=== PATIENT | female | born 1965 | race Caucasian/White ===

== ENCOUNTER 2019-05-05 13:32 | Emergency (ER) | payer OTHER ==
--- NOTE | 2019-05-05 14:42 | RAD REPORT ---
EXAM DESCRIPTION: RAD - Knee Left 3 View - 05/05/2019 2:36 pm CLINICAL HISTORY: injury;Pain COMPARISON: No comparisons FINDINGS: Mild arthritic changes are present in the medial joint compartment. Trace suprapatellar denise int fluid. No aggressive marrow pattern. IMPRESSION: Mild osteoarthritis.
--- NOTE | 2019-05-05 14:44 | RAD REPORT ---
EXAM DESCRIPTION: RAD - Hand Right 3 View - 05/05/2019 2:36 pm CLINICAL HISTORY: PAIN COMPARISON: Knee Left 3 View dated 05/05/2019 FINDINGS: No fracture or dislocation seen.
--- NOTE | 2019-05-05 14:50 | ER ---
Nurse's Notes [facility] Name: Alondra Lora Age: 54 yrs Sex: Female : 1965 Arrival Date: 05/05/2019 Time: 13:33 Bed 25 Private MD: Emre Manzanares V Diagnosis: Contusion of left knee;Contusion of right hand Presentation: 05/05 14:02 Presenting complaint: Patient states: L knee pain after tripping and falling in the parking lot today. pain is 1/10. Transition of care: patient was not received from another setting of care. Onset of symptoms was May 05, 2019. Risk Assessment: Do you want to hurt yourself or someone else? Patient reports no desire to harm self or others. Initial Sepsis Screen: Does the patient have a suspected source of infection? No. Patient's initial sepsis screen is negative. Initial Sepsis Screen: Does the patient meet any 2 criteria? No. Patient's initial sepsis screen is negative. Care prior to arrival: None. 14:02 Method Of Arrival: Ambulatory ss 14:02 Acuity: ALAINA 4 ss 14:09 Mechanism of Injury: Fall from standing position. Trauma event details: Injury occurred mg2 in the [facility], Injury occurred: parking lot. 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 - Social history:: Smoking status: Patient/guardian denies using tobacco. - Immunization history: Last tetanus immunization: unknown. - Ebola Screening: : Patient denies exposure to infectious person Patient denies travel to an Ebola-affected area in the 21 days before illness onset. - Family history:: not pertinent. - Hospitalizations: : No recent hospitalization is reported. Screenin:09 Abuse screen: Denies threats or abuse. Denies injuries from another. Nutritional mg2 screening: No deficits noted. Tuberculosis screening: No symptoms or risk factors identified. Fall risk At risk due to prior history of falls. 15:21 Fall Risk Fall in past 12 months (25 points). mg2 Primary Survey: 14:06 NO uncontrolled hemorrhage observed. A: The patient is alert. Airway: patent. mg2 Breathing/Chest: Respiratory pattern: regular, Respiratory effort: spontaneous, unlabored, Breath sounds: clear, bilaterally. in mediastinum, right upper lobe, left upper lobe, right middle lobe, left lower lobe and right lower lobe Chest inspection: symmetrical rise and fall of the chest. Circulation: Skin color: pink. Disability Alert. Exposure/Environment: All clothing and personal items were removed. Forensic evidence collection is not deemed to be indicated at this time. Items placed in patient belonging bag. There is no evidence of uncontrolled external bleeding. Obvious injury(ies) are noted at this time: abrasion on the left knee. 15:21 Reassessment Airway Airway Patent Breathing/Chest Respiratory pattern Regular mg2 Respiratory effort Spontaneous Unlabored Circulation Color [place] Disability Alert. Secondary Survey: 14:09 HEENT: No deficits noted. Gastrointestinal: No deficits noted. : No deficits noted. mg2 Assessment: 14:07 General: Appears in no apparent distress. comfortable, Behavior is calm, cooperative. mg2 Pain: Complains of pain in left knee and right thumb. Neuro: Level of Consciousness is awake, alert, obeys commands, Oriented to person, place, time, situation. EENT: No signs and/or symptoms were reported regarding the EENT system. Cardiovascular: Capillary refill < 3 seconds Patient's skin is warm and dry. Respiratory: Airway is patent Respiratory effort is even, unlabored, Respiratory pattern is regular, symmetrical. GI: No signs and/or symptoms were reported involving the gastrointestinal system. : No signs and/or symptoms were reported regarding the genitourinary system. Derm: Skin abrasion to the left knee. Musculoskeletal: Circulation, motion, and sensation intact. Capillary refill < 3 seconds, Reports pain in right thumb and left knee. Injury Description: Abrasion. Vital Signs: 14:04 BP 119 / 64; Pulse 90; Resp 18; Temp 98; Pulse Ox 100% on R/A; Pain 1/10; mg2 15:20 BP 120 / 78; Pulse 89; Resp 18; Temp 98; Pulse Ox 100% on R/A; mg2 Bismark Coma Score: 14:04 Eye Response: spontaneous(4). Verbal Response: oriented(5). Motor Response: obeys mg2 commands(6). Total: 15. Trauma Score (Adult): 14:04 Eye Response: spontaneous(1); Verbal Response: oriented(1); Motor Response: obeys mg2 commands(2); Systolic BP: > 89 mm Hg(4); Respiratory Rate: 10 to 29 per min(4); Bismark Score: 15; Trauma Score: 12 ED Course: 13:33 Patient arrived in ED. as 13:34 Emre Manzanares MD is Private Physician. as 14:01 Rene Ly MD is Attending Physician. rn 14:04 Boni Sanchez RN is Primary Nurse. mg2 14:04 Triage completed. ss 14:05 Arm band placed on right wrist. ss 14:09 Patient did not have IV access during this emergency room visit. Patient maintains SpO2 mg2 saturation greater than 95% on room air. 14:11 Patient has correct armband on for positive identification. mg2 14:37 XRAY Knee LEFT 3 view In Process Unspecified. EDMS 14:37 XRAY Hand RIGHT 3 View: right thumb injury In Process Unspecified. EDMS 15:00 Thermoregulation: warm blanket given to patient. mg2 15:18 Ice pack to injury. mg2 15:21 No provider procedures requiring assistance completed. mg2 15:22 Patient did not have IV access during this emergency room visit. mg2 Administered Medications: No medications were administered Intake: 14:04 PO: 0ml; Total: 0ml. mg2 Outcome: 14:49 Discharge ordered by . rn 15:21 Discharged to home ambulatory. mg2 15:21 Condition: stable 15:21 Discharge instructions given to patient, Instructed on discharge instructions, follow up and referral plans. Demonstrated understanding of instructions, follow-up care. 15:22 Patient's length of stay was not longer than 2 hours. mg2 15:22 Patient left the ED. mg2 Signatures: Dispatcher [employer] Vi Bridges Roman, MD MD rn Smirch, Shelby, RN RN ss Boni Sanchez RN RN mg2
--- NOTE | 2019-05-05 14:50 | EDPHYS ---
Physician Documentation [facility] Name: Alondra Lora Age: 54 yrs Sex: Female : 1965 Arrival Date: 05/05/2019 Time: 13:33 Bed 25 Private MD: Emre Manzanares V ED Physician Rene Ly HPI: 05/05 14:14 This 54 yrs old Female presents to ER via Ambulatory with complaints of Fall rn Injury. 14:14 Details of fall: The patient fell from an upright position, while walking. Onset: The rn symptoms/episode began/occurred just prior to arrival. Associated injuries: The patient sustained left knee, right thumb. Severity of symptoms: At their worst the symptoms were mild, in the emergency department the symptoms are unchanged. The patient has not experienced similar symptoms in the past. Tripped in parking lot, fell forward, reports hurt left knee and right thumb. No head injury. Denies other injuries. . Is ambulatory, and right thumb does not feel broken.. 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 - Social history:: Smoking status: Patient/guardian denies using tobacco. - Immunization history: Last tetanus immunization: unknown. - Ebola Screening: : Patient denies exposure to infectious person Patient denies travel to an Ebola-affected area in the 21 days before illness onset. - Family history:: not pertinent. - Hospitalizations: : No recent hospitalization is reported. ROS: 14:14 Constitutional: Negative for fever, chills, and weight loss, Neck: Negative for injury, rn pain, and swelling, Cardiovascular: Negative for chest pain, palpitations, and edema, Respiratory: Negative for shortness of breath, cough, wheezing, and pleuritic chest pain, Abdomen/GI: Negative for abdominal pain, nausea, vomiting, diarrhea, and constipation, Back: Negative for injury and pain, MS/Extremity: + left knee and right thumb pain and injury Neuro: Negative for headache, weakness, numbness, tingling, and seizure. Exam: 14:14 Constitutional: This is a well developed, well nourished patient who is awake, alert, rn and in no acute distress. Head/Face: Normocephalic, atraumatic. Eyes: Pupils equal round and reactive to light, extra-ocular motions intact. No periorbital swelling or trauma MS/ Extremity: Pulses equal, no cyanosis. Neurovascular intact. Full, normal range of motion. Equal circumference. + mild tenderness inferior margin left patella with extensor function intact, no patellar proper tendernes Neuro: Awake and alert, GCS 15, oriented to person, place, time, and situation. Vital Signs: 14:04 BP 119 / 64; Pulse 90; Resp 18; Temp 98; Pulse Ox 100% on R/A; Pain 1/10; mg2 15:20 BP 120 / 78; Pulse 89; Resp 18; Temp 98; Pulse Ox 100% on R/A; mg2 Bismark Coma Score: 14:04 Eye Response: spontaneous(4). Verbal Response: oriented(5). Motor Response: obeys mg2 commands(6). Total: 15. Trauma Score (Adult): 14:04 Eye Response: spontaneous(1); Verbal Response: oriented(1); Motor Response: obeys mg2 commands(2); Systolic BP: > 89 mm Hg(4); Respiratory Rate: 10 to 29 per min(4); Bismark Score: 15; Trauma Score: 12 MDM: 14:01 Patient medically screened. rn 14:48 Differential diagnosis: abrasion, contusion, fracture. Data reviewed: vital signs, rn nurses notes, radiologic studies, plain films, and as a result, I will discharge patient. Counseling: I had a detailed discussion with the patient and/or guardian regarding: the historical points, exam findings, and any diagnostic results supporting the discharge/admit diagnosis, radiology results, the need for outpatient follow up, to return to the emergency department if symptoms worsen or persist or if there are any questions or concerns that arise at home. Special discussion: I discussed with the patient/guardian in detail that at this point there is no indication for admission to the hospital. It is understood, however, that if the symptoms persist or worsen the patient needs to return immediately for re-evaluation. ED course: Xrays neg for fracture/dislocation.. 05/05 14:05 Order name: XRAY Knee LEFT 3 view; Complete Time: 14:47 rn 05/05 14:05 Order name: XRAY Hand RIGHT 3 View: right thumb injury; Complete Time: 14:47 rn Administered Medications: No medications were administered Disposition: 05/05/19 14:49 Discharged to Home. Impression: Contusion of left knee, Contusion of right hand. - Condition is Stable. - Discharge Instructions: Contusion, Hand Contusion, Knee Pain. - Medication Reconciliation Form, Thank You Letter, Antibiotic Education, Prescription Opioid Use form. - Follow up: Private Physician; When: As needed; Reason: Recheck today's complaints, Re-evaluation by your physician. - Problem is new. - Symptoms have improved. Signatures: Dispatcher [employer] EDMS Rene Ly MD MD rn Smirch, Shelby, RN RN ss Boni Sanchez RN RN mg2 Corrections: (The following items were deleted from the chart) 15:22 14:49 05/05/2019 14:49 Discharged to Home. Impression: Contusion of left knee; mg2 Contusion of right hand. Condition is Stable. Forms are Medication Reconciliation Form, Thank You Letter, Antibiotic Education, Prescription Opioid Use. Follow up: Private Physician; When: As needed; Reason: Recheck today's complaints, Re-evaluation by your physician. Problem is new. Symptoms have improved. rn 15:22 15:22 05/05/2019 14:49 Discharged to Home. Impression: Contusion of left knee; mg2 Contusion of right hand. Condition is Stable. Discharge Instructions: Contusion, Hand Contusion, Knee Pain. Forms are Medication Reconciliation Form, Thank You Letter, Antibiotic Education, Prescription Opioid Use. Follow up: Private Physician; When: As needed; Reason: Recheck today's complaints, Re-evaluation by your physician. Problem is new. Symptoms have improved. mg2
[2019-05-05 15:38] VITALS: TEMP 98; O2SAT 100
[2019-05-05 15:40] VITALS: BP 120/78
== END 2019-05-05 15:22 | disposition home or self-care (01) ==
LOC: ER 13:32
DX: S80.02XA Contusion of left knee, initial encounter (principal); S60.221A Contusion of right hand, initial encounter; W01.0XXA Fall on same level from slipping, tripping and stumbling without subsequent striking against object, initial encounter; Y93.9 Activity, unspecified; Y92.89 Other specified places as the place of occurrence of the external cause; Z88.0 Allergy status to penicillin
CPT/HCPCS: 99284

== ENCOUNTER 2021-10-10 07:01 | Day surgery (SDC) | payer BC, SELFPAY ==
[2021-10-10] MEDS ORDERED: Ringers Lactate 1,000 ML IV ONE (07:14)
[2021-10-10] MEDS ORDERED: LIDOCAINE 1% MPF 5 ML VIAL ONE (08:55)
[2021-10-10] MEDS ORDERED: propofoL 200 MG/20 ML VIAL IV ONE (08:55)
[2021-10-10 10:14] VITALS: O2SAT 99
[2021-10-10 10:15] VITALS: BP 108/76; TEMP 97.2
--- NOTE | 2021-10-10 21:12 | OP ---
Surgeon: Rashard Sanchez MD Procedure Performed: Esophagogastroduodenoscopy. Indication For Procedure: Occult blood in the stools. Plan For Anesthesia: Monitored anesthesia care. Complexity: Average. Technique: After obtaining informed consent from the patient, explaining risks and complications, wh ich include, but are not limited to bleeding, infection, perforation, and anesthesia complication, th e patient was placed in the left lateral position and sedation was given. From then on, the scope wa s advanced into the mouth and carefully guided up till the second portion of the duodenum. After com pletion of this examination, scope and equipment were withdrawn and procedure was terminated in a saf e manner. Findings: Esophagus: No gross lesions seen in the entire esophagus. Stomach: Mild striped erythema seen in the antrum. Antral and body biopsies taken. Duodenum: The bulb and second portion appeared normal. Complications: None. Estimated Blood Loss: Minimal. Postoperative Diagnosis: Mild gastritis. Tolerance Of Anesthesia: Excellent. Impression: Mild gastritis. Plan: Continue current management. Depending on biopsy results, may need PPI or H pylori treatment if only the biopsy shows finding consistent with either of those, otherwise no treatment indicated at this time. US/MODL Voice ID: [id number] Report ID: [id number]
== END 2021-10-10 10:00 | disposition home or self-care (01) ==
LOC: OR 07:01
PROVIDERS: ATTEND Internal Medicine Gastroenterology
PROC: 0DB78ZX Excision of Stomach, Pylorus, Via Natural or Artificial Opening Endoscopic, Diagnostic (ICD-10-PCS; principal; 2021-10-10 08:00)
DX: R19.5 Other fecal abnormalities (principal); K29.50 Unspecified chronic gastritis without bleeding; Z20.822 Contact with and (suspected) exposure to COVID-19
CPT/HCPCS: 88305; 88312; J2704; J7120; U0003

== ENCOUNTER 2022-09-15 09:20 | Emergency (ER) | payer BC ==
--- OUTSIDE RECORDS SUMMARY | 2022-09-15 09:27 | XMS REPORT | Continuity of Care Document ---
:1965 Author Organization [facility] t Address [address] [place] [address] [address] [place] [address] Care Team Providers Name Role Phone [phone] Primary Care Physician Unavailable SYSTEM, PROVIDER NOT IN Attending Clinician Unavailable CORA MORAN Attending Clinician UnavailTONY Germain Attending Clinician Unavailable CORA MORAN Attending Clinician Unavailable Cora Moran MD Attending Clinician [phone] Tony Grey MD Attending Clinician [phone] [facility], [facility] Staff Attending Clinician Unavailable Ricardo Valadez MD Attending Clinician Martha Laughlin MA Attending Clinician Unavailable Jakub Fernandes MD Attending Clinician Annabel Guerrero MD Attending Clinician , [facility] Room Attending Clinician Unavailable [email or web address] Attending Clinician Unavailable Osiris Pugh Attending Clinician [phone] TONY GREY Admitting Clinician Unavailable CORA MORAN Admitting Clinician Unavailable [email or web address] Admitting Clinician Unavailable Payers Payer Name Policy Type Policy Number Effective Date Expiration Date S ource BS PPO POS EPO [id number] 2021 2021 CHOICE 00:00:00 00:00:00 OUT OF STATE [id number] BCBS - PPO - BCBS GENERIC PPO - [id number] 2021 GENERIC PAYOR 00:00:00 [facility] GENERIC PLAN [id number] 2011 [facility] 00:00:00 GEHA - PHCS ERROR [birth year] 00:00:00 00:00:00 [place] [id number] 2021 [place] ([place] 00:00:00 Problems Condition Condition Condition Status Onset Resolution Last Treating Co mments Source Name Details Category Date Date Treatment Clinician Date Morbid Morbid Disease Recurre 2021-[address] [facility] obesity obesity nce 2 [facility] with BMI with BMI 00:00: [place] [id number] Center 40.0-44.9, 40.0-44.9, adult adult Endometria Endometria Disease Recurre [facility] adenocarci adenocarci 00:00: Me dical noma noma 00 Center Allergies, Adverse Reactions, Alerts Allergy Allergy Status Severity Reaction(s) Onset Inactive Treating Comm ents Source Name Type Date Date Clinician Penicill Drug Active Rash 2011-[address] [facility] Allergy [facility] 00:[facility]: Medical 00 Center PENICILL Allergy Active Low Rash 2011-04 [facility] 1-20 00:00: 00 PENICILL Allergy Active Rash [facility] to Medical [facility] e Social History Social Habit Start Date Stop Date Quantity Comments Source History SDOH [facility] Alcohol Frequency Medical Center History SDOH [facility] Alcohol Std Drinks Medica l Center History SDOH [facility] Alcohol Binge Medical Reymundo ter Tobacco use and 2022-07-16 2022-07-16 Smokeless [address] [facility] exposure 00:00:00 00:00:00 non-user Medical Center Alcohol intake 2022-07-16 2022-07-16 [facility] Center (finding) Exposure to 2022-04-05 2022-04-[address] [facility] SARS-CoV-2 (event) 00:00:00 19:24:00 Medica l Center Alcohol Comment 2021-08-09 2021-08-09 Rarely [facility] 00:00:00 00:00:00 Medical Center Sex Ass[birth year] At [birth year] F JOY Townsend 00:00:00 00:00:00 Medical Center Smoking Status Start Date Stop Date Source Never smoked tobacco [facility] Medications Ordered Filled Start Stop Current Ordering Indication Dosage Frequency Signature Comments Components Source Medication Medication Date Date Medication? Clinician (SIG) Name Name lisinopriL 3-0 Yes 30mg QD Take 1 [facility] (PRINIVIL,Z 3-29 tablet (30 [facility] ESTRIL) 30 13:20: mg total) Me dical MG tablet 08 by mouth Center in the morning. levothyroxi 3-0 Yes 50ug Take [address] [facility] ne 3-29 tablet (50 [facility] (SYNTHROID, 13:20: mcg total) Medical LEVOTHROID) 08 by mouth Cent er 50 MCG Every tablet morning on an empty stomach. lisinopriL 2023-0 Yes 30mg QD Take 1 [facility] (PRINIVIL,Z 3-29 tablet (30 [facility] kes ESTRIL) 30 13:20: mg total) Me dical MG tablet 08 by mouth Center in the morning. levothyroxi 2023-0 Yes 50ug Take [address] [facility] ne 3-29 tablet (50 [facility] (SYNTHROID, 13:20: mcg total) Medical LEVOTHROID) 08 by mouth Cent er 50 MCG Every tablet morning on an empty stomach. lisinopriL 2023-0 Yes 30mg QD Take 1 [facility] (PRINIVIL,Z 3-29 tablet (30 [facility]a kes ESTRIL) 30 13:20: mg total) Me dical MG tablet 08 by mouth Center in the morning. levothyroxi 2023-0 Yes 50ug Take [address] [facility] ne 3-29 tablet (50 [facility] (SYNTHROID, 13:20: mcg total) Medical LEVOTHROID) 08 by mouth Cent er 50 MCG Every tablet morning on an empty stomach. lisinopriL 2023-0 Yes 30mg QD Take 1 [facility] (PRINIVIL,Z 3-29 tablet (30 [facility] kes ESTRIL) 30 13:20: mg total) Me dical MG tablet 08 by mouth Center in the morning. levothyroxi 2023-0 Yes 50ug Take [address] [facility] ne 3-29 tablet (50 [facility] (SYNTHROID, 13:20: mcg total) Medical LEVOTHROID) 08 by mouth Cent er 50 MCG Every tablet morning on an empty stomach. lisinopriL 2021-04 Yes 30mg QD Take [address] (PRINIVIL,Z 2-28 by mouth Luke s ESTRIL) 30 12:22: daily. Medic al MG tablet 20 Center levothyroxi 2021-04 Yes 50ug Take [address] [facility] [address] ne 2-28 mcg by [facility]ukes (SYNTHROID, 12:22: mouth Medic al LEVOTHROID) 20 Every Center 50 MCG morning on tablet an empty stomach. lisinopriL 2021-04 Yes 30mg QD Take [address] (PRINIVIL,Z 2-28 by mouth Luke s ESTRIL) 30 12:22: daily. Medic al MG tablet 20 Center levothyroxi 2021-04 Yes 50ug Take [address] [facility] [address] ne 2-28 mcg by Lukes (SYNTHROID, 12:22: mouth Medic al LEVOTHROID) 20 Every Center 50 MCG morning on tablet an empty stomach. lisinopriL 2021-04 Yes 30mg QD Take [address] (PRINIVIL,Z 2-28 by mouth Luke s ESTRIL) 30 12:22: daily. Medic al MG tablet 20 Center levothyroxi 2021-04 Yes 50ug Take [address] [facility] [address] ne 2-28 mcg by Lukes (SYNTHROID, 12:22: mouth Medic al LEVOTHROID) 20 Every Center 50 MCG morning on tablet an empty stomach. pantoprazol 2021-04- No 40mg QD Take [address] [facility] e 2-28 12-28 tablet (40 [facility] (Protonix) 00:00: 23:59 mg total) M edical 40 MG 00 :00 by mouth Center tablet daily. pantoprazol 2021-04- No 40mg QD Take [address] [facility] e 2-28 12-28 tablet (40 [facility] (Protonix) 00:00: 23:59 mg total) M edical 40 MG 00 :00 by mouth Center tablet daily. pantoprazol 2021-04- No 40mg QD Take [address] [facility] e 2-28 12-28 tablet (40 [facility] (Protonix) 00:00: 23:59 mg total) M edical 40 MG 00 :00 by mouth Center tablet daily. pantoprazol 2021-04- No 40mg QD Take [address] [facility] e 2-16 04- tablet (40 [facility] (Protonix) 00:00: 23:59 mg total) M edical 40 MG 00 :00 by mouth Center tablet daily. pantoprazol 2021-04- No 40mg QD Take [address] [facility] -16 04-28 tablet (40 [facility] (Protonix) 00:00: 23:59 mg total) M edical 40 MG 00 :00 by mouth Center tablet daily. pantoprazol 2021-04- No 40mg QD Take [address] [facility] -16 04- tablet (40 [facility] (Protonix) 00:00: 23:59 mg total) M edical 40 MG 00 :00 by mouth Center tablet daily. pantoprazol 2021-04- No 40mg QD Take [address] [facility] e 06-17- tablet (40 [facility] (Protonix) 00:00: 23:59 mg total) M edical 40 MG 00 :00 by mouth Center tablet daily. traMADoL 2021-04- No 50mg Take [address] [facility] [address] (ULTRAM) 50 06-17- tablet (50 L ukes mg tablet 00:00: 23:59 mg total) Me dical 00 :00 by mouth Center every 6 (six) hours as needed for Pain for up to 10 days. Max Daily Amount: 200 mg traMADoL 2021-04- No 50mg Take [address] [facility] [address] (ULTRAM) 50 06-17-07 tablet (50 L ukes mg tablet 00:00: 23:59 mg total) Me dical 00 :00 by mouth Center every 6 (six) hours as needed for Pain for up to 10 days. Max Daily Amount: 200 mg traMADoL 2021-04- No 50mg Take [address] [facility] [address] (ULTRAM) 50 06-17-07 tablet (50 L ukes mg tablet 00:00: 23:59 mg total) Me dical 00 :00 by mouth Center every 6 (six) hours as needed for Pain for up to 10 days. Max Daily Amount: 200 mg traMADoL 2021-04- No 50mg Take [address] [facility] [address] (ULTRAM) 50 06-17 tablet (50 L ukes mg tablet 00:00: 23:59 mg total) Me dical 00 :00 by mouth Center every 6 (six) hours as needed for Pain for up to 10 days. Max Daily Amount: 200 mg traMADoL 2021-04- No 50mg Take [address] [facility] [address] (ULTRAM) 50 06-17 tablet (50 L ukes mg tablet 00:00: 23:59 mg total) Me dical 00 :00 by mouth Center every 6 (six) hours as needed for Pain for up to 10 days. Max Daily Amount: 200 mg traMADoL 2021-04- No 50mg Take [address] [facility] [address] (ULTRAM) 50 06-17 tablet (50 L ukes mg tablet 00:00: 23:59 mg total) Me dical 00 :00 by mouth Center every 6 (six) hours as needed for Pain for up to 10 days. Max Daily Amount: 200 mg traMADoL 2021-04 No 50mg Take [address] [facility] [address] (ULTRAM) 50 06-17 tablet (50 L ukes mg tablet 00:00: 23:59 mg total) Me dical 00 :00 by mouth Center every 6 (six) hours as needed for Pain for up to 10 days. Max Daily Amount: 200 mg ondansetron 2021-04- No 4mg Take [address] [facility] [address] (ZOFRAN-ODT 06-17 tablet (4 [facility]a kes ) 4 MG 00:00: 23:59 mg total) Medic al disintegrat 00 :00 by mouth Cent er ing tablet every 8 (eight) hours as needed for Nausea for up to 7 days. ondansetron 2021-04- No 4mg Take [address] [facility] [address] (ZOFRAN-ODT 06-17 tablet (4 [facility]rita kes ) 4 MG 00:00: 23:59 mg total) Medic al disintegrat 00 :00 by mouth Cent er ing tablet every 8 (eight) hours as needed for Nausea for up to 7 days. ondansetron 2021-04- No 4mg Take [address] [facility] [address] (ZOFRAN-ODT 06-1704 tablet (4 Chap[facility]rita kes ) 4 MG 00:00: 23:59 mg total) Medic al disintegrat 00 :00 by mouth Cent er ing tablet every 8 (eight) hours as needed for Nausea for up to 7 days. ondansetron 2021-04- No 4mg Take [address] [facility] [address] (ZOFRAN-ODT 2-04 tablet (4 [facility]a kes ) 4 MG 00:00: 23:59 mg total) Medic al disintegrat 00 :00 by mouth Cent er ing tablet every 8 (eight) hours as needed for Nausea for up to 7 days. ondansetron 2021-04- No 4mg Take [address] [facility] [address] (ZOFRAN-ODT -17 05-04 tablet (4 Chaparrita kes ) 4 MG 00:00: 23:59 mg total) Medic al disintegrat 00 :00 by mouth Cent er ing tablet every 8 (eight) hours as needed for Nausea for up to 7 days. ondansetron 2021-04- No 4mg Take [address] [facility] (ZOFRAN-ODT -17 05-04 tablet (4 [facility]a kes ) 4 MG 00:00: 23:59 mg total) Medic al disintegrat 00 :00 by mouth Cent er ing tablet every 8 (eight) hours as needed for Nausea for up to 7 days. ondansetron 2021-04- No 4mg Take [address] [facility] [address] (ZOFRAN-ODT 06-17-04 tablet (4 Chap[facility]a kes ) 4 MG 00:00: 23:59 mg total) Medic al disintegrat 00 :00 by mouth Cent er ing tablet every 8 (eight) hours as needed for Nausea for up to 7 days. metFORMIN 2021-04- No 500mg QD Take [address] (GLUCOPHAGE 0-18 12-28 mg by Lukes -XR) 500 MG 00:00: 00:00 mouth Medi bret 24 hr 00 :00 daily. Center tablet atorvastati 2021-04- No 20mg QD Take [address] [facility] (LIPITOR) 0-18 12-28 by mouth Madelaine es 20 MG 00:00: 00:00 daily. Medical tablet 00 :00 Center metFORMIN 2021-04- No 500mg QD Take [address] (GLUCOPHAGE 0-18 12-28 mg by Lukes -XR) 500 MG 00:00: 00:00 mouth Medi bret 24 hr 00 :00 daily. Center tablet atorvastati 2021-04- No 20mg QD Take [address] [facility] (LIPITOR) 0-18 12-28 by mouth Madelaine es 20 MG 00:00: 00:00 daily. Medical tablet 00 :00 [facility] metFORMIN 2021-04- No 500mg QD Take [address] (GLUCOPHAGE 0-18 12-28 mg by Lukes -XR) 500 MG 00:00: 00:00 mouth Medi bret 24 hr 00 :00 daily. [facility] tablet atorvastati 2021-04- No 20mg QD Take [address] [facility] (LIPITOR) 0-18 12-28 by mouth Madelaine es 20 MG 00:00: 00:00 daily. Medical tablet 00 :00 [facility] metFORMIN 2021-04- No 500mg QD Take [address] (GLUCOPHAGE 0-18 12-28 mg by Lukes -XR) 500 MG 00:00: 00:00 mouth Medi bret 24 hr 00 :00 daily. [facility] tablet atorvastati 2021-04- No 20mg QD Take [address] [facility] (LIPITOR) 0-18 12-28 by mouth Madelaine es 20 MG 00:00: 00:00 daily. Medical tablet 00 :00 [facility] metFORMIN 2021-04- No 500mg QD Take [address] (GLUCOPHAGE 0-18 12-28 mg by Lukes -XR) 500 MG 00:00: 00:00 mouth Medi bret 24 hr 00 :00 daily. [facility] tablet atorvastati 2021-04- No 20mg QD Take [address] [facility] (LIPITOR) 0-18 12-28 by mouth Madelaine es 20 MG 00:00: 00:00 daily. Medical tablet 00 :00 [facility] metFORMIN 2021-04- No 500mg QD Take [address] (GLUCOPHAGE 0-18 12-28 mg by Lukes -XR) 500 MG 00:00: 00:00 mouth Medi bret 24 hr 00 :00 daily. [facility] tablet atorvastati 2021-04- No 20mg QD Take [address] [facility] (LIPITOR) 0-18 12-28 by mouth Madelaine es 20 MG 00:00: 00:00 daily. Medical tablet 00 :00 [facility] metFORMIN 2021-04- No 500mg QD Take [address] (GLUCOPHAGE 0-18 12-28 mg by Lukes -XR) 500 MG 00:00: 00:00 mouth Medi bret 24 hr 00 :00 daily. Center tablet atorvastati 2021-04- No 20mg QD Take [address] [facility] (LIPITOR) 0-18 12-28 by mouth Madelaine es 20 MG 00:00: 00:00 daily. Medical tablet 00 :00 Center acetaminoph 2022- No 650mg Take [address] [facility] 08-1624 tablets [facility]ukes (TYLENOL) 00:00: 23:59 (650 mg Medi bret 325 MG 00 :00 total) by Center tablet mouth every 6 (six) hours as needed for Pain for up to 360 days. acetaminoph 2022- No 650mg Take [address] [facility] 08-16 04-24 tablets [facility]ukes (TYLENOL) 00:00: 23:59 (650 mg Medi bret 325 MG 00 :00 total) by Center tablet mouth every 6 (six) hours as needed for Pain for up to 360 days. acetaminoph 2022- No 650mg Take [address] [facility] 08-1624 tablets [facility] (TYLENOL) 00:00: 23:59 (650 mg Medi bret 325 MG 00 :00 total) by Center tablet mouth every 6 (six) hours as needed for Pain for up to 360 days. acetaminoph 2022- No 650mg Take [address] [facility] 08-16 04-24 tablets [facility]ukes (TYLENOL) 00:00: 23:59 (650 mg Medi bret 325 MG 00 :00 total) by Center tablet mouth every 6 (six) hours as needed for Pain for up to 360 days. acetaminoph 2022- No 650mg Take [address] [facility] 08-16 04-24 tablets [facility] (TYLENOL) 00:00: 23:59 (650 mg Medi bret 325 MG 00 :00 total) by Center tablet mouth every 6 (six) hours as needed for Pain for up to 360 days. acetaminoph 2022- No 650mg Take [address] [facility] 08-16 04-24 tablets [facility] (TYLENOL) 00:00: 23:59 (650 mg Medi bret 325 MG 00 :00 total) by Center tablet mouth every 6 (six) hours as needed for Pain for up to 360 days. acetaminoph 2021-0 2022- No 650mg Take [address] [facility] 08-16-24 tablets [facility] (TYLENOL) 00:00: 23:59 (650 mg Medi bret 325 MG 00 :00 total) by Center tablet mouth every 6 (six) hours as needed for Pain for up to 360 days. ibuprofen 2021-0 2021- No 600mg Take [address] [facility] (ADVIL,MOTR 08-16-09 tablet [facility] IN) 600 MG 00:00: 23:59 (600 mg Med ical tablet 00 :00 total) by Center mouth every 6 (six) hours as needed for Pain for up to 10 days. traMADoL 2021-0 2021- No 50mg Take [address] [facility] (ULTRAM) 50 08-16-09 tablet (50 L ukes mg tablet 00:00: 23:59 mg total) Me dical 00 :00 by mouth Center every 6 (six) hours as needed for Pain for up to 10 days. Max Daily Amount: 200 mg ibuprofen 2021-0 2021- No 600mg Take [address] [facility] (ADVIL,MOTR 08-16-09 tablet [facility] IN) 600 MG 00:00: 23:59 (600 mg Med ical tablet 00 :00 total) by Center mouth every 6 (six) hours as needed for Pain for up to 10 days. traMADoL 2021-0 2- No 50mg Take [address] [facility] [address] (ULTRAM) 50 08-16-09 tablet (50 L ukes mg tablet 00:00: 23:59 mg total) Me dical 00 :00 by mouth Center every 6 (six) hours as needed for Pain for up to 10 days. Max Daily Amount: 200 mg ibuprofen 2021-0 2- No 600mg Take [address] [facility] (ADVIL,MOTR 08-16 05-09 tablet [facility]ukes IN) 600 MG 00:00: 23:59 (600 mg Med ical tablet 00 :00 total) by Center mouth every 6 (six) hours as needed for Pain for up to 10 days. traMADoL 2021-0 2- No 50mg Take [address] [facility] [address] (ULTRAM) 50 08-16 05-09 tablet (50 L ukes mg tablet 00:00: 23:59 mg total) Me dical 00 :00 by mouth Center every 6 (six) hours as needed for Pain for up to 10 days. Max Daily Amount: 200 mg ibuprofen 2021-0 2021- No 600mg Take [address] [facility] (ADVIL,MOTR 4-29 05-09 tablet [facility]ukes IN) 600 MG 00:00: 23:59 (600 mg Med ical tablet 00 :00 total) by Center mouth every 6 (six) hours as needed for Pain for up to 10 days. traMADoL 2021-2021- No 50mg Take [address] [facility] [address] (ULTRAM) 50 4-29 05-09 tablet (50 L ukes mg tablet 00:00: 23:59 mg total) Me dical 00 :00 by mouth Center every 6 (six) hours as needed for Pain for up to 10 days. Max Daily Amount: 200 mg ibuprofen 2021-0 2021- No 600mg Take [address] [facility] (ADVIL,MOTR 4-29 05-09 tablet [facility] IN) 600 MG 00:00: 23:59 (600 mg Med ical tablet 00 :00 total) by Center mouth every 6 (six) hours as needed for Pain for up to 10 days. traMADoL 2021-0 2021- No 50mg Take [address] [facility] (ULTRAM) 50 4- 05-09 tablet (50 L ukes mg tablet 00:00: 23:59 mg total) Me dical 00 :00 by mouth Center every 6 (six) hours as needed for Pain for up to 10 days. Max Daily Amount: 200 mg ibuprofen 2021-2021- No 600mg Take [address] [facility] (ADVIL,MOTR 429 05-09 tablet [facility] IN) 600 MG 00:00: 23:59 (600 mg Med ical tablet 00 :00 total) by Center mouth every 6 (six) hours as needed for Pain for up to 10 days. traMADoL 2021-0 2021- No 50mg Take [address] [facility] (ULTRAM) 50 4-29 05-09 tablet (50 L ukes mg tablet 00:00: 23:59 mg total) Me dical 00 :00 by mouth Center every 6 (six) hours as needed for Pain for up to 10 days. Max Daily Amount: 200 mg levothyroxi levothyroxi No levothyrox [facility] ne 50 mcg ne 50 mcg ine 50 mcg Medical tablet tablet tablet lisinopril lisinopril No lisinopril [facility] 30 mg 30 mg 30 mg Medical tablet tablet tablet levothyroxi levothyroxi No levothyrox [facility] ne 50 mcg ne 50 mcg ine 50 mcg Medical tablet tablet tablet lisinopril lisinopril No lisinopril [facility] 30 mg 30 mg 30 mg Medical tablet tablet tablet Immunizations Ordered Immunization Filled Immunization Date Status Commen ts Source Name Name COVID-19 COVID-19 2021-01-02 Completed [facility] (SARS-COV-2) (SARS-COV-2) 00:00:00 vaccine, unspecified vaccine, unspecified COVID-19 COVID-19 2021-01-02 Completed [facility] (SARS-COV-2) (SARS-COV-2) 00:00:00 vaccine, unspecified vaccine, unspecified influenza, influenza, 2020-12-19 Completed [facility] unspecified unspecified 00:00:00 formulation formulation influenza, influenza, 2020-12-19 Completed [facility] unspecified unspecified 00:00:00 formulation formulation COVID-19 COVID-19 2020-05-04 Completed [facility] (SARS-COV-2) (SARS-COV-2) 00:00:00 vaccine, unspecified vaccine, unspecified COVID-19 COVID-19 2020-05-04 Completed [facility] (SARS-COV-2) (SARS-COV-2) 00:00:00 vaccine, unspecified vaccine, unspecified COVID-19 COVID-19 2020-04-03 Completed [facility] (SARS-COV-2) (SARS-COV-2) 00:00:00 vaccine, unspecified vaccine, unspecified COVID-19 COVID-19 2020-04-03 Completed [facility] (SARS-COV-2) (SARS-COV-2) 00:00:00 vaccine, unspecified vaccine, unspecified Vital Signs Vital Name Observation Time Observation Value Comments Source HEIGHT 2022-07-16 13:15:00 162.6 cm WEIGHT 2022-07-16 13:15:00 95.8 kg HEIGHT 2022-07-16 13:15:00 162.6 cm WEIGHT 2022-07-16 13:15:00 95.8 kg HEIGHT 2022-05-28 13:12:00 162.6 cm WEIGHT 2022-05-28 13:12:00 100.426 kg HEIGHT 2022-05-28 13:12:00 162.6 cm WEIGHT 2022-05-28 13:12:00 100.426 kg HEIGHT 2022-04-28 14:24:00 162.6 cm WEIGHT 2022-04-28 14:24:00 104.917 kg HEIGHT 2022-04-28 14:24:00 162.6 cm WEIGHT 2022-04-28 14:24:00 104.917 kg HEIGHT 2022-04-15 12:12:00 162.6 cm WEIGHT 2022-04-15 12:12:00 112.038 kg WEIGHT 2022-04-10 11:26:00 112.038 kg HEIGHT 2022-04-10 11:26:00 162.6 cm HEIGHT 2022-04-15 12:12:00 162.6 cm WEIGHT 2022-04-15 12:12:00 112.038 kg WEIGHT 2022-04-10 11:26:00 112.038 kg HEIGHT 2022-04-10 11:26:00 162.6 cm HEIGHT 2022-04-15 12:12:00 162.6 cm WEIGHT 2022-04-15 12:12:00 112.038 kg WEIGHT 2022-04-10 11:26:00 112.038 kg HEIGHT 2022-04-10 11:26:00 162.6 cm HEIGHT 2022-03-19 12:01:00 165.1 cm WEIGHT 2022-03-19 12:01:00 112.946 kg HEIGHT 2022-03-19 12:01:00 165.1 cm WEIGHT 2022-03-19 12:01:00 112.946 kg HEIGHT 2022-02-12 11:55:00 165.1 cm WEIGHT 2022-02-12 11:55:00 111.177 kg HEIGHT 2022-02-12 11:55:00 165.1 cm WEIGHT 2022-02-12 11:55:00 111.177 kg HEIGHT 2021-08-16 10:46:00 162.6 cm WEIGHT 2021-08-16 10:46:00 113.3 kg HEIGHT 2021-08-09 11:00:00 162.6 cm WEIGHT 2021-08-09 11:00:00 113.399 kg HEIGHT 2021-08-16 10:46:00 162.6 cm WEIGHT 2021-08-16 10:46:00 113.3 kg HEIGHT 2021-08-09 11:00:00 162.6 cm WEIGHT 2021-08-09 11:00:00 113.399 kg BP Diastolic 2021-07-19 00:00:00 80 mm[Hg] [facility] edical Height 2021-07-19 00:00:00 64 [in_i] [facility] BMI (Body Mass Index) 2021-07-19 00:00:00 43.6 kg/m2 [facility] Medical BP Systolic 2021-07-19 00:00:00 140 mm[Hg] [facility] ed[facility] Body Weight 2021-07-19 00:00:00 254 [lb_av] [facility] BP Diastolic 2021-06-13 00:00:00 88 mm[Hg] [facility] Height 2021-06-13 00:00:00 64 [in_i] [facility] BMI (Body Mass Index) 2021-06-13 00:00:00 43.6 kg/m2 [facility] Medical BP Systolic 2021-06-13 00:00:00 138 mm[Hg] [facility] Body Weight 2021-06-13 00:00:00 254.2 [lb_av] [facility] Medical Body height 2022-07-16 13:15:00 162.6 cm [facility] Body weight 2022-07-16 13:15:00 95.8 kg [facility] BMI 2022-07-16 13:15:00 36.25 kg/m2 [facility] Systolic blood 2022-05-28 13:12:00 131 mm[Hg] [facility] Diastolic blood 2022-05-28 13:12:00 81 mm[Hg] [facility] Heart rate 2022-05-28 13:12:00 87 /min [facility] Body temperature 2022-05-28 13:12:00 36.28 Shalonda [facility] Systolic blood 2022-04-28 14:24:00 131 mm[Hg] [facility] Diastolic blood 2022-04-28 14:24:00 82 mm[Hg] [facility] Heart rate 2022-04-28 14:24:00 80 /min [facility] Body temperature 2022-04-28 14:24:00 36.5 Shalonda [facility] Body height 2022-04-28 14:24:00 162.6 cm [facility] Body weight 2022-04-28 14:24:00 104.917 kg [facility] BMI 2022-04-28 14:24:00 39.70 kg/m2 [facility] Respiratory rate 2022-04-16 08:42:00 18 /min [facility] Oxygen saturation in 2022-04-16 08:42:00 95 /min [facility] Arterial blood by Medical Ce nter Pulse oximetry Procedures Procedure Date / Time Performing Clinician Source Performed CBC W/PLT COUNT & AUTO 2022-07-18 11:32[facility] 2022-07-18 11:32:00 [facility] PANEL [facility] PTH, INTACT 2022-07-18 11:32:00 [facility] VITAMIN B12 2022-07-18 11:32:00 [facility] VITAMIN A 2022-07-18 11:32:00 [facility] VITAMIN B1 (THIAMINE), 2022-07-18 11:32[facility]ter VITAMIN D, 25-HYDROXY 2022-07-18 11:32:00 [facility] VITAMIN E 2022-07-18 11:32:00 [facility] BASIC METABOLIC PANEL 2022-04-16 05:50:00 [facility] W/[facility]T [facility] & AUTO 2022-04-16 05:50:00 [facility] W/[facility]T COUNT & AUTO 2022-04-16 05:50:00 [facility] DIFFERENTIAL [facility] POCT-GLUCOSE METER 2022-04-15 23:43:00 Que [facility] POCT-GLUCOSE METER 2022-04-15 19:16:[address] [facility] POCT-GLUCOSE METER 2022-04-15 15:39:[address] [facility] TISSUE EXAM 2022-04-15 14:37:00 Que [facility] GASTRECTOMY, SLEEVE, 2022-04-15 13:55:00 [facility] POCT-GLUCOSE METER 2022-04-15 12:34:[address] [facility] CBC W/PLT COUNT & AUTO 2022-04-11 09:20:00 Que Tony [facility] Melissa t [place] DIFFERENTIAL [facility] COMPREHENSIVE METABOLIC 2022-04-11 09:20:00 Que [facility] ER PANEL [facility] HEMOGLOBIN A1C 2022-04-11 09:20:00 [facility] IRON, SERUM 2022-04-11 09:20:00 [facility]1 2022-04-11 09:20:00 [facility] VIT[facility] B12 2022-04-11 09:20:00 [facility] VITAMIN D, 25-HYDROXY 2022-04-11 09:20:00 [facility] CBC W/PLT COUNT & AUTO 2022-04-11 09:20:00 [facility] Melissa t [facility] DIFFERENTIAL [facility] SARS-COV2/RT-PCR ([facility] & 2022-04-11 09:20:00 Que [facility] ER REF LABS) [facility] MISCELLANEOUS LAB ORDER 2022-04-11 09:20:00 Que [facility] HM MAMMOGRAPHY 2022-02-12 00:00:00 Provider [facility] AMB REF TO GENETICS 2022-01-16 14:46:59 [facility] Wilber schultz of COUNSELOR (CANCER) Medicine HM COLONOSCOPY 2021-09-12 00:00:00 Jay Bourne [facility] TISSUE EXAM 2021-08-16 14:09:00 Cora Moran [facility] ABORH, MANUAL 2021-08-16 12:05:00 Martine Barrios [facility] ROBOTIC 2021-08-16 11:52:00 Cora Moran [facility] LAPAROSCOPY,HYSTERECTOMY [facility] EXCISIONAL BIOPSY, LYMPH 2021-08-16 11:52:[address] [facility] NODE, SENTINEL [facility] ROBOTIC PELVIC LYMPH NODE 2021-08-16 11:52:[address] [facility] DISSECTION [facility] PROCEDURE W/ DAVINCI XI 2021-08-16 11:52:00 Cora Moran [facility] ROBOTIC 2021-08-16 11:52:00 Cora Moran [facility] LAPAROSCOPY,SALPINGECTOMY [facility] /OOPHORECTOMY CYSTOSCOPY 2021-08-16 11:52:00 Cora Moran [facility] POCT , URINE 2021-08-16 11:22:00 Harpal Bishop [facility] TYPE AND SCREEN, 2021-08-16 11:14:00 Cora Moran [facility] [place] AUTOM[place] [facility] CBC W/PLT COUNT & AUTO 2021-08-16 11:14:00 Cora Moran [facility] DIFFERENTIAL [facility] COMPREHENSIVE METABOLIC 2021-08-16 11:14:00 Cora Moran [facility] PANEL [facility] CBC W/PLT COUNT & AUTO 2021-08-16 11:14:00 Cora Moran [facility] DIFFERENTIAL [facility] HC LAB HIV-1 AG W/HIV-1&2 2021-08-16 11:13:[address] [facility] AB [facility] CT ABDOMEN/PELVIS WITH IV 2021-08-12 17:45:[address] [facility] CONTRAST [facility] SARS-COV2/RT-PCR ([facility] & 2021-08-12 16:15:00 Cora Moran [facility] REF LABS) [facility] BUN AND CREATININE 2021-08-12 16:14:00 [facility] ELECTROLYTES 2021-08-12 16:14:00 Linda [facility] HEMOGLOBIN 2021-08-12 16:14[facility] 2021-08-12 16:14:00 [facility] ECG 12-LEAD 2021-08-12 16:11:24 [facility] MAMMO, screening, 2021-06-13 00:00:00 [facility] digital, bilateral ULTRASOUND OF PELVIS 2021-06-13 00:00:00 [facility] Delivery 1995-04-20 00:00:00 [facility] Delivery 1991-04-20 00:00:00 [facility] Plan of Care Planned Activity Planned Date Details Comments Source Future Scheduled 2031-09-13 Screening for malignant [facility] 00:00:00 neoplasm of colon Medical Ce nter (procedure) [code = 230630401] Future Scheduled 2031-09-13 Screening for malignant [facility] 00:00:00 neoplasm of colon Medical Ce nter (procedure) [code = 661012288] Future Scheduled 2031-09-13 Screening for malignant [facility] 00:00:00 neoplasm of colon Medical Ce nter (procedure) [code = 273410784] Future Scheduled 2031-09-13 Screening for malignant [facility] 00:00:00 neoplasm of colon Medical Ce nter (procedure) [code = 742732181] Future Scheduled 2031-09-13 Screening for malignant [facility] 00:00:00 neoplasm of colon Medical Ce nter (procedure) [code = 916470106] Future Scheduled 2031-09-13 Screening for malignant [facility] 00:00:00 neoplasm of colon Medical Ce nter (procedure) [code = 865646877] Future Scheduled 2031-09-13 Screening for malignant [facility] 00:00:00 neoplasm of colon Medical Ce nter (procedure) [code = 151887659] Future Scheduled 2031-09-13 Screening for malignant [facility] 00:00:00 neoplasm of colon Medical Ce nter (procedure) [code = 897915427] Future Scheduled 2031-09-13 Screening for malignant [facility] 00:00:00 neoplasm of colon Medical Ce nter (procedure) [code = 792698861] Future Scheduled 2031-09-13 Screening for malignant [facility] 00:00:00 neoplasm of colon Medical Ce nter (procedure) [code = 685014748] Future Scheduled 2031-09-13 Screening for malignant [facility] 00:00:00 neoplasm of colon Medical Ce nter (procedure) [code = 789177145] Future Scheduled 2031-09-13 Screening for malignant [facility] 00:00:00 neoplasm of colon Medical Ce nter (procedure) [code = 139909934] Future Scheduled 2031-09-13 Screening for malignant [facility] 00:00:00 neoplasm of colon Medical Ce nter (procedure) [code = 609558510] Future Scheduled 2031-09-13 Screening for malignant [facility] 00:00:00 neoplasm of colon Medical Ce nter (procedure) [code = 967648862] Future Scheduled 2024-02-13 Screening for malignant [facility] 00:00:00 neoplasm of breast Medical C enter (procedure) [code = 116905902] Future Scheduled 2024-02-13 Screening for malignant [facility] 00:00:00 neoplasm of breast Medical C enter (procedure) [code = 345097713] Future Scheduled 2024-02-13 Screening for malignant [facility] 00:00:00 neoplasm of breast Medical C enter (procedure) [code = 255598994] Future Scheduled 2024-02-13 Screening for malignant [facility] 00:00:00 neoplasm of breast Medical C enter (procedure) [code = 877230440] Future Scheduled 2024-02-13 Screening for malignant [facility] 00:00:00 neoplasm of breast Medical C enter (procedure) [code = 594261920] Future Scheduled 2024-02-13 Screening for malignant [facility] 00:00:00 neoplasm of breast Medical C enter (procedure) [code = 895288050] Future Scheduled 2024-02-13 Screening for malignant [facility] 00:00:00 neoplasm of breast Medical C enter (procedure) [code = 086670138] Future Scheduled 2023-07-[address] [facility] 00:00:00 Counseling [facility] Screening Med ical Center (12+) [code = Tobacco Cessation Counseling and Screening (12+)] Future Scheduled 2023-07-[address] [facility] 00:00:00 Counseling and Screening Med ical Center (12+) [code = Tobacco Cessation Counseling and Screening (12+)] Future Scheduled 2023-07-[address] [facility] 00:00:00 Counseling and Screening Med ical Center (12+) [code = Tobacco Cessation Counseling and Screening (12+)] Future Scheduled 2023-07-[address] [facility] 00:00:00 Counseling and Screening Med ical Center (12+) [code = Tobacco Cessation Counseling and Screening (12+)] Future Scheduled 2023-04-[address] [facility] 00:00:00 Counseling and Screening Med ical Center (12+) [code = Tobacco Cessation Counseling and Screening (12+)] Future Scheduled 2023-04-[address] [facility] 00:00:00 Counseling and Screening Med ical Center (12+) [code = Tobacco Cessation Counseling and Screening (12+)] Future Scheduled 2023-04-[address] [facility] 00:00:00 Counseling and Screening Med ical Center (12+) [code = Tobacco Cessation Counseling and Screening (12+)] Future Scheduled 2022-12-[address] [facility] 00:00:00 (Season Ended) [code = Medic al Center INFLUENZA VACCINE (Season Ended)] Future Scheduled 2022-12-[address] [facility] 00:00:00 (Season Ended) [code = Medic al Center INFLUENZA VACCINE (Season Ended)] Future Scheduled 2022-12-[address] [facility] 00:00:00 (Season Ended) [code = Medic al Center INFLUENZA VACCINE (Season Ended)] Future Scheduled 2022-12-[address] [facility] 00:00:00 (Season Ended) [code = Medic al Center INFLUENZA VACCINE (Season Ended)] Future Scheduled 2022-04-[address] [facility] 00:00:00 (12+) [code = DEPRESSION Med ical Center SCREENING (12+)] Future Scheduled 2022-04-[address] [facility] 00:00:00 (12+) [code = DEPRESSION Med ical Center SCREENING (12+)] Future Scheduled 2022-04-[address] [facility] 00:00:00 (12+) [code = DEPRESSION Med ical Center SCREENING (12+)] Future Scheduled 2022-04-[address] [facility] 00:00:00 (12+) [code = DEPRESSION Med ical Center SCREENING (12+)] Future Scheduled 2022-04-[address] [facility] 00:00:00 (12+) [code = DEPRESSION Med ical Center SCREENING (12+)] Future Scheduled 2022-04-[address] [facility] 00:00:00 (12+) [code = DEPRESSION Med ical Center SCREENING (12+)] Future Scheduled 2022-04-[address] [facility] 00:00:00 (12+) [code = DEPRESSION Med ical Center SCREENING (12+)] Future Scheduled 2021-12-19 INFLUENZA VACCINE (#1) [facility]00 [code = INFLUENZA Medical Ce nter VACCINE (#1)] Future Scheduled 2021-12-19 INFLUENZA VACCINE (#1) [facility] 00:00:00 [code = INFLUENZA Medical Ce nter VACCINE (#1)] Future Scheduled 2021-12-19 INFLUENZA VACCINE (#1) [facility] 00:00:00 [code = INFLUENZA Medical Ce nter VACCINE (#1)] Future Scheduled 2021-06-22 COVID-19 VACCINE (4 - [facility]00 [facility] series) [code = COVID-19 VACCINE (4 - [facility] for [facility] series)] Future Scheduled 2021-06-22 COVID-19 VACCINE (4 - [facility] 00[facility]:00 [facility] series) [code = COVID-19 VACCINE (4 - [facility]oster for [facility] series)] Future Scheduled 2021-06-22 COVID-19 VACCINE (4 - [facility] 00:[facility]:00 [facility] series) [code = COVID-19 VACCINE (4 - Booster for [facility] series)] Diagnostic Test 2021-06-13 Cytomegalovirus Ab [facility] Pending 00:00:00 [Titer] in Serum or Plasma by Latex agglutination [code = 5121-9] Diagnostic Test 2021-06-13 Weight of 24 hour [facility] Pending 00:00:00 Specimen [code = 3153-4] Diagnostic Test 2021-06-13 noninvasive colorectal [facility] Pending 00:00:00 cancer DNA + occult blood screening, QL, stool [code = noninvasive colorectal cancer DNA + occult blood screening, QL, stool] Future Scheduled 2021-04-19 COVID-19 VACCINE (4 - [facility] 00:[facility]:00 [facility] series) [code = COVID-19 VACCINE (4 - [facility] for [facility] series)] Future Scheduled 2021-04-19 COVID-19 VACCINE (4 - [facility] 00:00:00 [facility] series) [code = COVID-19 VACCINE (4 - Booster for [facility] series)] Future Scheduled 2021-04-19 COVID-19 VACCINE (4 - [facility] 00:00:00 [facility] series) [code = COVID-19 VACCINE (4 - Booster for [facility] series)] Future Scheduled 2021-04-19 COVID-19 VACCINE (4 - [facility] 00:00:00 [facility] series) [code = COVID-19 VACCINE (4 - Booster for [facility] series)] Future Scheduled 2016-02-01 SHINGLES VACCINES ([address] [facility] 00:00:00 2) [code = SHINGLES Medical Center VACCINES (1 of 2)] Future Scheduled 2016-02-01 SHINGLES VACCINES ([address] [facility] 00:00:00 2) [code = SHINGLES Medical Center VACCINES (1 of 2)] Future Scheduled 2016-02-01 SHINGLES VACCINES ([address] [facility] 00:00:00 2) [code = SHINGLES Medical Center VACCINES (1 of 2)] Future Scheduled 2016-02-01 SHINGLES VACCINES ([address] [facility] 00:00:00 2) [code = SHINGLES Medical Center VACCINES (1 of 2)] Future Scheduled 2016-02-01 SHINGLES VACCINES ([address] [facility] 00:00:00 2) [code = SHINGLES Medical Center VACCINES (1 of 2)] Future Scheduled 2016-02-01 SHINGLES VACCINES ([address] [facility] 00:00:00 2) [code = SHINGLES Medical Center VACCINES (1 of 2)] Future Scheduled 2016-02-01 SHINGLES VACCINES ([address] [facility] 00:00:00 2) [code = SHINGLES Medical Center VACCINES (1 of 2)] Future Scheduled 2011 Lipid panel (procedure) [facility] 00:00:00 [code = 75411346] Medical Ce nter Future Scheduled 2011 Lipid panel (procedure) [facility] 00:00:00 [code = 16014619] Medical Ce nter Future Scheduled 2011 Lipid panel (procedure) [facility] 00:00:00 [code = 02929250] Medical Ce nter Future Scheduled 2011 Lipid panel (procedure) [facility] 00:00:00 [code = 63036515] Medical Ce nter Future Scheduled 2011 Lipid panel (procedure) [facility] 00:00:00 [code = 45341435] Medical Ce nter Future Scheduled 2011 Lipid panel (procedure) [facility] 00:00:00 [code = 01983022] Medical Ce nter Future Scheduled 2011 Lipid panel (procedure) [facility] 00:00:00 [code = 43527275] Medical Ce nter Future Scheduled 1985 DTAP/TDAP/TD VACCINES ([address] [facility] 00:00:00 - Tdap) [code = Medical Cent er DTAP/TDAP/TD VACCINES (1 - Tdap)] Future Scheduled 1985 DTAP/TDAP/TD VACCINES ([address] [facility] 00:00:00 - Tdap) [code = Medical Cent er DTAP/TDAP/TD VACCINES (1 - Tdap)] Future Scheduled 1985 DTAP/TDAP/TD VACCINES ([address] [facility] 00:00:00 - Tdap) [code = Medical Cent er DTAP/TDAP/TD VACCINES (1 - Tdap)] Future Scheduled 1985 DTAP/TDAP/TD VACCINES ([address] [facility] 00:00:00 - Tdap) [code = Medical Cent er DTAP/TDAP/TD VACCINES (1 - Tdap)] Future Scheduled 1985 DTAP/TDAP/TD VACCINES ([address] [facility] 00:00:00 - Tdap) [code = Medical Cent er DTAP/TDAP/TD VACCINES (1 - Tdap)] Future Scheduled 1985 DTAP/TDAP/TD VACCINES ([address] [facility] 00:00:00 - Tdap) [code = Medical Cent er DTAP/TDAP/TD VACCINES (1 - Tdap)] Future Scheduled 1985 DTAP/TDAP/TD VACCINES ([address] [facility] 00:00:00 - Tdap) [code = Medical Cent er DTAP/TDAP/TD VACCINES (1 - Tdap)] Future Scheduled 1984-02-01 HEPATITIS C SCRE[facility]ING [facility]:00:00 [code = HEPATITIS C Medical Center SCREENING] Future Scheduled 1984-02-01 HEPATITIS C [facility]CRE[facility]ING [facility] 00:00:00 [code = HEPATITIS C Medical Center SCREENING] Future Scheduled 1984-02-01 HEPATITIS C [facility]CRE[facility]ING [facility] 00:00:00 [code = HEPATITIS C Medical Center SCREENING] Future Scheduled 1984-02-01 HEPATITIS C [facility]CRE[facility]ING [facility] 00:00:00 [code = HEPATITIS C Medical Center SCREENING] Future Scheduled 1984-02-01 HEPATITIS C [facility]CRE[facility]ING [facility] 00:00:00 [code = HEPATITIS C Medical Center SCREENING] Future Scheduled 1984-02-01 HEPATITIS C [facility]CRE[facility]ING [facility] 00:00:00 [code = HEPATITIS C Medical Center SCREENING] Future Scheduled 1984-02-01 HEPATITIS C [facility]ING [facility] 00:00:00 [code = HEPATITIS C Medical Center SCREENING] Future Scheduled 1966 CT Colonography (combo) [facility] 00:00:00 [code = CT Colonography Medi bret Center (combo)] Future Scheduled 1966 Screening for malignant [facility] 00:00:00 neoplasm of colon Medical Ce nter (procedure) [code = 457953383] Future Scheduled 1966 Screening for malignant [facility] 00:00:00 neoplasm of colon Medical Ce nter (procedure) [code = 595987831] Future Scheduled 1966 Sigmoidoscopy [code = [facility] Sigmoidoscopy] Medical Cente r Future Scheduled 1966 CT Colonography (combo) [facility] 00:00:00 [code = CT Colonography Medi bret Center (combo)] Future Scheduled 1966 Screening for malignant [facility] 00:00:00 neoplasm of colon Medical Ce nter (procedure) [code = 930962122] Future Scheduled 1966 Screening for malignant [facility] 00:00:00 neoplasm of colon Medical Ce nter (procedure) [code = 427632684] Future Scheduled 1966 Sigmoidoscopy [code = [facility] 00:[facility] Sigmoidoscopy] Medical Cente r Future Scheduled 1966 CT Colonography (combo) [facility] 00:00:00 [code = CT Colonography Medi bret Center (combo)] Future Scheduled 1966 Screening for malignant [facility] 00:00:00 neoplasm of colon Medical Ce nter (procedure) [code = 558621889] Future Scheduled 1966 Screening for malignant [facility] 00:00:00 neoplasm of colon Medical Ce nter (procedure) [code = 628182845] Future Scheduled 1966 Sigmoidoscopy [code = [facility] 00:[facility] Sigmoidoscopy] Medical Cente r Future Scheduled 1966 CT Colonography (combo) [facility] 00:00:00 [code = CT Colonography Medi bret Center (combo)] Future Scheduled 1966 Screening for malignant [facility] 00:00:00 neoplasm of colon Medical Ce nter (procedure) [code = 066804553] Future Scheduled 1966 Screening for malignant [facility] 00:00:00 neoplasm of colon Medical Ce nter (procedure) [code = 335041664] Future Scheduled 1966 Sigmoidoscopy [code = [facility] 00:00:[facility] Sigmoidoscopy] Medical Cente r Future Scheduled 1966 CT Colonography (combo) [facility] 00:00:00 [code = CT Colonography Medi bret Center (combo)] Future Scheduled 1966 Screening for malignant [facility] 00:00:00 neoplasm of colon Medical Ce nter (procedure) [code = 627579683] Future Scheduled 1966 Screening for malignant [facility] 00:00:00 neoplasm of colon Medical Ce nter (procedure) [code = 145685357] Future Scheduled 1966 Sigmoidoscopy [code = [facility] 00:00:[facility] Sigmoidoscopy] Medical Cente r Future Scheduled 1966 CT Colonography (combo) [facility] 00:00:00 [code = CT Colonography Medi bret Center (combo)] Future Scheduled 1966 Screening for malignant [facility] 00:00:00 neoplasm of colon Medical Ce nter (procedure) [code = 812478675] Future Scheduled 1966 Screening for malignant [facility] 00:00:00 neoplasm of colon Medical Ce nter (procedure) [code = 777506582] Future Scheduled 1966 Sigmoidoscopy [code = [facility] 00:00:[facility] Sigmoidoscopy] Medical Cente r Future Scheduled 1966 CT Colonography (combo) [facility] 00:00:00 [code = CT Colonography Medi bret Center (combo)] Future Scheduled 1966 Screening for malignant [facility] 00:00:00 neoplasm of colon Medical Ce nter (procedure) [code = 836720986] Future Scheduled 1966 Screening for malignant [facility] 00:00:00 neoplasm of colon Medical Ce nter (procedure) [code = 692939880] Future Scheduled 1966 Sigmoidoscopy [facility]code [facility] Sigmoidoscopy] Medical Cente r Encounters Start End Encounter Admission Attending Care Care Encounter Source Date/Time Date/Time Type Type Clinicians Facility Department ID 2021-07-23 Outpatient SYSTEM, [facility] PRATIK [id number] 12:40:04 PROVIDER Wademerrill beal 2022-12-18 2022-12-18 [facility] [id number] [facility] 00:00:00 00:00:00 CORA 2022-10-13 2022-10-[address] [facility] [id number] 00:00:00 00:00:00 [facility] 2022-08-06 2022-08-06 Outpatient LUISA [facility] [id number] [facility] 09:13:08 12:09:18 CORA [facility] Medicin e 2022-08-06 2022-08-06 Historical Luisa [facility] [id number] 00:[facility]00 00:00:00 Encounter [facility] 2022-07-16 2022-07-16 Audio - Que [facility] [id number] 13:15:00 13:57:43 Telemedici Tony spencer [facility] 2022-07-16 2022-07-16 Audio - DOMITILA Grey [facility] [id number] 13:15:00 13:57:43 Telemedici Tony spencer [facility] 2022-05-28 2022-05-28 Office Que [facility] [id number] 13:15:00 13:40:50 Visit [facility] 2022-05-28 2022-05-28 Office DOMITILA Grey [facility] [id number] 13:15:00 13:40:50 Visit [facility] 2022-05-06 2022-05-06 Historical Transcripti [facility] [id number] [facility] 00:[facility] 00:00:00 Encounter on, lin [facility] 2022-04-30 2022-04-30 Outpatient DOLORES MORAN [id number] [facility] 08:47:16 13:34:43 CORA [facility]end[facility] Medicin [facility] 2022-04-30 2022-04-30 Historical Hopliliana, [facility] [id number] [id number] 00:00:00 00:00:00 Encounter Cora [facility] 2022-04-28 2022-04-28 Office Banner, [facility] [id number] 14:00:00 14:35:24 Visit [facility] 2022-04-28 2022-04-28 [facility] [id number] 14:00:00 14:35:24 Visit [facility] 2022-04-15 2022-04-16 Inpatient EL QUE, [facility] [id number] [facility] 09:02:00 12:04:00 [facility] 2022-04-15 2022-04-16 [facility] [id number] 09:02:00 12:04:00 Encounter [facility] 2022-04-15 2022-04-16 [facility] [id number] 09:02:00 12:04:00 Encounter [facility] 2022-04-15 2022-04-15 Anesthesia Ricardo Valadez [facility] [id number] [facility] 13:55:00 15:32:00 Event [facility] 2022-04-15 2022-04-15 Anesthesia Ricardo Valadez [facility] [id number] [facility] 13:55:00 15:32:00 Event [facility] 2022-04-15 2022-04-15 Surgery Que [facility] [id number] 11:45:00 13:45:00 [facility] 2022-04-15 2022-04-15 Surgery Fadner, [facility] [id number] 11:45:00 13:45:00 [facility] 2022-04-15 2022-04-[address] [facility] [id number] [facility] 00:00:00 00:00:00 [facility] 2022-04-15 2022-04-[address] [facility] [id number] [facility] 00:00:00 00:00:00 [facility] 2022-04-11 2022-04-11 Outpatient EL [facility] [id number] [facility] 09:16:36 23:59:00 2022-04-11 2022-04-11 [facility] [id number] 09:00:00 23:59:00 Encounter [facility] 2022-04-11 2022-04-11 [facility] [id number] 09:00:00 23:59:00 Encounter [facility] 2022-04-10 2022-04-[address] [facility] [id number] [facility] 00:00:00 00:00:00 [facility] 2022-04-10 2022-04-[address] [facility] [id number] [facility] 00:[facility]:00 00:00:00 [facility] 2022-04-08 2022-04-08 Clinical EL Truman, [facility] [id number] 13:00:00 14:30:26 Support [facility] 2022-04-08 2022-04-08 Clinical Truman, [facility] [id number] 13:00:00 14:30:26 Support [facility] 2022-04-08 2022-04-08 Telephone Que, [facility] [id number] 00:00:00 00:00:00 [facility] 2022-04-08 2022-04-08 Telephone Fadner, [facility] [id number] 00:00:00 00:00:00 [facility] 2022-03-19 2022-03-19 Audio - EL Fadner, [facility] [id number] 11:50:00 12:17:17 Telemedici Tony spencer [facility] 2022-03-19 2022-03-19 Audio - Fadner, [facility] [id number] 11:50:00 12:17:17 Telemedici Tony spencer [facility] 2022-03-11 2022-03-11 Telephone Truman, [facility] [id number] 00:00:00 00:00:00 [facility] 2022-03-11 2022-03-11 Telephone Truman, [facility] [id number] 00:00:00 00:00:00 [facility] 2022-02-12 2022-02-12 Office EL Fadner, [facility] [id number] 11:30:00 12:57:41 Visit [facility] 2022-02-12 2022-02-12 Office Fadner, [facility] [id number] 11:30:00 12:57:41 Visit [facility] 2022-01-16 2022-01-16 Outpatient HOPLILIANA, [facility] [id number] [facility] 14:11:24 15:08:19 CORA [facility] Medic[facility] 2022-01-16 2022-01-16 Historical Hoppenot, [facility] [id number] 00:00:00 00:00:00 Encounter [place] [facility] 2021-09-26 2021-09-26 Outpatient HOPLILIANA, DOLORES BCLin [id number] [facility] 13:22:58 15:04:20 CORA kendall of Medicin e 2021-09-26 2021-09-26 [facility], [facility] [id number] [facility] [address] 00:00[facility]00 00:00:00 Encounter [facility] 2021-08-29 2021-08-29 Outpatient LUISA, Lin [facility] [id number] [facility] 13:10:00 15:00:25 CORA De Souza e of Medicin e 2021-08-16 2021-08-17 [facility] [id number] [facility] 10:39:00 14:29:00 Encounter [facility] 2021-08-16 2021-08-17 Outpatient [facility] Surgery [id number] SLE 10:39:00 14:29:00 CORA 2021-08-16 2021-08-16 [facility] [id number] 12:07:00 17:53:00 Event Annabel Guerrero [facility] 2021-08-16 2021-08-16 Surgery [facility] [id number] [facility] [address] 11:45:00 15:20:00 [facility] 2021-08-16 2021-08-[address] [facility] [id number] [facility] St 00:00:00 00:00:00 [facility] 2021-08-12 2021-08-12 [facility] [id number] [facility] St 17:26:16 23:59:00 Encounter 1, [facility] Room [facility] 2021-08-12 2021-08-12 Outpatient [facility], [facility] [id number] SLE 17:26:16 23:59:00 CORA 2021-08-12 2021-08-12 Outpatient [facility] [id number] [facility] 00:00:00 23:59:00 Nolvia e of Medicin e 2021-08-12 2021-08-12 [facility] [id number] [facility] 15:34:23 17:25:00 [facility] 2021-08-12 2021-08-12 [facility] EL Hoppenot, [facility] [id number] 15:00:00 17:25:00 Encounter [facility] 2021-08-12 2021-08-12 Outpatient EL SLEH [facility] [id number] [facility] 00:00:00 00:00:00 2021-08-12 2021-08-12 Outpatient EL HOPPENOT, SLE [facility] [id number] [facility] 00:00:00 00:00:00 CORA 2021-08-09 2021-08-09 Outpatient EL SLEH [facility] [id number] [facility] 11:18:02 23:59:00 2021-08-09 2021-08-09 [facility] [id number] 10:50:00 23:59:00 Encounter [facility] 2021-08-09 2021-08-[address] [facility] [id number] [facility] 00:[facility]00 00:00:00 [facility] 2021-08-07 2021-08-07 [facility] [id number] 00:00:00 00:00:00 Orders [facility] 2021-08-01 2021-08-01 Outpatient HOPPENOT, [facility] [id number] [facility] 14:48:36 16:03:45 CORA kendall of Medicin e 2021-08-01 2021-08-01 Outpatient HOPPENOT, [facility] [id number] [facility] 14:48:09 15:31:36 CORA De Souza e of Medicin e 2021-07-24 2021-07-24 Outpatient [facility]_ PRIV PRIV [id number] [facility] 10:07:00 10:07:00 Black_D [id number] Medica l 2021-07-19 2021-07-19 Outpatient [facility]_ PRIV PRIV [id number] [facility] 11:49:00 11:49:00 Black_D [id number] Medica l 2021-07-19 2021-07-19 Outpatient Osiris Pugh PRIV PRIV [id number] 00:00:00 00:00:00 Ray [id number] 2021-07-19 2021-07-19 [facility]iris [facility] 00:00:00 00:00:00 Ray [facility] Medic kong Pugh MD: GC_[facility]OM[facility]_ [address] [facility], [address], [place] [address] , Ph. 2021-07-18 2021-07-18 Outpatient GC_[facility]_ PRIV PRIV [id number] [facility] 05:43:00 05:43:00 Black_D [id number] Medica l 2021-06-13 2021-06-13 Outpatient GC_[facility]_ PRIV PRIV [id number] [facility] 03:44:00 03:44:00 Black_D [id number] Medica l 2021-06-13 2021-06-13 [facility]iris [facility] 00:00:00 00:00:00 Ray [facility] Medic kong Pugh MD: GC_[facility]_ [address] [facility], [place] [address] , Ph. 2021-06-13 2021-06-13 Outpatient Osiris Pugh PRIV PRIV [id number] 00:00:00 00:00:00 Ray [id number] 2021-05-03 2021-05-03 Outpatient GC_[facility]_ PRIV PRIV [id number] [facility] 05:27:00 05:27:00 Black_D [id number] Medica l 2021-05-03 2021-05-03 Outpatient GC_[facility]_ PRIV PRIV [id number] [facility] 05:23:00 05:23:00 Black_D [id number] Medica l Results Test Description Test Time Test Comments Results Result Comments Source Comprehensive metabolic panel 2022-07-23 16:43:00 Test Item Value Reference Range Interpretation Comme nts Glucose (test code = 86 mg/dL 65-139 Non-fa sting reference ) interval BUN (test code = 13 mg/dL 7-25 20100821) Creatinine (test code = 0.75 mg/dL 0.50-1.03 20130613) EGFR (test code = 93 See_Comment The eGFR i s based on the ) CKD-EPI 2020 eq uation. To calculate th e new eGFR from a pre vious Creatinine or C ystatin Cresult, go to https://www.kid rhonda.org/p rofessionals/kd oqi/gfr%5 Fcalculator [Au tomated message] The sy stem which generated this result transmit landen reference range : > OR = 60 mL/min/1.73m 2. The reference range was not used to interpr et this result as normal/abnormal . BUN/Creatinine Ratio NOT APPLICABLE See_Comment [Aut omated message] The (test code = 8474382) system which generated this result tra nsmitted reference range : 6 - 22 (calc). The ref erence range was not u sed to interpret this result as normal/abnormal . Sodium (test code = 142 mmol/L 135-424 8076340) Potassium, Serum (test 4.4 mmol/L 3.5-5.3 code = 20100905) Chloride (test code = 108 mmol/L 98-101 8807260) Carbon Dioxide, Total 31 mmol/L 20-32 (test code = ) Calcium, Serum (test 9.3 mg/dL 8.6-10.4 code = 20100818) Protein, Total, Serum 6.6 g/dL 6.1-8.1 (test code = 20100825) Albumin (test code = 3.8 g/dL 3.6-5.1 ) GLOBULIN (QUEST) (test 2.8 See_Comment [Aut omated message] The code = 9959821) system which generated this result tra nsmitted reference range : 1.9 - 3.7 g/dL (calc) . The reference range was not used to interpr et this result as normal/abnormal . Albumin Globulin Ratio 1.4 See_Comment [Aut omated message] The (test code = 1759-0) system which generated this result tra nsmitted reference range : 1.0 - 2.5 (calc). The reference range was not used to interpr et this result as normal/abnormal . Bilirubin, Total (test 0.5 mg/dL 0.2-1.2 code = 20100827) Alkaline Phosphatase, S 73 U/L 37-153 (test code = 6768-6) AST (SGOT) (test code = 17 U/L 10-35 20100831) ALT (SGPT) (test code = 12 U/L 6-29 ) HIPOLITO (test code = HIPOLITO) FASTING:NO FASTING: NO [id number] 16:43:00 Test Item Value Reference Range Interpretation Comments Vitamin B12 (test code = 466 pg/mL 200-3781 7949506) HIPOLITO (test code = HIPOLITO) FASTING:NO FASTING: NO [facility], [id number] 16:43:00 Test Item Value Reference Interpretation Comments Range PARATHYROID 68 pg/mL 16-77 Interpretive G uide Intact HORMONE, INTACT PTH Calcium- (test code = ---- ---Normal ) Parathyroid Nor mal NormalHypoparat hyroidism Low or Low Normal LowHyperparathy roidism Primary Normal or High High Secondary High Normal or Low Tertiary High HighNon-Parathy roid Hypercalcemia L ow or Low Normal High Calcium, Serum 9.3 mg/dL 8.6-10.4 (test code = 20100818) HIPOLITO (test code = FASTING:NO HIPOLITO) FASTING: NO [facility] [id number] 16:43:00 Test Item Value Reference Range Interpretation Comments Alpha-Tocopher 8.4 mg/L Reference Ra nge 5.7-19.9 ol (test code mg/L Levels of = ) alpha-tocophero l <5 mg/L are consistent with Vitamin E defic iency in adults.Vitamin supplementation within 24 hours prior to blood draw may affect the accuracy of results. See Note 1 Gmur-Pdiih-Efv 1.1 See_Comment See Note 1 [A utomated opherol (test message] The s ystem which code = generated this result ) transmitted ref erence range: <4.4 mg/L . The reference range was not used to interpr et this result as normal/abnormal . HIPOLITO (test code FASTING:NO = HIPOLITO) FASTING: NO [facility] + automated [id number] 16:43:00 Test Item Value Reference Range Interpretation Comments WBC (test code = 5.6 See_Comment [Automated ) message] The system which generated this result transmit landen reference range : 3.8 - 10.8 Thousand/uL. Th e reference range was not used to interpret this result as normal/abnormal . RBC (test code = 4.88 See_Comment [Automated 789-8) message] The system which generated this result transmit landen reference range : 3.80 - 5.10 Million/uL. The reference range was not used to interpret this result as normal/abnormal . Hemoglobin (test code 13.5 g/dL 11.7-15.5 = ) Hematocrit (test code 42.4 % 35.0-45.0 = ) MCV (test code = 86.9 fL 80.0-100.0 ) MCH (test code = 27.7 pg 27.0-33.0 ) MCHC (test code = 31.8 g/dL 32.0-36.0 L ) RDW (test code = 14.2 % 11.0-15.0 ) Platelets (test code 298 See_Comment [Autom ated = ) message] The system which generated this result transmit landen reference range : 140 - 400 Thousand/uL. Th e reference range was not used to interpret this result as normal/abnormal . MPV (test code = 9.5 fL 7.5-12.5 ) # Neutros (test code 2632 See_Comment [Autom ated = 20191113) message] The system which generated this result transmit lanedn reference range : 1,500 - 7,800 cells/uL. The reference range was not used to interpret this result as normal/abnormal . # Lymphs (test code = 2324 See_Comment [Auto mated 731-0) message] The system which generated this result transmit landen reference range : 850 - 3,900 cells/uL. The reference range was not used to interpret this result as normal/abnormal . # Monos (test code = 336 See_Comment [Autom ated ) message] The system which generated this result transmit landen reference range : 200 - 950 cells/uL. The reference range was not used to interpret this result as normal/abnormal . # Eos (test code = 246 See_Comment [Automat ed 711-2) message] The system which generated this result transmit landen reference range : 15 - 500 cells/ uL. The reference range was not u sed to interpret th is result as normal/abnormal . # Baso (test code = 62 See_Comment [Automa landen 704-7) message] The system which generated this result transmit landen reference range : 0 - 200 cells/uL. The reference range was not u sed to interpret th is result as normal/abnormal . % Neutros (test code 47 % = ) % Lymphs (test code = 41.5 % 20191110) % Monos (test code = 6.0 % ) % Eos (test code = 4.4 % 20191108) % Baso (test code = 1.1 % 20191109) HIPOLITO (test code = HIPOLITO) FASTING:NO FASTING: NO Lab Interpretation Abnormal (test code = 97142-7) [facility], [id number] 16:43:00 Test Item Value Reference Range Interpretation Comments Vitamin 23 ng/mL 30-100 L Vitamin D Statu s D,25-Oh,Total (test 25-OH Vi tamin D: code = 1244612) Deficiency: <20 ng/mLInsufficie ncy: 20 - 29 ng/mLOp timal: > or = 30 ng/m L For 25-OH Vitamin D testing on [place] ents on D2-supplemen tation and patients fo r whom quantitation of D2 and D3 fraction s is required, the QuestAssureD(TM )25-OH VIT D, (D2,D3), LC/MS/MS is recommended: or darcy code 20153 (pat ients >2yrs).See Note 2 Note 1 This marques t was developed and i ts analytical performance characteristics have been determined by [employer]. It has not been cl eared or approved by theA. This as say has been valida landen pursuant to the CLIA regulations and is used for clinic al purposes. Note 2 For additional information, pl ease refer to http://educatio n.Ques tDiagnostics.co m/faq/ ZGX949 (This li nk is being provided for informational/e ducati onal purposes o nly.) HIPOLITO (test code = FASTING:NO HIPOLITO) FASTING: NO Lab Interpretation Abnormal (test code = 61993-3) [facility] [id number] 16:43:00 Test Item Value Reference Range Interpretation Comments Vitamin A (test 68 See_Comment Clin Chem Vol. code = 2923-1) 34.No.8. pp16 80-5065. 1998Vitamin supplementation within 24 hours prior to blood draw may affect the accuracy of res ults. This test was d eveloped and its analyti bret performance characteristics have been determined by [employer]. It has not been cleared or approved by theFDA. This assay has been valida landen pursuant to the CLIA regulations and is used for clinical pu rposes. [Automated mess age] The system which ge nerated this result tra nsmitted reference range : 38 - 98 mcg/dL. The ref erence range was not u sed to interpret this result as normal/abnormal . HIPOLITO (test code = FASTING:NO HIPOLITO) FASTING: NO [facility]1 (Thiamine), Whole Blood, LC/MS/MS 2022-07-23 16:43:00 Test Item Value Reference Range Interpretation Comments Vitamin 100 nmol/L 78-185 Vitamin supplem entation B1,LCMSMS (test within 24 ho urs prior code = 4463010) toblood draw may affect the accuracy of results. This test was d eveloped and its analyti bret performance characteristics have been determined by [employer]. It has not been cleared or approved by theFDA. This assay has been valida landen pursuant to the CLIA regulations and is used for clinical pu rposes. HIPOLITO (test code = FASTING:NO HIPOLITO) FASTING: NO [facility] [id number] 17:43:34 Test Item Value Reference Range Interpretation Comments Case Report (test code Surgical Pathology = 104) Report Case: [id number] Authorizing Provider: Tony Grey MD Collected: 04/15/2022 02:37 PM Ordering Location: [facility] Received: 04/16/2022 08:26 AM SERVICES Pathologist: Siomara Haskins MD Specimen: Soft Tissue, Other, stomach DIAGNOSIS (test code = i9eryTBkOJYww8fbHZMnkUO 3220) uZzEwMzNcZnRuYmpcdWMxIH tccnRmMVxlcGljOTYwMlxhb lDaHTSnuLGwU1GluxuuVGmb IQ4pVJ6peKzvdZTlmEPyHWJ nXqTgy5zxn624dYJnh8wiVF RCatytxCo6qYmmM25cq4G9M kgiT12exQOiNPF5SIHbASSg gSVkVMHoXKU7SHVnpVOcE2x gYPFhCH3nuvvbXYnjYFluCQ YreGP3CWJoaGAjL0UqMDNqN HfzKGGvjnd6ZwPfBi4cpUTe eTcyMFxwYXJkXHBsYWluXGZ oCqOyQ3GSDIDWNPfzPOOQBS EAZ0HOFXjOIRFFJMLLRBWSJ UQXLpCQMH1PXRmnkLUpLVLt JRCMHLfWVHbJQW3YF80XUJU KBD6WHRKBQVYVWfdCNCzTDU npJ5pLEULCMAyYRWXWZq6PG CJeBA6PLVPSCRBPZV7PZRWy loZeTTUNXtCDPuJXZ7ZSUxQ THR6RPTCVZRVGDJDtSWUIZ5 PKIUQODDHAVyVYWUaQH23LH dGXNJJIFP1zsRIwWSYmmWUv xEscjtPtIHdbs7ErETosEZV uGQ2oePceSCYvVZ9oMYKwX6 iwwH3zmuq5MgCiHIMyHkZ6I KGsgfP8Bzw3JNQfUPsjj9ml b9JkQREiFPh6hKhdMdUtSYJ xf6taemYxMdOsPOLcQDVdST YtaFQlL386v6ubh5gfqwQks JI0DKOtGED4NXtqyhQnmyV5 MZvilGZsTwC2UQbpkyUhXTg cfxQobaZaCzm2MGWaN443PT F7rKxrn4muZGM4MSDpDBUrV fRiNf1auJKdE246KLCyMYQC HUBauRz6VWKlgsPnklShmQM Aw642J206l4ppHMTgszIhrM pGtlgxy5zsT298IMCjzKMnr nMcMdXpYDRaaACdbSQ3THFr XA1pubxfUVyjHMufJPVxifK 3FSMawEMtF8SeCTCxAH7rue awWWU4LVjiRAUuOHQ7ZjEnI PNfc6Osesq3NdBrjf4gdl42 OKS7r8JuzGmbNSL7PFY5RrR xDg0ymTHgNAZvKA0yYdFyhW RnZMPvhh24nAesMUrzGPM3R BAbcjCqi9Kgu3giUhVfphUw Q3kcL6SeIUBfEZUxGKRdLhI jmfHfk7Fmf5UblCRafAs7t3 ehBJKvDVCwoMqvg4ygGIW7U GNoxMBmQ1fxiB6eSPGbLF6s yefjr8dhWJxrXOxmYLUokMB 0zwL1FHZewLQsS6FbpA5eGL BpBPjgXKGxqdo2NjKlMf5ih GVyeTcyMFxzYmtwYWdlXHBn bmNvbnRccGduZGVjXHBsYWl uXHBsYWluXGYwXGZzMjRccW xcbGFuZzEwMzNcaGljaFxmM WveScSqJSTjGZqqB0hmNrOv YjPmNkz5AXLxmQDfBHFuDyc 5VPTacVMeSLXCsHqqwU5iPL RtpZfcvR3fzHE4PJTpjhPyz EKVbH3eWJFEsF1wWqAcSJTj KnI6EYpjKgYjbCFjsD9= CPT Code(s) (test code v5eecYQmPNKpfRM9SyAxJVS = 3357) er7ijq0DxlSJxePFnUHyuxD MtmsHumc50sCN4jX94GG3uP FPbSdS5PRVqwzX0Ppr7DHWa QWErcMBsY600w9lbh9paeaE joHQ0uOfbHWXknpvfDcD8IS dyKLKwvfjmMYb2EAzaGMLjs IK2MTHvdZIzQ5WkDCUlRY8h tgn1LPX1WLjvUXXaLmE5UVG vrLYzRXSlcCpfRCqot246HE Y6YpDlYVNojgXgjDlxuR8rV fDsENA0QAZuH0fsDGX6 CLINICAL HISTORY (test g0xnxLSiWNGlcHN0NmRmTAI code = 3356) sd9gnp8WoaFSxgGAiYWwdlJ QiaqCspc04gTA5sC68YQ4uC TNmWxD1HNCtymA0Kem6PHDe BUZmuMNzY525o2awd1tpvlE mlMU9eBdeHOOhxvmqYaR5XH ciTREjoijpXPl1SRwiWZJfa DW7VARenKByW9SlWHNbBX7j veu0ECN5QRfvZSThJiQ2BMR xiCYwDWYdsSbpAJtos270TF J3ClOcMLTthcKhsTybcL6iE xFuJAWGi8XmeKMzd1Pxr6l2 eVxwYXJ9 GROSS DESCRIPTION h7hsnAQoVUQvkYB6IbSqTWP (test code = gy3xhg2LorUBndPDbXPupoC [id number]) LkujTrks27pHS6oF81NB7iV TNqNgC2HYYxcoU6Qvp4MURr CVKyoZGfI717k5bsh3wjnzK vqDW0lFqpGPPybpwgZsT9NQ leOLCjtczqLNq0GAtaSHUja YJ7RQWlpEDsK9DvBXKpTN4t dxx6EMU4XOufAHSpRrD4XZV qsKDoGBZjwQrmDWemq475QF O5XhWpWUTuysG6FGfxRIJfT 7IeI0GiOGvlZMO0RCHiHJYz NFLxTJDpINGtSZlxroT1l6p cWODueAExYTF7ANfgaKQpXT MfYRSgTOknByXJRyOnDgD4G LK9OnygLeU8QZs3VWUHHjDq IqRgThO2ZPE8URLtGQb2RXy 2CXzYMeX5MYO4IYv4MbEnJA TtRyFjIWa5VGBaCNrikTJeI EUoQQLpLIwvOEcdK05zsGih oA9jJqAjNHWERkRCn8X2SFN ok5R2EJisK7DqIASgGSFxrw ckmdYwGZAxF3PomcMxSPbjQ MXmpq3knTnkEOsqBrNwAFCu g2l9fVL8aCCvnAN8dBYkzSs hQHacZf2mtLP3fT5pUIXpKN JcFLFseYFzPCHer6S4NHOwf 8F6WRkll2HjIWNiOSDdq7Gu rRD8rE0lQsBesB6aKKHpCgI fniPzxfRkrW1dR7Q7KSKblK 6eaIswvaGqEcUdwW3oKUDoC C9nIDU5cjodTsBnUwY4YBMd KEJpHDEqJqK3AIQgDDBgdO2 sNDonHPGheg4xUYOasvF4TE 0wr4roaVLnNN0xYEGtP6Akc XwcC63aU2OjxQFoWfWXzVGd o0LsB6ozWS8viEZjp0LibQa qYDRslW7zQnPmmMXxBI79oI OsGJldrvw7vY1uERDzoVUzw 3BlbmVkIHRvIHJldmVhbCBi iQ5rSECvfE61qhUeouT5xSD bwTGfFS3cMOWrlWPac4CttD B0vIItSKXdY4Oep61hJLZdA ACueJPdnGD8PWPtRDJtCJSd BRIFB8C9CCqrJIWiK1GnF7C vzjF8j6nuaHyhs5FawOLfBX 1ccGFyfQ== MICROSCOPIC b5unbABuQWOrvFS1CfIlNLH DESCRIPTION (test code df3oiq9WibGNxyGFyQTukqT = 3371) EktdKthr09pPQ9xK37GJ1qI WMgVzF4MSJqnjU2Kpw7ELUm VWPxbLIzC651q2jis0zgwuH mnNI9lQqqWTAldjenOnK6OT siBHBcvmlpXDr2RIvrFLIsh RG6XHCbsNOoP8ObYRVgYP2u bay2PHZ4BBjiALAhUhK8VZI haMUbBQApoIbjTSdoq575PS V8VvOzMEYlttHgmRptgW0fN sGeOOWRDBHFZ7PLLNBgdXSq fQ== [facility] [id number] 17:43:34 Test Item Value Reference Range Interpretation Comments Case Report (test code Surgical Pathology = 104) Report Case: [id number] Authorizing Provider: Tony Grey MD Collected: 04/15/2022 02:37 PM Ordering Location: [facility] Received: 04/16/2022 08:26 AM SERVICES Pathologist: Siomara Haskins MD Specimen: Soft Tissue, Other, stomach DIAGNOSIS (test code = x0rddWXfHRJpb7csVCGtcFG 3220) uZzEwMzNcZnRuYmpcdWMxIH tccnRmMVxlcGljOTYwMlxhb gAhGDDpzTSmP6LizmzhFChh GZ1gHC5ouPffgNVzwXYpLZP lZlAci3zdr514hFAtn6lgDR ZFgmwhnHe4rOglV76fw4Z5Y eozF58rlUYjPMU9KEZdCDBh rHLvJTHqGFM1SFGkaVYsU9n oCFAqXH3udeqmZFbnOJxoCM JzbZT7ULLlkZGcT1FjHSOpC BacJYLrrfe7JzLcFy0vrEMv eTcyMFxwYXJkXHBsYWluXGZ fFmRxJ3OAJMKKQMtmNNLQJS LVH1EODRgQOFVDIQALCVNQD GKTOrJBAU7LIFxhmKLjLBQu GLEIARjFODeAOG7DN65XRFK GGP3GPPRJDBACPauPDXgIUQ yrR4aUXOFPWXgMLHJPUv2MA DWnZW1LQQBDDCQKCR2AESZt bsFzOQEAUiPSGsIFU0DMIsN RBG4HCOCWCXVPXBRiWHISX0 FIEOQEYAEQDnQIYMoRV78WP tTZHREIIG4brWFqENOybVBy vZjaakKlHThfi7DyAMciHLV bAC7wgAqnICEnLS6dCWYwM8 kfvG6lbcw8YmOsAZYyIpT3N EHsrqE9Exe3LAQcMWsxz7mb c0LzSOTfOWr8tMoqSsOxDZI af7ajeyOvMuOpZOBaIZLfUU CscWQmV263k6egh7siosCbz YP0WAQlWGZ9NCegouXpvpK7 TUeyjHHhTnC8LMwqmeBhYUj sfnBzfuYeBnd9WHVmW702GY P7rBzks3zsPCN1CWRpNANkM xGbOx0fhWHaB485UTQdCFYY PTHqfEm6AUPdvaPqclLwfXO Va537W429v6pjWRHfqtNnwN lYbedni7nwL371AVAjsAFwr hZkCzIfGLLmdPGhfCZ3SQTm VR3ocbmyPRktCTqlYULayoP 3PSUtpQHzD7ZyMWTpSV7uwh oqZLP6PZanQCVkKID6IdPkA WDgm9Ioexd5EfHaix2xft76 CCF1v7JdlLteMCT6ZPS5QqO fTr2fqOZjYXHzYP6hVeFfuP RfXDWeuz05dJskASimLJZ3U DXwjhLyu3Sfg9ljXiOfvmQv M8odZ6JlOPQxLRMmPQLzXoC ipvWcp3Yci9JjvUKvaTm2j2 smBXJiPAIyzYhuv7okZVY8H RKjtITbR0gtfI2fJOKiFN6w auyii2xwWAbiXMmiYAGmuGO 8rqX6NZVxzRZvY4PzfJ5nDG KgJUstZERaahe9XtIpUc4zf GVyeTcyMFxzYmtwYWdlXHBn bmNvbnRccGduZGVjXHBsYWl uXHBsYWluXGYwXGZzMjRccW xcbGFuZzEwMzNcaGljaFxmM SffAaEjXCZuYGqiI2ygVnBx QsUuSww0ICAyjVEsZZKoWdd 7QVAlmQCoROIAsWtheG1xPK YmcBrmdJ8jgRA0XBIwapXhe FWEtL2hNILIoR4jNhYmKMIx AoY0XOtaRkUtvAWbmZ0= CPT Code(s) (test code c6pkfFVqCOHucLG5DrPlFIT = 3357) ey0rwa1FmdSFlhUPgTEathY VvfaBuxh21wCH9tU79XO8gF YVhXqA7VVHdcxV5Dcv3HUXj PQYdjGJcN737f4gvx2slipP owIQ8hEpdFSUwroxmAaB8NN lmXUUndofdECs0RUbtMSRdd GJ4APFflXXvB7XxIOEkNY0n ash4MVH7LOhhCIPjNhZ1QFA vlZKrAOWhmQbqYDlal365LT Q3DgMcRAPfqjVedMstkH4dS nKoYJQ6IDGrT6dfFYW3 CLINICAL HISTORY (test o3cnkPTzYHGqtOA3OjHqCOT code = 3356) bv1nnv9DzmZLvpWNnGRlptV GexiHwvt57lPE6sY39NX3wF GPcRpP4XVUyfgT9Nnx9RWCp AHXdqASwO232n7udo2fukmV iwOA7cRfpPJXkbyurTxQ8ZO dyKWPwmlfeZYi5OChwFGKkx JZ3KUDfhIAyJ5SqBUMuFQ9g tnz9SHZ4ZXrqULAqJoU3WUT zfTFaMCHmzHpqFCikr741TR Y6MgQxUPHvnzHnyEadgC8dM wTzZWWHv4BxkITvo6Kry7t6 eVxwYXJ9 GROSS DESCRIPTION k1mslVRnTQRyvZQ9MhJcDRF (test code = wf9jws3VahRXucJYxSFanqK [id number]) WxhdZbhc48yQL2dR35CN4uZ CPcMwV8HAHtmoV6Sso3IUHk OYSxfRWdC419a7dlg1srcdJ fiPJ7uRclBLDgotpcOxS9UQ hdTBGybdctJKn6VGeePVBwy IC5BRPthMGzY8CjENEsUG1l nde3ICH3TFyjJBOoUhA2BXK fwFTzRAJnyCdxMUtrh832OE E8IvAxBEPqxtM9ARugDUYeC 9MdS4EeXDurFXU9VYJrRKTv VREyTSNwJJMxYYodpuA2h8e jVMXpbATzPGB3EVjloOEmTL CtBXLyHVujJgJCWqZtZnX8D CZ7SlpeMqE0IPr2NTEBJeMo TgCkLoF3NSL8VCXqFAo9MPr 7QNxLGmE0RYY1SBa8CxRvHV ApTeJmCTu1KULoDWremVPsV CUzHOApJTfaFCszT58sxRes dB1aObRzMCXNIiIAs3G8RTX bh9D8LTodY2LiODMnNZZgxq zmisFkKSOfX6YhjdCwPSfkT KAofa4vfHdeOUrlSmClUXTx e2m2nLZ8qFIarGM8uSEjbKb aJSsjIk5kxVL3bD8cUXUhKE MoUTUvtBZpQPMlb0N0XSGcn 4Z7SXyax8DyMNHmLHAlb0Ga hJG4tM4rEdCyzS9yVPPrZjY usmEwnvDhoN3oF4Z5PINksJ 1saJsddvVrPuHnjF9sVCXoI Q8lLSH2zoxyEfPzAwA6YUBx ROCjVPAsPzX5VAMaUQWplN6 tHJgwGTCsvu8jZOAurgH1AJ 3je9mobGXlEO3ySZIfR7Kvj MmsJ53cX8UpwMZhXuHOpQOy u7LfT6fmUJ3fwVPyc5NotZs qKIMcoB1vUiUriUPfEU02vG GkGYuhcgw9zA8cMGJurOOfa 3BlbmVkIHRvIHJldmVhbCBi rE5oHVXyzU19zaCfhrX6zPS slLUyGN8bHVHzfVSgt2AwaF L0hOTyDRKuM2Ohi63jQILyY JUnlGVajCK8DLVoIOWaLBRe JIXMA3L1IZhuXXOrU1PnX3M gkfX8e6uciGsaw1AlaKCkYH 1ccGFyfQ== MICROSCOPIC s0cmhZIxGCMhdPM5LpZzOQF DESCRIPTION (test code yb4fyc8VmoKWfeNKbKKplfV = 3371) UkpyXgfi43kBV7mU10RL4rU OLwSsH5ORYfkgB2Mxl5GAQu OXXqyZZoA201k2cdc7zaowN fiOY1bXyuCXMkdldmAlZ4IS qmVPNzvsaoTHt9WRvgFGCai TH4CCNtmQQgV9HyBWRqOS8k iby9NJG0HQvjYFDbSoL3GLH zbGVuYYJksLbbEIssz400FB F7IsGxASVrrhAnmSggpM6bX oRsUJHNESHRB2BKLWHxkWSj fQ== [id number] 17:43:34 Test Item Value Reference Range Interpretation Comments Case Report (test code Surgical Pathology = 104) Report Case: [id number] Authorizing Provider: Tony Grey MD Collected: 04/15/2022 02:37 PM Ordering Location: [facility] Received: 04/16/2022 08:26 AM SERVICES Pathologist: Siomara Haskins MD Specimen: Soft Tissue, Other, stomach DIAGNOSIS (test code = h2ubaGDlWISvv1asTUXryED 3220) uZzEwMzNcZnRuYmpcdWMxIH tccnRmMVxlcGljOTYwMlxhb sUzIJHwdSLpB2QkbrotTJaz OV2xFU2jzKqwqBCgeQBgLLW kEtUuj3thp774fOXra2ogZZ MWfnnrhJk2sTmbB54ce4X1A qujX85sxOOlJVP2UJYdZKBg jJUyRSOkWRV0HQPxlNAsW5u yKIPhRA3xzvtzGBseUDvaUD DkjMU6TWEpiRGlC6GsHAGvV RybVCKpehj5DeWdAb6iwNXx eTcyMFxwYXJkXHBsYWluXGZ cFeDhJ6LPYDLUIZlvGRUJDK CRT1NGMEuYCGWGQHTOFAWWS XIUBkFFCQ3EEKudqRRzNENu JBWIDXwVOPbXBL7DG36ERJH AZZ0UVQDSFUUTPtlAFUhFZN swT9sBCLBFJXxEXRWFBs2OH WFbOO2LTJPUGUBFYO1IUQKo znMpUXIGKkFBUwPLG4ALZzU AXO1TJWCBREPXAYOnICMNJ6 HNPGSDSQPBHnOOIRwQK48QR bMUOANJHT0feSUtVKJsdMWo qVeygsGyZRjoo6SgAApcWZY xQS1dzJttUVUoVS0yIPZzR0 htzV9ugxf3FnZuTYVbQvJ0E TNslvJ7Jpa5BFOiVJyll9uy z7JmAKTtFZb9vSniRoAaKNM qk0zsrdRpDbBrKGLrWTAbQJ SqtHYuQ030d6aoc3lbafYtx OP6MPAxUIF5MQukseLoopH1 GOjauUGgLxL3KJohkxBxNCy banVeboEiGxy1YMBbH301HX H1kQmow3iwJFB6HEWuTSZuK uNxBs0vgPErJ809LHHcQBYA JWTysZh7WXNgehTddyNbaDS Td551N375g1qmFLAxnmBanX rQbogdd4kdY151PXMwcDTaz iZbCiHqIUZmtWJwcSN8FENa MP1saqteLLofEQbtTIBuchC 6XNUgkGQsI1EmNHRaSI7gew ynPPV7XXpjZCInXXT5JfAwN MRtf2Cbigi2GuIieh1xvl63 LOU5l5PabCyyEUD2DXW3CqU pQn6eyVRfONOfCA5pOuFvcF UiYWWadc80tEmkAFlbKBE0U KKseqAxb1Oaz5fhRgTjumUv X0wmS6FyPPGgPYUcIXYvNhW orjHpt8Mpb2BhkALucNz2f9 bwCJNwFOXaoRxit9hdSCJ4J ZZabLAeX5tpuD9fNLTlIL8t jjbem6vmZTstKNjvPTZjeTO 2isD5NVTpfRWuI1AujC5fMO MaNYneVFMopbv1LxPqKz5uh GVyeTcyMFxzYmtwYWdlXHBn bmNvbnRccGduZGVjXHBsYWl uXHBsYWluXGYwXGZzMjRccW xcbGFuZzEwMzNcaGljaFxmM GjcGyPkOYJhMVywM4mlFgFl OxFwCvx4ZOKbjFDrWPVvAvc 8VEZjfKZrXXRUhDuyfX0vXK EjeByjvU3ueSS8JRYktqQtn XGCeV0lSRFNlA8lQaKgXIJp JxZ8ZKpoInKipJIdzZ6= CPT Code(s) (test code n9jvcKUwRLYvkPV5BoDfVII = 3357) da3igb9TvqTUjoZTqMNqtdO JocuZruo38dHN6hA57JF6uW OQoRkP3JVRqwjL9Xrm1UKSz LWOwdBPlB568m7zvp3qdroN tkMU8wLisHGAgufweZmC2OH xeAAPfrmghXHl4VFlwDMIsx NF5IHQfhHDeE0BtBRBqVU4i oww9YMS9KOxdWGWqRfU4NBF qhHZjTOCdmMhiSZyix102HO Q5FzKaLVEtolYgvDupuB5gH mCbDZN5NQUzC1gpFQM1 CLINICAL HISTORY (test m9xqeINkJSFtxXW2QqBiNJW code = 3356) vc2ntp3GtzIQopFSgNWeepS ZihbSmya03iPR2hA50YP8fG QOjWuG7MWXtyuF6Ret6INEk BGYadMTfS104k7gcv9zuptL tnOD1mHuoUFUuryswLsT4PD zhBTMhdgckMWc8IGjwVQBrd VZ0ONGqqOLaG7NfPAMhBD8r yty8XBJ3PGfqIJRvSrO6HPH oeDDlTTRgyYnvFUozp168JS K2SgZoFLOubkQqaOnovN4hS qIhIIQEi8TprANne6Idj5s4 eVxwYXJ9 GROSS DESCRIPTION y6konBJnJZPjnAJ0NgEoXHR (test code = va9pcw0IjjNDzaLFhDJhirX [id number]) WsdcMoxp76fZV2lA86SE0gM RMqTrT1EABpzkT1Hnj6FGXm WCEfnHGsX511x1cew4wazrG zdER9uQgrQLJkkzipMiU1RG saACHbrwduKRc7YIciMLOgw AI9TZCntVOnI4OoIJEgVM5d kfp0WVZ3CRxdHOJdWoZ2AZI toLVuHOLeePciJFfoq435NL N0PiWgFQWbrwR9YTclHKKkC 5DdS8TkWHzdYOQ6VSFvDANl EDMuHKJtJDHlSHouwpE3f7u pJQGwlKWkPVF5VMuksOJwBI ZeFGNgFHnmWaRYHvYrXuI7I MO0UibxNuU4AZw4SNFPFrXe FgLiBgU6NVI6LHDqAWs0OJs 5OAiXNsT5BXJ0MIy0ZfEiGX FzYgApGHv3BALaCQcbyRTyN EMvSOZkOTdsLZlaO76vpWuv vC0zQlZqKBQSZlCFc7H1RSX yp6S0YQxfA8XjSJAoXKUqgg sqxiDpSTWrO1WnjiNvHIizA ZCqse0ckBbkCLpnAiAoXQWx n4x4pWU0vSDktWL3aARpsLt pHHoaSf8jiLX9zC8jGILhGF PeUQKvpUFzCORft6W2FLSvh 6D3EVozr6HcAMYyBPKbu8Wb lMJ4gA0pEuKifG3zTZNoFtL fjnVqlfKmkZ4bU6K1BAResG 5ivIqvvrRzKeOncL4cOMRoN R9yHBN8mjeuLiLnJzI6AVNc RXNgYIReZrE9UWRuPERdoV0 gJDbsASOsft5yHHDvxqJ8LM 1ca7tjfYNfZI5rGLPjE2Gsv BkkE72oL4QzbQHfMdWZfFCp o2QcF8jbEZ3iqTKsz6UsqCj gTICvuD1qMnBbyKCuRC63pV BtTInnntv5nP5iUAAdbCGdr 3BlbmVkIHRvIHJldmVhbCBi gH5iEUQogS81gyBpkmR4pVD ntIPfEK7hHZRndWSbu3AbcY U6wPDzLZFtD3Zam87iQKPnT ODbxAIgoII4BUYtLOAdJXRx ZCTGS9B0TYnyASMqI9DrT1I hmeB4m9nmpDrev8TodSNaAP 1ccGFyfQ== MICROSCOPIC q7ovuWBvQKTycKA6JcClMHB DESCRIPTION (test code dz5tic6BanKSzbSUwRNqolK = 3371) TwevTavh24uEZ7nR34ZL2bP OXnYkO4HWGmhaG4Uql9BGBq QJQalRKzW647z8kpj5bzujX uiOT8vIqoTQMipaasNtK4RG onHTHctvjiZEk9HYcwZQGzm DE3YDYhxQGhC9AnNODkAR6q xhz9CSN8FPejZMCkNnV3LKB ieDUbARKadLspZYjct691BL A8FoBnCHEnygAewZycbW8dZ zLbUDAWMXLDZ8BAKRGpwVGh fQ== [facility] [id number] 17:43:34 Test Item Value Reference Range Interpretation Comments Case Report (test code Surgical Pathology = 104) Report Case: [id number] Authorizing Provider: Tony Grey MD Collected: 04/15/2022 02:37 PM Ordering Location: [facility] Received: 04/16/2022 08:26 AM SERVICES Pathologist: Siomara Haskins MD Specimen: Soft Tissue, Other, stomach DIAGNOSIS (test code = h3jqaXGjOSQln4bcKAJjbTM 3220) uZzEwMzNcZnRuYmpcdWMxIH tccnRmMVxlcGljOTYwMlxhb eQgHRKkoYGvB0PpjaqjNVoa SP5dNV7aaZdlaCDmmIIxONQ tBrEsp6wpn281vIGgw5rrHS ODlgvxwWs0lZdbY50kf8N6F kfvG18gpXYvMBZ3LJAnBLLo uLMcQKHgKWF6KAQpnEStT7h oZNFpOG7mmjdbQRvuAOxkYZ CumPO6TSMydGJbH8QjAKRoU XeuYAZwdih8GzEqBl3xgONx eTcyMFxwYXJkXHBsYWluXGZ sGrTcA6WCIQYWSDwgOTKEJR QDF8LSPXiEASGSTJUFBTCXD MYPDfHVKD5QMEdvtSYfUKIq TKAGBAeRBJwHXY7ZR09NSIA EIV0QHBHISAHDOiuQYWzGEM qiV5oCEJQMCHuPWXCGUg1FV CQdBT9BERUJEDVJDS9OWVAa tsXhQAFZBpDOOcJDB1VVVzQ EBS1OZUCZDEZUQXPhOPBXI4 PFHNAKYXSMDpLNPQrLL65YE zECFOONVS5ccHDwFRKufVJw iBhksiVhHDcio2HlNYlbRKB gVY0vlShvYDAwEN5jTYAvF5 yxwL0jdau5ThXjMXDjUgQ9V MRdpqP7Olb8VRJeFCqus0me j6RpAQSfEPk3wDsxCyKhIXG ym7yfkoAaCtFuOMXjHODgDE AooDMrA597t6yzc8fkuqCjj NF7YPIiQJX0NQhtvhCqlpO8 QAtmwUZwLsX6CCuzwfCiWYv ssaEwygGtVqm3SPYmM507GR R3aWgyr1edLOG4DKKxGTMtA mMnWh7coYQbU127FUCfRVPY WLJgdMa2NYVtiqUeuzUxeYT Fa587A477e3woLYOgwfJdzL eMabgnw6gyU266EDOgbLRua mRxByIlFBRmrOKlwFH3VGIt QI8hykscOTnkEMnxPONigtP 5ICUkbUIcA3AqBTEzOO2ijm gzPVZ8SCiwLTUkPUI5MsFvM HMir7Tnezq6YmRyqy8tuz85 WUJ8j1HjePzhIIW8IJU7VrG jOn5pwNTqFCFtUG6zNuSdlY MkZMStae56iKpmWTleSKQ1V DLynpKaf7Kmo8ndPuCwjeGs W6psY4DgVANfYVPmXODgIoR zmrGzp3Hgj5UoyJQvfGn9i0 wjXTFaJTCquRmrn3xzUXM9F QUzySKtR1dvrV1oIXNnNW0i fifrt2bkOIslODjyGDIgmVM 3loD5XNNxfRWcW7QneE0cPB DbHElkCLDdurf1LtAwFg9tn GVyeTcyMFxzYmtwYWdlXHBn bmNvbnRccGduZGVjXHBsYWl uXHBsYWluXGYwXGZzMjRccW xcbGFuZzEwMzNcaGljaFxmM JuuUwNyTEUtUVifM5rlDgFc JaYtBgd7NDJwnVKyWZYmSqd 6MEAszYZpRWMGaHtbfF2nNB GjxWdudB7icVN6CQSehbPnb CRIuS1kGPKInZ1iKgMfAAWf EsS2MLsmAvRzwJWkrD8= CPT Code(s) (test code o5qerGLkQBRyaPK1LcNgCFH = 3357) qr4zuj6ZxhZRvlYBrGThemE NnicZwgg44rOK2cL81BB6xP KRmLrM4ZXLxpxS9Xsp8KLEn AETwuTVfM482h1eni5muozC fkDW0eVhnACMpjdbjPuG4ZE ckPGCxgyxdUAp2XAqmAXPhe MF5NMJpmEJyN5GuOTVeRD8u udo4NTQ7VQquRZMlVzX4CIN jrSPyUUHjsOhmBNuvz938XA V5KnFcOZAfytKgwMuhvQ3rJ wAjSRZ9QCAcV4qaRYG8 CLINICAL HISTORY (test o5wovTPnUXEalRM2JoNyAEM code = 3356) rk0jgs1XvrJYnnAIdCYtuyR KzurLwxx96rLF0bD52RO2cU DMjZpJ0UVQcfdW4Orl6DHOl WRJicBOhL555a6ogk4zdhwA phZK2zKcpVBUyaytpEbV9LM cuFPHfenguQMi6JWhpMONwi RR5COKggRBbG9FrKZYyRH1o ysi2BZL4IRlkHMGeOgO1JAW yxFIbKSPozYpbETope389JF N0UoMjBEHokmYtpTawcX3uG fJuDGROm3KicFAar4Mdf9g4 eVxwYXJ9 GROSS DESCRIPTION b7anfMUpAYVjoZD8CkVuAKK (test code = fe3cmw9SptXTerWZeCXabwS [id number]) RkrqBuoi79sMF2kZ85RS0nT RGeXuX8BPSuykK7Bgz5DTVk TUUaeWXyD503i0eff6oxkbK chUG3dAqfSNIkmhoyVuW3TK bmWTFsfwcbOMg9IEigCMZcx PC8SWLkzUXhJ7NzLTKtFH5i mzx6VQN2DZutDHOpLeN3KPQ qoEKuCREazPqeTNnrr245GH U8HfCuNPSbagM0WXucLIWzL 2OjX1WdYHflLJR0SCKyCAQu RUBrGTVwCEPxMTxgrqE2k2u jYQOjoCKtSKZ4YHksgVPtSI EfZCFvBZkuZoSYUkPaFsC9B LY6ChgpZxM6PJe1MCKUYcQp JlWwTcG6VQK4ZKTwTYt3NUk 5HQpTYkL3OBP3IWs6QnEaUG RqZeQdTBs1SJZpLKwwbZFoY FLsZKUbYDhbFOkeL41imAmx sO9iDqAbIJCHLvCFh7G7GAS of6J3FHrdK7RhMDFrBMHbzg sjlhAjZYBvJ9AicpPuJYhoD ZLjng2foPuuFAhjMpBlOKPl u9d1eCV0jLUvgHI1jZBdcPk oPIttKh4wpWM5vY6hLZKfXH DkWGUtqRJpPZRxi0M3LGJmz 5S3JGdan3XzIMJaAGGrg9Pd cWM2yF1eLsMkvA6fBJHqPnD fnoSohvAlaP3wA9S2CCGvkB 7jmHomgxZpPxSlfR1kDXRoS B4kTUS0nercSxFuQoR7OUZc OTYnFYEjQkQ3HQJrRUVxpZ7 lHJmuLKYuoj9wXPBicxM7NV 3pu8ssySJpCY1sCYBbP7Mee LfyD20aI3AqiNUuGsVUgMOp o4TaB6cfHZ4krCIfg0KpsEy hAEGcrJ5bXgJtaWBoCR20oI AtFVkzjzz2gC0lBKOepFUyv 3BlbmVkIHRvIHJldmVhbCBi zL6qBYTxaZ48amUpzfA3uRO kmLOgER2iGUDzbUPkf9VzzF D7eDChWEJsC0Hxx49wXIDdV BXxlYFqjTM2NQHpLEFbDYWs CZSTL5P1PKvnPZLuM5JaR9N wpaP9v1jqaVouv0JdyHLlEA 1ccGFyfQ== MICROSCOPIC e5bvjLDpXZLrtFY7OcHoUPQ DESCRIPTION (test code xi7yzn1QgqUYoqZYtCEmqsH = 3371) CgotGpdr98qIN3gV72WA0xZ SZdBnV5URAwwaW4Acj2KQXl MUGqeUNjC861l4nod3edfjQ edYZ8mNftSDNewpobIiE1CQ qaNZZypxiqAPv3AWauQZBfx UB6BFGfxGSvR4NnBYDwHL2q gyi2JEZ4CTmjKRZvPvM4TFN lvKNkPKPzvIchYOtek940XM J1MjWjUNFyovMigRlonF8wP kMbBZDPFOXKF9UJTXPyfSUi fQ== [facility] [id number] 17:43:34 Test Item Value Reference Range Interpretation Comments Case Report (test code Surgical Pathology = 104) Report Case: [id number] Authorizing Provider: Tony Grey MD Collected: 04/15/2022 02:37 PM Ordering Location: [facility] Received: 04/16/2022 08:26 AM SERVICES Pathologist: Siomara Haskins MD Specimen: Soft Tissue, Other, stomach DIAGNOSIS (test code = j0wmvHXhILTex7haGCGgkYE 3220) uZzEwMzNcZnRuYmpcdWMxIH tccnRmMVxlcGljOTYwMlxhb hRvOEBpyHAiP0OmpiifQLyk CJ1jVW0fvRptyLCrrGVhQXV gRvIkq8zwl675lVOts0mkSM VEtmccdDi4aVjgH72mt0C3Q uphB29erPSxBII6QJDxHHMy qFDlMZBbYAF8BRXevJNgC1i qIMDyZH6fushbPQleEBngLI ThaEY4ZZPkbCUlB4OaVBGgT YpuWZWyzyg7OcEoPa7zbCLb eTcyMFxwYXJkXHBsYWluXGZ pVlAmG8SBSWKKJIjlBDILDQ YKF2VOZQlYOMGARPTHUHMVD VMCAsBBQD8WCPffuIXfWHBi FPRKPYrQRSsGSH4MK87VSJI MEE1QXYQGHLJYQqfUCTaUZX snV5jPMYYURWkNAFGPTd6VR CLwGM2MDEVAETXHLI6ABACh qrDsYXEWHsCXYwRHS1TRUoM BGV6NNRYLRMRIZCGiDWKVV6 OMAGYFDJPNPgZGATrUS07BE jUACSZANE9lsYLyLTAcrKYf gPrhlrDaEGckp9VzBUcsAMM uUU4smXcsAQWxLM3oXWChK3 ogkJ0gsgz1ZyTvOAVcXdX4S RCwqvR0Pbj2VENxJJmww9bf o7YwWCOkPPx1nAppPjKfOEY ci2comeHfRwQnKKXtNLBpHJ MzuYTxU942v3usr2bsxfDje CF4OZGcBPO7UPoosuMrpaW2 CTrusCOuUdM3DWmzbfInHCz crdDopcLmNno3URTyX742WY A3wMaza7riGLX2HAOfMLMkA dOaJc1sxTXjJ535VYKdALBE WAXugPk0IJDqanZogiOeqSP Oc944A532c0hxSGFzqvUswI yBmcrvh6rjW817QKCraYXta lOrYnScAUOwhYFozVH6YXFa CY5hrlddBEwaKUthAHKiiqO 0PUYqtSPbT6YiJMTgUB7iaa voWEI6MFxuTQYjGAZ7MpQqR KWmw4Urxvv8PcMiqw6jee53 KZX5m6UflOxrSVV5EIZ3LnQ hVa5nlIEdCJSyMH3jPjNjkP RsFSEmej04cNocMRivZOG8M WJigkJvh5Yta1syKeJalyWb Z6mrA5PrZIFeEJYmDJRsPxX ajgMmo2Hsu8HnxMBrqWi1g4 wqJQUwWSBqrUbzr7foETR9X YNwgMVkD6ygxV6aXPYxEC7f etijm8fbVJfaBSdrJOKsbUN 4ueP3TFOtnBXnD0KmwN3eIX VfXYhpSSVpjjm9JsEqBl7fz GVyeTcyMFxzYmtwYWdlXHBn bmNvbnRccGduZGVjXHBsYWl uXHBsYWluXGYwXGZzMjRccW xcbGFuZzEwMzNcaGljaFxmM GzpXsPmIFTcCBdlT4clNfQt VxQdJin3UXWnuCHaBOZqXoc 4PVIovAFbAQXYqFrkhX5hRU HzgRpjkW4dqJE4PQWjddZdh SJDmR9tSOPCbX6dPaYhTQOh UjB7GWijOoMznRPkaY8= CPT Code(s) (test code k4lwzTZlNWHwtJF9MxDgPRZ = 3357) nz1xec5HleWTalRVoUFnvqA ZmwnXbep85yIO6tB85FI4qU FCkSsA9JIHucwN3Wxy0XDYa XCQrbOEmP492v4ahx7bvrrG ubJU8bHuaCJBerchcRrQ4ES qlXXXraojnZUh7ZIcoPKPku VO3OMTzhEMwC8IqKJPqJV0l ljx4STJ2EWldUZKbAwY8RBY uuVKrQETtaBplTLnxy099YA Z1OzMxMZTlnuAghIlnsH9kJ nPsZED6WTJnE9koIHF7 CLINICAL HISTORY (test g4xxhDVrZCLndWT6RdLyNHL code = 3356) kl7cju4WnuDRroIXiONovqB SvxjKudu75xJB1zB73BT5vN YKjYkV9FJImjqM7Hlz7MXEl EMAurZVkI888m1kmz9fyxpW gxLR4rGorDNYsgkyiKeL6NH jhTTUyoljbQZo7USjnVHLco CW8DODzjIVtH4FdVJSwJQ2c ahg2AXO7WOdzJDJeHaJ1YGF fxTZvDQFihOlmIJfzv502GV O5SjBzPSAnoeQmsKmezI8fH dVzBCWIw5VbpYIju9Zet7c5 eVxwYXJ9 GROSS DESCRIPTION m7rwuLEcOMStrBY2MpDoRLQ (test code = dr4liu9JfeLJqoCGbWWhkvG [id number]) EqgtAggz99rXD8dA91VN5lL PKkFeF8AQLfiyV8Ewn2ZEQz RUYzxJKiZ383m0ohr2kejzH kvSL8yUroTXBmxifzRzS1EF yuSFElatpcOLt9DBksQGRzu JY6TTRfaWKcQ6NoIMQiBD8e jim0BAR3ZJvuLZNpZgB4HNK pxQYrDAPihFsjNRboz293IO Z4NaDqHNNxspE9HPynAAMyB 6MbI8AqIQbmFMQ6MMJrZHZx NWFlWASsWPGyGNptycX7f2r bXBRmeAMgKIF9AGhfkGQlED DdVTCzEEuwXxGQVjRaTqP7T SP5RnjkWcX4WCu2GMLCDvQw LfGeAcC7NJN8PUQlOMq9SAs 7JAgVUzI5GFO7MBg5AcHtZJ NpXvOzNNk9QPCaCAngmGHpV HVgBAWhTUqtNAlvP95hbWsp iQ1sHrYpMUHJIoNTz6G6CEA sv8O7MRfpT1UdNWLuANCths qiyhIzSWIvD0IgizBeOLgfQ QXpzb9niIyqPGwbWvRdBAGf p7r2uNL4rEVsnIF1eOHyaHz tUUfsNb8qbCF5uF2uJRGxWR BnPRXrfXLmJIAgq0D2XIWjb 2W5AHbnd2XnGROxRCRiz1Oi qBS7rK4gKnOwaA4pZCOiLiU axwPjpnTvqN4jV6W8BZOdnP 7pvHnrwgZwSoXfwX8fXTKzO J4hQSD3gbcbHeXnBmN0EYFj LKLxFCReZmI0HXVaZJTpzC8 rJOyjPUIaaw7gONTekaA3PD 4ov6ipmNIvMF3fFRZlQ9Mda XemJ54xM9FqeVQdEvFXtQRx u9HaF0weMB4vnKYsm7KexWz oGBIegO2lCoTzbTIkJK57cB LqZFatptk7bX1pDLUrrBVsy 3BlbmVkIHRvIHJldmVhbCBi bD6fSRPkmU62wnUlpsR4wAP naSTdSM7zTLQjxAGvu9TvlB W7jTDzKKKsL3Kmn27aSHUjV HUevMTtlNG1WSMzIPNsCNBq JPWQQ0L3QXauUHAyJ1FhS8J teaK1t5prpJulf4PniVWySA 1ccGFyfQ== MICROSCOPIC d0nzqTOrKOJqkTC3FrHiZFW DESCRIPTION (test code ee9kef9JdcSPrbTMvDIzkvR = 3371) IblwDcsz04uGA8zZ85NI3pS JFuBiJ0KKMhtpZ5Kkp9UECb TABltMThX251o1zgt5tmjnI zfEE7uDqfOKLzwpwpCeQ3TB jzRHLqvvyeYDa1IRhsQACzu WR9UVJicBCdU2CmHOUwII3q bfx1BFU9LXpgTKCfQcP0NJI nvQVwQXCtcMavKAidr623VA C9UnEfDTMegrDreDsrwQ0gZ bHtFWIPCJXLQ6UAYDLopSJn fQ== [id number] 17:43:34 Test Item Value Reference Range Interpretation Comments Case Report (test code Surgical Pathology = 104) Report Case: [id number] Authorizing Provider: Tony Grey MD Collected: 04/15/2022 02:37 PM Ordering Location: [facility] Received: 04/16/2022 08:26 AM SERVICES Pathologist: Siomara Haskins MD Specimen: Soft Tissue, Other, stomach DIAGNOSIS (test code = k4hxtEXfGOTim4dmYCYxaKL 3220) uZzEwMzNcZnRuYmpcdWMxIH tccnRmMVxlcGljOTYwMlxhb fEnPCIbzJMmZ9OzkmszBDhq LK5bLG2iiOdlfMKoaBLyZKP vWoXtg6att166aLHld2qzCT BFnycckZj0bJjkQ56kd8L0O xudO37tmQZzOWZ2VSKwDWFu wIVeWCRcNOO6TOXsjIUeF0f tQHUdHL8lhexkXRlhJRjlHC RwyDK9OZVfpMMpH0AxHTLpC UntCCQlevd7BnXbDx9zwIPm eTcyMFxwYXJkXHBsYWluXGZ eQeOrK9MSRAGDPWdgOYTVBB GZA4WIFDfTSQAUXGMEGPQMR QTYYlPAWA8HROynuOUiUNNz LAVQZIzWHCcDEB2IR28EWMU QAH7OZFJXRWJFXdxVMMyPUP aeH7iTNZZGKTuCQQCAZu5NB GXfSF4MVJFLMFIZSH4ZBYTn mwZcUEMIKpHJMtKCY5OKBlP LRG8YINHISJWRXVJaQTNGZ0 WVNJBXQHVBPbSSTTbYX44ID mUZBSVPVJ1cjXYhPRDhzYIm zDhmsoQiASdmf1CzSWwkDFD rTV3aaVreXOIqCA0oANYeP2 jrmS9jjbo7GaSsYNLtXqB8I DHxilR1Kxt8LBFeSCjeb5pc m8NgANZiPPq9pQwbExVxZJB az1htluPkIiVdSWBzQKYjLR KpcFBdG646t8xxp5xelvCad NA1FHSjMSN5RWoluaQgzfT6 OZretQSxDpO9JFsdvvPjLMa qbsKozwSzMpd7DJVnP509NW N5xZbcr8oxVET1NAXiUBUqP pBiLq0klVYcJ666DGZvCWJO HGTpdPm2CLPgtdJjcbMqpGL Xe643P420i8awQEQajvOybO hWfimqa6fhX176FLJcoCDsd zQfRhEmXCNziGHcjMI8HCQm FS5jdztbGBimLAxwMDKoosW 6UWXksRBbF3EbRMWdFQ5gsh bpLCK1TJzoAITtLCF1SsSvN DSmf1Zorup6NkFpwx8bkz47 TJX9y4XosDbjTFJ0IPM8IgH pQv6dmABlSMDwEY2eOxHvfF LqFHKsao89rPopEMlfUBE7B VAjrhKvw3Jdn7jbEqFdeyBg G2emG0TvVTLdGWPtYJKcZtH ihxHlb7Rww7MgzGBtrYo5r4 etFLAtRDPquNlym9odQXY8J KJnpPFfA6ttzR6fDQGaTM4h yxxdx7gfGAfdZEecYWVbmAL 5pxH6JJOqzGGzF9ZvdJ8aQY WhJNacUCRbpml3JnEmHa8sb GVyeTcyMFxzYmtwYWdlXHBn bmNvbnRccGduZGVjXHBsYWl uXHBsYWluXGYwXGZzMjRccW xcbGFuZzEwMzNcaGljaFxmM GduIfCyAJKdXVdoN7opZnXu EeGsLxb7ABAtaDTlXELaQpe 7TRKzlJZqMRMDwIrpuX0aDA HyxNzqgO3siII9NEFcnrVex FUDdS4fFTVOwA9nFnHjUXOh OxV0LIucWuPgpJPulV5= CPT Code(s) (test code n1vpjYTdSGYpsNE0TiJpTWK = 3357) he5kvt6PrzSAloDHqMAzqqE MmktYuji87cIR8qV67RO1kB HBsUfF4XLSyvjL1Qeg7FNOh EKSfxTTkC853r0bzr7myeaP yoMV9gFzlPJKzieoxKuF6FR rwQTEnmymcYVr5PDkpWECdr MH1MKUjeLAzD9QyYRAaKQ6q eys3CWV1NNbvGSFiZnJ8IWR maVTgOJRkrSilBYkpn327RH P8JmMwKHXddyJinQtrkX7xB mOlLBD8DDRtL7okVAA5 CLINICAL HISTORY (test c5irnRToFPLzgCJ8JgKgBUU code = 3356) zl6cbv3IzwNZnwOLjSFkrsF YffnDkrt83xBY3bU09ME8dH HJeIkD7JRLkfxD5Ehp3TTRg WNHbqCSnZ200q8lrp0bshoA zuEX8yVvjIOYumuwkBtE4TG evWTVcaidhQOz7YIkxOLDgk FU4BDSugRKsC5BkJERzFV8j owe7HFN7XHjhEBXuLgF9FYF chKUjDYWofFuwWPkwv975EO Q8EkKqRPTpvfDqgHeyuL1cX sXiGPGCo5YapKXcm5Frv4v6 eVxwYXJ9 GROSS DESCRIPTION j6vizDNqQNKeeLV4GqKfWRR (test code = kg9lma5LexGVufTDrCGaadO [id number]) HqxdIzod24zVH5gW13JG8zP BVlXtJ5KAAuulG1Eik2IHWy JIZyxGDpW233c5kwo0gkukF imRN9vJjxHRQvdqmqHxC0YH wvYWUqokcxZOi5YQabOATrn FZ8PPWewADdO5OxWBBwYC0h rbo8YBT0UUubQMAwZmC8RGZ qlZQbDIZvqFynQYhho811GB U5LoRkSSWfcaD5ASanEJSwS 3GxP3KaZGvfWUO0URRtIGQg ZUAnIXNhMAFqDUcpufT5i1b lZZXcuNHwELV0FPhceYTpSJ WhLGXdYZtwIeSPElVcFjA0A AE2SmscKbA1TIp1YANKInVf StPnDpA9DZA8NFSrAJo0NNk 3PDiKBsW6KGP7FYr8DxYxUA UqZpHsZOt3QYSfDPddbFUtI FJxSDDzGYqoKBewT81obCcu eV2gCdLaPDLPErKBy0Z5LEK ho3F8ORakU5KfXGJxXBZcpv qxntStPNKxZ8PlgbScCAsnB OZxhu9miGliYKxaNrSbNOSk k8k8nPA4hPQgsNT4bQDauJi pWSocQb7jbXE0dC2hLCSwQM UhGBPidHPqEYYye5W3KBPzs 4J8YOebm3ZlDXOvAOQel2Fz gFL6vW1gMfWhdP9cGINdVqL tvpQlscKmnB5aS6N0VUIsmT 1tjMbaajNkWoHxrI6pBBMaJ L7wMCM2qugcMmDlLzD3HDWp LKMoCAJlRsX6SQCnAKXesN4 cJXweHNDews8uJHSrolU4JH 1fd7ycuVLoAN8wEMToE2Gtj ObtV40wU1ZfpYLfScJEpHOv f2BgL2wqAC6lyFXbi1NgqDg iDPPaxN1tEoCcfACyLS00kS PaDXpqzng0jY0tDCBgtLZdu 3BlbmVkIHRvIHJldmVhbCBi dK4aOKRcfE13dnUunvM4uYO zfUBfOJ4vUUGxjCVbp7EeaK U7pQCvAMQhI6Tml89jZLAoF OPzyBQbuJH4BFIuRLMhLLUe YIRAT0N4XSqxNECqA6IwY5N dndT8a9rzzJaod9BloQMfVZ 1ccGFyfQ== MICROSCOPIC o9zkwWAiFFMkhSZ1JlKzTUJ DESCRIPTION (test code sz5pse8XciLJuzROdEXkxyN = 3371) QswnLegb80gGO2pZ36AK5eG FVoNfC8SKYgevR8Okg9SESj KAPmeWJoE545z7low3vnwdC fwIE0oCswOHDofihjMbH4KD gxFYSkfpdxWRv2DIgvUNKkd CZ7FTDdyMWjJ8IxIMYsSF7p rng9TJJ0UFegLRGzTtE8AZY ijELtCAHtnXvwLDnoi165MJ S9KjLtSLRulnGejZgakS3wT iTuRAJSPMUWS7HTBYSphQGz fQ== [facility] [id number] 17:43:34 Test Item Value Reference Range Interpretation Comments Case Report (test code Surgical Pathology = 104) Report Case: [id number] Authorizing Provider: Tony Grey MD Collected: 04/15/2022 02:37 PM Ordering Location: [facility] Received: 04/16/2022 08:26 AM SERVICES Pathologist: Siomara Haskins MD Specimen: Soft Tissue, Other, stomach DIAGNOSIS (test code = i5iatWNmKITnk8itXJNxsVN 3220) uZzEwMzNcZnRuYmpcdWMxIH tccnRmMVxlcGljOTYwMlxhb rXiSFEnqCHpC4AfkmikJYzb BE7sXK0yfXhxaTIfrEFjVNC iUyZqs9nsn505tYHhh6mhNJ ULsgbbyPc8iFqxJ28to3I9A dxfU43lbSSdBRH9KIKsFYAd aQZwPEIiNEZ8RRWpzJBtW6j kVNZtXL7feqszOWjjSZbrYX JdmZZ0CNKkeDDqG1McISLzC WspXXRfpql3TqWuTu2hhSPg eTcyMFxwYXJkXHBsYWluXGZ gYqPeD6YNTWNOHDufBMUVAB PKA8QLVCjVVMTNDVZANRHNV KZBXzWEOD1IZCzkgAXkAYIl MRYKHArWAVmJEJ6NZ16DKYZ ITP4FNEWJJFYEToyJZRyGCS dnL2vYALXMILaAPXAGRp2SD IErSY2DCJTGQNVDTP7APBJt exKbYMUBFdPQDaEEC1NYVqE GER4FUCSOTELFAKHmSFUTN1 RTZNSPMBKNFzFUOPxJP73GY hWTSCDEGI8gmDTyVSIeaVWq cNztfwCrHXxgl5TaEIcyUEA qDS4wpBfdPKUlTU1jQQCoY1 dbaS1modq6SlWaOZZrEtW3K FUgpcT2Yrw1GXQhIPikn7rf m3KzKZRjUGn7bCvmAvVoNML li3bmdoZhCbPbCWFsVBHqUI NgiKVuB168r3ymq5dfheSca TQ1WSDjSSK0ACcucbEnrnY0 GSyvoQZiOyR0MXblmxKzLCc rsePktxAgQsy8DHXjS561KV Z6zQuhe2yfAKD8BNZlHDVtA xPcNg9tqRFrC174BGHgZFTV VOVrqGq4OFBvotFxcaWssRG Zo290S276a8feOHJptbEueM xObisfu7wfE074TOGspJLjm lDuSgXoLAKhiTAhbGC2LXTy NV5lmvuoURppSZayJTUnooQ 5TMJviFXrG1UkFSHoWI1eoa lrKPH5VAvoLEFnVUF5ZdAzW PAey8Rjloh9EbMrjs3cgm19 MOX0x8VaoJblLCE6KBT1GkF jAj2uaFGdOVOvSE6zZuLmqE TpMGJhon05hXmsWQqhCAK6A SYxdfRas8Zxz2zgDxLzyiGx A0hfR8OrIXXoRUMzONRlXjO hkqDci2Zof7QncJBfxNb2c9 qeGYTgZKVjiZdho5orPHL3E BCozFHsZ7bstC2jVCSeGT1a apstn6ofJCpmDIulMSZhwPS 5rzT3XOGfbVDmK2HhgM2hFF AtSGkcLDRxrcp7SdOmWc5nr GVyeTcyMFxzYmtwYWdlXHBn bmNvbnRccGduZGVjXHBsYWl uXHBsYWluXGYwXGZzMjRccW xcbGFuZzEwMzNcaGljaFxmM FysKfGpPQYnPCbpH3imBlWv TtOpFbe4IKSeoTPaSKHlKia 0VWLjyTFdGXVMiYvrpY7zIT YsyRlqjN9lyIU3AVJbwxJiq AOLwW4dMNLDzY5vIbHxERPl HaO1SDmrFuWjoZAacJ2= CPT Code(s) (test code s2ukxSBcKZZtoDY8JtEzGUO = 3357) kr1cky4TlbEXijMDnWPsyrW WhmqDtgr58dTK5oY38LC4yY PRsMcQ2NEHkuvT0Uis4LRTl TFAcoLTkX939z7rul3enwiB goBI0oBgyELBengrkBoF5UW heUGWvjnzfDZy2MZwlMISlw WG9UUUflMXsY5RgCLJdWY6q lkp8SLJ8FIhyQGLdUhS5AXM wfDFrITAonKxdHKgfq928FH Y6YqZnWDAdtxCqpZhgtP2mH kUxHDT6RHHeE2pxQWN5 CLINICAL HISTORY (test n9lbhQLlEKCsxXM1TvWpSXR code = 3356) ru4bpi0WwjEVrrRYzAAaugR QsawXfvh60pEL1cA14AE7zT HZrMpP4VNMlllY5Tsi9WELs WERzlZRdP697j2gxn2izsjR ohFP4cFpyYETmnytjRjX3AY agLEOofmctIUq6IFfoOOHks LO5CBMzzPYrR7PdWMGnXW8d znq1OBC3ECmdCLCeCnB2CBI wrHFvEVIjdTouXDvay773NU J8EwUnCWEyqjTofPytcT4mY mIyNBGRv1MdePLrb9Vyb9p5 eVxwYXJ9 GROSS DESCRIPTION g7vxbMMdARCdvNX8LgNaUSN (test code = zv1wrw9IfnCGhyTOxSCwscF [id number]) BpzjNzsx33hGC1lR99WR2bA QVwAtV0QDSjmrN7Hqk4XRRq XTGpmZWbK266b9mxr7hnmcD beIG6kVjjZHYoftyfNoM4ER krLTInpciyNWh5WGpjXAKld IE3OBVbcSHdR3BeTUEeTL2v yhl1NCL9DVtpTSMnWaJ1GUK jsGLiFFPmnNanBMdbz822JA O4EwOyVKFcquV2HArpHNTkJ 4UsZ9QsYPtsQVL0MNSzUKMf ITUwTFMyRVXkAUkpqnW6o9j kFLKezHDxSAA0JQdxtTWmGE DxVOAeHOwqOyEUDvGkVpL0U VW9VotqXyD1EDp0WECVBlJs JlRfCfQ2WIB6PYDqGLa5RLq 7DSjRFxQ7AAK7GQi7KzKlQQ RxEfVgMEj3ZDNcOJyiyNCzI GToJOXmCRenVUrsQ22riPfs yI8hWkBeZHIEQqNVr1U2OMH wf7I5NNvyL3EdISOhZONljn udotAhPYJtA4GdnoBkURcjM FSkov5ouAmzLJsfQeDdVXXh h2g2sGR3tLLhbWV6tDUkyVd qOWgoKj6xhXZ1nH1tBHAiWZ MaVIFfvDWzQHTbm6I9BATzp 3X1QLmgb7AiBYQaZMAuw3Wc bWA1nO3qXvDsiM5rZLVsXhB uvmAiiaTswN3eU9C7WHDklT 9crQlxfyJbLqBxkJ5wIEKkR N6hDLB8zmbrSuUwVsW7HIHz NFEaOIQrGfU9LXTrAVRdhF5 jNGcmJUOlfc3pSVZcwiJ6UK 5il0hrjPJxCY9iFDFtG7Lwv IpaF85jS0KbaZTgSiIRhDFr f3FvB5uyXS9aqQNlc8UvxTu bZOXnaF9jDkKwmKQiHZ53iP PqBZipjnf3jE7sJACjvAKyn 3BlbmVkIHRvIHJldmVhbCBi fB3rXDNqbP16baIcwvC5mJJ hrDEcHZ0rXFFriPLwn2TtzJ N7zXJjZJUhP9Mzp98xWFHmM NRwuJAxkIX9QJSrEZKtFNMq DQWAZ4U4SUdcVNDmS2WyI3H ovaF5z6bthJsri4BsrXPnKP 1ccGFyfQ== MICROSCOPIC c9wxxYFgDMIaeWH4QvHjWBX DESCRIPTION (test code jn5qnz2LueRGohMRhGFdroO = 3371) CicmGgqp89hNM2cN08JM4xM GSwJcR5FTBoowZ6Elm0XMUi NWGsgESeG412q0uja4wqekN kwUP5xMddAKYaakweYnB4WJ lsSIXgnxolXNi0YAanNVRiz LW6BOZpcVBsJ3IfZTFgPC9f cso5MLL2IEsbSYWiSdW6AUT kmOAtOWNzwNhkOSwmf648JE J0ShLrMVUjbyDgaBzzxU0oG zIwXYNOTSOZW0JIRVMpmSYc fQ== [facility] [id number] 17:43:34Surgical Pathology Report Case: [id number] Authorizing Provider: Tony Grey MD Collected: 04/15/2022 02:37 PM Ordering Location: [facility] Received: 04/16/2022 08:26 AM SERVICES Pathologist: Siomara Haskins MD Specimen: Soft Tissue, Other, stomach STOMACH, LAPAROSCOPIC SLEEVE GASTRECTOMY: - OXYNTIC MUCOSA LINED GASTRIC WALL WITH MILD CHRONIC INFLAMMATION - NO INTESTINAL METAPLASIA, DYSPLASIA OR MALIGNANCY SEEN Signing Pathologist Direct Phone Line: [phone] signed by Siomara Haskins MD on 04/18/2022 at 5:43 [id number] obesityA. Soft Tissue, Other.Received in formalin labeled with the patient's information and labeled "soft tissue, other, description: stomach" is an elongated portion of stomach measuring 13 x up to 3.2 x 1.5 cm. The serosa is rosales-white and focally congested. The specimen is stapled along its entire length. It is openedto reveal blood clots in the lumen. Interpretive Program Coordinator sections are submitted A1-A3. BH/ew [facility] [id number] 12:22:45 Test Item Value Reference Range Interpretation Comments SCAN RESULT (test code = 8282315) BASIC METABOLIC [id number] 07:00:06 Test Item Value Reference Range Interpretation Comments SODIUM (BEAKER) 137 meq/L 135-148 (test code = 381) POTASSIUM 4.7 meq/L 3.6-5.5 (BEAKER) (test code = 379) CHLORIDE (BEAKER) 105 meq/L 98-106 (test code = 382) CO2 (BEAKER) 25 meq/L 20-29 (test code = 355) BLOOD UREA 11 mg/dL 10-26 NITROGEN (BEAKER) (test code = 354) CREATININE 0.82 mg/dL 0.50-1.20 (BEAKER) (test code = 358) GLUCOSE RANDOM 173 mg/dL 70-110 H (BEAKER) (test code = 652) CALCIUM (BEAKER) 8.8 mg/dL 8.5-10.5 (test code = 697) EGFR (BEAKER) 84 Interpretatio n of eGFR (test code = mL/min/1.73 values Stage De scription 1092) sq m Result G1 Bre l or high >=90 G2 Mildly decreased 60-89 G3a Mildl y to moderately 45-5 9 G3b Moderately to s everely 30-44 G4 Severl y decreased 15-29 G5 Kidney failure <15Reported eGF R is based on the CKD-EPI 2021 equation that d oes not use a race coefficientEsti mated GFR is not as accur ate as Creatinine Siobhan smith in predicting glom erular filtration rate . Estimated GFR is not appl icable for dialysis patien ts [employer] Superintendent ID - LITOOperator ID - LITOOperator ID - LITOOperator ID - LITOOperator ID - LITOOperator ID - LITOOperator ID - LITOOperator ID - LITOOperator ID - LITOOperator ID - LITOOperator ID - LITOOperator ID - LITOCBC W/PLT COUNT & AUTO [id number] 06:38:16 Test Item Value Reference Range Interpretation Comments WHITE BLOOD CELL COUNT (BEAKER) 8.5 K/ L 4.0-10.0 (test code = 775) RED BLOOD CELL COUNT (BEAKER) 4.68 M/ L 4.00-5.00 (test code = 761) HEMOGLOBIN (BEAKER) (test code = 12.7 GM/DL 12.0-15.5 410) HEMATOCRIT (BEAKER) (test code = 40.3 % 36.0-46.0 411) MEAN CORPUSCULAR VOLUME (BEAKER) 86 fL 82-99 (test code = 753) MEAN CORPUSCULAR HEMOGLOBIN 27.1 pg 27.0-33.0 (BEAKER) (test code = 751) MEAN CORPUSCULAR HEMOGLOBIN CONC 31.5 GM/DL 32.0-36.0 L (BEAKER) (test code = 752) RED CELL DISTRIBUTION WIDTH 13.9 % 12.0-15.0 (BEAKER) (test code = 412) PLATELET COUNT (BEAKER) (test 281 K/CU MM 150-430 code = 756) MEAN PLATELET VOLUME (BEAKER) 9.0 fL 6.0-11.5 (test code = 754) NUCLEATED RED BLOOD CELLS 0 /100 WBC 0-0 (BEAKER) (test code = 413) NEUTROPHILS RELATIVE PERCENT 78 % (BEAKER) (test code = 429) LYMPHOCYTES RELATIVE PERCENT 18 % (BEAKER) (test code = 430) MONOCYTES RELATIVE PERCENT 4 % (BEAKER) (test code = 431) EOSINOPHILS RELATIVE PERCENT 0 % (BEAKER) (test code = 432) BASOPHILS RELATIVE PERCENT 0 % (BEAKER) (test code = 437) NEUTROPHILS ABSOLUTE COUNT 6.60 K/ L 1.80-8.00 (BEAKER) (test code = 670) LYMPHOCYTES ABSOLUTE COUNT 1.52 K/ L 1.48-4.50 (BEAKER) (test code = 414) MONOCYTES ABSOLUTE COUNT (BEAKER) 0.35 K/ L 0.00-1.30 (test code = 415) EOSINOPHILS ABSOLUTE COUNT 0.00 K/ L 0.00-0.50 (BEAKER) (test code = 416) BASOPHILS ABSOLUTE COUNT (BEAKER) 0.01 K/ L 0.00-0.20 (test code = 417) IMMATURE GRANULOCYTES-RELATIVE 0.40 % 0.00-0.00 H PERCENT (BEAKER) (test code = 2801) POC-Glucose [id number] 23:55:24 Test Item Value Reference Range Interpretation Comments POC-Glucose Meter (test 231 mg/dL 70-110 H : TE STED AT [facility] code = 1538) [address] [place] [address]: Woods Superintendent/Techni omar ID = [id number] for Nitish Meena s Lab Interpretation (test Abnormal code = 83438-5) [facility] [id number] 23:55:24 Test Item Value Reference Range Interpretation Comments POC-Glucose Meter (test 231 mg/dL 70-110 H : TE STED AT [facility] code = 1538) [address] [place] [address]: Woods Superintendent/Techni omar ID = [id number] for Nitish Meena s Lab Interpretation (test Abnormal code = 87501-5) [facility] [id number] 23:55:24 Test Item Value Reference Range Interpretation Comments POC-Glucose Meter (test 231 mg/dL 70-110 H : TE STED AT [facility] code = 1538) [address] [place] [address]: Woods Superintendent/Techni omar ID = [id number] for Nitish, Meena s Lab Interpretation (test Abnormal code = 56355-5) [facility] [id number] 23:55:24 Test Item Value Reference Range Interpretation Comments POC-Glucose Meter (test 231 mg/dL 70-110 H : TE STED AT [facility] code = 1538) [address] [place] [address]: Woods Superintendent/Techni omar ID = [id number] for Nitish, Meena s Lab Interpretation (test Abnormal code = 25773-1) [facility] [id number] 23:55:24 Test Item Value Reference Range Interpretation Comments POC-Glucose Meter (test 231 mg/dL 70-110 H : TE STED AT SLSL code = 1538) [address] [place] [place] [address]: Woods Superintendent/Techni omar ID = [id number] for Meena Talbert s Lab Interpretation (test Abnormal code = 53913-7) [facility] [id number] 23:55:24 Test Item Value Reference Range Interpretation Comments POC-Glucose Meter (test 231 mg/dL 70-110 H : TE STED AT SLSL code = 1538) [address] [place], [place] [address]: Woods Superintendent/Techni omar ID = [id number] for Meena Talbert s Lab Interpretation (test Abnormal code = 36875-3) [facility]-Glucose [id number] 23:55:24 Test Item Value Reference Range Interpretation Comments POC-Glucose Meter (test 231 mg/dL 70-110 H : TE STED AT SLSL code = 1538) [address] [place], [place] [address]: Woods Superintendent/Techni omar ID = [id number] for Meena Talbert s Lab Interpretation (test Abnormal code = 09657-8) [facility] [id number] 23:55:24 Test Item Value Reference Range Interpretation Comments POC-GLUCOSE METER 231 mg/dL 70-110 H : TESTED A T SLSL 1317 (BEAKER) (test code BETANCUR POI NT [facility], = 1538) [place] [address]: Woods Superintendent/Techni omar ID = [id number] for Will iams, Siria POCT-GLUCOSE [id number] 19:27:14 Test Item Value Reference Range Interpretation Comments POC-GLUCOSE METER 164 mg/dL 70-110 H : TESTED A T SLSL 1317 (BEAKER) (test code BETANCUR POI NT [facility], = 1538) [place] [address]: Woods Superintendent/Techni omar ID = [id number] for Will iams, Siria POCT-GLUCOSE [id number] 15:50:33 Test Item Value Reference Range Interpretation Comments POC-GLUCOSE METER 165 mg/dL 70-110 H : TESTED A T [facility]SL 1317 (BEAKER) (test code BETANCUR POI NT [facility], = 1538) [place] [address]: Woods Superintendent/Techni omar ID = [id number] for Limb runner, Rustam POCT-GLUCOSE [id number] 12:46:07 Test Item Value Reference Range Interpretation Comments POC-GLUCOSE METER 93 mg/dL 70-110 : TESTED A T SLSL 1317 (BEAKER) (test code = [address], 1538) [facility] [place] [place] [address]: Woods Superintendent/Techni omar ID = [id number] for Everett Dudley VITAMIN D, [id number] 16:59:21 Test Item Value Reference Range Interpretation Comments VITAMIN D 25-OH (MARICARMEN) (test 12.4 ng/mL 6.6-49.9 code = 2764) Effective 01/28/2017: Reference Range ChangeNew: 6.6-49.9 ng/mL Previous: 13.0- 47.8 ng/mLRecommendedVitamin D Target Range: 30.0-40.0 ng/mLOperator ID - ADMIN VITAMIN [id number] 12:14:27 Test Item Value Reference Range Interpretation Comments VITAMIN B12 (MARICARMEN) (test code = 283 pg/mL 211911 774) Woods Superintendent ID - [id number] ID - [id number], [id number] 10:19:57 Test Item Value Reference Range Interpretation Comments IRON (MARICARMEN) (test code = 547) 49.0 ug/dL 45.0-170.0 Woods Superintendent ID - DSENSONSARS-CoV2/RT-PCR (Asymptomatic ONLY)2022-04-11 10:07:20 Test Item Value Reference Interpretation Comments Range SARS-COV2/RT-PCR Negative Negative The SARS-Co V-2 (test code = target nucleic 27191-4) acids are not detected in thi s specimen. Negat michael results do not preclude SARS-C oV-2 infection and should not be u sed as the sole bas is for patient management decisions. Nega tive results must be combined with clinical observations, patient history , and epidemiolog ical information. A false negative result may occu r if a specimen is improperly collected, transported or handled. This S ARS CoV-2 test is a rapid, real-barbie e RT-PCR test intended for e qualitative detection of nucleic acid fr om SARS-CoV-2 in a nasopharyngeal swab specimen collec landen from individual s suspected of COVID-19 by the ir healthcare provider. HIPOLITO (test code = This test has been HIPOLITO) authorized by FDA under an EUA for use by authorized laboratories. This test is only authorized for the duration of the declaration that circumstances exist justifying the authorization of emergency use of in vitro diagnostic tests for detection and/or diagnosis of COVID-19 under Section 564(b)(1) of the Federal Food, Drug and Cosmetic Act, 21 U.S.C. 360bbb-3(b)(1), unless the authorization is terminated or revoked sooner. Fact Sheet for Healthcare Providers: https://www.[employer]/Documents/Xp ert%20Xpress%20SAR S%20CoV-2/Fact%20S heets/302-3802%20S ARS-COV-2%20HEALTH CARE%20PROVIDERS%2 0FACT%20SHEET.pdf Fact Sheet for Healthcare Patients: https://www.[employer]/Documents/Xp ert%20Xpress%20SAR S%20CoV-2/Fact%20S heets/302-3801%20S ARS-COV-2%20PATIEN T%20FACT%20SHEET.p df Lab Interpretation Normal (test code = 84690-3) [facility]2022-04-11 10:07:20 Test Item Value Reference Interpretation Comments Range SARS-COV2/RT-PCR Negative Negative The SARS-Co V-2 (test code = target nucleic 86986-0) acids are not detected in thi s specimen. Negat michael results do not preclude SARS-C oV-2 infection and should not be u sed as the sole bas is for patient management decisions. Nega tive results must be combined with clinical observations, patient history , and epidemiolog ical information. A false negative result may occu r if a specimen is improperly collected, transported or handled. This S ARS CoV-2 test is a rapid, real-barbie e RT-PCR test intended for th e qualitative detection of nucleic acid fr om SARS-CoV-2 in a nasopharyngeal swab specimen collec landen from individual s suspected of COVID-19 by the ir healthcare provider. HIPOLITO (test code = This test has been HIPOLITO) authorized by FDA under an EUA for use by authorized laboratories. This test is only authorized for the duration of the declaration that circumstances exist justifying the authorization of emergency use of in vitro diagnostic tests for detection and/or diagnosis of COVID-19 under Section 564(b)(1) of the Federal Food, Drug and Cosmetic Act, 21 U.S.C. 360bbb-3(b)(1), unless the authorization is terminated or revoked sooner. Fact Sheet for Healthcare Providers: https://www.[employer]/Documents/Xp ert%20Xpress%20SAR S%20CoV-2/Fact%20S heets/302-3802%20S ARS-COV-2%20HEALTH CARE%20PROVIDERS%2 0FACT%20SHEET.pdf Fact Sheet for Healthcare Patients: https://[employer]/Documents/Xp ert%20Xpress%20SAR S%20CoV-2/Fact%20S heets/302-3801%20S ARS-COV-2%20PATIEN T%20FACT%20SHEET.p df Lab Interpretation Normal (test code = 75439-3) [facility]2022-04-11 10:07:20 Test Item Value Reference Interpretation Comments Range SARS-COV2/RT-PCR Negative Negative The SARS-Co V-2 (test code = target nucleic 88670-2) acids are not detected in thi s specimen. Negat michael results do not preclude SARS-C oV-2 infection and should not be u sed as the sole bas is for patient management decisions. Nega tive results must be combined with clinical observations, patient history , and epidemiolog ical information. A false negative result may occu r if a specimen is improperly collected, transported or handled. This S ARS CoV-2 test is a rapid, real-barbie e RT-PCR test intended for th e qualitative detection of nucleic acid fr om SARS-CoV-2 in a nasopharyngeal swab specimen collec landen from individual s suspected of COVID-19 by the ir healthcare provider. HIPOLITO (test code = This test has been HIPOLITO) authorized by FDA under an EUA for use by authorized laboratories. This test is only authorized for the duration of the declaration that circumstances exist justifying the authorization of emergency use of in vitro diagnostic tests for detection and/or diagnosis of COVID-19 under Section 564(b)(1) of the Federal Food, Drug and Cosmetic Act, 21 U.S.C. 360bbb-3(b)(1), unless the authorization is terminated or revoked sooner. Fact Sheet for Healthcare Providers: https://www.[employer]/Documents/Xp ert%20Xpress%20SAR S%20CoV-2/Fact%20S heets/302-3802%20S ARS-COV-2%20HEALTH CARE%20PROVIDERS%2 0FACT%20SHEET.pdf Fact Sheet for Healthcare Patients: https://www.[employer]/Documents/Xp ert%20Xpress%20SAR S%20CoV-2/Fact%20S heets/302-3801%20S ARS-COV-2%20PATIEN T%20FACT%20SHEET.p df Lab Interpretation Normal (test code = 86466-3) [facility]2022-04-11 10:07:20 Test Item Value Reference Interpretation Comments Range SARS-COV2/RT-PCR Negative Negative The SARS-Co V-2 (test code = target nucleic 73770-5) acids are not detected in thi s specimen. Negat michael results do not preclude SARS-C oV-2 infection and should not be u sed as the sole bas is for patient management decisions. Nega tive results must be combined with clinical observations, patient history , and epidemiolog ical information. A false negative result may occu r if a specimen is improperly collected, transported or handled. This S ARS CoV-2 test is a rapid, real-barbie e RT-PCR test intended for th e qualitative detection of nucleic acid fr om SARS-CoV-2 in a nasopharyngeal swab specimen collec landen from individual s suspected of COVID-19 by the ir healthcare provider. HIPOLITO (test code = This test has been HIPOLITO) authorized by FDA under an EUA for use by authorized laboratories. This test is only authorized for the duration of the declaration that circumstances exist justifying the authorization of emergency use of in vitro diagnostic tests for detection and/or diagnosis of COVID-19 under Section 564(b)(1) of the Federal Food, Drug and Cosmetic Act, 21 U.S.C. 360bbb-3(b)(1), unless the authorization is terminated or revoked sooner. Fact Sheet for Healthcare Providers: https://www.[employer]/Documents/Xp ert%20Xpress%20SAR S%20CoV-2/Fact%20S heets/302-3802%20S ARS-COV-2%20HEALTH CARE%20PROVIDERS%2 0FACT%20SHEET.pdf Fact Sheet for Healthcare Patients: https://www.[employer]/Documents/Xp ert%20Xpress%20SAR S%20CoV-2/Fact%20S heets/302-3801%20S ARS-COV-2%20PATIEN T%20FACT%20SHEET.p df Lab Interpretation Normal (test code = 14827-3) [facility]2022-04-11 10:07:20 Test Item Value Reference Interpretation Comments Range SARS-COV2/RT-PCR Negative Negative The SARS-Co V-2 (test code = target nucleic 39080-9) acids are not detected in thi s specimen. Negat michael results do not preclude SARS-C oV-2 infection and should not be u sed as the sole bas is for patient management decisions. Nega tive results must be combined with clinical observations, patient history , and epidemiolog ical information. A false negative result may occu r if a specimen is improperly collected, transported or handled. This S ARS CoV-2 test is a rapid, real-barbie e RT-PCR test intended for th e qualitative detection of nucleic acid fr om SARS-CoV-2 in a nasopharyngeal swab specimen collec landen from individual s suspected of COVID-19 by the ir healthcare provider. HIPOLITO (test code = This test has been HIPOLITO) authorized by FDA under an EUA for use by authorized laboratories. This test is only authorized for the duration of the declaration that circumstances exist justifying the authorization of emergency use of in vitro diagnostic tests for detection and/or diagnosis of COVID-19 under Section 564(b)(1) of the Federal Food, Drug and Cosmetic Act, 21 U.S.C. 360bbb-3(b)(1), unless the authorization is terminated or revoked sooner. Fact Sheet for Healthcare Providers: https://www.[employer]/Documents/Xp ert%20Xpress%20SAR S%20CoV-2/Fact%20S heets/302-3802%20S ARS-COV-2%20HEALTH CARE%20PROVIDERS%2 0FACT%20SHEET.pdf Fact Sheet for Healthcare Patients: https://www.[employer]/Documents/Xp ert%20Xpress%20SAR S%20CoV-2/Fact%20S heets/302-3801%20S ARS-COV-2%20PATIEN T%20FACT%20SHEET.p df Lab Interpretation Normal (test code = 11172-4) [facility]2022-04-11 10:07:20 Test Item Value Reference Interpretation Comments Range SARS-COV2/RT-PCR Negative Negative The SARS-Co V-2 (test code = target nucleic 38186-1) acids are not detected in thi s specimen. Negat michael results do not preclude SARS-C oV-2 infection and should not be u sed as the sole bas is for patient management decisions. Nega tive results must be combined with clinical observations, patient history , and epidemiolog ical information. A false negative result may occu r if a specimen is improperly collected, transported or handled. This S ARS CoV-2 test is a rapid, real-barbie e RT-PCR test intended for th e qualitative detection of nucleic acid fr om SARS-CoV-2 in a nasopharyngeal swab specimen colle landen from individual s suspected of COVID-19 by the ir healthcare provider. HIPOLITO (test code = This test has been HIPOLITO) authorized by FDA under an EUA for use by authorized laboratories. This test is only authorized for the duration of the declaration that circumstances exist justifying the authorization of emergency use of in vitro diagnostic tests for detection and/or diagnosis of COVID-19 under Section 564(b)(1) of the Federal Food, Drug and Cosmetic Act, 21 U.S.C. 360bbb-3(b)(1), unless the authorization is terminated or revoked sooner. Fact Sheet for Healthcare Providers: https://www.[employer]/Documents/Xp ert%20Xpress%20SAR S%20CoV-2/Fact%20S heets/302-3802%20S ARS-COV-2%20HEALTH CARE%20PROVIDERS%2 0FACT%20SHEET.pdf Fact Sheet for Healthcare Patients: https://www.[employer]/Documents/Xp ert%20Xpress%20SAR S%20CoV-2/Fact%20S heets/302-3801%20S ARS-COV-2%20PATIEN T%20FACT%20SHEET.p df Lab Interpretation Normal (test code = 20663-3) [facility]2022-04-11 10:07:20 Test Item Value Reference Interpretation Comments Range SARS-COV2/RT-PCR Negative Negative The SARS-Co V-2 (test code = target nucleic 60075-7) acids are not detected in thi s specimen. Negat michael results do not preclude SARS-C oV-2 infection and should not be u sed as the sole bas is for patient management decisions. Nega tive results must be combined with clinical observations, patient history , and epidemiolog ical information. A false negative result may occu r if a specimen is improperly collected, transported or handled. This S ARS CoV-2 test is a rapid, real-barbie e RT-PCR test intended for th e qualitative detection of nucleic acid fr om SARS-CoV-2 in a nasopharyngeal swab specimen collec landen from individual s suspected of COVID-19 by the ir healthcare provider. HIPOLITO (test code = This test has been HIPOLITO) authorized by FDA under an EUA for use by authorized laboratories. This test is only authorized for the duration of the declaration that circumstances exist justifying the authorization of emergency use of in vitro diagnostic tests for detection and/or diagnosis of COVID-19 under Section 564(b)(1) of the Federal Food, Drug and Cosmetic Act, 21 U.S.C. 360bbb-3(b)(1), unless the authorization is terminated or revoked sooner. Fact Sheet for Healthcare Providers: https://www.[employer]/Documents/Xp ert%20Xpress%20SAR S%20CoV-2/Fact%20S heets/302-3802%20S ARS-COV-2%20HEALTH CARE%20PROVIDERS%2 0FACT%20SHEET.pdf Fact Sheet for Healthcare Patients: https://www.[employer]/Documents/Xp ert%20Xpress%20SAR S%20CoV-2/Fact%20S heets/302-3801%20S ARS-COV-2%20PATIEN T%20FACT%20SHEET.p df Lab Interpretation Normal (test code = 53460-2) [facility]2022-04-11 10:07:20 Test Item Value Reference Range Interpretation Comments SARS-COV2/RT-PCR Negative Negative The SARS-Co V-2 target (test code = nucleic acids a re not 7056416) detected in thi s specimen. Negative result s do not preclude SARS-C oV-2 infection and s hould not be used as the татьяна e basis for patient managem ent decisions. Nega tive results must be combine d with clinical observ ations, patient history , and epidemiological information. A false negativ e result may occur if a spec imen is improperly swati ected, transported or handled. This SARS CoV-2 test is a rapid, real-time RT-PC R test intended for th e qualitative detection of nu cleic acid from SARS-CoV-2 in a nasopharyngeal swab specimen collected from individuals suspected of CO VID-19 by their healthcar e provider. This test has been authorized by FDA under an EUA for use by authorized laboratories. This test is only authorized for the duration of the declaration that circumstances exist justifying the authorization of emergency use of in vitro diagnostic tests for detection and/or diagnosis of COVID-19 under Section 564(b)(1) of the Federal Food, Drug and Cosmetic Act, 21 U.S.C. 360bbb-3(b)(1), unless the authorization is terminated or revoked sooner. Fact Sheet for Healthcare Providers: https://www.[employer]/Documents/Xpert%20Xpress%20SARS%20CoV-2/Fact%20Sheets/302-3802%78AMFW-RJF-5%20 HEALTHCARE%20PROVIDERS%20FACT%20SHEET.pdf Fact Sheet for Healthcare Patients: https://www.[employer]/Documents/Xpert%20Xp ress%20SARS%20CoV-2/Fact%20Sheets/3023801%24PHML-QVL-5%20PATIENT%20FACT%20SHEET .pdfCOMPREHENSIVE METABOLIC [id number] 09:55:48 Test Item Value Reference Range Interpretation Comments TOTAL PROTEIN 7.0 gm/dL 6.0-8.5 (BEAKER) (test code = 770) ALBUMIN (BEAKER) 3.8 g/dL 3.5-5.0 (test code = 1145) ALKALINE 102 U/L 30-115 PHOSPHATASE (BEAKER) (test code = 346) BILIRUBIN TOTAL 0.4 mg/dL 0.1-1.2 (BEAKER) (test code = 377) SODIUM (BEAKER) 139 meq/L 135-148 (test code = 381) POTASSIUM (BEAKER) 4.5 meq/L 3.6-5.5 (test code = 379) CHLORIDE (BEAKER) 102 meq/L 98-106 (test code = 382) CO2 (BEAKER) (test 24 meq/L 20-29 code = 355) BLOOD UREA 10 mg/dL 10-26 NITROGEN (BEAKER) (test code = 354) CREATININE 0.78 mg/dL 0.50-1.20 (BEAKER) (test code = 358) GLUCOSE RANDOM 148 mg/dL 70-110 H (BEAKER) (test code = 652) CALCIUM (BEAKER) 8.9 mg/dL 8.5-10.5 (test code = 697) AST (SGOT) 27 U/L 5-40 (BEAKER) (test code = 353) ALT (SGPT) 23 U/L 5-50 (BEAKER) (test code = 347) EGFR (BEAKER) 89 Interpretatio n of eGFR (test code = 1092) mL/min/1.[address] age Description sq m Result G1 Bre l or high >=90 G2 Mildly decreased 60-89 G3a Mildl y to moderately 45-5 9 G3b Moderately to s everely 30-44 G4 Severl y decreased 15-29 G5 Kidney failure <15Reported eGF R is based on the CKD-EPI 2020 equation that d oes not use a race coefficientEsti mated GFR is not as accur ate as Creatinine Siobhan luis in predicting glom erular filtration rate . Estimated GFR is not appl icable for dialysis patien ts Woods Superintendent ID - DSENSONOperator ID - DSENSONOperator ID - DSENSONOperator ID - DSENSONOperator ID - DSENSONOperator ID - DSENSONOperator ID - DSENSONOperator ID - DSENSONOperator ID - DSENSONOperator ID - DSENSONOperator ID - DSENSONOperator ID - DSENSONOperator ID - DSENSONOperator ID - DSENSONOperatorID - DSENSONOperator ID - DSENSONOperator ID - DSENSONOperator ID - DSENSONOperator ID - DSENSONHEMOGLOBIN [id number] 09:47:08 Test Item Value Reference Range Interpretation Comments HEMOGLOBIN A1C (BEAKER) (test code = 8.1 % 4.3-6.1 H 368) Woods Superintendent ID - [id number] W/PLT COUNT & AUTO [id number] 09:37:20 Test Item Value Reference Range Interpretation Comments WHITE BLOOD CELL COUNT (BEAKER) 5.9 K/ L 4.0-10.0 (test code = 775) RED BLOOD CELL COUNT (BEAKER) 5.30 M/ L 4.00-5.00 H (test code = 761) HEMOGLOBIN (BEAKER) (test code = 14.5 GM/DL 12.0-15.5 410) HEMATOCRIT (BEAKER) (test code = 45.7 % 36.0-46.0 411) MEAN CORPUSCULAR VOLUME (BEAKER) 86 fL 82-99 (test code = 753) MEAN CORPUSCULAR HEMOGLOBIN 27.4 pg 27.0-33.0 (BEAKER) (test code = 751) MEAN CORPUSCULAR HEMOGLOBIN CONC 31.7 GM/DL 32.0-36.0 L (BEAKER) (test code = 752) RED CELL DISTRIBUTION WIDTH 13.9 % 12.0-15.0 (BEAKER) (test code = 412) PLATELET COUNT (BEAKER) (test 266 K/CU MM 150-430 code = 756) MEAN PLATELET VOLUME (BEAKER) 8.8 fL 6.0-11.5 (test code = 754) NUCLEATED RED BLOOD CELLS 0 /100 WBC 0-0 (BEAKER) (test code = 413) NEUTROPHILS RELATIVE PERCENT 45 % (BEAKER) (test code = 429) LYMPHOCYTES RELATIVE PERCENT 43 % (BEAKER) (test code = 430) MONOCYTES RELATIVE PERCENT 6 % (BEAKER) (test code = 431) EOSINOPHILS RELATIVE PERCENT 4 % (BEAKER) (test code = 432) BASOPHILS RELATIVE PERCENT 1 % (BEAKER) (test code = 437) NEUTROPHILS ABSOLUTE COUNT 2.65 K/ L 1.80-8.00 (BEAKER) (test code = 670) LYMPHOCYTES ABSOLUTE COUNT 2.51 K/ L 1.48-4.50 (BEAKER) (test code = 414) MONOCYTES ABSOLUTE COUNT (BEAKER) 0.38 K/ L 0.00-1.30 (test code = 415) EOSINOPHILS ABSOLUTE COUNT 0.26 K/ L 0.00-0.50 (BEAKER) (test code = 416) BASOPHILS ABSOLUTE COUNT (BEAKER) 0.08 K/ L 0.00-0.20 (test code = 417) IMMATURE GRANULOCYTES-RELATIVE 0.30 % 0.00-0.00 H PERCENT (BEAKER) (test code = 2801) [id number] 00:00:00 Test Item Value Reference Range Interpretation Comments HM Mammogram (test code = 99) yes Normal Radiology Study observation (narrative) (test code = 67127-2) [facility] [id number] 00:00:00 Test Item Value Reference Range Interpretation Comments HM Mammogram (test code = 99) yes Normal Radiology Study observation (narrative) (test code = 96528-3) [facility] [id number] 00:00:00 Test Item Value Reference Range Interpretation Comments HM Mammogram (test code = 99) yes Normal Radiology Study observation (narrative) (test code = 37300-8) [facility] [id number] 00:00:00 Test Item Value Reference Range Interpretation Comments HM Mammogram (test code = 99) yes Normal Radiology Study observation (narrative) (test code = 56985-5) [facility] [id number] 00:00:00 Test Item Value Reference Range Interpretation Comments HM Mammogram (test code = 99) yes Normal Radiology Study observation (narrative) (test code = 49674-9) [facility] [id number] 00:00:00 Test Item Value Reference Range Interpretation Comments HM Mammogram (test code = 99) yes Normal Radiology Study observation (narrative) (test code = 82497-1) [facility] [id number] 00:00:00 Test Item Value Reference Range Interpretation Comments HM Mammogram (test code = 99) yes Normal Radiology Study observation (narrative) (test code = 25625-8) [id number] 12:36:25Surgical Pathology Report Case: [id number] Authorizing Provider: Cora Moran MD Collected: 08/16/2021 02:09 PM Ordering Location: [facility] Received: 08/16/2021 03:42 PM SERVICES Pathologist: Adenike Walter MD Specimens: A) - Lymph Node, Pelvic, Right, Right sentinel pelvic lymph node B) - Uterus w/Bilateral Fallopian Tubes & Ovaries, UTERUS WITH BILATERAL TUBES AND OVARIES. UTERUS FOR GROSS EVALUATION OF ENDOMETRIUM FOR THE SIZE OF MASS AND MYOMETRIAL INVASION C) - LymphNode, LEFT PELVIC LYMPH NODE DISSECTION A. LYMPH NODE, RIGHT PELVIC SENTINEL, EXCISION: - ONE LYMPH NODE, NO TUMOR PRESENT (0/1)B. UTERUS, CERVIX, BILATERAL TUBES AND OVARIES, HYSTRECTOMY AND BILATERALSALPINGO- OOPHORECTOMY:UTERUS - ENDOMETRIAL ENDOMETRIOID ADENOCARCINOMA, FIGO GRADE 2 - DEPTH OF MYOMETRIAL INVASION: 7 MM / 24 MM (< 50% MYOMETRIAL INVASION) - NO DEFINITE LYMPHOVASCULAR INVASION IDENTIFIED - TUMOR EXTENDS TO LOWER UTERINE SEGMENT - LEIOMYOMA, INTRAMURAL - SEROSAL ADHESIONS CERVIX - NO TUMOR PRESENT BILATERAL TUBES - NO PATHOLOGIC CHANGEBILATERAL OVARIES - STROMAL HYPERTHECOSIS C.LYMPH NODE, LEFT PELVIC, DISSECTION: - TWO LYMPH NODES, NO TUMOR PRESENT (0/2) Signing Pathologist Direct Phone Line: [phone] electronically signed by Adenike Walter MD on 11/19/2021t 12:36 PM The tumor shows microcystic, fragmented and elongated pattern of invasion. Keratin immunostain is negative in the lymph nodes. Immunohistochemical stains for mismatch repair genes are as follows: MLH1 - Intact nuclear expression (patchy)MSH2 - Intact nuclear expressionMSH6 - Intact nuclear expressionPMS2 - Intact nuclear expression focally , however, there is some loss. Background nonneoplastic tissue/internal control with intact nuclear expressionBlock B11 is being sent for MLH1 promoter hypermethylation testing and the results will be reported in an addendum. ENDOMETRIUMENDOMETRIUM: HYSTERECTOMY - All [id number] Edition - Protocol posted: 10/17/2020PECIMEN Procedure: Total hysterectomy and bilateral salpingo-oophorectomy TUMOR Tumor Site: Endometrium Tumor Size: Greatest Dimension (Centimeters): 5.5 cm Histologic Type: Endometrioid carcinoma, NOS Histologic Grade: FIGO grade 2 Two-Tier Grading System: Low grade (encompassing FIGO 1 and 2) Myometrial Invasion: Present Depth of Myometrial Invasion: 7 mm Myometrial Thickness: 24 mm Percentage of Myometrial Invasion: 29 % Adenomyosis: Not identified Uterine Serosa Involvement: Not identified Lower Uterine Segment Involvement: Present, superficial (non-myoinvasive) Cervical Stromal Involvement: Not identified Other Tissue / Organ Involvement: Not identified Peritoneal / Ascitic Fluid: Not submitted / unknown Lymphovascular Invasion (LVI): Not identified MARGINSREGIONAL LYMPH NODES Regional Lymph Node Status: : All regional lymph nodes negative for tumor cells Lymph Nodes Examined: Total Number of Pelvic Nodes Examined: 3 Number of Pelvic Spencer Nodes Examined: 1 Total Number of Para-aortic Nodes Examined: 0 DISTANT METASTASISPATHOLOGIC STAGE CLASSIFICATION (pTNM, AJCC 8th Edition) Reporting of pT, pN, and (when applicable) pM categories is based on information available to the pathologist at the time the report is issued. As per the AJCC (Chapter 1,8th Ed.) it is the managing physician's responsibility to establish the final pathologic stage basedupon all pertinent information, including but potentially not limited to this pathology report. pT Category: pT1a Regional Lymph Nodes Modifier: (sn) pN Category: pN0 FIGO STAGE FIGO Stage: IA A. 21051, 85600Y. 89773, 04029, 57379, 24330 x 3 C. 49359, 07007, 71141, 01406 x 3 56-year-old woman with endometrial cancerA. Lymph Node, Pelvic, Right.A. The specimen is received in formalin labeled with the patient's name, date of , "lymph node, pelvic, right" and "R pelvic sent." and consists of a single, unoriented portion of yellow-rosales fatty tissue measuring 1.7 x 1.5 x 0.8 cm. 1 potential lymph node is identified which measures 1.0 cm in greatest dimension. The specimen is bisected and submitted entirely in cassette A1.ES, residentB. Uterus w/Bilateral Fallopian Tubes & Ovaries.B.. The specimen is received fresh for intraoperative consultation labeled with the patient's name, MRN and "uterus with bilateral fallopian tubes*" is a 192.3 g, 10.8 (superior to inferior) x 7.1 (cornua to cornua)x 4.5 (anterior to posterior) cm uterus with bilateral attached adnexa, and a 3.0 x 1.9 cm cervix with a 0.9 x 0.3 cm ovoid os. The uterine serosa is pink-rosales, smooth, and unremarkable. The uterus is bivalved to reveal a 5.5 x 3 cm endometrial cavity. The endometrial cavity displays a 5.5 x 3 cm pink-rosales, multinodular, soft mass; which is up to 0.8 cm thick. The mass grossly appears to involve less than than 50% of the uterine wall. There is minimal uninvolved endometrium. The tumor appears to extend to the lower uterine segment but not the cervix. The myometrium measures 2.7 cm thick. On the posterior serosal surface there is an ill-defined, suazo-black, ovoid lesion measuring 1.3 x 0.8 x 0.3 cm. Cervix is unremarkable.The right adnexa consists of a disjointed fallopian tube. The portion attachedto the uterus measures 2.2 cm in length and 0.6 cm in diameter. The fimbriated end measures 3.1 x 1.2 cm and is adjacent to the right ovary (3.3 x 2.8 x 1.0 cm). The tubal serosa is pink-rosales to purple-t an, smooth and unremarkable. The cut surface displays a pinpoint lumen. The ovarian surface is pink-white and unremarkable. The cut surface displays a yellow-rosales to white-rosales, vaguely nodular surface.The left adnexa consists of an incomplete left fallopian tube measuring 0.7 cm in length and 0.5 cm indiameter, attached to the uterus. No fimbriated end is identified grossly. The tubal serosa is pink-rosales to purple-rosales, smooth, and unremarkable. The cut surface of the left fallopian tube displays a pin-point lumen. The left ovary measures 3.2 x 2.0 x 1.5 cm. The ovarian surface is pink-white and unremarkable. The cut surface displays a yellow-rosales to white-rosales vaguely nodular surface. Interpretive Program Coordinator sections are submitted.Ink code: Blue: Anterior Black: posterior Section CodeFSB1: Area of deepest invasion identified grossly at the time of frozenB2-4: Anterior, lower uterine segment to cervix, midlineB5-7: Posterior, lower uterine segment to cervix, midline, with tumor detached in B5B8: Anterior fundusB9: Posterior bqjypkN14-02: Posterior endometrium/tumor, transverse ihqzqtfJ23-18: Posterior endometrium/tumor, transverse zeggdugO54: Posterior full-thickness section including suazo-black, ovoid lesion abutting the serosaB 17-18: Anterior full-thickness section, bisectedB 19-20: Anterior full-thickness section, bisectedB 21-22: Right ovary, representativeB 23: Interpretive Program Coordinator right fallopian tube and fimbriated end, bisectedB 24 left ovary, representativeB 25: Left fallopian tube, school admissions representative (left fimbriated end not identified grossly), [facility]. Lymph Node.C. The specimen is received in formalin labeled with patient's name, date of , "lymph node" and consists of an aggregate of yellow-rosales fibrofatty tissue measuring 6.0 x 3.0 x 1.2 cm. The specimen is palpated and searched potential lymph nodes. 2 potential lymph nodes are identified measuring 2.4-4.4 cm in greatest dimension.Section code:C1-3: 1 potential lymph node, serially sectionedC4: 1 [facility]us w/Bilateral Fallopian Tubes & Ovaries.Uterus, cervix and bilateral fallopian tubes and ovaries, hysterectomy and bilateral salpingo- oophorectomy:Tumor size anterior: 5 x 3.4 cm/posterior5.5 x 3 cmLess than 50% invasionThe results are reported by Dr. Marie to Dr. Moran in OR 23 at 4:13PM on August 16, 2021.Performed. The interpretation of this case included the use of immunohistochemistry or special stains.Control Slides Examined: In-house known positive controls were evaluated alongwith the test tissue. These control slides run alongside of the patients sample show appropriate staining. Internal positive and negative controls when available are evaluated Immunohistochemistry technical testing was performed at [facility], Pathology Laboratory where it was developed and its performance characteristics were determined. It has not been cleared or approved by the U.S. Food and Drug Administration. The FDA has determined that such clearance or approval is not ne cessary. The test is used for clinical purposes. It should not be regarded as investigational or forresearch. This laboratory is certified under the Clinical Laboratory Improvement Amendments of 1988 (CLIA-88) as qualified to perform high complexity clinical laboratory testing.HM [id number] 00:00:00 Test Item Value Reference Range Interpretation Comments HM Colonoscopy (test code = 97) yes [facility] [id number] 00:00:00 Test Item Value Reference Range Interpretation Comments HM Colonoscopy (test code = 97) yes [facility] [id number] 00:00:00 Test Item Value Reference Range Interpretation Comments HM Colonoscopy (test code = 97) yes [facility] [id number] 00:00:00 Test Item Value Reference Range Interpretation Comments HM Colonoscopy (test code = 97) yes [facility] [id number] 00:00:00 Test Item Value Reference Range Interpretation Comments HM Colonoscopy (test code = 97) yes [facility] [id number] 00:00:00 Test Item Value Reference Range Interpretation Comments HM Colonoscopy (test code = 97) [facility]2 [id number] 12:17:42 Test Item Value Reference Range Interpretation Comments HIV-1 ANTIGEN WITH HIV 1\\T\\2 Nonreactive Nonreactive ANTIBODY (2) (MARICARMEN) (test code = 2586) Woods Superintendent ID - DBCOMPREHENSIVE METABOLIC [id number] 11:42:52 Test Item Value Reference Range Interpretation Comments TOTAL PROTEIN 7.4 gm/dL 6.0-8.3 (MARICARMEN) (test code = 770) ALBUMIN (VIOLETA) 4.1 g/dL 3.5-5.0 (test code = 1145) ALKALINE PHOSPHATASE 112 U/L 40-150 (BEAKER) (test code = 346) BILIRUBIN TOTAL 0.6 mg/dL 0.2-1.2 (BEAKER) (test code = 377) SODIUM (BEAKER) (test 140 meq/L 136-145 code = 381) POTASSIUM (BEAKER) 3.9 meq/L 3.5-5.1 (test code = 379) CHLORIDE (BEAKER) 104 meq/L 98-107 (test code = 382) CO2 (BEAKER) (test 27 meq/L 22-29 code = 355) BLOOD UREA NITROGEN 11 mg/dL 7-21 (BEAKER) (test code = 354) CREATININE (BEAKER) 0.76 mg/dL 0.57-1.25 (test code = 358) GLUCOSE RANDOM 140 mg/dL 70-105 H (BEAKER) (test code = 652) CALCIUM (BEAKER) 9.3 mg/dL 8.4-10.2 (test code = 697) AST (SGOT) (BEAKER) 22 U/L 5-34 (test code = 353) ALT (SGPT) (BEAKER) 20 U/L 6-55 (test code = 347) EGFR (BEAKER) (test 79 mL/min/1.73 ESTIMA LANDEN GFR IS code = 1092) sq m NOT ACCURATE CREATININE CLEARANCE IN PREDICTING GLOMERULAR FILTRATION RATE . ESTIMATED GFR I S NOT APPLICABLE FOR DIALYSIS PATIEN TS. Woods Superintendent ID - DBCBC W/PLT COUNT & AUTO [id number] 11:24:27 Test Item Value Reference Range Interpretation Comments WHITE BLOOD CELL COUNT (BEAKER) 7.2 K/ L 3.5-10.5 (test code = 775) RED BLOOD CELL COUNT (BEAKER) 5.25 M/ L 3.93-5.22 H (test code = 761) HEMOGLOBIN (BEAKER) (test code = 14.8 GM/DL 11.2-15.7 410) HEMATOCRIT (BEAKER) (test code = 46.4 % 34.1-44.9 H 411) MEAN CORPUSCULAR VOLUME (BEAKER) 88.4 fL 79.4-94.8 (test code = 753) MEAN CORPUSCULAR HEMOGLOBIN 28.2 pg 25.6-32.2 (BEAKER) (test code = 751) MEAN CORPUSCULAR HEMOGLOBIN CONC 31.9 GM/DL 32.2-35.5 L (BEAKER) (test code = 752) RED CELL DISTRIBUTION WIDTH 13.8 % 11.7-14.4 (BEAKER) (test code = 412) PLATELET COUNT (BEAKER) (test 283 K/CU MM 150-450 code = 756) MEAN PLATELET VOLUME (BEAKER) 8.6 fL 9.4-12.3 L (test code = 754) NUCLEATED RED BLOOD CELLS 0 /100 WBC 0-0 (BEAKER) (test code = 413) NEUTROPHILS RELATIVE PERCENT 47 % (BEAKER) (test code = 429) LYMPHOCYTES RELATIVE PERCENT 41 % (BEAKER) (test code = 430) MONOCYTES RELATIVE PERCENT 6 % (BEAKER) (test code = 431) EOSINOPHILS RELATIVE PERCENT 4 % (BEAKER) (test code = 432) BASOPHILS RELATIVE PERCENT 1 % (BEAKER) (test code = 437) NEUTROPHILS ABSOLUTE COUNT 3.35 K/ L 1.56-6.13 (BEAKER) (test code = 670) LYMPHOCYTES ABSOLUTE COUNT 2.95 K/ L 1.18-3.74 (BEAKER) (test code = 414) MONOCYTES ABSOLUTE COUNT (BEAKER) 0.46 K/ L 0.24-0.36 H (test code = 415) EOSINOPHILS ABSOLUTE COUNT 0.28 K/ L 0.04-0.36 (BEAKER) (test code = 416) BASOPHILS ABSOLUTE COUNT (BEAKER) 0.08 K/ L 0.01-0.08 (test code = 417) IMMATURE GRANULOCYTES-RELATIVE 1 % 0-1 PERCENT (BEAKER) (test code = 2801) POCT , [id number] 11:22:00 Test Item Value Reference Range Interpretation Comments Test Urine, POC (test Negative code = 6693387) Control line present?, POC (test Yes code = 4584840) Background clear?, POC (test code Yes = 0286406) UPT Cassette Lot #, POC (test code 411071 = [id number]) UPT Cassette Expiration Date, POC 01/17/2023 (test code = 9407851) [facility] , [id number] 11:22:00 Test Item Value Reference Range Interpretation Comments Test Urine, POC (test Negative code = 1088935) Control line present?, POC (test Yes code = 0596275) Background clear?, POC (test code Yes = 8694264) UPT Cassette Lot #, POC (test code 093087 = 4930178) UPT Cassette Expiration Date, POC 01/17/2023 (test code = 4665345) [facility] , [id number] 11:22:00 Test Item Value Reference Range Interpretation Comments Test Urine, POC (test Negative code = 8912482) Control line present?, POC (test Yes code = 8293753) Background clear?, POC (test code Yes = 0406908) UPT Cassette Lot #, POC (test code 800445 = 6367396) UPT Cassette Expiration Date, POC 01/17/2023 (test code = 2431155) [facility] , [id number] 11:22:00 Test Item Value Reference Range Interpretation Comments Test Urine, POC (test Negative code = 8497562) Control line present?, POC (test Yes code = 5978190) Background clear?, POC (test code Yes = 7076601) UPT Cassette Lot #, POC (test code 493565 = 7651368) UPT Cassette Expiration Date, POC 01/17/2023 (test code = 9329820) [facility] , [id number] 11:22:00 Test Item Value Reference Range Interpretation Comments Test Urine, POC (test Negative code = 2485689) Control line present?, POC (test Yes code = 1878376) Background clear?, POC (test code Yes = 5215332) UPT Cassette Lot #, POC (test code 546333 = 8122086) UPT Cassette Expiration Date, POC 01/17/2023 (test code = 6942071) [facility] , [id number] 11:22:00 Test Item Value Reference Range Interpretation Comments Test Urine, POC (test Negative code = 5949621) Control line present?, POC (test Yes code = 1399190) Background clear?, POC (test code Yes = 1979126) UPT Cassette Lot #, POC (test code 146858 = 6213703) UPT Cassette Expiration Date, POC 01/17/2023 (test code = 3542707) [facility], [id number] 15:30:00Unlisted Reason for Exam - Click Yes and Enter Reason Below->YesUnlisted Reason for Exam->Endometrial cancerIs this for enterography?->NoWill this procedure require oral contrast?->No [facility] 1965 Sex: FFINAL REPORT TECHNIQUE: CT of the abdomen and pelvis WITH intravenous contrast and WITHOUT oral contrast. Dose modulation, iterative reconstruction, and/or weight-based adjustment of the mA/kV was utilized to reduce the radiation dose to as low as reasonably achievable. INDICATION:Unlisted Reason for ExamEndometrial cancer. COMPARISON: Ultrasound study dated 19 July 2021 performed at outside institution. Ultrasound report is not available for review at the time of dictation. FINDINGS: LOWER THORAX: Unremarkable. HEPATOBILIARY: No focal hepatic lesions. Gallbladder is unremarkable. No biliary ductal dilatation.SPLEEN: No splenomegaly.PANCREAS: No focal masses or ductal dilatatio n. Fatty infiltration of the head and uncinate process of the pancreas. ADRENALS: No adrenal nodules.KIDNEYS/URETERS: No hydronephrosis, stones, or masses.PELVIC ORGANS/BLADDER: The uterus appears to be normal in size. Slightly heterogenous enhancement of the uterus. Evaluation of the endometrium is ex tremely limited on CT. No abnormal adnexal mass lesions. PERITONEUM/RETROPERITONEUM: No free air or fluid.LYMPH NODES: No lymphadenopathy.VESSELS: Mild atherosclerotic calcification of the abdominal aor ta extending into both common iliac arteries without areas of significant stenosis or narrowing. GI TRACT: No distention or wall thickening. BONES AND SOFT TISSUES: Degenerative changes in the thoracicand lumbar spine, most pronounced at L5-S1 level. IMPRESSION:1.Evaluation of the endometrium is extre saniya limited on CT. No definite evidence of endometrial mass. If further characterization by imagingis desired, MRI of the pelvis without and with intravenous contrast can be obtained. Please correlate with findings on endometrial sampling.2.No evidence of metastatic disease in the abdomen and pelvis.3.Fatty infiltration of the head and uncinate process of the pancreas. Signed: Issac Hall MDReport Verified Date/Time: 08/13/2021 15:30:48 Reading Location: [address] Radiology Reading Room SARS-COV2/RT-PCR ([facility]) 2021-08-13 02:41:40 Test Item Value Reference Range Interpretation Comments SARS-COV2/RT-PCR (test code = Negative Negative 5079592) Negative result for this test determines that SARS-CoV-2 RNA was not present in the specimen above the Limit of Detection (LOD). However, Negative results do not preclude SARS-CoV-2 infection and should not be used as the sole basis for treatment or patient management decisions. Negative results must be combined with clinical observations, patient history, and epidemiological information. A false negative result may occur if a specimen is improperly collected, transported, or handled. A false negative result should be considered if patient's recent exposures or clinical presentation indicate that COVID-19 (SARS-CoV-2) is likely and diagnostic tests for other causes of illness are negative. Re-testing should be considered in cases of suspected false negatives.The limit of detection for this assayis 100 copies/mL.This SARS-CoV-2 test is a real-time RT_PCR test intended for the qualitative detection of nucleic acid from SARS-CoV-2 in a nasopharyngeal swab specimen collected from individuals suspected of COVID-19 by their healthcare provider.This test has not been Food and Drug Administration (FDA) cleared or approved. This is a modified version of an approved Emergency Use Authorization (EUA) and is in the process of review by the FDA. Once authorized by the FDA, the issued EUA will be effecti ve until the declaration that circumstances exist justifying the authorization of the emergency use of in vitro diagnostic tests for detection and/or diagnosis of COVID-19 is terminated under Section 564(b)(2) of the Act or the EUA is revoked under Section 564(g) of the Act.Testing was performed usingthe [employer] SARS-CoV-2 assay.Fact Sheet for Healthcare Providers:https://www.molecular.ford/nav/RT SARS-CoV-2 HCP Fact Sheet 51- 684620.pdfFact Sheet for Healthcare Patients:https://www.[employer].ford/nav/RT SARS-CoV-2 Patient Fact Sheet EN 51-519409Q1.pdfBUN AND CREATININE W/RATIO 2021-08-12 16:53:46 Test Item Value Reference Range Interpretation Comments BLOOD UREA NITROGEN 11 mg/dL 7-21 (BEAKER) (test code = 354) CREATININE (BEAKER) 0.74 mg/dL 0.57-1.25 (test code = 358) BUN/CREAT RATIO 15 For a normal (BEAKER) (test code individu al on a = 7445639616) normal diet, t he reference inter kayce for the mass ra joy ranges between 12:1 and 20:1 (BUN i n mg/dL/creatinin e in mg/dL) EGFR (BEAKER) (test 81 mL/min/1.73 ESTIMA LANDEN GFR IS code = 1092) sq m NOT ACCURATE CREATININE CLEARANCE IN PREDICTING GLOMERULAR FILTRATION RATE . ESTIMATED GFR I S NOT APPLICABLE FOR DIALYSIS PATIEN TS. Woods Superintendent ID - KODIOLAYINKA [id number] 16:53:45 Test Item Value Reference Range Interpretation Comments SODIUM (BEAKER) (test code = 381) 144 meq/L 136-145 POTASSIUM (BEAKER) (test code = 4.4 meq/L 3.5-5.1 379) CHLORIDE (BEAKER) (test code = 382) 106 meq/L 98-107 CO2 (BEAKER) (test code = 355) 29 meq/L 22-29 Woods Superintendent ID - KODIOLAYINKA LPLATELET [id number] 16:35:39 Test Item Value Reference Range Interpretation Comments PLATELET COUNT (BEAKER) (test 283 K/CU MM 150-450 code = 756) Woods Superintendent ID - [id number] 16:35:38 Test Item Value Reference Range Interpretation Comments HEMOGLOBIN (BEAKER) (test code = 14.8 GM/DL 11.2-15.7 410) Woods Superintendent ID - [id number] colorectal cancer DNA and occult blood screening [Presence] in [id number] 12:01:00 Test Item Value Reference Range Interpretation Comments cologuard result reportable (test positive negative A code = cologuard result reportable) [facility], [id number] 00:00:00 Test Item Value Reference Range Interpretation Comments LMP date: (test code = 04/20/2014 LMP date:) Pap, liquid-based (test nilm nilm code = Pap, liquid-based) source (liquid-based cervical-endocervical- cytology): (test code = vaginal source (liquid-based cytology):) [facility]
[2022-09-15] MEDS ORDERED: IBUPROFEN 200 MG TAB PO ONE (09:50)
--- NOTE | 2022-09-15 10:15 | EDPHYS ---
Physician Documentation [facility] Name: Alondra Lora Age: 57 yrs Sex: Female : 1965 Arrival Date: 09/15/2022 Time: 09:20 Bed IW4 Private MD: ED Physician Jan Disla HPI: 09/15 09:35 This 57 yrs old Female presents to ER via Unassigned with complaints of Sore bs3 Throat. 09:35 Sore throat since yesterday fever yesterday none today sick contact of a family member bs3 with sore throat as well no significant cough no headache no nausea no vomiting no changes in the voice no drooling sore throat worse with swallowing better with rest. Historical: - Allergies: 09:48 PENICILLINS; jl7 - Home Meds: 09:48 Lisinopril Oral [Active]; Synthroid Oral [Active]; jl - PMHx: 09:48 Hypertension; Hypothyroidism; jl - PSHx: 09:48 Total abdominal hysterectomy; jl7 - Immunization history:: Adult Immunizations unknown. - Social history:: Smoking status: Patient denies any tobacco usage or history of. ROS: 09:35 Constitutional: Negative for fever, chills bs3 09:35 All other systems are negative. Exam: 09:35 Constitutional: This is a well developed, well nourished patient who is awake, alert, bs3 and in no acute distress. Head/Face: Normocephalic, atraumatic. Eyes: Pupils equal round and reactive to light, extra-ocular motions intact. Lids and lashes normal. ENT: mmm, posterior pharyngeal erythema, swelling, no drooling, no trismus, no uvula deviation Neck: Trachea midline, no thyromegaly, no neck stiffness Chest/axilla: Normal chest wall appearance and motion. Nontender with no deformity. No lesions are appreciated. Cardiovascular: Regular rate and rhythm with a normal S1 and S2. symmetric pulses in upper extremities Respiratory: Lungs have equal breath sounds bilaterally, clear to auscultation, no respiratory distress Vital Signs: 09:47 BP 115 / 72; Pulse 105; Resp 17; Temp 99.2; Pulse Ox 100% ; Weight 93.44 kg; Height 5 jl7 ft. 4 in. ; Pain 7/10; 10:20 Resp 17; Temp 98.8; jl7 09:47 Body Mass Index 35.36 (93.44 kg, 162.56 cm) jl7 09:47 Pain Scale: Adult jl7 MDM: 09:28 Patient medically screened. bs3 09:35 Differential diagnosis: possible viral pharyngitis vs strep, will tx pain, no signs of bs3 bell captain, rpa, ludwigs. Data reviewed: vital signs, nurses notes. 10:13 ED course: strep positive, remote hx of pen allergy (rash) will start cephalexin. bs3 09/15 09:33 Order name: Rapid Strep; Complete Time: 10:10 bs3 Administered Medications: 09:50 Drug: Ibuprofen PO 600 mg Route: PO; jl7 Disposition Summary: 09/15/22 10:14 Discharge Ordered Location: Home bs3 Problem: new bs3 Symptoms: have improved bs3 Condition: Stable bs3 Diagnosis - Acute pharyngitis, unspecified bs3 Followup: bs3 - With: Private Physician - When: 5 - 6 days - Reason: Re-evaluation by your physician Discharge Instructions: - Discharge Summary Sheet bs3 - Pharyngitis, Wubx-hp-Nbgy bs3 Forms: - Medication Reconciliation Form bs3 - Thank You Letter bs3 - Antibiotic Education bs3 - Prescription Opioid Use bs3 Prescriptions: - Cephalexin 500 mg Oral Capsule - take 1 capsule by ORAL route every 12 hours for 10 days; 20 capsule; Refills: bs3 0, Product Selection Permitted Signatures: Dispatcher [employer] Nikko Rendon RN RN jl7 Jan Disla MD MD bs3 Corrections: (The following items were deleted from the chart) 09:49 09:48 PSHx: None; 7 jl7
--- NOTE | 2022-09-15 10:15 | ER ---
Nurse's Notes [facility] Name: Alondra Lora Age: 57 yrs Sex: Female : 1965 Arrival Date: 09/15/2022 Time: 09:20 Bed IW4 Private MD: Diagnosis: Acute pharyngitis, unspecified Presentation: 09/15 09:47 Chief complaint: Patient states: Sore throat and fever x2 days. Coronavirus screen: At [facility] this time, the client does not indicate any symptoms associated with coronavirus-19. Ebola Screen: No symptoms or risks identified at this time. Initial Sepsis Screen: Does the patient meet any 2 criteria? No. Patient's initial sepsis screen is negative. Does the patient have a suspected source of infection? No. Patient's initial sepsis screen is negative. Risk Assessment: Do you want to hurt yourself or someone else? Patient reports no desire to harm self or others. Onset of symptoms was September 14, 2022. 09:47 Method Of Arrival: Ambulatory jl7 09:47 Acuity: ALAINA 4 jl Historical: - Allergies: 09:48 PENICILLINS; jl7 - Home Meds: 09:48 Lisinopril Oral [Active]; Synthroid Oral [Active]; jl7 - PMHx: 09:48 Hypertension; Hypothyroidism; - PSHx: 09:48 Total abdominal hysterectomy; jl7 - Immunization history:: Adult Immunizations unknown. - Social history:: Smoking status: Patient denies any tobacco usage or history of. Vital Signs: 09:47 BP 115 / 72; Pulse 105; Resp 17; Temp 99.2; Pulse Ox 100% ; Weight 93.44 kg; Height 5 jl7 ft. 4 in. ; Pain 7/10; 10:20 Resp 17; Temp 98.8; jl7 09:47 Body Mass Index 35.36 (93.44 kg, 162.56 cm) jl7 09:47 Pain Scale: Adult jl7 ED Course: 09:26 Patient arrived in ED. ts1 09:28 Jan Disla MD is Attending Physician. bs3 09:28 Pipo Eddy PA is PHCP. jr8 09:48 Triage completed. jl7 09:48 Arm band placed on right wrist. Patient placed in waiting room, Patient notified of jl7 wait time. 09:49 Nikko Armando, RN is Primary Nurse. jl7 10:19 No provider procedures requiring assistance completed. Patient did not have IV access jl7 during this emergency room visit. Administered Medications: 09:50 Drug: Ibuprofen PO 600 mg Route: PO; jl7 Outcome: 10:14 Discharge ordered by . bs3 10:19 Discharged to home ambulatory. jl7 10:19 Condition: stable 10:19 Discharge instructions given to patient, Instructed on discharge instructions, follow up and referral plans. medication usage, Demonstrated understanding of instructions, follow-up care, medications, Prescriptions given X 1. 10:20 Patient left the ED. jl7 Signatures: Pipo Eddy PA PA jr8 Nikko Armando RN RN jl7 Jan Disla MD MD bs3 Deidre Bucio PAS PAS ts1 Corrections: (The following items were deleted from the chart) 09:49 09:48 PSHx: None; jl7 jl7
[2022-09-15 10:37] VITALS: BP 115/72; O2SAT 100
[2022-09-15 10:38] VITALS: TEMP 98.8
== END 2022-09-15 10:20 | disposition home or self-care (01) ==
LOC: ER 09:20
DX: J02.9 Acute pharyngitis, unspecified (principal); I10 Essential (primary) hypertension; E03.9 Hypothyroidism, unspecified; Z88.0 Allergy status to penicillin
CPT/HCPCS: 87081; 99283

== ENCOUNTER 2022-10-28 03:48 | Inpatient (IN) | payer BC ==
--- OUTSIDE RECORDS SUMMARY | 2022-10-28 03:55 | XMS REPORT | Continuity of Care Document ---
:1965 Author Organization [facility] t Address [address] [place] [address] [place] [id number] Care Team Providers Name Role Phone [phone] Primary Care Physician Unavailable SYSTEM, PROVIDER NOT IN Attending Clinician Unavailable TONY GREY Attending Clinician Unavailable CORA MORAN Attending Clinician UnavailCora Harvey MD Attending Clinician [phone] Tony Grey MD Attending Clinician [phone] Graphics Manager, [facility] Staff Attending Clinician Unavailable Ricardo Valadez MD Attending Clinician Martha Laughlin MA Attending Clinician Unavailable Jakub Fernandes MD Attending Clinician Annabel Guerrero MD Attending Clinician , [facility] Room Attending Clinician Unavailable AVEL_[email or web address] Attending Clinician Unavailable Osiris Pugh Attending Clinician [phone] TONY GREY Admitting Clinician Unavailable CORA MORAN Admitting Clinician Unavailable [email or web address] Admitting Clinician Unavailable Payers Payer Name Policy Type Policy Number Effective Date Expiration Date S luc BCBS OS [id number] 2021 00:00:00 [place] [id number] 2021 00:00:00 [place] Problems Condition Condition Condition Status Onset Resolution Last Treating Co mments Source Name Details Category Date Date Treatment Clinician Date Morbid Morbid Disease Recurre 2021-[address] [facility] obesity obesity nce 2 [facility] with BMI with BMI 00:00: Medica l of of 00 Center 40.0-44.9, 40.0-44.9, adult adult Endometria Endometria Disease Recurre [facility] 08[facility]16 [facility] adenocarci adenocarci 00:00: Me dical noma noma 00 Center Allergies, Adverse Reactions, Alerts Allergy Allergy Status Severity Reaction(s) Onset Inactive Treating Comm ents Source Name Type Date Date Clinician Penicill Drug Active Rash 2011-[address] [facility] [address] [facility] Allergy 05[facility]09 [facility] Center PENICILL Allergy Active Low Rash 2011-04 [facility] INS 05-09 00:00: 00 [facility] Allergy Active Rash [facility] e Social History Social Habit Start Date [...] l Center Alcohol Comment 2021-08-09 2021-08-[address] [facility] 00[facility]00 [facility]00 Medical Center Sex Assigned At [address] [facility] 00:[facility]00 [facility]00 [facility] Center Smoking Status Start Date Stop Date Source Never smoked tobacco [facility] Medications Ordered Filled Start Stop Current Ordering Indication Dosage Frequency Signature Comments Components Source Medication Medication Date Date Medication? Clinician (SIG) Name Name lisinopriL 2023-0 Yes 30mg QD Take 1 [...] 12:22: daily. Medic al MG tablet 20 [place] levothyroxi 2021-04 Yes 50ug Take [address] [facility] ne 2-28 mcg by [facility] (SYNTHROID, 12:22: mouth Medic al LEVOTHROID) 20 Every Center 50 MCG morning on tablet an empty stomach. lisinopriL 2021-04 Yes 30mg QD Take [address] (PRINIVIL,Z 2-28 by mouth Luke s ESTRIL) 30 12:22: daily. Medic al MG tablet 20 [place] levothyroxi 2021-04 Yes 50ug Take [address] ne 2-28 mcg by [facility] (SYNTHROID, 12:22: mouth Medic al LEVOTHROID) 20 Every Center 50 MCG morning on tablet an empty stomach. lisinopriL 2021-04 Yes 30mg QD Take [address] (PRINIVIL,Z 2-28 by mouth Luke s ESTRIL) 30 12:22: daily. Medic al MG tablet 20 [place] levothyroxi 2021-04 Yes 50ug Take 50 [facility] [...] 40mg QD Take [address] e 2- 12-28 tablet (40 [facility] (Protonix) 00:00: 23:59 mg total) M edical 40 MG 00 :00 by mouth Center tablet daily. pantoprazol 2021-04- No 40mg QD Take [address] e 2-16 04-28 tablet (40 [facility] (Protonix) 00:00: 23:59 [...] 50mg Take [address] (ULTRAM) 50 -17 05- tablet (50 [facility]kes mg tablet 00:00: 23:59 mg total) Me dical 00 :00 by mouth Center every 6 (six) hours as needed for Pain for up to 10 days. Max Daily Amount: 200 mg traMADoL 2021-04- No 50mg Take [address] (ULTRAM) 50 -17 05-07 tablet (50 [facility] mg tablet 00:00: 23:59 mg total) Me dical 00 :00 by mouth Center every 6 (six) hours as needed for Pain for up to 10 days. Max Daily Amount: 200 mg traMADoL 2021-04- No 50mg Take [address] [facility] (ULTRAM) 50 -17 05-07 tablet (50 L ukes mg tablet 00:00: [...] days. Max Daily Amount: 200 mg ondansetron 2021-04 4mg Take [address] [facility] [address] (ZOFRAN-ODT 06-17 tablet (4 [facility] ) 4 MG 00:00: 23:59 mg total) Medic al disintegrat 00 :00 by mouth Cent er ing tablet every 8 (eight) hours as needed for Nausea for up to 7 days. ondansetron 2022-1 2023- No 4mg Take [address] [facility] [address] (ZOFRAN-ODT 2-28 -04 tablet (4 [facility] ) 4 MG 00:00: 23:59 mg total) Medic al disintegrat 00 :00 by mouth Cent er ing tablet every 8 (eight) hours as needed for Nausea for up to 7 days. ondansetron 2021-04- No 4mg Take [address] [facility] (ZOFRAN-ODT 2-28 -04 tablet (4 [facility] ) 4 MG 00:00: 23:59 mg total) Medic al disintegrat 00 :00 by mouth Cent er ing tablet every 8 (eight) hours as needed for Nausea for up to 7 days. ondansetron 2021-04- No 4mg Take [address] [facility] (ZOFRAN-ODT 2-17 05-04 tablet (4 [facility] ) 4 MG 00:00: 23:59 mg total) Medic al disintegrat 00 :00 by mouth Cent er ing tablet every 8 (eight) hours as needed for Nausea for up to 7 days. ondansetron 2021-04- No 4mg Take [address] [facility] (ZOFRAN-ODT 2-17 05-04 tablet (4 [facility] ) 4 MG 00:00: 23:59 mg total) Medic al disintegrat 00 :00 by mouth Cent er ing tablet every 8 (eight) hours as needed for Nausea for up to 7 days. ondansetron 2021-04- No 4mg Take [address] [facility] (ZOFRAN-ODT 2-17 05-04 tablet (4 [facility] ) 4 MG 00:00: 23:59 mg total) Medic al disintegrat 00 :00 by mouth Cent er ing tablet every 8 (eight) hours as needed for Nausea for up to 7 days. ondansetron 2021-2022- No 4mg Take [address] [facility] (ZOFRAN-ODT 2-28 -04 tablet (4 [facility] ) 4 MG 00:00: 23:59 mg total) Medic al disintegrat 00 :00 by mouth Cent er ing tablet every 8 (eight) hours as needed for Nausea for up to 7 days. ondansetron 2021-04- No 4mg Take [address] [facility] (ZOFRAN-ODT 2-28 -04 tablet (4 [facility] ) 4 MG 00:00: 23:59 mg total) Medic al disintegrat 00 :00 by mouth Cent er ing tablet every 8 (eight) hours as needed for Nausea for up to 7 days. metFORMIN 2021-04 No 500mg QD Take [address] (GLUCOPHAGE 0-18 12-28 mg by [facility] -XR) 500 MG 00:00: 00:00 mouth Medi bret 24 hr 00 :00 daily. [place] tablet atorvastati 2021-04 No 20mg QD Take [address] n (LIPITOR) 0-18 12-28 by mouth Madelaine es 20 MG 00:00: 00:00 daily. Medical tablet 00 :00 [place] metFORMIN 2021-04 No 500mg QD Take [address] (GLUCOPHAGE 0-18 12-28 mg by [facility] -XR) 500 MG 00:00: 00:00 mouth Medi bret 24 hr 00 :00 daily. [place] tablet atorvastati 2021-04 No 20mg QD Take [address] n (LIPITOR) 0-18 12-28 by mouth Madelaine es 20 MG 00:00: 00:00 daily. Medical tablet 00 :00 [place] metFORMIN 2021-04 No 500mg QD Take [address] (GLUCOPHAGE 0-18 12-28 mg by [facility] -XR) 500 MG 00:00: 00:00 mouth Medi bret 24 hr 00 :00 daily. [place] tablet atorvastati 2021-04 No 20mg QD Take [address] [facility] (LIPITOR) 0-18 12-28 by mouth Madelaine es 20 MG 00:00: 00:00 daily. Medical tablet 00 :00 [place] metFORMIN 2021-04- No 500mg QD Take [address] (GLUCOPHAGE 0-18 12-28 mg by [facility]ukes -XR) 500 MG 00:00: 00:00 mouth Medi bret 24 hr 00 :00 daily. [place] tablet atorvastati 2021-04- No 20mg QD Take [address] n (LIPITOR) 0-18 12-28 by mouth Madelaine es 20 MG 00:00: 00:00 daily. Medical tablet 00 :00 [place] metFORMIN 2021-04- No 500mg QD Take [address] (GLUCOPHAGE 0-18 12-28 mg by [facility]ukes -XR) 500 MG 00:00: 00:00 mouth Medi bret 24 hr 00 :00 daily. Center tablet atorvastati 2021-04- No 20mg QD Take [address] [facility] (LIPITOR) 0-18 12-28 by mouth Madelaine es 20 MG 00:00: 00:00 daily. Medical tablet 00 :00 [place] metFORMIN 2021-04- No 500mg QD Take [address] (GLUCOPHAGE 0-18 12-28 mg by [facility] -XR) 500 MG 00:00: 00:00 mouth Medi bret 24 hr 00 :00 daily. [place] tablet atorvastati 2021-04- No 20mg QD Take [address] n (LIPITOR) 0-18 12-28 by mouth Madelaine es 20 MG 00:00: 00:00 daily. Medical tablet 00 :00 [place] metFORMIN 2021-04- No 500mg QD Take [address] (GLUCOPHAGE 0-18 12-28 mg by [facility] -XR) 500 MG 00:00: 00:00 mouth Medi bret 24 hr 00 :00 daily. [place] tablet atorvastati 2021-04- No 20mg QD Take [address] [facility] (LIPITOR) 0-18 12-28 by mouth Madelaine es 20 MG 00:00: 00:00 daily. Medical tablet 00 :00 [place] metFORMIN 2021-04- No 500mg QD Take [address] (GLUCOPHAGE 0-18 12-28 mg by [facility] -XR) 500 MG 00:00: 00:00 mouth Medi bret 24 hr 00 :00 daily. [place] tablet atorvastati 2021-04- No 20mg QD Take [address] [facility] (LIPITOR) 0-18 12-28 by mouth Madelaine es 20 MG 00:00: 00:00 daily. Medical tablet 00 :00 [place] acetaminoph 2022- No 650mg Take 2 CH [...] Pain for up to 360 days. ibuprofen 2021-2021- No 600mg Take [address] [facility] [address] (ADVIL,MOTR 4-29 05-09 tablet [facility] IN) 600 MG 00:00: 23:59 (600 mg Med ical tablet 00 :00 total) by Center mouth every 6 (six) hours as needed for Pain for up to 10 days. traMADoL 2-0 2- No 50mg Take [address] [facility] [address] (ULTRAM) 50 4- 05-09 tablet (50 L ukes mg tablet 00:00: 23:59 mg total) Me dical 00 :00 by mouth Center every 6 (six) hours as needed for Pain for up to 10 days. Max Daily Amount: 200 mg ibuprofen 2021-0 2- No 600mg Take [address] [facility] [address] (ADVIL,MOTR 4- 05-09 tablet [facility] IN) 600 MG 00:00: [...] No 600mg Take [address] [facility] (ADVIL,MOTR 4 05-09 tablet [facility] IN) 600 MG 00:00: [...] for up to 10 days. traMADoL 2021-0 2022- No 50mg Take [address] [facility] [address] (ULTRAM) 50 08-16 05-09 tablet (50 L ukes mg tablet 00:00: 23:59 mg total) Me dical 00 :00 by mouth Center every 6 (six) hours as needed for Pain for up to 10 days. Max Daily Amount: 200 mg ibuprofen 2021- No 600mg Take [address] [facility] [address] (ADVIL,MOTR 08-16 05-09 tablet [facility] IN) 600 MG 00:00: 23:59 (600 mg Med ical tablet 00 :00 total) by Center mouth every 6 (six) hours as needed for Pain for up to 10 days. traMADoL 2021- No 50mg Take [address] [facility] (ULTRAM) 50 08-16 05-09 tablet (50 L ukes mg tablet 00:00: 23:59 mg total) Me dical 00 :00 by mouth Center every 6 (six) hours as needed for Pain for up to 10 days. Max Daily Amount: 200 mg ibuprofen 2021- No 600mg Take [address] [facility] (ADVIL,MOTR 08-16 05-09 tablet [facility] IN) 600 MG 00:00: 23:59 (600 mg Med ical tablet 00 :00 total) by Center mouth every 6 (six) hours as needed for Pain for up to 10 days. traMADoL No 50mg Take [address] [facility] (ULTRAM) [...] Observation Time Observation Value Comments Source HEIGHT 2022-10-06 09:54:00 162.6 cm WEIGHT 2022-10-06 09:54:00 92.987 kg HEIGHT 2022-07-16 13:15:00 162.6 cm WEIGHT 2022-07-16 13:15:00 95.8 kg HEIGHT 2022-05-28 13:12:00 162.6 cm WEIGHT 2022-05-28 13:12:00 100.426 kg HEIGHT 2022-04-28 14:24:00 162.6 cm WEIGHT 2022-04-28 14:24:00 104.917 kg HEIGHT 2022-04-15 12:12:00 162.6 cm WEIGHT 2022-04-15 12:12:00 112.038 kg HEIGHT 2022-04-10 11:26:00 162.6 cm WEIGHT 2022-04-10 11:26:00 112.038 kg HEIGHT 2022-04-15 12:12:00 162.6 cm WEIGHT 2022-04-15 12:12:00 112.038 kg HEIGHT 2022-04-10 11:26:00 162.6 cm WEIGHT 2022-04-10 11:26:00 112.038 kg HEIGHT 2022-03-19 12:01:00 165.1 cm WEIGHT [...] kg BP Diastolic 2021-07-19 00:00:00 80 mm[Hg] [facility] Height 2021-07-19 00:00:00 64 [in_i] [facility] BMI (Body Mass Index) 2021-07-19 00:00:00 43.6 kg/m2 [facility] BP Systolic 2021-07-19 00:00:00 140 mm[Hg] [facility] Body Weight 2021-07-19 00:00:00 254 [lb_av] [facility] BP Diastolic 2021-06-13 00:00:00 88 mm[Hg] [facility] Height 2021-06-13 00:00:00 64 [in_i] [facility] BMI (Body Mass Index) 2021-06-13 00:00:00 43.6 kg/m2 [facility] BP Systolic 2021-06-13 00:00:00 138 mm[Hg] [facility] Body Weight 2021-06-13 00:00:00 254.2 [lb_av] [facility] Body height 2022-07-16 13:15:00 162.6 cm [facility] Body weight 2022-07-16 13:15:00 95.8 kg [facility] BMI 2022-07-16 13:15:00 36.25 kg/m2 [facility] Systolic blood 2022-05-28 13:12:00 131 mm[Hg] [facility] Diastolic blood 2022-05-28 13:12:00 81 mm[Hg] [facility] Heart rate 2022-05-28 13:12:00 87 /min [facility] Body temperature 2022-05-28 13:12:00 36.28 Shalonda [facility] Systolic blood 2022-04-28 14:24:00 131 mm[Hg] [facility] Diastolic blood 2022-04-28 14:24:00 82 mm[Hg] [facility] Heart rate 2022-04-28 14:24:00 80 /min [facility] Body temperature 2022-04-28 14:24:00 36.5 Shalonda [facility] Body height 2022-04-28 14:24:00 162.6 cm [facility] Body weight 2022-04-28 14:24:00 104.917 kg [facility] BMI 2022-04-28 14:24:00 39.70 kg/m2 [facility] Respiratory rate 2022-04-16 08:42:00 18 /min [facility] Oxygen saturation in 2022-04-16 08:42:00 95 /min [facility] Arterial blood by Medical Ce nter Pulse oximetry Procedures Procedure Date / Time Performed Performing Clinician Sourc e CBC W/PLT COUNT & AUTO 2022-07-18 11:32:00 Tony Grey [facility] DIFFERENTIAL [facility] COMPREHENSIVE METABOLIC 2022-07-18 11:32:00 Tony Grey [facility] PANEL [facility] PTH, INTACT 2022-07-18 11:32:00 Tony Grey [facility] VITAMIN B12 2022-07-18 11:32:00 Fadner, [facility] VITAMIN A 2022-07-18 11:32:00 [facility] VITAMIN B1 (THIAMINE), 2022-07-18 11:32:[address] [facility] Mario kimbrough [facility] WHOLE BLOOD, LC/MS/MS [facility] nter VITAMIN D, 25-HYDROXY 2022-07-18 11:32:00 [facility] VITAMIN E 2022-07-18 11:32:00 [facility] BASIC METABOLIC PANEL 2022-04-16 05:50:00 [facility] CBC W/PLT COUNT & AUTO 2022-04-16 05:50:00 [facility] W/PLT COUNT & AUTO 2022-04-16 05:50:[address] [facility] POCT-GLUCOSE METER 2022-04-15 23:43:00 [facility] POCT-GLUCOSE METER 2022-04-15 19:16:00 [facility] POCT-GLUCOSE METER 2022-04-15 15:39:00 [facility] TISSUE EXAM 2022-04-15 14:37:[address] [facility] GASTRECTOMY, SLEEVE, 2022-04-15 13:55[facility] POCT-GLUCOSE METER 2022-04-15 12:34:00 [facility] CBC W/PLT COUNT & AUTO 2022-04-11 09:20:00 [facility] COMPREHENSIVE METABOLIC 2022-04-11 09:20:00 [facility] HEMOGLOBIN A1C 2022-04-11 09:20:[address] [facility] IRON, SERUM 2022-04-11 09:20:[address] [facility] VITAMIN B1 2022-04-11 09:20:00 Myron [facility] VITAMIN B12 2022-04-11 09:20:00 Myron [facility] VITAMIN D, 25-HYDROXY 2022-04-11 09:20:00 Myron [facility] CBC W/PLT COUNT & AUTO 2022-04-11 09:20:[address] [facility] DIFFERENTIAL [facility] SARS-COV2/RT-PCR (HS & 2022-04-11 09:20:00 Myron [facility] REF LABS) [facility] MISCELLANEOUS LAB ORDER 2022-04-11 09:20:00 Myron [facility] MAMMOGRAPHY 2022-02-12 00:00:[facility] 2021-09-12 00:00:00 Provider, Jay [facility] TISSUE EXAM 2021-08-16 14:09:00 Cora Moran [facility] ABORH, MANUAL 2021-08-16 12:05:00 Martine Barrios [facility] ROBOTIC 2021-08-16 11:52:00 Cora Moran [facility] LAPAROSCOPY,HYSTERECTOMY [facility] EXCISIONAL BIOPSY, LYMPH 2021-08-16 11:52:00 Cora Moran [facility] NODE, SENTINEL [facility] ROBOTIC PELVIC LYMPH NODE 2021-08-16 11:52:00 Cora Moran [facility] DISSECTION [facility] PROCEDURE W/ DAVINCI XI 2021-08-16 11:52:[address] [facility] ROBOTIC 2021-08-16 11:52:[address] [facility] [place] mario LAPAROSCOPY,SALPINGECTOMY [facility] /OOPHORECTOMY CYSTOSCOPY 2021-08-16 11:52:00 Cora Moran [facility] POCT , URINE 2021-08-16 11:22:00 Harpal Bishop [facility] TYPE AND SCREEN, 2021-08-16 11:14:[address] [facility] AUTOMATED [facility] CBC W/PLT COUNT & AUTO 2021-08-16 11:14:[address] [facility] DIFFERENTIAL [facility] COMPREHENSIVE METABOLIC 2021-08-16 11:14:[address] [facility] PANEL [facility] CBC W/PLT COUNT & AUTO 2021-08-16 11:14:[address] [facility] DIFFERENTIAL [facility] HC LAB HIV-1 AG W/HIV-1&2 2021-08-16 11:13:[address] [facility] AB [facility] CT ABDOMEN/PELVIS WITH IV 2021-08-12 17:45:[address] [facility] CONTRAST [facility] SARS-COV2/RT-PCR ([facility] & 2021-08-12 16:15:[address] [facility] REF LABS) [facility] BUN AND CREATININE 2021-08-12 16:14:00 Jarrell Mckeon [facility] ELECTROLYTES 2021-08-12 16:14:00 [facility] HEMOGLOBIN 2021-08-12 16:14:00 [facility] PLATELET COUNT 2021-08-12 16:14:00 [facility] ECG 12-LEAD 2021-08-12 16:11:24 [facility] MAMMO, screening, 2021-06-13 00:00:00 [facility] digital, bilateral ULTRASOUND OF PELVIS 2021-06-13 00:00:00 [facility] Delivery 1995-04-20 00:00:00 [facility] Delivery 1991-04-20 00:00:00 [facility] Plan of Care Planned Activity Planned Date Details Comments Source Future Scheduled 2031-09-13 Screening for malignant [facility] 00:[facility]:00 neoplasm of colon Medical Ce nter (procedure) [code = 771181932] Future Scheduled 2031-09-13 Screening [facility] malignant [facility] Test 00:00:00 neoplasm of colon Medical Ce nter (procedure) [code = 192197842] Future Scheduled 2031-09-13 Screening [facility] malignant [facility] Test 00:00:00 neoplasm of colon Medical Ce nter (procedure) [code = 409542372] Future Scheduled 2031-09-13 Screening [facility] malignant [facility] Test 00:00:00 neoplasm of colon Medical Ce nter (procedure) [code = 262867675] Future Scheduled 2031-09-13 Screening for malignant [facility] Test 00:00:00 neoplasm of colon Medical Ce nter (procedure) [code = 983817973] Future Scheduled 2031-09-13 Screening [facility] malignant [facility] Test 00:00:00 neoplasm of colon Medical Ce nter (procedure) [code = 464809861] Future Scheduled 2031-09-13 Screening [facility] malignant [facility] Test 00:00:00 neoplasm of colon Medical Ce nter (procedure) [code = 327974048] Future Scheduled 2031-09-13 Screening [facility] malignant [facility] Test 00:00:00 neoplasm of colon Medical Ce nter (procedure) [code = 927480560] Future Scheduled 2031-09-13 Screening for malignant [facility] Test 00:00:00 neoplasm of colon Medical Ce nter (procedure) [code = 084433533] Future Scheduled 2031-09-13 Screening [facility] malignant [facility] Test 00:00:00 neoplasm of colon Medical Ce nter (procedure) [code = 615708037] Future Scheduled 2031-09-13 Screening [facility] malignant [facility] Test 00:00:00 neoplasm of colon Medical Ce nter (procedure) [code = 604079152] Future Scheduled 2031-09-13 Screening [facility] malignant [facility] Test 00:00:00 neoplasm of colon Medical Ce nter (procedure) [code = 202845953] Future Scheduled 2031-09-13 Screening for malignant [facility] Test 00:00:00 neoplasm of colon Medical Ce nter (procedure) [code = 273405122] Future Scheduled 2031-09-13 Screening for malignant [facility] Test 00:00:00 neoplasm of colon Medical Ce nter (procedure) [code = 771184874] Future Scheduled 2031-09-13 Screening for malignant [facility] Test 00:00:00 neoplasm of colon Medical Ce nter (procedure) [code = 910186133] Future Scheduled 2031-09-13 Screening [facility] malignant [facility] Test 00:00:00 neoplasm of colon Medical Ce nter (procedure) [code = 157715177] Future Scheduled 2024-02-13 Screening for malignant [facility] Test 00:00:00 neoplasm of breast Medical C enter (procedure) [code = 285279204] Future Scheduled 2024-02-13 Screening for malignant [facility] Test 00:00:00 neoplasm of breast Medical C enter (procedure) [code = 793838249] Future Scheduled 2024-02-13 Screening for malignant [facility] Test 00:00:00 neoplasm of breast Medical C enter (procedure) [code = 924098986] Future Scheduled 2024-02-13 Screening for malignant [facility] Test 00:00:00 neoplasm of breast Medical C enter (procedure) [code = 228094185] Future Scheduled 2024-02-13 Screening for malignant [facility] Test 00:00:00 neoplasm of breast Medical C enter (procedure) [code = 568204556] Future Scheduled 2024-02-13 Screening for malignant [facility] Test 00:00:00 neoplasm of breast Medical C enter (procedure) [code = 554947902] Future Scheduled 2024-02-13 Screening for malignant [facility] Test 00:00:00 neoplasm of breast Medical C enter (procedure) [code = 657757688] Future Scheduled 2024-02-13 Screening for malignant [facility] Test 00:00:00 neoplasm of breast Medical C enter (procedure) [code = 923952535] Future Scheduled 2023-07-[address] [facility] Test 00:00:00 Counseling and Screening Med [facility] (12+) [code = Tobacco Cessation Counseling and Screening (12+)] Future Scheduled 2023-07-[address] [facility] Test 00:00:00 Counseling and Screening Med [facility] Center (12+) [code = Tobacco Cessation Counseling [...] [facility] Test 00:00:00 [code = 09248113] Medical Ce nter Future Scheduled 2011 Lipid panel (procedure) [facility] Test 00:00:00 [code = 28523555] Medical Ce nter Future Scheduled 2011 Lipid panel (procedure) [facility] Test 00:00:00 [code = 30041344] Medical Ce nter Future Scheduled 2011 Lipid panel (procedure) [facility] Test 00:00:00 [code = 59105097] Medical Ce nter Future Scheduled 2011 Lipid panel (procedure) [facility] Test 00:00:00 [code = 84632531] Medical Ce nter Future Scheduled 2011 Lipid panel (procedure) [facility] Test 00:00:00 [code = 74363997] Medical Ce nter Future Scheduled 2011 Lipid panel (procedure) [facility] Test 00:00:00 [code = 01080009] Medical Ce nter Future Scheduled 2011 Lipid panel (procedure) [facility] Test 00:00:00 [code = 15558232] Medical Ce nter Future Scheduled 1985 DTAP/TDAP/TD [...] colon Medical Ce nter (procedure) [code = 610270701] Future Scheduled 1966 Screening for malignant [facility] Test 00:00:00 neoplasm of colon Medical Ce nter (procedure) [code = 454174314] Future Scheduled 1966 Sigmoidoscopy [code = [facility] S[facility]oscopy] Medical Cente r Future Scheduled 1966 CT Colonography (combo) [facility] Test 00:00:00 [code = CT Colonography Medi bret Center (combo)] Future Scheduled 1966 Screening for malignant [facility] Test 00:00:00 neoplasm of colon Medical Ce nter (procedure) [code = 134210827] Future Scheduled 1966 Screening for malignant [facility] Test 00:00:00 neoplasm of colon Medical Ce nter (procedure) [code = 373199352] Future Scheduled 1966 Sigmoidoscopy [code = [facility] 00:[facility] Sigmoidoscopy] Medical Cente r Future Scheduled 1966 CT Colonography (combo) [facility] Test 00:00:00 [code = CT Colonography Medi bret Center (combo)] Future Scheduled 1966 Screening for malignant [facility] Test 00:00:00 neoplasm of colon Medical Ce nter (procedure) [code = 988630376] Future Scheduled 1966 Screening for malignant [facility] Test 00:00:00 neoplasm of colon Medical Ce nter (procedure) [code = 175428205] Future Scheduled 1966 Sigmoid[facility]code [facility]] Medical Cente r Future Scheduled 1966 CT Colonography (combo) [facility] 00:[facility]:00 [code = CT Colonography [facility] Center (combo)] Future Scheduled 1966 Screening for malignant [facility] 00:00:00 neoplasm of colon Medical Ce nter (procedure) [code = 614103427] Future Scheduled 1966 Screening for malignant [facility] 00:00:00 neoplasm of colon Medical Ce nter (procedure) [code = 791097764] Future Scheduled 1966 Sigmoidoscopy [code = [facility] S[facility]oscopy] Medical Cente r Future Scheduled 1966 CT Colonography (combo) [facility] 00:00:00 [code = CT Colonography [facility] (combo)] Future Scheduled 1966 Screening for malignant [facility] 00:00:00 neoplasm of colon Medical Ce nter (procedure) [code = 869585355] Future Scheduled 1966 Screening for malignant [facility] 00:00:00 neoplasm of colon Medical Ce nter (procedure) [code = 785876521] Future Scheduled 1966 Sigmoidoscopy [code = [facility]oscopy] Medical Cente r Future Scheduled 1966 CT Colonography (combo) [facility] 00:00:00 [code = CT Colonography [facility]i [facility] Center (combo)] Future Scheduled 1966 Screening for malignant [facility] 00:00:00 neoplasm of colon Medical Ce nter (procedure) [code = 446655545] Future Scheduled 1966 Screening for malignant [facility] 00:00:00 neoplasm of colon Medical Ce nter (procedure) [code = 548672053] Future Scheduled 1966 Sigmoidoscopy [code = [facility] 00:[facility] S[facility]oidoscopy] Medical Cente r Future Scheduled 1966 CT Colonography (combo) [facility] 00:00:00 [code = CT Colon[facility] (combo)] Future Scheduled 1966 Screening for malignant [facility] 00:00:00 neoplasm of colon Medical Ce nter (procedure) [code = 718200632] Future Scheduled 1966 Screening for malignant [facility] 00:00:00 neoplasm of colon Medical Ce nter (procedure) [code = 119485254] Future Scheduled 1966 Sigmoidoscopy [code = [facility] 00:[facility] S[facility]oidoscopy] Medical Cente r Future Scheduled 1966 CT Colonography (combo) [facility] 00:00:00 [code = CT Colonography [facility] (combo)] Future Scheduled 1966 Screening for malignant [facility] 00:00:00 neoplasm of colon Medical Ce nter (procedure) [code = 745325433] Future Scheduled 1966 Screening for malignant [facility] 00:00:00 neoplasm of colon Medical Ce nter (procedure) [code = 267953214] Future Scheduled 1966 Sigmoidoscopy [code = [facility] S[facility]oscopy] Medical Cente r Encounters Start End Encounter Admission Attending Care Care Encounter Source Date/Time Date/Time Type Type Clinicians Facility Department ID 2021-07-23 Outpatient SYSTEM, [facility] [id number] 12:40:04 PROVIDER Wade o n 2023-01-07 2023-01-07 Outpatient CATY GREY [facility] [id number] 00:00:00 00:00:00 [facility] 2022-12-18 2022-12-18 Outpatient LUISA [facility] [id number] SLE 00:00:00 00:00:00 [facility] 2022-10-13 2022-10-13 Outpatient CATY GREY [facility] [id number] 00:00:00 00:00:00 [facility] 2022-10-06 2022-10-06 Outpatient CATY GREY [facility] [id number] 09:59:23 10:14:28 [facility] 2022-08-06 2022-08-[address] [facility] [id number] 00:[facility]00 00:00:00 Encounter [facility] 2022-07-16 2022-07-16 Audio - CATY Grey [facility] [id number] 13:15:00 13:57:43 Telemedici [facility] 2022-05-28 2022-05-[address] [facility] [id number] 13:15:00 13:40:50 Visit [facility] 2022-05-06 2022-05-[address] [facility] [id number] [facility] 00:[facility] 00:00:00 Encounter on, [facility] 2022-04-30 2022-04-[address] [facility] [id number] [id number] 00:00:00 00:00:00 Encounter [facility] 2022-04-28 2022-04-[address] [facility] [id number] 14:00:00 14:35:24 Visit [facility] 2022-04-15 2022-04-16 Inpatient CATY GREY [facility] Surgery [id number] SLS 09:02:00 12:04:00 [place] 2022-04-15 2022-04-[address] [facility] [id number] 09:02:00 12:04:00 Encounter [facility] 2022-04-15 2022-04-[address] [facility] [id number] [facility] 13:55:00 15:32:00 Event [facility] 2022-04-15 2022-04-[address] [facility] [id number] 11:45:00 13:45:00 [facility] 2022-04-15 2022-04-15 Travel [facility] [id number] [facility] 00:00:00 00:00:00 [facility] 2022-04-11 2022-04-11 Outpatient EL [facility] [id number] [facility] 09:16:36 23:59:00 2022-04-11 2022-04-11 Hospital [facility] [id number] 09:00:00 23:59:00 Encounter [facility] 2022-04-10 2022-04-10 Travel [facility] [id number] [facility] 00:[facility]:00 00:00:00 [facility] 2022-04-08 2022-04-08 Clinical EL Truman, [facility] [id number] 13:00:00 14:30:26 Support [facility] 2022-04-08 2022-04-08 Telephone Myron, [facility] [id number] 00:00:00 00:00:00 [facility] 2022-03-19 2022-03-19 Audio - EL Myron [facility] [id number] 11:50:00 12:17:17 Telemedici [facility] 2022-03-11 2022-03-[address] [facility] [id number] 00:00:00 00:00:00 [facility] 2022-02-12 2022-02-12 Office EL Myron, [facility] [id number] 11:30:00 12:57:41 Visit [facility] 2022-01-16 2022-01-[address] [facility] [id number] [id number] 00:00:00 00:00:00 Encounter [facility] 2021-09-26 2021-09-[address] [facility] [id number] [id number] 00:00:00 00:00:00 Encounter [facility] 2021-08-16 2021-08-17 Hospital [facility], [facility] [id number] 10:39:00 14:29:00 Encounter [facility] 2021-08-16 2021-08-17 Outpatient [facility] Surgery [id number] SLEH 10:39:00 14:29:00 [facility] 2021-08-16 2021-08-16 [id number] 12:07:00 17:53:00 Event Annabel Guerrerooine [facility] 2021-08-16 2021-08-16 Surgery [facility], [facility] [id number] 11:45:00 15:20:00 [facility] 2021-08-16 2021-08-16 Travel [facility] [id number] [facility] 00:00:00 00:00:00 [facility] 2021-08-12 2021-08-12 [facility] [id number] [facility] 17:26:16 23:59:00 [facility] 2021-08-12 2021-08-12 Outpatient [facility] SLE [id number] SLE 17:26:16 23:59:00 [facility] 2021-08-12 2021-08-12 Outpatient [facility] SLE [id number] SLEH 15:34:23 17:25:00 [facility] 2021-08-12 2021-08-12 [facility], [facility] [id number] 15:00:00 17:25:00 Encounter [facility] 2021-08-12 2021-08-12 Outpatient [facility] [id number] [facility]H 00:00:00 00:00:00 2021-08-12 2021-08-[address] [facility] SLE [id number] [facility]H 00:00:00 00:00:00 [facility] 2021-08-09 2021-08-09 Outpatient EL SLE SLEH [id number] [facility]H 11:18:02 23:59:00 2021-08-09 2021-08-09 [facility] [id number] 10:50:00 23:59:00 [facility] 2021-08-09 2021-08-09 Travel [facility] [id number] [facility] 00:00:00 00:00:00 [facility] 2021-08-07 2021-08-07 Outside [facility] [id number] 00:00:00 00:00:00 Orders [facility] 2021-07-24 2021-07-24 Outpatient [facility]_ PRIV PRIV [id number] [facility] 10:07:00 10:07:00 Black_D [id number] Medica l 2021-07-19 2021-07-19 Outpatient [facility]_ PRIV PRIV [id number] [facility] 11:49:00 11:49:00 Black_D [id number] Medica l 2021-07-19 2021-07-19 Outpatient Osiris Pugh PRIV kirk [id number] 00:00:00 00:00:00 Ray [id number] 2021-07-19 2021-07-19 [facility]iris [facility] 00:00:00 00:00:00 Ray [facility] MD Ke[place]: GC_[facility]_ [address] [facility], [address], [place] [address] , Ph. 2021-07-18 2021-07-18 Outpatient [facility]_ PRIV PRIV [id number] [facility] 05:43:00 05:43:00 Black_D [id number] Medica l 2021-06-13 2021-06-13 Outpatient [facility]_ PRIV PRIV [id number] [facility] 03:44:00 03:44:00 Black_D [id number] Medica l 2021-06-13 2021-06-13 [facility]is [facility] 00:00:00 00:00:00 Ray [facility] Medic kong Pugh MD: GC_[facility]_ [address] [facility], [place] [address] , Ph. 2021-06-13 2021-06-13 Outpatient Osiris Pugh PRIV PRIV [id number] 00:00:00 00:00:00 Ray [id number] 2021-05-03 2021-05-03 Outpatient [facility]_ PRIV PRIV [id number] [facility] 05:27:00 05:27:00 Black_D [id number] Medica l 2021-05-03 2021-05-03 Outpatient [facility]_ PRIV PRIV [id number] [facility] 05:23:00 05:23:00 Black_D [id number] Medica l Results Test Description Test Time Test Comments Results Result Comments Source Comprehensive metabolic panel 2022-07-23 16:43:00 Test Item Value Reference Range Interpretation Comme nts Glucose (test code = 86 mg/dL 65-139 Non-fa sting reference ) interval BUN (test code = 13 mg/dL 20100821) Creatinine (test code = 0.75 mg/dL 0.50-1.03 20130613) EGFR (test code = 93 See_Comment The eGFR i s based on the ) CKD-EPI 2020 eq uation. To calculate th e new eGFR from a pre vious Creatinine or C lien Cresult, go to https://www.kid rhonda.org/p fitofessionals/kd oqi/gfr%5 Fcalculator [Au tomated message] The sy stem which generated this result transmit landen reference range : > OR = 60 mL/min/1.73m 2. The reference range was not used to interpr et this result as normal/abnormal . BUN/Creatinine Ratio NOT APPLICABLE See_Comment [Aut omated message] The (test code = 9736997) system which generated this result tra nsmitted reference range : 6 - 22 (calc). The ref erence range was not u sed to interpret this result as normal/abnormal . Sodium (test code = 142 mmol/L 135-768 7548875) Potassium, Serum (test 4.4 mmol/L 3.5-5.3 code = 20100905) Chloride (test code = 108 mmol/L 98-414 5901779) Carbon Dioxide, Total 31 mmol/L 20-32 (test code = ) Calcium, Serum (test 9.3 mg/dL 8.6-10.4 code = 7713441) Protein, Total, Serum 6.6 g/dL 6.1-8.1 (test code = 20100825) Albumin (test code = 3.8 g/dL 3.6-5.1 ) GLOBULIN (QUEST) (test 2.8 See_Comment [Aut omated message] The code = 5971931) system which generated this result tra nsmitted [...] (test code = HIPOLITO) FASTING:NO FASTING: NO [facility] [id number] 16:43:00 Test Item Value Reference Range Interpretation Comments Vitamin B12 (test code = 466 pg/mL 200-7236 3965533) HIPOLITO (test code = HIPOLITO) FASTING:NO FASTING: NO [facility], [id number] 16:43:00 Test Item Value Reference Interpretation Comments [...] (test code = FASTING:NO HIPOLITO) FASTING: NO [facility] [id number] 16:43:00 Test Item Value Reference Range Interpretation Comments Alpha-Tocopher 8.4 mg/L Reference Ra nge 5.7-19.9 ol (test code mg/L Levels of = ) alpha-tocophero l <5 mg/L are consistent with Vitamin E defic iency in adults.Vitamin supplementation within 24 hours prior to blood draw may affect the accuracy of results. See Note 1 Mfnr-Hgnrv-Oso 1.1 See_Comment See Note 1 [A utomated opherol (test message] The s ystem which code = generated this result ) transmitted ref erence range: <4.4 mg/L . The reference range was not used to interpr et this result as normal/abnormal . HIPOLITO (test code FASTING:NO = HIPOLITO) FASTING: NO [facility] platelet count + automated [id number] 16:43:00 Test Item Value Reference Range Interpretation Comments WBC (test code = 5.6 See_Comment [Automated ) message] The system which generated this result transmit landen reference range : 3.8 - 10.8 Thousand/uL. Th e reference range was not used to interpret this result as normal/abnormal . RBC (test code = 4.88 See_Comment [Automated 998-8) message] The system which generated this result [...] this result transmit landen reference range : 1,500 - 7,800 cells/uL. [...] NO Lab Interpretation Abnormal (test code = 22088-7) [facility], [id number] 16:43:00 Test Item Value Reference Range Interpretation Comments Vitamin 23 ng/mL 30-100 L Vitamin D Statu s D,25-Oh,Total (test 25-OH Vi tamin D: code = 2329575) Deficiency: <20 ng/mLInsufficie ncy: 20 - 29 ng/mLOp timal: > or = 30 ng/mL For 25-OH Vitamin D testing on mariposa ents on D2-supplemen tation and patients fo r whom quantitation of D2 and D3 fraction s is required, the QuestAssureD(TM )25-OH VIT D, (D2,D3), LC/MS/MS is recommended: or darcy code 13244 (pat ients >2yrs).See Note 2 Note 1 This marques t was developed and i ts analytical performance characteristics have been determined by [employer]. It has not been cl eared or approved by theFDA. This as say has been valida landen pursuant to the CLIA regulations and is used for clinic al purposes. Note 2 For additional information, pl ease refer to http://educatio n.Ques tDiagnostics.co m/faq/ SGR818 (This li nk is being provided for informational/e ducati onal purposes o nly.) HIPOLITO (test code = FASTING:NO HIPOLITO) FASTING: NO Lab Interpretation Abnormal (test code = 79294-3) [facility] [id number] 16:43:00 Test Item Value Reference Range Interpretation Comments Vitamin A (test 68 See_Comment Clin Chem Vol. code = 2923-1) 34.No.8. pp16 12-9670. 1998Vitamin supplementation within 24 hours prior to blood draw may affect the accuracy of res ults. This test was d evcatyoped and its analyti bret performance characteristics have been determined by [employer]. It has not been cleared or approved [...] HIPOLITO (test code = FASTING:NO HIPOLITO) [facility]ING: [facility] (Thi[facility]), Whole Blood, LC/MS/MS 2022-07-23 16:43:00 Test Item Value Reference Range Interpretation Comments Vitamin 100 nmol/L 78-185 Vitamin supplem entation B1,LCMSMS (test within 24 ho urs prior code = 6398460) toblood draw may affect the accuracy of results. This test was d marleny and its analyti bret performance characteristics have been determined by [employer]. It has not been cleared or approved by theFDA. This assay has been valida landen pursuant to the CLIA regulations and is used for clinical pu rposes. HIPOLITO (test code = FASTING:NO HIPOLITO) FASTING: NO [facility] metabolic [id number] 16:43:00 Test Item Value Reference Range Interpretation Comments Glucose (test code 86 mg/dL 65-139 Non-fast ing = ) reference inter kayce BUN (test code = 13 mg/dL 20100821) Creatinine (test 0.75 mg/dL 0.50-1.03 code = 20130613) EGFR (test code = 93 See_Comment The eGFR i s based ) on the CKD-EPI 2020 equation. To calculate the n ew eGFR from a previous Creatinine or Cystatin Cresul t, go to https://www.kid rhonda .org/profession als /kdoqi/gfr%5Fca lcu lator [Automate d message] The system which generated this result transmit landen reference range : > OR = 60 mL/min/1.73m2. The reference range was not used to interpret this result as normal/abnormal . BUN/Creatinine NOT APPLICABLE See_Comment [Automated Ratio (test code = message] The ) system which generated this result transmit landen reference range : 6 - 22 (calc). Th e reference range was not used to interpret this result as normal/abnormal . Sodium (test code 142 mmol/L 135-146 = 0669556) Potassium, Serum 4.4 mmol/L 3.5-5.3 (test code = 20100905) Chloride (test 108 mmol/L 98-110 code = 7436081) Carbon Dioxide, 31 mmol/L 20-32 Total (test code = ) Calcium, Serum 9.3 mg/dL 8.6-10.4 (test code = 20100818) Protein, Total, 6.6 g/dL 6.1-8.1 Serum (test code = 20100825) Albumin (test code 3.8 g/dL 3.6-5.1 = ) GLOBULIN (QUEST) 2.8 See_Comment [Automated (test code = message] The ) system which generated this result transmit landen reference range : 1.9 - 3.7 g/dL (calc). The reference range was not used to interpret this result as normal/abnormal . Albumin Globulin 1.4 See_Comment [Automated Ratio (test code = message] The 1758-) system which generated this result transmit landen reference range : 1.0 - 2.5 (calc ). The reference range was not u sed to interpret th is result as normal/abnormal . Bilirubin, Total 0.5 mg/dL 0.2-1.2 (test code = 20100827) Alkaline 73 U/L 37-153 Phosphatase, S (test code = 6768-6) AST (SGOT) (test 17 U/L 10-35 code = 20100831) ALT (SGPT) (test 12 U/L 6-29 code = ) HIPOLITO (test code = FASTING:NO HIPOLITO) FASTING: NO [facility] [id number] 16:43:00 Test Item Value Reference Range Interpretation Comments Vitamin B12 (test code = 466 pg/mL 200-6650 9060375) HIPOLITO (test code = HIPOLITO) FASTING:NO FASTING: NO [facility], [id number] 16:43:00 Test Item Value Reference Interpretation Comments [...] (test code = FASTING:NO HIPOLITO) FASTING: NO [facility] [id number] 16:43:00 Test Item Value Reference Range Interpretation Comments Alpha-Tocopher 8.4 mg/L Reference Ra nge 5.7-19.9 ol (test code mg/L Levels of = ) alpha-tocophero l <5 mg/L are consistent with Vitamin E defic iency in adults.Vitamin supplementation within 24 hours prior to blood draw may affect the accuracy of results. See Note 1 Qtgc-Bibym-Hoq 1.1 See_Comment See Note 1 [A utomated opherol (test message] The s ystem which code = generated this result ) transmitted ref erence range: <4.4 mg/L . The reference range was not used to interpr et this result as normal/abnormal . HIPOLITO (test code FASTING:NO = HIPOLITO) FASTING: NO [facility] with platelet count + automated [id number] 16:43:00 Test Item Value Reference Range Interpretation [...] this result transmit landen reference range : 1,500 - 7,800 cells/uL. [...] NO Lab Interpretation Abnormal (test code = 18603-5) [facility], [id number] 16:43:00 Test Item Value Reference Range Interpretation Comments Vitamin 23 ng/mL 30-100 L Vitamin D Statu s D,25-Oh,Total (test 25-OH Vi tamin D: code = 0598859) Deficiency: <20 ng/mLInsufficie ncy: 20 - 29 ng/mLOp timal: > or = 30 ng/mL For 25-OH Vitamin D testing on mariposa ents on D2-supplemen tation and patients fo r whom quantitation of D2 and D3 fraction s is required, the QuestAssureD(TM )25-OH VIT D, (D2,D3), LC/MS/MS is recommended: or darcy code 84529 (pat ients >2yrs).See Note 2 Note 1 This marques t was developed and i ts analytical performance characteristics have been determined by [employer]. It has not been cl eared or approved by theFDA. This as say has been valida landen pursuant to the CLIA regulations and is used for clinic al purposes. Note 2 For additional information, pl ease refer to http://educatio n.Ques tDiagnostics.co m/faq/ OWT860 (This li nk is being provided for informational/e ducati onal purposes o nly.) HIPOLITO (test code = FASTING:NO HIPOLITO) FASTING: NO Lab Interpretation Abnormal (test code = 36344-0) [facility] [id number] 16:43:00 Test Item Value Reference Range Interpretation Comments Vitamin A (test 68 See_Comment Clin Chem Vol. code = 2923-1) 34.No.8. pp16 86-1224. 1998Vitamin supplementation within 24 hours prior to blood draw may affect the accuracy of res ults. This test was d greggd and its analyti bret performance characteristics have been determined by [employer]. It has not been cleared or approved [...] HIPOLITO (test code = FASTING:NO HIPOLITO) [facility]ING: [facility] (Thi[facility]), Whole Blood, LC/MS/MS 2022-07-23 16:43:00 Test Item Value Reference Range Interpretation Comments Vitamin 100 nmol/L 78-185 Vitamin supplem entation B1,LCMSMS (test within 24 ho urs prior code = 3925427) toblood draw may affect the accuracy of results. This test was d greggd and its analyti bret performance characteristics have been determined by [employer]. It has not been cleared or approved by theA. This assay has been valida landen pursuant to the CLIA regulations and is used for clinical pu rposes. HIPOLITO (test code = FASTING:NO HIPOLITO) FASTING: NO [facility] HospitalTissue [id number] 17:43:34 Test Item Value Reference Range Interpretation Comments Case Report (test code Surgical Pathology = 104) Report Case: [id number] Authorizing Provider: Tony Grey MD Collected: 04/15/2022 02:37 PM Ordering Location: [facility] PERIOPERATIVE Received: 04/16/2022 08:26 AM SERVICES Pathologist: Siomara Haskins MD Specimen: Soft Tissue, Other, stomach DIAGNOSIS (test code = [id number] 3220) uZzEwMzNcZnRuYmpcdWMxIH tccnRmMVxlcGljOTYwMlxhb fSjDWLgtUKbN4JuncbuKRqk VE6rEQ7llWybvLXuyLBlICJ pJfNvd9lgn251pXIuw3wdBO PTjkxmaPj5aCmpO21ug8J7A idxU60jbSEjIDZ7QOBdYEKg xWVyUGXlUPP8GBXpfWUzF7m dFYMvCI0dmcaaXZdyUQanBD KohCN9KDWkcSGaU8FcNJXkS ZcdEKVzsrp5CfEfJw8dcWNg eTcyMFxwYXJkXHBsYWluXGZ iIeAxO1JOWZGUEFkqSRPHAU PWB4CJMAuLCEYHMTOHIQXPK DBDRzLXCC1TTPyvzCPzPITk AMEJQTxNLWuYOO1XY12SYIC UDH1ISFMKVRIXHjySWQfJWI wkM9dZVIFVKQrVJWHJWi4EE AFwFP0JZFXACTTGYL9ZXFTl zuPkOATAFrVGFbCMF0CDCiR OZW3AHMIXSKJHVJRbIEWGN8 XCBMNGTAVXOzPWLLiER14XR iXTPJJHSL1paOGzGRHwoKTp lBsfwjIgUUcgm7FqTYfkOKQ gNO3geYfqXVNqKT0aVDNaZ6 wxlX9xvxs6AzQxJHHsYmI1G SEgsdR2Rra4THNoRKymp0tw e5YeVEXuZYf4nIapYqWcQCR nw0uzzuZiKsKgZVIsZNNpAB OcdOCsD145d5kle8sednSfr RH4VQYjNLE6TFovohYgliJ3 IViusQCnInL3SVrekcZkWAi lsuYorvEwXyl5KLRoN473SM H4eZqmt9bkKUV7OULwVLQaW hRdBx6jhPDpL958OEGbZRMI ZUDbwOc3TWLggjXosxPxwWX Sf371S357h0faUIKwphWkhF rZetmdo4wrT705ESGudRCcw qWcEiLgPDDenYYgxUJ1KTYu YY4cqjqcKBvuNLhcBKZkwcS 3IBJrcBTnR6UmVTTxNW8yxk svIQU9HXyvIPNuPKY9DvGnF AJpf3Aabdd7VfOoos9kpf15 ZDI3y0OmmWqcNCQ4DAE6EiI bJv3ujDMbFBMuVQ9eXuTsdU FuYXCwsu35kPgdIXckGQO4V ROyqiVcy9Mvj3fzPtZkqyQh B3tpX8VcCTDrPMCnPLAeVwM hkwWvt6Ect5BmiSUhaXi2x3 azEGKgZULrgIidx1oiYUF4P FTbqTPkI2suaM5mBEWdZP0k ptwsd0fdBNxgFGkeEBNoeME 2dnD9QZTgfJPpZ9GywB3tYL XmBRubZPXipal9YnTeHl3pv GVyeTcyMFxzYmtwYWdlXHBn bmNvbnRccGduZGVjXHBsYWl uXHBsYWluXGYwXGZzMjRccW xcbGFuZzEwMzNcaGljaFxmM FewPjAmADTbTKbmH5guZrNc WnNoUyi5PJIucWRuYAUqPuo 0KJFfsCVyZTAAvQwgsH9xWG FnmEotdL4erWE9GZYfnkYrd QZAtS0iPEOPwV0rXgIhOELz WiV5BRuiEmTufVMqeG3= CPT Code(s) (test code [id number] = 3357) ej9ltt5NxrSBngYFaXBksyP OhjtDcyv75vSS3dY65LK8wN FYxGvR9TOHjwhD5Dng4VUEj FENicJDxI744s1kmw4ajxzL jwCB2wSrvHZVvdvduGbU5XQ hpMGJcfjjwEBs2GAefZJWyj JW7MHMczUSuZ5SlKGRpYQ7e dfx2WCQ5MFxmFCCiCsK8HCN edGFwWDDxkYdsFBjgy850LB G6YoMrXFYuhbFxiCbbnN1sN kWiIJJ6QEImP2ajZJZ6 CLINICAL HISTORY (test k0ljhXKrPXIqwSZ3DxWlNAI code = 3356) de1ieh7DdkAXzvCQtDNeokT CjdtLfbj83cXH1cA70XU2dJ DQiLqW4KYCsjiX0Oto0NTJg UKEcmIJhO814s0wkl8vusgQ ncSX3xKsoFNFjizbeHmD7XD uxRQYfzafsLOq5RIjxQFOif SR8ZFFslULhX4CiQKAiWX4e erl6MYH9GLpvJFPfObE3DGA utXQdICBgzGbxNMyvi210MZ S1BpZrKXLxssPncWccfN4vS xJqANFEo2JlqHHna1Gbr9q8 eVxwYXJ9 GROSS DESCRIPTION e0etiMBjMBTdhPL7NtSpFET (test code = vz4fca8IetOAztAUhEOklrW [id number]) QpkhYjuv56vBO1nX24JJ2aZ KBjOhX5FLWcjqM0Jbn0NSYo GNRjaUCpE014k9ail8oqdiQ iaST4wKrmXLCvplhyQqM2BG ixKHZvrkvtQZf8AHryGAAds KC4XHDqkKCwK0CpCNBkCE6k xmi7JDE0CZyjCKKbMxX0QID qsLQmZALknUvtFKrrw791VZ S3PdUzVQYdztC0VYguWLHeF 7SeO8MtJOzqPPU9WKFyVITs TKZzKXLxVQDpDZwfolS9p1a cXJItuMOfOIS5XQvnoRBxIJ ZmOBUxNLlzHrAOMoHkNuH1U KW3RrewQbP5AVc7TMALCtKy XgYnOmY1FTC0LRRdKSq3HZe 8IHuMViS5NYW1NLu6DeUdRZ DfWzGxXTu6WQJmEWkmhXRpC PYmMRZrFCyaIVllJ24vgQjt sR2lYeCpGWDJToGNc1C1ICJ bs5K2TWxhN0KrMMAxZXXzgq kwigIbZVGkG1KkcpEiKJocW SAmnk8owKxoZWtkUmBuXFLo m0l9mWJ2oAPneHI7lUBkoTe dASntZi0tuUW1kX4iFFOlMC YsWSUymJEiWFSks5U9RZObz 0F0UMgdx4HyYDVpTBYmg8Rq yAE6gB2rYpUoqX8eQSErFmP lajHkcfXrtR0cQ8Q3NBEnnV 1qfBsvihZuLyIukT0nHSMmB F7qMSX9eeibFfBxEpU1OLAq MIJbUHYzPmQ8NAGeODHudY5 cCFsiOUOvcv2ePDVkyhG7YT 4rr7qtyCXqNT6wJRBfT3Hfe SclF93kR8DydFUnUfXApLGk h0OyB5xvNA6njEJke1XwlDk tXIThyU1kMmWrfOJgXZ75xR UnRYyoswt1iZ0xSKWvwOGer 3BlbmVkIHRvIHJldmVhbCBi sK6uMLNgsZ67jcFkfuX1aAS pvPUsNE4iXBZqkPXus8SuaS A0zBKfAYPmK9Swf01kIULfD QKwsNDhnHT8QHSsKFHpYMUu QQVVG1F3RUceBCKcO5JvZ4V xawL6c5orpOpai4UmiNDxXN 1ccGFyfQ== MICROSCOPIC t7sbpHKgKCMkyYN0XzXiHLY DESCRIPTION (test code ma2pka0OfuODqhBKrVJaftQ = 3371) LlguWrqs22sCE8jX11MF0vD UQbCiR8NXQvkcJ4Uxm3UEZg OULawSVsO699n6jal1sbqtH nhSJ7iAieGJLcqiclRpA7TN acDVWjqqidFXg1WIgrDTPwo SQ5JJFyoAUiO3QbVVRdSP6i pru8DSI5ENxpYAFyXvN6KTO arFMxKMPyhPnrSHyue741OP H8TcPfRAIeziSjtGqysD4mF kRePJXEVPHOS1VIQVOtxQFa fQ== [facility] [id number] 17:43:34 Test Item Value Reference Range Interpretation Comments Case Report (test code Surgical Pathology = 104) Report Case: [id number] Authorizing Provider: Tony Grey MD Collected: 04/15/2022 02:37 PM Ordering Location: [facility] PERI[facility]AT[facility] Received: 04/16/2022 08:26 AM SERVICES Pathologist: Siomara Haskins MD Specimen: Soft Tissue, Other, stomach DIAGNOSIS (test code = d2wceOPdOPOpe5nkFTZmeAB 3220) uZzEwMzNcZnRuYmpcdWMxIH tccnRmMVxlcGljOTYwMlxhb zQhPJRkzHMrZ6XycbzfUNii ZH2rQS9jdIznlGHdfYHgXKK gIjUbc3xps441uBMwg3opFW IGmaospGe4tVfpB11hj8T7G gjkX42ljAMyVGX8ZZZrCSUk bLGxGZSnMVU8ZJYqpMSiX5z mIYYbHZ7ichsqMImjGPvlAJ OhaAG6QFQtbTRxE7CaYXNkC WofQIMnwun9VqDzLq9mdEWf eTcyMFxwYXJkXHBsYWluXGZ iCsWoR5BODYKVGVzoHZRPHL AQF7QXLNoYPXXDXJPLDOGRJ TRPArLBTP5CBBoqrWKnMRIg VCMVNAsDBAfXMH4MG45ZIPL AGS3FUIVJDJKSFhxBDMoLAA tzC6vLSNWUIXiWPMCHWa6OQ XYkKZ1TOXDCBSTWBT4UUICw awYuMLDPUzLDEaHEF0FJLsA NXJ9DNUQZCJUEBQVxYATIM5 EQQSXTJKGLXdQSXCfEN36HO mXAIYQVFA4xnEJvNGRvsAHp qJrxgkLkDKieu7ZwJNohKHZ pAS6koKcdLXYqUO1pVGFvU0 zruZ5wybv2VqYcOURcUkV9M XKshsU2Hzj9AORjQObpu4ji p2PiHYEmHPm4yQwaAuNsJDB tx1qcvlTaFdPmCHZbFRTjQH VncOLbG776o7qgp5jvueEem YN0TNHcHIP9NCrdmfBdtzR5 QTsfjHOkYwK8FHifnlBmUJr jcpUjivYwEil3SVFnO209MS U3oWynd9vmAFZ7MHHjIGXcZ zReRk8goOErS608LMGrFCRM SLWxyHy4QWRllcQuxpSshFN Lt265P148v5ooYPRumeIrfJ nWruumt8lwX093ZZMzyMVfp iUqGuVcRZPtsMNtcNP2AGZx BP6eixhvHHuxGJefUUDnykV 8SPCbdLCnM2HlICChLB7lpy dcQNF2ZKcpOHMaUOD7HwReH SGqg4Iwyat6JcNyah1hab21 NNO8n8HirFjdTGI7KJM2RoL sYj9qyPXrOUIhJF7wMxXclJ NjCSWjgx97dGfsYCwpQSC0B VWtusUon5Esk2quVeSjfuVo A3yoE2NmNAOwFXYcAHMhJaK qduEen9Jwv0OjtVZjqTy9f5 mlWBVcOWUioHmjf8omHPS8C GXavNEbL5srrL5zBBQuGY3u eoiqc4gqRLdpSZioOVQhtOG 6xgO7NDGdeLKpE1PvpT6ySH OaEBdwCOUmnqq2MaIfGp4la GVyeTcyMFxzYmtwYWdlXHBn bmNvbnRccGduZGVjXHBsYWl uXHBsYWluXGYwXGZzMjRccW xcbGFuZzEwMzNcaGljaFxmM EiaWyEsNJZtKNjkV8vgVxOx QoNsHem5MLWwzFXmQMShJin 6EDLezGCdGTUAhItayY7fBQ QhpKkcbM0qaIQ4NWXdqaIrh OZGcJ2hXHGSaJ2yZvCzXVWs DwA3CYmaGvEjeHEgwN3= CPT Code(s) (test code v0tsfORmMIStoKY9SnVzGOF = 3357) yp4jga3SeqGXilRCaDDxxrI WnlzGkyx79iBY0aZ22JX3yG BUhWrS4AKFdpuR4Nug7JMBn LADovIRuD474q4oob4yjzlJ qsSK9uYwbDFKdubetCiA4UC ygSZRlihtgEWu0FSawNJAmn EI4LZYvkHGsZ4IzRWUjDP8b gqu3BBO5WNwqEFDjJcR3NDE hyVTdEIXxuKizYTvie490GZ H0HmPhNGVaerSsjUjauO2pJ sBoBEX3HQBjW9dvYYJ3 CLINICAL HISTORY (test n2wjuIHxDSVyfFN6AiDzKCB code = 3356) dr8cqp6RivUNdzDMtRSazrF GlspPnhh97uSN4tI65BY2lR AFtOpH4OUIybdV3Urf9JBJj UCSviMSvR442k6kro6jygbB faGM3gIcaDPLahlbtUvY9LZ lwVSCheymiKEw8UUcoGNRzl TP8LXDnhOAjW5KkOLKlHY3k pfs3TNH7OGweZPTbJlE8QFJ haCKfVOYivDwfMXmde584HR Z3WoByMOUhnoBukLaeyT5lF oSdVBLHp7MyfPQex4Xga8x4 eVxwYXJ9 GROSS DESCRIPTION i4hrgSGyPESvcSK5BaDcPGT (test code = uw1bsm3OriEDmjHDqLHcakK [id number]) BotzGjxe20mZT6yI39QK8iT BCqPeA0OPNlsqN6Hqy0KLDt IESjcBLcQ607d3ccr6kahgY itRI3iInhYUNxzqaeTvR6OM cyKBVtnevaGGt8PCbwWUVph MN6DNZsuFSwG0DaODTsCC1e fsp0QQS3ICsnDHGuYfX4NLY hyZSsSYUulFscXLeay509SX A4DcUuLQHfwxT2PRxoZNCqD 9MfM1ZlXAxeLPN1IINgIBIs SSNlYSIcDMLkOUlonmR4h1i gTBJxdCYiXVZ3FFqdjPXxDP LeFXRjQCldTjJEZvXrKuC2I QW6ImwkAmU7QVp2EPSWXrEg DaRwOhD4RUZ6GTDdOSx9SIa 6CDvGMlQ8NDB5LHm9DgLjPF PqGnNtMPs2WGZfTIvgwVDxD WXhYDQuJHjmDRfjQ74hjPaw dS1bPgVpHBRLGwTTy6M4GHL qn6S3EDeiQ5ZlJAGsROBzkx exldTlFVTmE6FtrxKoMVfzM KGunf4qvOfyMMfsGoDhALOy n8t6lAO7xRJenPD3pQIxcJt iHAygKm9ddPB5tN9pWZHnXW LaWETdmSFgDBRdy2E8HFAlu 3U9NNonz6MuQGOkMJQjx5Bz cLN3zE8bRzJcqP5mYHLrSnN nfeSbfyCsoG9aK3H5WDNcrH 8ykDazsyNmCrLnmY5aFQXuI X3cGAQ3wisjJxAvGvF0LBMa SADrXOHfSsC9TKPsZSGasQ8 iSTwiVXVpfu1iGUPkmhL2QI 8kb4xwkVXmMT3eRKWzP7Mag VadW43cV7LizAMpMpGIhZXx b1JyP1atRO3ozCYmi2EnmJn yRGViyC4zUnIhaNDlNY57eZ ZnKUiaaon0dO5xTJTrtWYhm 3BlbmVkIHRvIHJldmVhbCBi yX3iCPOfmZ72lvQsmtA6lVH woPPiLA1fKUCvhKSix4VftS Q5dVLnBQRtY8Fgp05fKQTvC UYvrCLkjJF3IMKrHKWhJQNa WXNTH4J8UCkgWVRxT6QkC8S kvsC7r0gqyUxyq2SbcNVkFL 1ccGFyfQ== MICROSCOPIC z7qgmTZqIVIkfHU2OvYxIVV DESCRIPTION (test code ft9lfx5FblBEkqAYpVUlwsI = 3371) DrjaIqjz88yAO1mD54VT8uR SWeCdX3VJLxpcE0Jut0XYBc MCLaqQMaC157u2uqq0kqjlX mwKF6pRodOTKfeyppWnZ3HB fpKLAfhhdaQDc2ZWlxITHuy DW7BLExbRKbM8XfXUXqBX4e dxj4UQT4RQzkHITjVyV2QEL flFMrQAIuaLnoAOofd336LQ M4NyLqPDCpmdVnrSsnsT9lV kMdFJRONVSBG4XPWQWjwCXz fQ== [facility] [id number] 17:43:34 Test Item Value Reference Range Interpretation Comments Case Report (test code Surgical Pathology = 104) Report Case: [id number] Authorizing Provider: Tony Grey MD Collected: 04/15/2022 02:37 PM Ordering Location: [facility] PERI[facility] Received: 04/16/2022 08:26 AM SERVICES Pathologist: Siomara Haskins MD Specimen: Soft Tissue, Other, stomach DIAGNOSIS (test code = v8klfVUeBZFjz2lgPYQrnSZ 3220) uZzEwMzNcZnRuYmpcdWMxIH tccnRmMVxlcGljOTYwMlxhb eGwKSFvdTSeN2ShbwbaAGni TK1cKB5azRygkQCzgJJyZPR gCzYqq1rmp434iTLhk4vwNU UJofghxEs8wVcmD58vo9B4X waeI08kwUSyBGO0VXIhILFq uJAsLCBrZXF1VMGvsHQfW4v kOYUhFC0isnlvTJdxFGqiYR VvlDP4TQSgkRFoL5KcLEZsS BciOQEwzms8CpPfFt5szIAd eTcyMFxwYXJkXHBsYWluXGZ gIhHeO2VRSEDXNXeoOVPZOU EUB3RKJYqXERDVAWKEGJZTG NAKTtSMGZ4JQHcebREdRGRe BDOYGFxLQYfLHN7IG89HFSX AOE8QFAHOZGOWDfmBXEmMWR urS9vIJDIDGJkAERPQNl9VQ SRrBQ4ZOATNHXZUEZ2QCXSc vtXwNZQWBwPTEtDGT3EORlA XOU7AUOWQATLDFZUxGQOQK0 ZRBDOWQCWDYvMQHCkIB27DE dQPDHHIXC4npEAkDOVkmUCy jQifwwTnQFgpd2ZpPEkcPCA vSP5ryLziACMmSB5yHEPfR2 gunD2jzxm5QkJdKZIaBeM4V POcmzB7Uvs0WBXnGWepk0of r4AlAMPiQMy8bAzpOiCqSYY iq6yhafLbCiBcWOXeQMDoOJ CiyHVzW462q6myn6oftaCte WB1PRCaFXY9ELtlqwOkehO1 CDsioICyIuY6CVcwvyDaQSk flnMywdAfRfe0GRPhX331MM T7yWblo6bxYXR7UIZqMOAcV hVoZq0ixOGlK795HJHzMRXO PXCdcGg2GXErzdYwxaAajRA In813L760g8hnQBNznyMnvB pVviuwb1lqT016PFAmvFBmd lOrXvAxCUSjcBRtdGZ6WFMw QQ5fichhBTjfMQkvZTUxaiG 8OHFjqRRiL6SaBYBhZV6sst emEXI1NEulFURrWJG2VwXjJ FQtk4Gqtzy0MySajz2prn54 YML6i8PvlRokNLB3PYX6PwX dNd7ofKQzKYMbYT1lOkFwhG AgZNMjjj31mCjjHMjnKSM1S YOucxOkb0Huv3ewJmUdvfGt B6aoU9ZrRDYlEDToVFAwTyR dgbOvm5Pmf4YqoZVlhZb2a7 rpYLRgSSJpaAnah4lnYLL0R PIfrFZsW9yagY0cEUBzWP1g nlwyd6eoGAlfYVkxLIWwaKB 4dqG1ISErsVBlC5NrgR8xQR DbRInrREPsuvp9BdNlJu0eo GVyeTcyMFxzYmtwYWdlXHBn bmNvbnRccGduZGVjXHBsYWl uXHBsYWluXGYwXGZzMjRccW xcbGFuZzEwMzNcaGljaFxmM CwnKiXeARGfVZpsG6szMiHt AbFlXai6FMNpaKWnWOWbEcn 4YSRjiAJjMZHQeRyjvD0iCK FcwEemzZ2knDG1FRHjsmScy QSHoS2aYWFMcA5sXnNzLOEy YeT1REhxFzZrkTHyhR2= CPT Code(s) (test code x2qacVWhVKIxfBF3JdHsQHI = 3357) bv9dtl4JasZYhlWUsQIfctX BzhtJkvi55aMH2yP69UE7bL TTdYaK1AFFwseS1Nyh9DEHc DEHdtMUtH705t9txe2fxkgB jwCT8aXdkXEEwkukcYjA9AX ruBWOysiwgECb0IJduCMVvr DY4CSNmoHInA9QbZHXaOU5r cvm0WKC2AIyhSMJpWuE0TYE ltTBzZQFteWyrFXkph386NG K7GsPpVDUzdvQnaHvrvU9fZ eRhYPP8KKAqH5mqHHA9 CLINICAL HISTORY (test m3mzhXKaNICfwIM0BfCgSSN code = 3356) zv0ixb3WkzWGwqVEgYNbxlB XwpkEwhf02iUB7tQ37GP2dW VEaMjJ5WDShbaN5Via0ZSVe TLCpjCYgS179d9ohv1tarlV wvVJ7hTukIPJodavqOfI4HT jiQYJtgzlhCRy2KDyyCJDtf IY3PWVytUDxF3QhPEDzVH3j iuj4ROD8IVreNUYmGbI4KSJ xzDCoBCWbcIcsIYsby933HH L3IvWoIECtjzTdqTzmjE4hM tGqLGVGy5WrmTAcn6Qiu3t0 eVxwYXJ9 GROSS DESCRIPTION l5gnvHXeILNiwGZ0SoTyXYT (test code = ov4epy5WgwVFhhBNbJGfifR [id number]) QoqnUrch72pFA3zD71SN6zZ RWmCyJ8GRTtykO4Zay6GWYi WHZwhTSxF240y0jwr5xsxdQ vvVU9kJvsRTDrqzbqHpE2MY kbYWYlhqgiURx8CFtjGBAzi HL1BWXyqULpF3SjMATaVY0j vgd3BXT8VRkqLVXrJiS0JGG jyIPnZOEbkUrkCTcxs515PG M0HeAtDXHociN7BGiaNSEbZ 9HzS0XrNUmkRJM1NKLvGJPg YQOaLUUwSCTgRSippqS0a5y oZWHamOGsZKM3QMhhiWEkLY HcNSQtCBxvBqXCItYdPdC5E DN4JcugWcK8ZDn4BICZRhRf LeDiSvC9QUO4VJIgWNh1IIo 8HJfBZzW0FYF4JAc3SqArCI ZlPkLoAAm2XBUiJXvnoSKsS QNoRUKyVSzsQQhvO69nvJqe oT7lExZiDJRIIaQJe2Z2FWJ uh3Q3XRtwD3JjXPHxJYSdyq vnqeVkKVEaU9YawxFmVZffL QFgau5dcVzfAZutPfXuNYUo c0x6gBT0iDOrnTX1zDQrvAj iEQpwOs7ihHX7vQ0ePUWxZW NuRMOtxDHhDTVmg2I7WCCoo 2X9BZvmg6BaBKLiTZYxv8Gf sLQ6eI8aEbUeyU0zBRAdWfK dwuAubeJucU6rD9G5PJXalS 8siLezaxLuOfHojO4bWMBuX J6wIZH6gztqRnUjZbL1AEQd UCWpYJGlZsZ6WNCfIFKseJ2 oLSjmSBOzed5kFPEbawI5HY 9ko8ytcGQtIF7uXFZrY9Mnh PuyI64tH1YqsRQrHzVFsYMt r5ApA9txHT8gfFTph8VmcGk jDNLvvP7oOeMhmBTeNZ95jD FeCVzbvqy2hH6dNFVnbCFjg 3BlbmVkIHRvIHJldmVhbCBi gQ9rUECekI30kjYgqmG1aVR gbQGqIA9tYSCrqDGea2QkxN C7wODeXBIoH9Guh98pZBLvM GZomIEzpDL6ZAUbIGRcGHWq DCGZM2B0SHbpCYLsP4BeD2C xoeF6y8szcUvdz1LzrEUeNU 1ccGFyfQ== MICROSCOPIC m8jygANhVZWheAV7JnUvJQP DESCRIPTION (test code rq0fla0KrnRAlpSQiZHewxY = 3371) TodfIdqo34lRF8gN36UM2qC EVkVoW0XBLjhlU2Szb4JNBm FOMknIXuW610o3byh7sztaD aiLF4wTtsRAVfxaftTuY8UK dtFEWsnbouJDv2HXkwAHJhb JO5FZZqtRTjO2RyXGJcMB2g fqt8DTF4YRgiIDCjFxE4HYI cjXTlTKWylNflPQtud962CW Z3YpTnGVZslpAzkAqciL2gQ kYxBPTOLGZGH2YMNNBnsVIe fQ== [facility] [id number] 17:43:34 Test Item Value Reference Range Interpretation Comments Case Report (test code Surgical Pathology = 104) Report Case: [id number] Authorizing Provider: Tony Grey MD Collected: 04/15/2022 02:37 PM Ordering Location: [facility] Received: 04/16/2022 08:26 AM SERVICES Pathologist: Siomara Haskins MD Specimen: Soft Tissue, Other, stomach DIAGNOSIS (test code = s7aiwOXcRYEgy1ciZHSzgMD 3220) uZzEwMzNcZnRuYmpcdWMxIH tccnRmMVxlcGljOTYwMlxhb gOaRLPzeHDrP4HkbxzdZNlt IK4aFT9vlVwggCArxHYySYZ bSrYqc7sia699dKWnr9fsBR WSzqyizBj9dXvkO12vh3X5O ooqM46swCPgBPN5KHGtPJOk zACcPGLpYRT8IXEhjQLdV1g qNZXyLU0lppnuICqqIZbvYJ AqsBN6LURmmFLyQ5ClHVFsJ PfrUUAwrfv0LdKhBx3rnJXo eTcyMFxwYXJkXHBsYWluXGZ yShDaB9LENMLFYBukBVHPWP YZT1YNFTgBSQWWTKBZYSIKT GFNCnEEKZ5DIWwqiOGeBVRq AFXCZFcAVVfNUI0AV12SCSG CZV2AHLIBNUWXVenEZBuTPU skX9qJZWHZABuQUZQMVs4EV WUiXI7MZRQZTAPGZI6QJASh krLxZVMZGeVUYlAQB3PFQiH HXQ4WPOKIFVOIXJEzLAQJO0 EIZOPGKHXQDmXDWUnNM91CA gKMKMUDDR2poPOpWYMekUHt iEnoeuLkNPvmd4WxYVdaHKC wMM7bdKdcDYKeEB2tPWRjM7 hzdG9fnfh3PsBbXDYuYsA0R GRiflP9Cin9LOBdIPknc2oq i6XgVRGyJCv1kVtwNfAeKRE ah8kbpsBcBvSjCNJjRRUpSZ IeqUWaQ923v3wao1fmwjBlo ZM3KRMmJTS0FPwysrXowsT9 ASmzaMRfIuN0RVorgfDkVNz igeKsdvYsWec2YLYxU068QR Q8uQhyr8clIFL7EVSnQWXgZ kJmEa8hzVTbL396XSXjMEHY HCHjoXj3RETahgHktlQcxNV Ds026N539k7eeDLXqweTygU xIvlzgt1qfT356UWHehXTba rKgJcKcZKYesYOizKO0KQWx SE4jedlyDUhyKYoqRJZnsbR 7TIFwxAPgU0GrGREcAC5wmf fhHZH0VGvfWZNxZIQ7WkIeP EYhu1Mdjep7VzTdse3zax50 CIF9a1EymVxwEUR1IZB3PjF vWx0wyCQrJAFeAJ0qHfDgfO OxROAsue83aMnvJYejQWO2T WXxxyLiu1Ijr8coFaEqmpRb A8xcD3YgJQUmODPrSUYcVeY iaiZlm8Qot3DktQCajDp9k8 ptNQCnAXUsdYlsx7pdISB7N QSveLVcG4wnkL2wLXDoRS5r xyfns5nwIMpwEOtaWSJkrCY 3gtN8FVZitXPuH1TzvY2cSH XiXKglDYEofdc8UrSyFq7sx GVyeTcyMFxzYmtwYWdlXHBn bmNvbnRccGduZGVjXHBsYWl uXHBsYWluXGYwXGZzMjRccW xcbGFuZzEwMzNcaGljaFxmM ZnfBfBdVQOlKLopC9mjLvSx JiUdOfk2SDXurICgXBFuVav 8QDUqqSCeSOBUaLgyoL1oRJ GrkHrqxD9idPE5ISUtqvRsn JKZcF8cGWVQjG1sQiScNFBc IfX6ABgxMfWqhOIuoF2= CPT Code(s) (test code v2mqlDQwUMBuhVN4YtQrMDY = 3357) mr4odm9DvhOGtxOUnBXexnF BhcrGmtk56aUU1iK72MC5hW EXvLmB6RYJwyaP2Vme6ZTGm EMLlpTWeB076z8iwr1wyrzA hmZK7zJokSIQrviwnOiQ9US suYLTwbczfTIi5OJjfYVXia GJ3MCVitKOwW4PxMRIzXQ7z gky6FBL3AWvkRPWoTwA9NBM oeXFbEULjoKfiKLryr051CW H2DhFsPKVvpeQgeNehwX1hG qJsQUV1ZSNeH0szNQI2 CLINICAL HISTORY (test j6ityOCaOLRslHX7QeNnAAK code = 3356) jn2bod3VahHCerQJzTJsgoV LwugQsrz81jRB1uL60NT5zI UXkYrY0JFWnhdD8Fir0PGXd SVKmpETvO069e8sel1voftX zqBU8eHdgKERbneyrYeH1LE xhEJZtbpkoZQj8CTobVTXpq UQ0ZGYwpATgX5CuSRFqGN0u qkr3MUQ5WAfnEEFmKbM5UAK scTQzGIAfkSmwRMmgb574KM T0VgQbETSkhtRebJvpiQ5oW hKeTPEAh2DykZFbg3Uvh8y6 eVxwYXJ9 GROSS DESCRIPTION p3dieULoELJadHP3EtCkCBK (test code = gb5dcx1RsnZTzuJNzRQduyZ [id number]) PnjoNvgz73yTA7qI06TK6iV UQzMlM8IQJqolK2Zbt2YAAn QCGxbIXlC096a5yip4itcpN xmKP0rSxyLIDdpjziJpC3FV kcJTWoxdtaRNv6MMftISEkw WN4TZHwkQJwZ2ClYOAfQS2o srf1MPJ7CMhaBQKmYaI2TBR pfBYmBEJglYcgZWhtv655XJ Y6HlQfRGDkzqM9JQfrLMTkS 3TzP6BbOLqqWYR8ILJjTXBs MYAeVSNyNPPmESxcqwO7t5f aKSOcgUMnJAQ5RIoeuJYxRH DsDUQwCMprBqTSAdKeWmH0S BY5XsctOpS2WNl9MOWARqDm DyWrZsS9OVH7EOPpUMv4XGr 2DRqRJyQ8SII2NGw3ZbHaHL XbYlKoBQl4GFGxLZeuoSGmH WPlLZZgKWimQAzbV64csGcr nM7gEmOlYFYHXuJEf8X2XTX iw3L7QPahW1IaMELjYQPgaz jsogIcCZSwH7EmqjWiONzyV VUzco1vnWqwSDngVhXpDLLf d7c2zHK6vDEjcZB0fPBsjHk zXYwbYl1lkUR1eE1lKHYcIM RfOECbmDHwKJHjm1X8YXYql 9L7BNlho1FiGWMrRBYdx0Ni mGN4bX9iIeLtoL4sJIOgVsJ dvmMzirTmaG2zY7I2DFFmiJ 9aaWlkqlPnDxPiaJ7aHRKeV P0sRFQ0gwrtAkFqKvO7OKEk PHShQGUiErP8WDUnGPHjiU9 dJSxgFKYcqc0mLIMltmP9GJ 7ge0wntBWxUY6gPCQsH1Bul DwtL54jV0WbmAVtFlEWuICv f6QvW0aaCF9hwTDet2EupGs kHOJicN6dKwMfeFCsNO09zG SjTYtjnve3qT5iJAEuhGQpa 3BlbmVkIHRvIHJldmVhbCBi sP8hMXCqhW43uuYcimU9uFG jzFYwRJ4wUDLydCAga4DmyJ R3iAUfIKBfB4Ldw44uFFEuQ YNfhHXreXZ2KCSwGTGoAAYt HSPYS1S5QEieHWYqH3MgI0G vxzD0q8vpoSzap5WytXFgUZ 1ccGFyfQ== MICROSCOPIC s5rcxIYvYBCuqHB3HpWrRDS DESCRIPTION (test code xg6voq4SljRLafFWgWFuwuY = 3371) BpioBahm85dAD2nL36AM3eG BEfSlL2QBZeuhY7Pxw3EDHv MYZbrVPcV123j2cfo5fkecC kzQZ2jUbgVUGuxfcrEhO6PQ xeITWtrmhcLJg8SQmdKDPrv YZ6CWVpmOKkL9CtNXUlAC8w bbj1YSF4BAagPCYpKdR7YJY toLAjPDOjjXnaFQukp046PY K6UuXpKIYtszFrcVhjmT8dO kYsRATNDXWLP2RMYXEbuYCv fQ== [id number] 17:43:34 Test Item Value Reference Range Interpretation Comments Case Report (test code Surgical Pathology = 104) Report Case: [id number] Authorizing Provider: Tony Grey MD Collected: 04/15/2022 02:37 PM Ordering Location: [facility] PERIOPERATIVE Received: 04/16/2022 08:26 AM SERVICES Pathologist: Siomara Haskins MD Specimen: Soft Tissue, Other, stomach DIAGNOSIS (test code = c3cwpMRuVTUja8rvCYNuvNG 3220) uZzEwMzNcZnRuYmpcdWMxIH tccnRmMVxlcGljOTYwMlxhb bBsJDZvdZVkE4SduxerGWuc KD7oBV3aiJnaoRSysEUnJOA hXjTik5azh859oMTun9gjPL GNtjmkpTx9lGvbN67dp6V5N gfsU44teHZeFDL8XCWjVQKx hVYjXNYjJRE3QMBsbOBmA1t cPKQeUO2xduyeXXhcGJrcFD KnsST5SBThiCNsN9GuODSmD XppOWAonbs4DgBmQx6vzPHb eTcyMFxwYXJkXHBsYWluXGZ xGwWlK9SOJHELZCrlXYGRSV XUB7AXGAhDOHVPZLATDGQNP QHUQgZMOK7GIZtowOByESGb QFGMBPhFGIpADQ8IQ81HLME WQQ1TPWEFGMALMxkMPAmFXW chT1cPIYSLZYlJMKGUPu9HL OUbYX6RJAGAPYLPWH7CJIIa zrNjUHKKZkUWMfWZG1BXNiN TTV5QVBXRXCWZDDCuHUANN3 CXDYAFOFMTXzQSTClFP81KW kDRYQJMVT6heRPsYLVtvQJg uRwpgzKpOHcoq3JpHAilSCL pJG5hnZnhBWDaPB7hCKVlV7 xypV7pawc3UuKbPHSwAnU5C YWoylB1Hsy7FHLxSQfeo7sp w7YeYWRhSQm8bYanBgYpEID hm5scutUoVmZyJHNwSZKlJT IfqFDsH527g3phm2tomkBzw LM8LDZpRYU0IZluaiKdxuT7 BVcixAKpRnV4VGxnheEtJQt lmmQwmcYsIgv6UUJyY070UT T2rCldq1jnKKS1OMWpSSWnM zItBt6skHOxX929URGnFTKR DJHkzBd7YLXorhGvhlWfjLU It838J666b3mvBEMzecDpcQ bZewbhu5wqH226WWDxyHDwt zBvOtStIOIkgKRzeZI3OFEe DZ7zenqdFKzgZAcrLJVftdO 4JBZmvWIbD6WjNQCvMG0alk auJHA6OCtlDFXwMPU6VrEaR ULwg3Idify8MmZcuo5gsr80 MLH8x0RkuKccXFS0YRF2TwG eCs4eaKAxKARjPR6uHkOfwQ DiDGJzfe69dTjwKSbmRSK7Q QForxYup7Dij8ipEuQfczVt C0reI9VvWKUqBCAoYUZsBtH iobMie3Vdn5FauPCcbEu4v2 esWCErTZPxxCloi4qcNJN2E LBhlEVbU1lasW7jPOIuLW0k fgjqy5hrRCmaCBbqLMVhcGS 1xuV6EUHsoIGjL8SvjZ8sAC IkMJikAAEeudv0GmGyFn2nf GVyeTcyMFxzYmtwYWdlXHBn bmNvbnRccGduZGVjXHBsYWl uXHBsYWluXGYwXGZzMjRccW xcbGFuZzEwMzNcaGljaFxmM VojMrMuULWuRAptH9ljJnKx QzGsMcc8SDXhsMVuWLKiDxl 6TCAmdLChOAWCeBidkG0uLK OtsWrswH4wbDF6QANlqyRio CPSqY5lXWWZbF6dPvDzRQIn YjL0JErhFzLtmETtuF8= CPT Code(s) (test code z0totIAdVRQdaMB8XeToXAQ = 3357) nx0peo4ExoXFooTLkWYilwB EogaXsap39jKL3pG54LE2sB LNwFvT6AZJpccA7Oqw3UDNm ILQojSVdK171t4jpy7jpwjL awYE0zMtnOWOstmxiZuB9XM kyCPLvbsiqLGt2KIecUUKnm YD8ERSuiZBaH1KmJWJnJB3k gds5JHW2APjsSWLjTbX2IKJ xhUTpVARkzAqhJCpuq103OK Q4ZyNxOSGmnxVwjPfocT7dA fJcCRG2QFAgN7dcNTH7 CLINICAL HISTORY (test k8tlhAUpPAQrdRG1RuUkRSX code = 3356) hv7yiq5NhrFLogUCfYVguwL AcjxMosl27dAE7aG47EP9gZ IKmSlW7LXEdmvR8Tav4CSFy MWTdvHTmB798l0rnl2jzfyH hfTL4dHimQXGrfnjsGpC0WB jmWQKrlovmFQt2FNfpKJQwj FQ2VVHcqVKtC6WgDNXiIV4z wgq2AEK0ILxdQPQaGzU1HXL tcENrQPUqsVxhKEgbh069ZV G2CdFsHSUpomFwfFdpdO9dW rEeTXBZe1JvdUBpm2Vkq1n0 eVxwYXJ9 GROSS DESCRIPTION a1fjiRAoXFCyvCU1IuYeKLJ (test code = tu8ldd9IhaPHihYSlFIttqK [id number]) EpszQzpf44sOQ8uX57SM1iO YAiDuP7QEZfhnR1Jal8FSBn YMOhvBIfJ714t2yuz1ybyjE ydZY1eZygFVGictrsIfR2LR lxPUDvskegHZw5WLygGIKic QK2FNCeaDLaY3RxVSGcWJ6f frf8YGW7DPbgHITgZiK5WZB uiNCmGJGshUcfSJqtm522CR W9AyAaHIElhvA8AOkcXTGiG 0QtR2MeCQxxLTM2IMIvROEh ZQCtDNQiNKEzGWudjpF4d3g aMNMabCCqUMR6GWterGNmFM CsRROfSLkhVuKQMhXkJbX5S OW2IrdkEqT7OHt9OYCGKbKo YxBhWcC1HFX8AFAdXIv4LLp 0EUkXPmD3MOD3HXt0BtIcUZ CcPgLgRGk3HOFfAPyckESeA DLtLRWhPOsdFBagP23nrVkm cS9aJvYfPZOAKzGIe6F7ZXI bp3C1YPeqP7ErDTNaPTPqkx vokuBoZYNuW5QrdyMrTFcoX WVhoy0gwOysDAdjUwTwIQLn x9k8eMC1jPJhrAV3cJBreZp nJLpoEh4giHS0uY4oMYMzZH IzPMBgkIDeWPDuq0F5XBNrk 1K9DVgcc8OdSJIxKORwi0Uu pTO7pY7zBfJqyY9aXACaZhI ewpEesnIddQ8vI0K2EOTibA 1skIdpcuVxImRyoH9lUZYlI X3nUCJ1hwwrVhHhMbK9HJZt KFXmGWDtSyO6KWIhZBGvbZ2 jWVkwTMQdnn4bTHWtqaD6AQ 6od8ezvEPyHV7mAJAgQ7Egc NxsJ45wO5YzvYEtHeADzURy f5VrZ7ytDY0ddMTuf7JikZn hZVOtnM8iWdFxyQFrXW75qU UrKDogyom9vE0ePGRwcTAzc 3BlbmVkIHRvIHJldmVhbCBi pW4qARUclQ72njOhywI3jFY tvYCuJE6mMDSqiGVtr8SxyJ M6nQVfUWDbS9Hvj82bSMCsS NYkdASprEY4THSdXFHuTYZl HZJUK0Q6HZrsZZOrG6RrE2F czmI5p2fvyYjia9AfhQVyHP 1ccGFyfQ== MICROSCOPIC z2fiqJKqKXWcwME0DnArQUX DESCRIPTION (test code fp8tlo3ZmaNRutFAzKBdjwW = 3371) QndiXtcp66rPA4iF99NS4dH JRvLmC5QVTfzcN1Bjx9KNOj INXfiUCkV277r4tlf9vhubY aeKO9iEgzOZEcansgXwH1GL jySOGzllvuLZb7OBbkKXEet QA9IEObnILsE9CjHZPcBF6p dxc4THJ5VVefHSCrVpN7SCT xoRHrNDAriAceWFags957FE E3GvPkIGTmwqLjmBaucG5nR qJqAAGWTYUWX7DUYKKxoPJt fQ== [id number] 17:43:34 Test Item Value Reference Range Interpretation Comments Case Report (test code Surgical Pathology = 104) Report Case: [id number] Authorizing Provider: Tony Grey MD Collected: 04/15/2022 02:37 PM Ordering Location: [facility] PERIOPERATIVE Received: 04/16/2022 08:26 AM SERVICES Pathologist: Siomara Haskins MD Specimen: Soft Tissue, Other, stomach DIAGNOSIS (test code = d9almOIqCBEhx9uuUFStdKZ 3220) uZzEwMzNcZnRuYmpcdWMxIH tccnRmMVxlcGljOTYwMlxhb nVyNPQhjMZoN8KkgzbqLAoe ST8pCV7jxSqzuAKmaEXyXXD lNbSnw9seh003rUVlf1rrGG KUlmpjxNp3lDoxT22vu7N9L qiaZ98dxPWpQRQ7IWLrWTVk iGEhXRFyOZB3NBBvtVTnO6n rHJVgEO8upcgaULwfFVgmUW OmrDZ8IOBsdFZkF1NdRVXdR RjcAVBlify3EjBjKy5zhFPz eTcyMFxwYXJkXHBsYWluXGZ aNfCqH6IFQAVMFQsnTUULFK WTP2RPVPwARMELWKHRFXLJV EJMCgMUQN6ZHUnlvAKcBIKy TOVQRJdGDEoLAB7IK53QQOI QYS2BNQGBLDEXXteIWBsEVY djR8wDXWZEZIqJSMPIFn9CU HNmIC8PLTCLCBFZYJ8KNGFe wkOfPJHSRoYDVeIJQ3UMSrC RCS3BFRECHOMIHUCpVSUFD3 QQFPKQCECXQgUHJUgBA06HI iHIGEHPVV7dnOCgXYZmxCLk zIgrifIgGFmgl0AxYJniMGK bAP0mtSsdYFBiTD4qJLRjM5 frwH1rtzq4TwJnSLAnXrZ1M KAoowW3Emt1GHYkIGvmr9vt b6BrFWPoKVf1sRoyUrDmPEO sc8wkjlEhZgMxEDOyPLTbEW XeaBXfR585f1mjf9mpbxTvx WO3LBLiNSG9EAaxfxOrqaW6 ZLeadPTeWxL7CNhhntPxTTu fqjJbtsAeCen7SCCuH888IY C0dArmc7ceBMY9QMIwQSVmI bSaIn2qhEOrS904HCWjJCRR XPNwqDj3ZPVansZqxnGcqAX Kd074M094o1enIRMrkhYqqR aDxbcgr5rzT621PMAnfHHkz xFfPjEzLGYssQSqoIU5IKFm PD4ajhvsYKlpTHgpMCAegdE 7JGFdcHHpG7AmOUQhNN1eyd kdQHI1LNhaUMGiUIL9CxUbZ OZyi0Uhtlo8BoBzlw2uyg15 CSW9v5DusPmrCMD8XYD2GsD vJb3hwNBuKAUqHM0hKjAelY AdYLXdfb71pKliXEaiDGN6I AHcloGlk1Xch2jqOgSsovYs X1ocQ5HiOTSbKWWsIIYiIhU veyLck9Cdn2RdoJGvjHf0z9 qkQHEjBZZzaZkmr4orZYO0W HLfxQLnS7wdpQ4oLWLsZD5v jwmrw3moESyrASvzCHMkpYC 5quE5SUWysXFqO1YclY6yYZ AoJDmuPGMkxfx1TfOiXh1xt GVyeTcyMFxzYmtwYWdlXHBn bmNvbnRccGduZGVjXHBsYWl uXHBsYWluXGYwXGZzMjRccW xcbGFuZzEwMzNcaGljaFxmM BhoTlLoFGBiUYciZ3mlLsRv IxQmIeu1GBDpfTEbECYfPti 9OTMluEJhOULLoPthfO3bQR WhaNeviB3fyPP9UMZefcOde CQOgE9rZNFAgF8qMxSeCDYo HnF5KPocOvPfqGTugL6= CPT Code(s) (test code y1lreGZyESRmtFC8PtIgDQV = 3357) at6cnt5GfjFVbcFBkOTrfwQ TovhOnuv58wHV2cP85SU9oN SXlZgC7CQYuqjX5Uos1RPAu NZPulNDjE339i3ube3agskJ slOC4nJqtYQTxuykbViR0WT buESWgddwrTZs9LJgvHNAak ZC1UKDcyQDfD2KeEDNxXX8q eml3UFK0THgtWVEaFgH7XLI tqWZgTLMruOdbJJeek775XC R3PhMxYTLjbqVdkGkojY1rE gWcEPL8SDOxL5dnKGD6 CLINICAL HISTORY (test b9bzlNDeYAAwpHE1YvMuCJK code = 3356) im1mja3VbmYSzhCSoWXwacS WcquFxna48sJB2nQ52VC9iU UGoHwT9ZCGegaI9Tfn8YMZf ILUywLAbB311w4nzv8mkbuA ekPV6gPpqKGGswrkqIzB5GB gdOVArnrllNUv3MOafZLEmo PW8BYLvhVVkV8DpQWUlUG6w iqu4ASU6KLptKJKiUkW2OWG kgNPzKCDfpAmnJFkzz141ON C5HjUdXWSgpsPpdKarwY3dF nYmIJTRo9SseUQcm0Lsz1a2 eVxwYXJ9 GROSS DESCRIPTION f5xqgHVgGWRpzRO4EdAoITL (test code = se7eic8EegXYjoHHxUEernG [id number]) JvlpDftn32sKK7fN69MN1jV TMeOxF7EKZytfQ3Mpo7ILNh EWRxqLDtB746q1dsz0dgyjA oxKL1xBzyLCAcktjtMdZ3JP riABGlgqpsSOx4KIblIGLdp FV9YPEtrIFeQ0OnZOKcRH4z zjo0AQZ5QEskJFPtBxW7AKM ecRWtPZIxqPfuDOjyr321NJ O0McShVJGzstZ0PMzeMOYuD 7YfM4JaGHnxGRA4AVMtJEUc PCMlFGDmNWXmFSedtwC1e0g mGORegONeSLH2NTevwDIwLN CsEFAiPXaiXmJFBbQwKiU3J EA9XwixKeP0DSd3KXXUKxPr BiVqLvP3VPU4UIMlJQz3VOo 5XBxOUnN2YTE2MMb9HlXmUH MdIrQlBIt4KAYqNNjxfZXuI ZSgGGNnJWunZMqxX05dyQqt rX4dNtFcQOJNSuPRm0E0NZA ib2G9TGacZ7ItRHIsCLFrhh eubjCwNOPfU6UhmyAdTZrtX XXgyz0vsYusEKpgDoSnGDJt f5e7vCY1xIGjcCY8bEHqxOn cSAblBv2utEH7mF2hIMRqCA PcTKWukPEeJEHue1O4RNGnu 9H1OEgdk5ZyIRThVKPhp5Bc qIW3mW1kAkYrmL2hIWGhLmV xbhRexjKuaI7wR7H1PATjdB 6geLvqvyQtNwUvxK8fHQCpF O2yNJO9nztoUoMaGwQ1RBSc AFOfVPBnCyQ5QVHtEDGuqC1 kHYtwIBYjss0wDFWvspG6KA 7cg9aboCQpAA5sYBBdU7Hag MdsY40nG5XjgCOaMhJGrTJf f8ByP8yvGH2unCXuv1CvbQz yMVWbeU7qBwParATfPK16jW SuPKzzaif6dI2zQUCvcEMnx 3BlbmVkIHRvIHJldmVhbCBi tI8fNDVwtH53lzCqevE8fBH fuFJzHF4xAWRgnEAna8LccX A1nVVrJPUsO4Kat95jTQMmX JUooSGwzNA8TOEpFVMiPHDk UBGOO3S0SOzeLITvX5LoX0Q dcpI9y2ksvCwzq5OtsLRkMA 1ccGFyfQ== MICROSCOPIC e8pudZVwHBHicPK6QyVeIUI DESCRIPTION (test code qt1jfu3AnnBKixYAvTThioQ = 3371) XlwxRzux94nLU2zV73ET8zY RZsBjC4SVHutbX5Fxk1BVLf MZZxuFHqC987x2nsv0usevJ fqXN2sGvgNSMinxcwPmO2SF mpMQLvswpeELr4BAyvFVFvk MO1NEAojDQzW3MnCQKxMV7y tub9RIT0NYxwINVdKlQ8JBL reQEoTMQbsFydGVhjk778PO L2AwSuJPKphmCsiMwxoL8lR uJaEAJYIADVP2FSCHXxhJTq fQ== [id number] 17:43:34 Test Item Value Reference Range Interpretation Comments Case Report (test code Surgical Pathology = 104) Report Case: [id number] Authorizing Provider: Tony Grey MD Collected: 04/15/2022 02:37 PM Ordering Location: [facility] Received: 04/16/2022 08:26 AM SERVICES Pathologist: Siomara Haskins MD Specimen: Soft Tissue, Other, stomach DIAGNOSIS (test code = h1sdrDGeLPHqe1orAUQqlJU 3220) uZzEwMzNcZnRuYmpcdWMxIH tccnRmMVxlcGljOTYwMlxhb hEqVDHlhITvY9IklzieNAio FX7hXT3hcZobdZOrkCVqAXV lPlYpd2pax461xJJqu0fuKU ICkjxzhSb7oCodS75oe1W7S fiiV40srNBmUGK4SGMcWGQd iTNwHYBjZBA7YLPqfWQjQ9b wZMOnZG2akrlgJXfhBSxaTL NylTB8OCPfqBAhQ8PkEYQlN LonITAfbmd6QbRcTk4ciXRi eTcyMFxwYXJkXHBsYWluXGZ kUfNuO6JICEREDFgiYWYDFE GVS3VNUByANNAFSQEBTZQRA THMBaOUCC1SUMfgwIFnPSHi NVIKHEtRUUsSPH5MT46KASG PFL2ERIQJXTSBUktOTOxLUU ofH2oQXUMFRVgTNIBFWg7GA IZzSC6QPBYBJQZMFJ1EWWVw lwDhHBUXZoYAGbDKV0KJXiP HNI0YEDZBWGACNZSeTDIEZ6 MSQFOPCFGCRjNZQZeYL88PW tVHVNQDVG4hnMJwRSBfhNNh xWzyfuAeUBxso6CiNVcjHNN oIL1pvGqwJLHlIG0pPGEaM7 mlkD1gocu0NqFhIAQrYvO5K KIijlU2Veb7PTQkQSawa3ej a1CoNOOlZCg1vJrlQiWtACE fg9qnfxEjVrWyNBMsNAZrRZ ArvENgX694e4qqw5ichyAst MG6GOEfOPH5AClkoyYafsI3 FAobdBQfXkJ7RQvxdbCwVHv itzUoouJxNrt1HHYbU199JZ A0uAjgp9ruPOT2HQLyGXCrX dHpQs3bxYZnF464IOVtLIWH VICnxVr6SWQoquAeaeLcmLG Zj821W447n2vxDSEgktIlhF sVtsjwc9ptO059JYVyyGFcv jSiDfKmISZwkLDncNR5OHJc HG6tzdyeQJjxJRupVHUgfyM 2YWQgoKHcC2XiIHHiHH0tps niTLO7QSkzQZAzXUC2TaAeS ADei0Jhowk7KdUgmr7afi11 VDB6p8WgyAoxWVL0CJW6SuV fKd0goQRxZVZvPX4nZdCfeG GvYDItcn75dVibXZnvORS0Q QFwesVqn8Ptx3sbTkDayaMn M7jrX0LqNOReOMZgFTFfGnO adgKsv3Xjd5QdcVSdgSz5i4 blANBjIFAzoRaht9faYNW6U IDlxBHgO0bnwX2lPEFoNR1p whsht0wfUAekMUxmJPAwlJY 7twN8HMIcmNLxZ5RebF1bSB MgKSuuVONfskr0ItXmNw4rl GVyeTcyMFxzYmtwYWdlXHBn bmNvbnRccGduZGVjXHBsYWl uXHBsYWluXGYwXGZzMjRccW xcbGFuZzEwMzNcaGljaFxmM WmiRkFuNVWiUQmxA3onEiWx YgOjZay2JURkxZDaGAOkDbn 3LBRbpOBdNNWJgIbchH2kOF MuxQmqlA5qdCB8UBUwjpSne WFHpV8gPWXScH7wLpJqATDq DrQ4YWqwCuSzwKGjgL6= CPT Code(s) (test code g7ualRVaAGXssEX2SwHlTMA = 3357) bn2vae4UktKAmwMVxISpptZ KhgwHyur17qKD4fY75LX2eL JXwEgU2MTHonkI4Kre5YNOr TVHbhQIkN349y1sue9rxkcG lbJM6bAnvLEZwcdwfMxZ4BD zwUEEusvsoLHg4WZccYKCnp KV3SRGpzZAgM0SlUZGiCX6o ryn8EXY3ULfgHLUtBlU5RTL psXMqDHSatYsdTKjxp632ZW C5DjZcPWKvdyLujEajdT0vZ xYdBRX5VEDgY0akTDX5 CLINICAL HISTORY (test t7wteQFkQZButPK8RaMiMVC code = 3356) nm1wsg4PakXFxnKVzIZntmR ZsdmVgnf32jXA1rW20BE9sX SUdCtS0BVUhwyX3Kpr6TCJn DIZzbHNpF633a7cug5mzpiX vtHZ1vUrhRNRpxdptGyZ3US cvQCXndgdkKDv4DCfmPDEga NJ3KCOubBNlU0QfHRBnLG3s nqx2XCX6MLxiORSzAeI6QZC qaTVpLBKqrRziIZgqw250YA P7QsFwFZGgmvYlhBfomT8hY jNjCAUPg1ZiuDQjz1Ahp2d3 eVxwYXJ9 GROSS DESCRIPTION f7xisMOdMGTssTT1MfKpHVI (test code = zs9msm5TskKIxoPMeCIqoyP [id number]) QryxTwpj08wUK5mQ55FR8tX WIzMzI3QKVfbiM7Luo0INNr EDClzSUsY178b3zqu3inwmZ gpCJ5kUuwVSAigdfcNdY2VN jeSTMulssiCAc0KAxbEZCyb DO7GPYeyGJkR1NlHAEaPM9t ebe8NIL0KAtkNUTdObK5TYI irKLkUHCuxOvoEFuga222GF O9GvOrUOWvthI3HBejBITdQ 2CrY3FxQOujATI8GCZuYPTv EETvNNJvJKHyEPkrjaC7b1a wRSYapMLfOQT6AHrgmTJwTO GrNMFwCQmeUoBDSePiVhK2Q HZ4TgjuOuG1RWw9KWSVZhGt AhNuKkS1GTD7IUVdDFi5MXh 4HGjPGbX6DPJ7XRn1NwKsKH EbCfGyJEn5RUHnLFgbzGOwT CLlMVRqPGeySUkdO34ueFfy zN4pDzRuIBZTSqKOa8F0JHH gh1S5WZccV3CbUGFkIDXkxk pnzyYxOWIaW1UlnkOtHPlkA CFxkc6nnSsaDOwxYaUpFMUq d7d8wHC1gCLliZC6nPMekBd oNLnkVh6afGU2hE3vKUHxDF ZbLJYlhPVvPBXkg2Z1LMPem 4K3QIgca3IqNWRjFINtr4Eg rEY6hR9fAhSuxP5gUQLiZtD xvbUvlyEkfM1aK9J8ZAEqxO 0irBztgxMuIpFwmO2pFEZgL G9kVGT4ljwzLyGbRoG8SMEl CTSdZPGvAyT5QEDsEAGlpB1 pRHnoDJKpdv8jFCLlolL3FN 5mc2euvWLwAJ5mAWFlS1Vjj RolY14gG8TxrUVnFhAXyEYz n6IbU4oqAJ4apAMdt2RnvCh iEUSdrY6oFhSoeSLzWB09zD CcOWjchnq8gA1oKNSmiPLsn 3BlbmVkIHRvIHJldmVhbCBi fR2jDFZzjS72eoTturC6bBP rgHQqZK8rHIPjsJUou3YibG F4fTNnHETxF3Gje08tLDUvV XKnhUXhgRH6BARqERQzFSLb SYHBQ2L5YByvVVDvL3EkP6X zjlK5m1ybuPwoc9DsbBMyQJ 1ccGFyfQ== MICROSCOPIC r6repFAbNSBsiFW1ZlBgFYH DESCRIPTION (test code yw9mgr5NsuEVyuWDhGDzodF = 3371) MdjoFsao64oFS3lA46TU9sP JOxGmE1KJReieL4Nnv2CDRk FKAolQZaI133t1hoh2onyuJ evTO8dUqsGJGoweocTtJ6TK qvJDOknejcTLl5XMtgEKMkg PN7EPXmhBSyK6LbGXUqLC4e iei7ZFQ2CWnoIPHkIoQ8KWX hqEOwUANgbIpsXCtva513RY V2WlDiLPOneiYfqSxcxM0gK fXwYMQLXHQTL5UHVEWikXIb fQ== [facility] [id number] 17:43:34 Test Item Value Reference Range Interpretation Comments Case Report (test code Surgical Pathology = 104) Report Case: [id number] Authorizing Provider: Tony Grey MD Collected: 04/15/2022 02:37 PM Ordering Location: [facility] PERIOPERATIVE Received: 04/16/2022 08:26 AM SERVICES Pathologist: Siomara Haskins MD Specimen: Soft Tissue, Other, stomach DIAGNOSIS (test code = s3urlOPwZSHtt5wgWWZoqMH 3220) uZzEwMzNcZnRuYmpcdWMxIH tccnRmMVxlcGljOTYwMlxhb iXeJAKfuKCpM1GefcwdTGty NE7vDM4whLugwMCnfWKiITX xCtFij6ifs832eZZnu9poRX OEldlkyNf9mSqsB26fy3W9K tjgV81xcABqJIR8QOKkTOFq xGMbPOJfTDL6YLTvcPHnA4j bAVFhGE6rolrfJZzjBXkyWW KxlHZ7BOPiaTDbG3XxVCSgD MwgVEAzsji9VxXjDf1enTYa eTcyMFxwYXJkXHBsYWluXGZ fYeVkP5WPJFPNFJamUVZVSC ISI8CLYFdHTWGPSDETHCFQF GZNCwFFJX0NHFlxaAGoFCZt PKQJGYzHHXvEQW8MJ46WPLV LMY3XBTGAJPSSBpvUFWxDDM ynH9eKGNZSEIeJYAGDIn4TX NTdAY3RUEBBMZJFDN4ZDFGr mpBqJLKHPmMSUuMTL6MSAuA OAA9RNNIWRSTKUKOaHBBCP3 CLYMTEXEORZrBXIWuIZ25PQ yVKHOGZEA7tnXWpPBTreDQj jHdqsdEmNXmsl4MxZEomWWY dTR3thGnxMBNfPB1rOYFwU7 jkuF1lpso8WjPgNMIjCsU6F CCnbhW9Bew3GLUtCJpil5en w0ZiNPHpNVe3tVkuXzBeRQX mm2iwfnSgXjGwWFBhZZItWR GeaHHcZ058m6fzz5wndtQri FL4IAByDVY9RFwafkAgsgL4 ANxwuHOsLhM4ZSxvtoTrDWg ehgSdaiUpAzx3GYOyQ772XT T6qSdnr2dnFPQ4CZSmWUWtN rAjWt4mlLZeD843JUJyOBIJ FATqiCd4WXUeirKuctMcvRG Yy306R358s6jtPAOtmoNagI rOmnngq1eeO456VQFmxQSxa dNaAzIqZHJuqJAssXZ0PKIw TF4iyxhnHBydOOosRVXcovX 3GGZeqKKzT4FsRRViRU5pof kjQKY6FQvjYBReBGV1KyUyT NWpt7Wypnk6EfEsuf5rdj55 PKP8h1ChdFjoZKC1NAG5LhX qGg2tgKTaNJUiHG0iRjWxqP JgQFXjgh09uDmhNPpgYBE9I SVwcaXql0Mes6bjZjZggoSe Z9fbU1GxYZBvZSCzXHBwCpC xgsSut4Ksy4GwsBPtzZw4c9 tzLVAaOTOxyCnut8drFAS1A LTpqCAhV7uxiQ0wTKOeHA9z tejks7ysMYuaBTajUPVpqSQ 2hmR3ZYAbrWFcF8GggN9lEN SlRCkvEIWyove4RsWsMb7bg GVyeTcyMFxzYmtwYWdlXHBn bmNvbnRccGduZGVjXHBsYWl uXHBsYWluXGYwXGZzMjRccW xcbGFuZzEwMzNcaGljaFxmM SggXmRyQHNpUVxwA2aeBhTh QvDbDol8ABBalAAvKFBvBqq 7BPYebZPpXVZOdDuuzA5kHB HkqThylH6sgYI9TNAtasJoa ABQcU6qGUYDyA3gUyMeJJIj FoK5WCywOhEqoVNreA4= CPT Code(s) (test code d2jbgGMrBDPciXG8RqBkGDV = 3357) ur9dfl2AiuVBouXWiCMnkiX IjcqOajh88ySL6mV31HC3xQ WTbDjR8AIDgruZ1Gqa9CPVy KFEwmCPrA584h3tyi3ubjfP mwES2dJcfXQDcwujqCqD5HM doPKFadbgaQZv8ESmoPTByd LR9PUDvzUBgW7FdKGHyTR9k wbo4WOJ9UVdnYJNfMgO2XKH ulJHeNGBcnLzwAGjch760PO Q9TmGjCQSreaLwoDunwI2eO ySlIKY2NNApP0ctRYV4 CLINICAL HISTORY (test w0lgbJUjRBFtuCS2HhLkXRR code = 3356) ab6xsf5KvvOVviFMtREqcrR DraeUpae69jWD1yS12AV1vB COcTmJ5YQMfapM0Qkj3GJPp JTPoqOTgK186b3igg2kfhlJ uvQW1mVlrRYYtzwajFrG1OR ptSMLpkbzmVHb6DGevIHCyh PH0ONZiwYNsV6PjLJSyYO0g qwp7WQR0ZCnxTZYkJhO0ZON jsZBmXFOqyGkwTEtjq066LN B0WxGeDWIkriGhfXmquB3kP wMrBQBJu4JijOSuq6Bkk4h7 eVxwYXJ9 GROSS DESCRIPTION t0rifBYaAGXzrGS3MyUiRDL (test code = rl9yck6SekCZkuIFvNXlrwU [id number]) YpsgDwfv43tVQ3uY53AA8pY DKsLzO4MNFtvcM1Ush5FXZv OEOpsWRvW319c2mff9ueytU baWU7oThyFCZulyzpFxT0JZ dySCYafsgzYEi6EAveJQVcx KU8KEMbcVTsV5KjESIxRU8e gde7GTD3JVlgJUWxCnV1SAI yaGTqFSXaoJjxBKxgn422NF L2XpQbLYAdflB5YIayLVPnM 5KwV4RyRDioKEB0KBAiWDQr TSNfWONcOSTwBOvpvxJ6v2h uISWimYZkRZJ7WTcudZXnQA XlSRUhICjoSwFZJpUqBvW9G WR0MeikXmR5BEu6YUPDKuBr JfQyZjJ4JLF5DBPrKAu3IFu 7LFvGElF6FJU2NZe4GzAdIR NeMyRbQEw2OMHjJIlreXSuS OUwKMTvRPtxRPxtR55moDdq aW0sZmNfMKRRLzABy2C1HTD qg4L7IOxoH9EyYNDlYEHxrr qwcvKpVADaT3SyxdLbZCaoS QXkyp9hlPuyDVziRhBoFQGo j4y3pYP3bKVqyFK1qWVgaFr gMRqhPn0qjPZ1xM8pUBVrAM PrRCGasUYdDKCku9C6NWZbc 3Y3PGcnf3MaKONtAAVvm5Ga mUI0lX7qWpBikW8yBHLwMuN eqwVrtdWntH7tB1X0JPRbtX 2wbLtfntKjZmMfpX9tFMWtO H3xRJD4tsqaKxFePmR2YEVm IJOhZTBhNeN7MBDdZCKfmB3 tGBejGEFgzt5lMXLjxcN8ST 7oe5uvkPSsGR0gBYZeG2Yjh AtnD31hC3RtcSHnTzKSvDEj s2AvM9chKM1nhKRxc3ObqAi hLIHrdU4xBoCdlBKqAG78bQ DyBStbdeb4lR8dUWNzgYBzu 3BlbmVkIHRvIHJldmVhbCBi bL4ySODpyI58gzVkkmD7fYH ivSJtTH9eDNHrjMHym6FwkN Y3iCVlLHKgM7Plc25wHVVqR XGqlNAtsVB6BUGoDAKhNCEg PEZDY4G2PLarQBXnB7SsQ7H otrC2s3klyUdwd9QirCCcYY 1ccGFyfQ== MICROSCOPIC u9udrEVaISEapTJ5BlNfFSY DESCRIPTION (test code td1gch6VedWUzpWEsGNeafK = 3371) QkuoDtvl60yBJ0vK79ZC6lD XZaAkK5CSOncxB6Bap6XVNj UCVruXUwL899j7ymh9zprrE teSQ4pMbdVUHldbsmUoX0RV vcBYAgyuemTHe0BNebJDCwr LN2HBKqsXNuH5SoBHMaXK6r mog0TNB1HEskUCDwArU6JIL qkOLzESPxkRdbJStyv505AO D9KeArKYVzohZeiDfbfA6mG zRwTTDTNAPCF6JICZObcJXa fQ== [facility]iumTISE [id number] 17:43:34Surgical Pathology Report Case: [id number] Authorizing Provider: Tony Grey MD Collected: 04/15/2022 02:37 PM Ordering Location: [facility] PERIOPERATIVE Received: 04/16/2022 08:26 AM SERVICES Pathologist: Siomara Haskins MD Specimen: Soft Tissue, Other, stomach STOMACH, LAPAROSCOPIC SLEEVE GASTRECTOMY: - OXYNTIC MUCOSA LINED GASTRIC WALL WITH MILD CHRONIC INFLAMMATION - NO INTESTINAL METAPLASIA, DYSPLASIA OR MALIGNANCY SEEN Signing Pathologist Direct Phone Line: [phone] signed by Siomara Haskins MD on 04/18/2022 at 5:43 [id number] obesityA. Soft Tissue, Other.Received in formalin labeled with the patient's information and labeled "soft tissue, other,description: stomach" is an elongated portion of stomach measuring 13 x up to 3.2 x 1.5 cm. The serosa is rosales-white and focally congested. The specimen is stapled along its entire length. It is opened to reveal blood clots in the lumen. Mental Health Program Manager sections are submitted A1-A3. BH/ew PERFORMEDMISCELLANEOUS LAB [id number] 12:22:45 Test Item Value Reference Range Interpretation Comments SCAN RESULT (test code = 4202292) BASIC METABOLIC [id number] 07:00:06 Test Item Value Reference Range Interpretation [...] high >=90 G2 Mildly decreased 60-89 G3a Mild ly to moderately 45-5 9 G3b Moderately to [...] not appl icable for dialysis patien ts Securities Consultant ID - LITOOperator ID - LITOOperator ID - LITOOperator ID - LITOOperator ID - LITOOperator ID - LITOOperator ID - LITOOperator ID - LITOOperator ID - LITOOperator ID - LITOOperator ID - LITOOperator ID - LITOCBC W/PLT COUNT & AUTO [id number] 06:38:16 Test Item Value Reference Range Interpretation [...] PERCENT (BEAKER) (test code = 2801) POC-Glucose [id number] 23:55:24 Test Item Value Reference Range Interpretation Comments POC-Glucose Meter (test 231 mg/dL 70-110 H : TE STED AT [facility] code = 1538) [address] [place] [address]: Securities Consultant/Techni omar ID = [id number] for Meena Talbert s Lab Interpretation (test Abnormal code = 93030-0) [facility] [id number] 23:55:24 Test Item Value Reference Range Interpretation Comments POC-Glucose Meter (test 231 mg/dL 70-110 H : TE STED AT [facility] code = 1538) [address] [place], [place] [address]: Securities Consultant/Techni omar ID = [id number] for Meena Talbert s Lab Interpretation (test Abnormal code = 43357-3) [facility] [id number] 23:55:24 Test Item Value Reference Range Interpretation Comments POC-Glucose Meter (test 231 mg/dL 70-110 H : TE STED AT [facility] code = 1538) [address] [place], [place] [address]: Securities Consultant/Techni omar ID = [id number] for NitishYfnca s Lab Interpretation (test Abnormal code = 24724-4) [facility] [id number] 23:55:24 Test Item Value Reference Range Interpretation Comments POC-Glucose Meter (test 231 mg/dL 70-110 H : TE STED AT [facility] code = 1538) [address] [place] [address]: Securities Consultant/Techni omar ID = [id number] for Nitish, Meena s Lab Interpretation (test Abnormal code = 34976-7) [facility]-Glucose [id number] 23:55:24 Test Item Value Reference Range Interpretation Comments POC-Glucose Meter (test 231 mg/dL 70-110 H : [facility] code = 1538) [address] [place] [address]: Securities Consultant/Techni omar ID = [id number] for Nitish, Meena s Lab Interpretation (test Abnormal code = 96193-8) [facility]-Glucose [id number] 23:55:24 Test Item Value Reference Range Interpretation Comments POC-Glucose Meter (test 231 mg/dL 70-110 H : [facility] code = 1538) [address] [place] [address]: Securities Consultant/Techni omar ID = [id number] for Nitish, Meena s Lab Interpretation (test Abnormal code = 18389-0) [facility]-Glucose [id number] 23:55:24 Test Item Value Reference Range Interpretation Comments POC-Glucose Meter (test 231 mg/dL 70-110 H : [facility] code = 1538) [address] [place] [address]: Securities Consultant/Techni omar ID = [id number] for Nitish, Meena s Lab Interpretation (test Abnormal code = 17797-9) [facility]-Glucose [id number] 23:55:24 Test Item Value Reference Range Interpretation Comments POC-Glucose Meter (test 231 mg/dL 70-110 H : [facility] code = 1538) [address] [place] [address]: Securities Consultant/Techni omar ID = [id number] for Nitsih, Meena s Lab Interpretation (test Abnormal code = 78270-5) [facility]-GLUCOSE [id number] 23:55:24 Test Item Value Reference Range Interpretation Comments POC-GLUCOSE METER 231 mg/dL 70-110 H : TESTED A T [facility] 1317 (BEAKER) (test code [facility], = 1538) [place] [address]: Securities Consultant/Techni omar ID = [id number] for Will iams, Siria POCT-GLUCOSE [id number] 19:27:14 Test Item Value Reference Range Interpretation Comments POC-GLUCOSE METER 164 mg/dL 70-110 H : TESTED A T [facility] [address] (BEAKER) (test code [address], = 1538) [place] [address]: Securities Consultant/Techni omar ID = [id number] for Will iams, Siria POCT-GLUCOSE [id number] 15:50:33 Test Item Value Reference Range Interpretation Comments POC-GLUCOSE METER 165 mg/dL 70-110 H : TESTED A T [facility] [address] (BEAKER) (test code [address], = 1538) [place] [address]: Securities Consultant/Techni omar ID = [id number] for Limb runner, Rustam POCT-GLUCOSE [id number] 12:46:07 Test Item Value Reference Range Interpretation Comments POC-GLUCOSE METER 93 mg/dL 70-110 : TESTED A T [facility] [address] (BEAKER) (test code = [address], 1538) [place] [address]: Securities Consultant/Techni omar ID = [id number] for Everett Dudley VITAMIN D, [id number] 16:59:21 Test Item Value Reference Range Interpretation Comments VITAMIN D 25-OH (BEAKER) (test 12.4 ng/mL 6.6-49.9 code = 2764) Effective 01/28/2017: Reference Range ChangeNew: 6.6-49.9 ng/mL Previous: 13.0- 47.8 ng/mLRecommendedVitamin D Target Range: 30.0-40.0 ng/mLOperator ID - ADMIN VITAMIN [id number] 12:14:27 Test Item Value Reference Range Interpretation Comments VITAMIN B12 (BEAKER) (test code = 283 pg/mL 211-947 794) Securities Consultant ID - [id number] ID - [id number], [id number] 10:19:57 Test Item Value Reference Range Interpretation Comments IRON (BEAKER) (test code = 547) 49.0 ug/dL 45.0-170.0 Securities Consultant ID - [id number]-CoV2/RT-PCR (Asymptomatic ONLY)2022-04-11 10:07:20 Test Item Value Reference Interpretation Comments Range SARS-COV2/RT-PCR Negative Negative The SARS-Co V-2 (test code = target nucleic 04021-9) acids are not detected in thi s [...] revoked sooner. Fact Sheet for Healthcare Providers: https://www.Sandbox/Documents/Xp ert%20Xpress%20SAR S%20CoV-2/Fact%20S heets/302-3802%20S ARS-COV-2%20HEALTH CARE%20PROVIDERS%2 0FACT%20SHEET.pdf Fact Sheet for Healthcare Patients: https://www.Sandbox/Documents/Xp ert%20Xpress%20SAR S%20CoV-2/Fact%20S heets/302-3801%20S ARS-COV-2%20PATIEN T%20FACT%20SHEET.p df Lab Interpretation Normal (test code = 93235-4) [facility]2022-04-11 10:07:20 Test Item Value Reference Interpretation Comments Range SARS-COV2/RT-PCR Negative Negative The SARS-Co V-2 (test code = target nucleic 60645-1) acids are not detected in thi s [...] revoked sooner. Fact Sheet for Healthcare Providers: https://www.Sandbox/Documents/Xp ert%20Xpress%20SAR S%20CoV-2/Fact%20S heets/302-3802%20S ARS-COV-2%20HEALTH CARE%20PROVIDERS%2 0FACT%20SHEET.pdf Fact Sheet for Healthcare Patients: https://www.Sandbox/Documents/Xp ert%20Xpress%20SAR S%20CoV-2/Fact%20S heets/302-3801%20S ARS-COV-2%20PATIEN T%20FACT%20SHEET.p df Lab Interpretation Normal (test code = 78669-8) [facility]2022-04-11 10:07:20 Test Item Value Reference Interpretation Comments Range SARS-COV2/RT-PCR Negative Negative The SARS-Co V-2 (test code = target nucleic 10708-0) acids are not detected in thi s [...] revoked sooner. Fact Sheet for Healthcare Providers: https://www.Sandbox/Documents/Xp ert%20Xpress%20SAR S%20CoV-2/Fact%20S heets/302-3802%20S ARS-COV-2%20HEALTH CARE%20PROVIDERS%2 0FACT%20SHEET.pdf Fact Sheet for Healthcare Patients: https://www.Sandbox/Documents/Xp ert%20Xpress%20SAR S%20CoV-2/Fact%20S heets/302-3801%20S ARS-COV-2%20PATIEN T%20FACT%20SHEET.p df Lab Interpretation Normal (test code = 14704-5) [facility]2022-04-11 10:07:20 Test Item Value Reference Interpretation Comments Range SARS-COV2/RT-PCR Negative Negative The SARS-Co V-2 (test code = target nucleic 71776-4) acids are not detected in thi s [...] revoked sooner. Fact Sheet for Healthcare Providers: https://www.Sandbox/Documents/Xp ert%20Xpress%20SAR S%20CoV-2/Fact%20S heets/302-3802%20S ARS-COV-2%20HEALTH CARE%20PROVIDERS%2 0FACT%20SHEET.pdf Fact Sheet for Healthcare Patients: https://www.Sandbox/Documents/Xp ert%20Xpress%20SAR S%20CoV-2/Fact%20S heets/302-3801%20S ARS-COV-2%20PATIEN T%20FACT%20SHEET.p df Lab Interpretation Normal (test code = 21810-7) [facility]2022-04-11 10:07:20 Test Item Value Reference Interpretation Comments Range SARS-COV2/RT-PCR Negative Negative The SARS-Co V-2 (test code = target nucleic 46972-8) acids are not detected in thi s [...] revoked sooner. Fact Sheet for Healthcare Providers: https://www.Sandbox/Documents/Xp ert%20Xpress%20SAR S%20CoV-2/Fact%20S heets/302-3802%20S ARS-COV-2%20HEALTH CARE%20PROVIDERS%2 0FACT%20SHEET.pdf Fact Sheet for Healthcare Patients: https://www.Sandbox/Documents/Xp ert%20Xpress%20SAR S%20CoV-2/Fact%20S heets/302-3801%20S ARS-COV-2%20PATIEN T%20FACT%20SHEET.p df Lab Interpretation Normal (test code = 98894-7) [facility]2022-04-11 10:07:20 Test Item Value Reference Interpretation Comments Range SARS-COV2/RT-PCR Negative Negative The SARS-Co V-2 (test code = target nucleic 31112-4) acids are not detected in thi s [...] revoked sooner. Fact Sheet for Healthcare Providers: https://www.Sandbox/Documents/Xp ert%20Xpress%20SAR S%20CoV-2/Fact%20S heets/302-3802%20S ARS-COV-2%20HEALTH CARE%20PROVIDERS%2 0FACT%20SHEET.pdf Fact Sheet for Healthcare Patients: https://www.Sandbox/Documents/Xp ert%20Xpress%20SAR S%20CoV-2/Fact%20S heets/302-3801%20S ARS-COV-2%20PATIEN T%20FACT%20SHEET.p df Lab Interpretation Normal (test code = 44920-7) [facility] 10:07:20 Test Item Value Reference Interpretation Comments Range SARS-COV2/RT-PCR Negative Negative The SARS-Co V-2 (test code = target nucleic 51990-7) acids are not detected in thi s [...] revoked sooner. Fact Sheet for Healthcare Providers: https://www.[employer]/Documents/Xp ert%20Xpress%20SAR S%20CoV-2/Fact%20S heets/302-3802%20S ARS-COV-2%20HEALTH CARE%20PROVIDERS%2 0FACT%20SHEET.pdf Fact Sheet for Healthcare Patients: https://www[employer]/Documents/Xp ert%20Xpress%20SAR S%20CoV-2/Fact%20S heets/302-3801%20S ARS-COV-2%20PATIEN T%20FACT%20SHEET.p df Lab Interpretation Normal (test code = 93390-7) [facility]22-[facility]-11 10:07:20 Test Item Value Reference Interpretation Comments Range SARS-COV2/RT-PCR Negative Negative The SARS-Co V-2 (test code = target nucleic 14628-4) acids are not detected in thi s [...] revoked sooner. Fact Sheet for Healthcare Providers: https://www.[employer]/Documents/Xp ert%20Xpress%20SAR S%20CoV-2/Fact%20S heets/302-3802%20S ARS-COV-2%20HEALTH CARE%20PROVIDERS%2 0FACT%20SHEET.pdf Fact Sheet for Healthcare Patients: https://www[employer]/Documents/Xp ert%20Xpress%20SAR S%20CoV-2/Fact%20S heets/302-3801%20S ARS-COV-2%20PATIEN T%20FACT%20SHEET.p df Lab Interpretation Normal (test code = 82140-8) [facility])2022-04-11 10:07:20 Test Item Value Reference Range Interpretation Comments SARS-COV2/RT-PCR Negative Negative The SARS-Co V-2 target (test code = nucleic acids a re not 7883303) detected in thi s specimen. Negative result [...] revoked sooner. Fact Sheet for Healthcare Providers: https://www.[employer] m/Documents/Xpert%20Xpress%20SARS%20CoV-2/Fact%20Sheets/302-3802%42YQSQ-HMO-6%20 HEALTHCARE%20PROVIDERS%20FACT%20SHEET.pdf Fact Sheet for Healthcare Patients: https://www.[employer]/Documents/Xpert%20Xp ress%20SARS%20CoV-2/Fact%20Sheets/302-3801%75BJXQ-PJT-2%20PATIENT%20FACT%20SHEET .pdfCOMPREHENSIVE METABOLIC [id number] 09:55:48 Test Item Value Reference Range Interpretation [...] not appl icable for dialysis patien ts Securities Consultant ID - DSENSONOperator ID - DSENSONOperator ID - DSENSONOperator ID - DSENSONOperator ID - DSENSONOperator ID - DSENSONOperator ID - DSENSONOperator ID - DSENSONOperator ID - DSENSONOperator ID - DSENSONOperator ID - DSENSONOperator ID - DSENSONOperator ID - DSENSONOperator ID - DSENSONOperatorID - DSENSONOperator ID - DSENSONOperator ID - DSENSONOperator ID - DSENSONOperator ID - DSENSONHEMOGLOBIN [id number] 09:47:08 Test Item Value Reference Range Interpretation Comments HEMOGLOBIN A1C (BEAKER) (test code = 8.1 % 4.3-6.1 H 368) Securities Consultant ID - [id number] W/PLT COUNT & AUTO [id number] 09:37:20 Test Item Value Reference Range Interpretation [...] H PERCENT (BEAKER) (test code = 2801) [id number] 00:00:00 Test Item Value Reference Range Interpretation Comments HM Mammogram (test code = 99) yes Normal Radiology Study observation (narrative) (test code = 58298-6) [facility] [id number] 00:00:00 Test Item Value Reference Range Interpretation Comments HM Mammogram (test code = 99) yes Normal Radiology Study observation (narrative) (test code = 96509-4) [facility] [id number] 00:00:00 Test Item Value Reference Range Interpretation Comments HM Mammogram (test code = 99) yes Normal Radiology Study observation (narrative) (test code = 82007-7) [facility] [id number] 00:00:00 Test Item Value Reference Range Interpretation Comments HM Mammogram (test code = 99) yes Normal Radiology Study observation (narrative) (test code = 70397-5) [facility] [id number] 00:00:00 Test Item Value Reference Range Interpretation Comments HM Mammogram (test code = 99) yes Normal Radiology Study observation (narrative) (test code = 16124-1) [facility] [id number] 00:00:00 Test Item Value Reference Range Interpretation Comments HM Mammogram (test code = 99) yes Normal Radiology Study observation (narrative) (test code = 12737-3) [facility] [id number] 00:00:00 Test Item Value Reference Range Interpretation Comments HM Mammogram (test code = 99) yes Normal Radiology Study observation (narrative) (test code = 46061-7) [facility] [id number] 00:00:00 Test Item Value Reference Range Interpretation Comments HM Mammogram (test code = 99) yes Normal Radiology Study observation (narrative) (test code = 99407-7) [id number] 12:36:25Surgical Pathology Report Case: [id number] Authorizing Provider: Cora Moran MD Collected: 08/16/2021 02:09 PM Ordering Location: [facility] Received: 08/16/2021 03:42 PM SERVICES Pathologist: [...] PRESENT (0/2) Signing Pathologist Direct Phone Line: [phone] electronically signed by Adenike Walter MD on [...] in an addendum. ENDOMETRIUMENDOMETRIUM: HYSTERECTOMY - All Sdxjeftoq9rg Edition - Protocol posted: 10/17/2020PECIMEN Procedure: Total [...] Pelvic Nodes Examined: 3 Number of Pelvic [place] Nodes Examined: 1 Total Number of Para-aortic Nodes Examined: 0 DISTANT METASTASISPATHOLOGIC STAGE CLASSIFICATION (pTNM, AJCC 8th Edition) Reporting of pT, pN, and (when applicable) pM categories is based on information available to the pathologist at the time the report is issued. As per the AJCC (Chapter 1, 8th Ed.) it is the managing physician's responsibility to establish the final pathologic stage based upon all pertinent information, including but potentially not limited to this pathology report. pT Category: pT1a Regional Lymph Nodes Modifier: (sn) pN Category: pN0 FIGO STAGE FIGO Stage: IA A. 12077, 16688O. 62761, 95775, 73820, 44262 x 3 C. 15852, 38877, 97740, 51487 x 3 56-year-old woman with endometrial cancerA. Lymph Node, Pelvic, Right.A. The specimen is received in formalin labeled with thepatient's name, date of , "lymph node, pelvic, right" and "R pelvic sent." and consists of a single, unoriented portion of yellow-rosales fatty tissue measuring 1.7 x 1.5 x 0.8 cm. 1 potential lymph node is identified which measures 1.0 cm in greatest dimension. The specimen is bisected and submittedentirely in cassette A1.ES, residentB. Uterus w/Bilateral Fallopian Tubes & Ovaries.B.. The specimen is received fresh for intraoperative consultation labeled with the patient's name, MRN and "uterus with bilateral fallopian tubes*" is a 192.3 g, 10.8 (superior to inferior) x 7.1 (cornua to cornua) x 4.5 (anterior to posterior) cm uterus with [...] lesion measuring 1.3 x 0.8 x 0.3 cm.Cervix is unremarkable.The right adnexa consists of a disjointed fallopian tube. The portion attached to the uterus measures 2.2 cm in length and 0.6 cm in diameter. The fimbriated end measures 3.1 x 1.2 cm and is adjacent to the right ovary (3.3 x 2.8 x 1.0 cm). The tubal serosa is pink-rosales to purple- rosales, smooth and unremarkable. The cut surface displays a pinpoint lumen. The ovarian surface is pink-white and unremarkable. The cut surface displays a yellow-rosales to white-rosales, vaguely nodular surface.The left adnexa consists of an incomplete left fallopian tube measuring 0.7 cm in length and 0.5 cm in diameter, attached to the uterus. No fimbriated end is identified grossly. The tubal serosa is pink-rosales to purple-rosales, smooth, and unremarkable. The cut surface of the left fallopian tube displays a pin-point lumen. The left ovary measures 3.2 x 2.0 x 1.5 cm. The ovarian surface is pink-white and unremarkable. The cut surface displays a yellow-rosales to white-rosales vaguely nodular surface. Representativesections are submitted.Ink code: Blue: Anterior Black: posterior Section CodeFSB1: Area of deepest invasion identified grossly at the time of frozenB2-4: Anterior, lower uterine segment to cervix, midlineB5-7: Posterior, lower uterine segment to cervix, midline, with tumor detached in B5B8: Anterior fundusB9: Posterior mddapyQ26-10: Posterior endometrium/tumor, transverse wgzjumiF58-37: Posterior endometrium/tumor, transverse hcdmecaI34: Posterior full-thickness section including suazo-black, ovoid lesion abutting the serosaB 17-18: Anterior full-thickness section, bisectedB 19-20: Anterior full-thickness section, bisectedB 21-22: Right ovary, representativeB 23: Mental Health Program Manager right fallopian tubeand fimbriated end, bisectedB 24 left ovary, representativeB 25: Left fallopian tube, sales representative cash registers(left fimbriated end not identified grossly)Lidia MARIANO. Lymph Node.C. The specimen is received informalin labeled with patient's name, date of , "lymph node" and consists of an aggregate of yellow-rosales fibrofatty tissue measuring 6.0 x 3.0 x 1.2 cm. The specimen is palpated and searched potential lymph nodes. 2 potential lymph nodes are identified measuring 2.4-4.4 cm in greatest dimension.Section code:C1-3: 1 potential lymph node, serially sectionedC4: 1 potential lymph node, resident MichaelB. Uterus w/Bilateral Fallopian Tubes & Ovaries.Uterus, cervix and bilateral fallopian tubes and ovaries, hysterectomy and bilateral salpingo- oophorectomy:Tumor size anterior: 5 x 3.4 cm/posterior 5.5 x 3 cmLess than 50% invasionThe results are reported by Dr. Marie to Dr. Moran in OR 23 at 4:13 PM on August 16, 2021.Performed. The interpretation of this case included the use of immunohistochemistry or special stains.Control Slides Examined: In-house known positive controls were evaluated along with the test tissue. These control slides run alongside of the patients sample show appropriate staining. Internal positive and negative controls when available are evaluated Immunohistochemistry technical testing was performed at [facility] where it was developed and its performance characteristics were determined. It has not been cleared or approved by the U.S. Food and Drug Administration. The FDA has determined that such clearance or approval is not n ecessary. The test is used for clinical purposes. It should not be regarded as investigational or for research. This laboratory is certified under the Clinical Laboratory Improvement Amendments of 1988(CLIA-88) as qualified to perform high complexity clinical laboratory testing.HM [id number] 00:00:00 Test Item Value Reference Range Interpretation Comments HM Colonoscopy (test code = 97) yes [facility] [id number] 00:00:00 Test Item Value Reference Range Interpretation Comments HM Colonoscopy (test code = 97) yes [facility] [id number] 00:00:00 Test Item Value Reference Range Interpretation Comments HM Colonoscopy (test code = 97) yes [facility] [id number] 00:00:00 Test Item Value Reference Range Interpretation Comments HM Colonoscopy (test code = 97) yes [facility] [id number] 00:00:00 Test Item Value Reference Range Interpretation Comments Colonoscopy (test code = 97) yes [facility] [id number] 00:00:00 Test Item Value Reference Range Interpretation Comments HM Colonoscopy (test code = 97) [facility]-1/2 [id number] 12:17:42 Test Item Value Reference Range Interpretation Comments HIV-1 ANTIGEN WITH HIV 1\\T\\2 Nonreactive Nonreactive ANTIBODY (2) (BEAKER) (test code = 2586) Securities Consultant ID - DBCOMPREHENSIVE METABOLIC [id number] 11:42:52 Test Item Value Reference Range Interpretation Comments TOTAL PROTEIN 7.4 gm/dL 6.0-8.3 (BEAKER) (test code = 770) ALBUMIN (BEAKER) 4.1 g/dL 3.5-5.0 (test code = 1145) [...] S NOT APPLICABLE FOR DIALYSIS PATIEN TS. Securities Consultant ID - DBCBC W/PLT COUNT & AUTO [id number] 11:24:27 Test Item Value Reference Range Interpretation [...] (BEAKER) (test code = 2801) POCT , [id number] 11:22:00 Test Item Value Reference Range Interpretation Comments Test Urine, POC (test Negative code = 1256272) Control line present?, POC (test Yes code = 3822740) Background clear?, POC (test code Yes = 8623007) UPT Cassette Lot #, POC (test code 183991 = [id number]) UPT Cassette Expiration Date, POC 01/17/2023 (test code = 0871031) [facility] , [id number] 11:22:00 Test Item Value Reference Range Interpretation Comments Test Urine, POC (test Negative code = 8770812) Control line present?, POC (test Yes code = 7794526) Background clear?, POC (test code Yes = 7634333) UPT Cassette Lot #, POC (test code 003859 = 9862585) UPT Cassette Expiration Date, POC 01/17/2023 (test code = 1847978) [facility] , [id number] 11:22:00 Test Item Value Reference Range Interpretation Comments Test Urine, POC (test Negative code = 3871557) Control line present?, POC (test Yes code = 2764851) Background clear?, POC (test code Yes = 3121491) UPT Cassette Lot #, POC (test code 120798 = 1650332) UPT Cassette Expiration Date, POC 01/17/2023 (test code = 8744422) [facility] , [id number] 11:22:00 Test Item Value Reference Range Interpretation Comments Test Urine, POC (test Negative code = 1658564) Control line present?, POC (test Yes code = 5479115) Background clear?, POC (test code Yes = 6673033) UPT Cassette Lot #, POC (test code 329574 = 8890178) UPT Cassette Expiration Date, POC 01/17/2023 (test code = 4293215) [facility] [id number] 11:22:00 Test Item Value Reference Range Interpretation Comments Test Urine, POC (test Negative code = 2041172) Control line present?, POC (test Yes code = 3669621) Background clear?, POC (test code Yes = 3154227) UPT Cassette Lot #, POC (test code 883994 = 4540412) UPT Cassette Expiration Date, POC 01/17/2023 (test code = 9247733) [facility] , [id number] 11:22:00 Test Item Value Reference Range Interpretation Comments Test Urine, POC (test Negative code = 9897287) Control line present?, POC (test Yes code = 5907214) Background clear?, POC (test code Yes = 2353408) UPT Cassette Lot #, POC (test code 723814 = 8596228) UPT Cassette Expiration Date, POC 01/17/2023 (test code = 8198739) [facility], [id number] 15:30:00Unlisted Reason for Exam - Click Yes and Enter Reason Below->YesUnlisted Reason for Exam->Endometrial cancerIs this for enterography?->NoWill this procedure require oral contrast?->No [facility] ALEXANDERFADICARLOS MARTINEZJose Taylor : 1965 Sex: FFINAL REPORT TECHNIQUE: CT [...] MDReport Verified Date/Time: 08/13/2021 15:30:48 Reading Location: [address] Radiology Reading Room SARS-COV2/RT-PCR ([facility]) 2021-08-13 02:41:40 Test Item Value Reference Range Interpretation Comments SARS-COV2/RT-PCR (test code = Negative Negative 0564609) Negative result for this test determines that [...] false negatives.The limit of detection for this assay is 100 copies/mL.This SARS-CoV-2 test is a real-time [...] the FDA, the issued EUA will be effective until the declaration that circumstances exist justifying the authorization of the emergency use of in vitro diagnostic tests for detection and/or diagnosis of COVID-19 is terminated under Section 564(b)(2) of the Act or the EUA is revoked under Section 564(g) of the Act.Testing was performed using kaylan ratliff [employer] SARS-CoV-2 assay.Fact Sheet for Healthcare Providers:https://www.NanoNord.salcido/nav/RT SARS-CoV-2 HCP Fact Sheet 51- 328780.pdfFact Sheet for Healthcare Patients:https://www.NanoNord.salcido/nav/RT SARS-CoV-2 Patient Fact Sheet EN 51-766993N9.pdfBUN AND CREATININE W/RATIO 2021-08-12 16:53:46 Test Item Value Reference Range Interpretation Comments BLOOD UREA NITROGEN 11 mg/dL 7-21 (BEAKER) (test code = 354) CREATININE (BEAKER) 0.74 mg/dL 0.57-1.25 (test code = 358) BUN/CREAT RATIO 15 For a normal (BEAKER) (test code individu al on a = 5456950380) normal diet, kaylan ratliff reference inter kayce for the mass ra joy ranges between 12:1 and 20:1 (BUN i n mg/dL/creatinin e in mg/dL) EGFR (BEAKER) (test 81 mL/min/1.73 ESTIMA LANDEN GFR IS code = 1092) sq m NOT ACCURATE CREATININE CLEARANCE IN PREDICTING GLOMERULAR FILTRATION RATE . ESTIMATED GFR I S NOT APPLICABLE FOR DIALYSIS PATIEN TS. Securities Consultant ID - CHARU [id number] 16:53:45 Test Item Value Reference Range Interpretation Comments SODIUM (BEAKER) (test code = 381) 144 meq/L 136-145 POTASSIUM (BEAKER) (test code = 4.4 meq/L 3.5-5.1 379) CHLORIDE (BEAKER) (test code = 382) 106 meq/L 98-107 CO2 (BEAKER) (test code = 355) 29 meq/L 22-29 Securities Consultant ID - CHARU LPLATELET [id number] 16:35:39 Test Item Value Reference Range Interpretation Comments PLATELET COUNT (BEAKER) (test 283 K/CU MM 150-450 code = 756) Securities Consultant ID - [id number] 16:35:38 Test Item Value Reference Range Interpretation Comments HEMOGLOBIN (BEAKER) (test code = 14.8 GM/DL 11.2-15.7 410) Securities Consultant ID - [id number] colorectal cancer DNA and occult blood screening [Presence] in [id number] 12:01:00 Test Item Value Reference Range Interpretation Comments cologuard result reportable (test positive negative A code = cologuard result reportable) [facility], [id number] 00:00:00 Test Item Value Reference Range Interpretation Comments LMP date: (test code = 04/20/2014 LMP date:) Pap, liquid-based (test nilm nilm code = Pap, liquid-based) source (liquid-based cervical-endocervical- cytology): (test code = vaginal source (liquid-based cytology):) [facility]
[2022-10-28] MEDS ORDERED: NA CHLORIDE 0.9% 1,000 ML ONE ×3 (05:09→07:55)
[2022-10-28] MEDS ORDERED: FAMOTIDINE 20 MG/2 ML VIAL IV ONE (05:09)
[2022-10-28] MEDS ORDERED: ONDANSETRON 4 MG/2 ML VIAL ONE (05:09)
[2022-10-28 05:21] LABS: Absolute Lymphocytes (CBC) 1.1 K/uL (0.7-4.9); Hematocrit 42.9 % (36.0-45.0); Lymphocytes % 6.2 % (15.3-44.8); MCV 85.4 fL (80-100); MPV 7.3 fL (7.6-11.3); RBC Red Blood Cell Count 5.02 M/uL (3.86-4.86)
[2022-10-28] MEDS ORDERED: MORPHINE 4 MG/ML SYR ONE (05:28)
[2022-10-28] MEDS ORDERED: KETOROLAC 30 MG/ML INJ ONE (05:29)
[2022-10-28 05:46] LABS: Bilirubin Total 1.3 mg/dL (0.2-1.0); Potassium 3.4 mEq/L (3.5-5.1)
[2022-10-28 05:57] LABS: Renal Epithelial 20-50 /HPF (None Seen); Specific Gravity 1.023 (1.005-1.030); Urine Bacteria 20-50 /HPF (<20); Urine Bilirubin 1+ (Negative); Urine Blood 2+ (Negative); Urine Clarity Extremely Turbid (Clear); Urine Color Orange (Yellow); Urine Glucose TRACE (Negative); Urine Mucus 4+ /HPF (None Seen); Urine Protein 3+ (Negative); Urine RBC >50 /HPF (None Seen); Urine Urobilinogen 1+ (Normal); Urine WBC Clump Few /HPF (None Seen); Urine pH 5.5 (5.0-7.0)
[2022-10-28] MEDS ORDERED: NA CHLORIDE 0.9% 50 ML ONE (06:36)
[2022-10-28] MEDS ORDERED: CEFTRIAXONE 1000 MG/VIAL ONE (06:36)
[2022-10-28] MEDS ORDERED: METRONIDAZOLE 500mg IVPB 500 MG/100 ML BAG IV ONE (06:36)
[2022-10-28 07:32] LABS: Blood Morphology Comment NOT SEEN (NOT SEEN); Platelet Estimate ADEQ
--- NOTE | 2022-10-28 07:48 | EDPHYS ---
Physician Documentation [facility] Name: Alondra Lora Age: 57 yrs Sex: Female : 1965 Arrival Date: 10/28/2022 Time: 03:48 Bed 16 Private MD: ED Physician Barry Goncalves HPI: 10/28 05:04 This 57 yrs old Unknown Female presents to ER via Wheelchair with complaints of sp4 Abdominal Pain, Nausea, Weakness. 07:42 Patient presents with diffuse abdominal pain, low-grade fever, and feeling unwell for sp4 the past 4 days. Patient has past medical history of gastric sleeve, hysterectomy, . Patient is allergic to penicillins.. Historical: - Immunization history:: Adult Immunizations up to date. - Social history:: Patient/guardian denies using alcohol, street drugs, IV drugs, caffeine, over the counter diet medications, tobacco products. - Family history:: not pertinent. ROS: 07:42 Constitutional: Negative for , chills, and weight loss, positive for fever Eyes: sp4 Negative for injury, pain, redness, and discharge, Abdomen/GI: Negative for , diarrhea, and constipation, positive for diffuse abdominal pain nausea vomiting 07:42 All other systems are negative. Exam: 07:42 Constitutional: This is a well developed, well nourished patient who is awake, alert, sp4 patient is tachycardic and uncomfortable appearing Head/Face: Normocephalic, atraumatic. Eyes: Pupils equal round and reactive to light, extra-ocular motions intact. Lids and lashes normal. Conjunctiva and sclera are not injected. Cornea within normal limits. Periorbital areas with no swelling, redness, or edema. ENT: Nares patent. No nasal discharge, no septal abnormalities noted. Tympanic membranes are normal and external auditory canals are clear. Oropharynx with no redness, swelling, or masses, exudates, or evidence of obstruction, uvula midline. Mucous membranes moist. Neck: Trachea midline, no thyromegaly or masses palpated, and no cervical lymphadenopathy. Supple, full range of motion without nuchal rigidity, or vertebral point tenderness. Chest/axilla: Normal chest wall appearance and motion. Nontender with no deformity. No lesions are appreciated. Cardiovascular: Regular rate and rhythm with a normal S1 and S2. No gallops, murmurs, or rubs. Normal PMI, no JVD. No pulse deficits. Respiratory: Lungs have equal breath sounds bilaterally, clear to auscultation and percussion. No rales, rhonchi or wheezes noted. No increased work of breathing, no retractions or nasal flaring. Abdomen/GI: Soft, positive for diffuse abdominal tenderness, negative rebound, negative distention, negative signs of peritonitis Back: No spinal tenderness. No costovertebral tenderness. Skin: Warm, dry with normal turgor. Normal color with no rashes, no lesions, and no evidence of cellulitis. MS/ Extremity: Pulses equal, no cyanosis. Neurovascular intact. Full, normal range of motion. Neuro: Awake and alert, GCS 15, oriented to person, place, time, and situation. Cranial nerves II-XII grossly intact. Motor strength 5/5 in all extremities. Sensory grossly intact. Psych: Awake, alert, with orientation to person, place and time. Behavior, mood, and affect are within normal limits 07:42 ECG was reviewed by the Attending Physician. EKG reveals sinus tachycardia at the rate sp4 of 114, otherwise normal EKG, EKG time 517 Vital Signs: 04:12 BP 115 / 6; Pulse 129; Resp 18; Temp 100.3; Pulse Ox 98% ; Weight 92.99 kg; Height 5 kl ft. 4 in. ; Pain 0/10; 05:00 BP 117 / 64; Pulse 77; Resp 18; Pulse Ox 97% on R/A; vc1 08:00 BP 124 / 71; Pulse 78; Resp 18; Pulse Ox 99% ; ko1 04:12 Body Mass Index 35.19 (92.99 kg, 162.56 cm) kl 04:12 Pain Scale: Adult kl MDM: 05:04 Patient medically screened. sp4 07:31 ED course: IMPRESSION: 1. Mild left perinephric/periureteral stranding. Findings can be sp4 seen with infection or recent stone passage. 2. Diffuse bladder wall thickening. Correlate with any concern for cystitis/UTI. 3. The tip of the appendix is dilated to 11 mm in diameter. There is a small appendicolith. No periappendiceal inflammatory changes. Correlate with any concern for early appendicitis. 4. Diffuse hepatic steatosis. . 07:42 Differential diagnosis: Nonspecific abd pain, gastritis, pancreatitis, appendicitis, sp4 diverticulitis, viral gastroenteritis, gastroenteritis. Data reviewed: vital signs, nurses notes, diagnostic data from outside facility, old medical records, lab test result(s), EKG, radiologic studies, CT scan. ED course: CT revealed signs of left pyelonephritis. Diffuse bladder wall thickening concerning for cystitis, dilated appendix 11 mm with appendicolith. No periappendiceal inflammatory changes. Diffuse hepatic steatosis. ED course: Patient at this time warrants admission for pyelonephritis and acute renal failure with dehydration. General surgeon was requested to see patient for possible acute appendicitis.. 10/28 05:00 Order name: CBC with Diff; Complete Time: 07:41 kl 10/28 05:00 Order name: CMP; Complete Time: 07:30 10/28 05:00 Order name: Lipase; Complete Time: 07:30 10/28 05:00 Order name: Urinalysis w/ reflexes; Complete Time: 07:30 kl 10/28 05:07 Order name: SARS-COV-2 RT PCR; Complete Time: 07:30 pf1 10/28 05:26 Order name: Manual Differential; Complete Time: 07:41 EDDE 10/28 06:00 Order name: Urine Culture EDDE 10/28 06:11 Order name: Blood Culture Adult (2) sp4 10/28 06:04 Order name: Abdomen [facility] 10/28 07:53 Order name: EKG Electrocardiogram [facility] 10/28 05:00 Order name: IV Saline Lock; Complete Time: 05:03 10/28 05:00 Order name: Labs collected and sent; Complete Time: 05:07 10/28 05:04 Order name: EKG - Nurse/Tech; Complete Time: 05:21 kl EC:42 Rate is 114 beats/min. Rhythm is regular, Sinus tachycardia. QRS [place] is Normal. [place] sp4 interval is normal. QRS interval is normal. QT interval is normal. T waves are Normal. No ST changes noted. Clinical impression: Sinus tachycardia. Interpreted by me. Administered Medications: 05:15 Drug: morphine IVP or IV 4 mg Route: IVP; Infused Over: 4 mins; Site: left antecubital; vc1 05:15 Drug: Ketorolac IVP 30 mg Route: IVP; Site: left antecubital; vc1 05:21 Drug: NS 0.9% IV 1000 ml Route: IV; Rate: 1 bolus; Site: left antecubital; vc1 05:21 Drug: Famotidine IVP 20 mg Route: IVP; Site: left antecubital; vc1 05:21 Drug: Ondansetron IVP 4 mg Route: IVP; Site: left antecubital; vc1 07:00 Drug: Rocephin - Rocephin (cefTRIAXone) IVPB 1 grams Route: IVPB; Infused Over: 30 vc1 mins; Site: left antecubital; 07:01 Drug: NS 0.9% IV 1000 ml Route: IV; Rate: 1 bolus; Site: left antecubital; vc1 07:01 Drug: metroNIDAZOLE IVPB 500 mg Volume: 100 ml; Route: IVPB; Rate: 200 ml/hr; Infused vc1 Over: 30 mins; Site: left antecubital; 07:48 Drug: NS 0.9% IV 1000 ml Route: IV; Rate: 125 ml/hr; Site: left antecubital; ko1 07:57 Drug: Potassium Chloride IV 20 mEq Route: IV; Rate: calculated rate; Site: left ko1 antecubital; Disposition Summary: 10/28/22 07:47 Hospitalization Ordered Hospitalization Status: Inpatient Admission sp4 Provider: Emre Manzanares4 Location: Telemetry/[facility] (Inpatient) sp4 Condition: Stable sp4 Problem: new sp4 Symptoms: have improved sp4 Bed/Room Type: Standard sp4 Room Assignment: 216(10/28/22 11:32) kj Diagnosis - Pyelonephritis acute sp4 - Abdominal pain, acute left pyelonephritis, acute cystitis, UTI, acute renal sp4 failure, moderate dehydration, dilated appendix with concern for acute appendicitis. Hyponatremia, hypokalemia Forms: - Medication Reconciliation Form sp4 - SBAR form sp4 Signatures: Dispatcher [employer] EDCheri Mac RN RN kl Jackson, Kandis kj1 Manasa Benitez RN RN vc1 Daniela Archibald RN RN [email or web address] Barry Goncalves MD MD sp4 Corrections: (The following items were deleted from the chart) 04:17 04:16 PMHx: Hypothyroidism; kaushik kl 04:17 04:16 PMHx: Hypertension; kl kl 04:17 04:16 PSHx: Total abdominal hysterectomy; kl kl 06:04 05:12 Abdomen Pelvis W Con+CT.RAD.BRZ ordered. EDMS EDMS 11:32 07:47 sp4 kj1
--- NOTE | 2022-10-28 07:48 | ER ---
Nurse's Notes [facility] Name: Alondra Lora Age: 57 yrs Sex: Female : 1965 Arrival Date: 10/28/2022 Time: 03:48 Bed 16 Private MD: Diagnosis: Pyelonephritis acute;Abdominal pain, acute left pyelonephritis, acute cystitis, UTI, acute renal failure, moderate dehydration, dilated appendix with concern for acute appendicitis. Hyponatremia, hypokalemia Presentation: 10/28 04:12 Chief complaint: Patient states: C/o of Abdominal pain x 5 days. Denies any N/V/D. kl Decreased appetite. Feeling weak and having hard time walking. Last BM 2 days. Coronavirus screen: Vaccine status: Patient reports receiving the 2nd dose of the covid vaccine. Ebola Screen: Patient negative for fever greater than or equal to 101.5 degrees Fahrenheit, and additional compatible Ebola Virus Disease symptoms. Initial Sepsis Screen: Does the patient meet any 2 criteria? No. Patient's initial sepsis screen is negative. Risk Assessment: Do you want to hurt yourself or someone else? Patient reports no desire to harm self or others. Onset of symptoms was October 22, 2022. 04:12 Method Of Arrival: Wheelchair kl 04:12 Acuity: ALAINA 3 kl 04:12 Initial Sepsis Screen: Does the patient meet any 2 criteria? HR > 90 bpm. No. Patient's vc1 initial sepsis screen is negative. Does the patient have a suspected source of infection? Yes: Acute abdominal pain. Triage Assessment: 04:16 General: Appears uncomfortable, well nourished. kl 04:16 Pain: Complains of pain in abdomen. GI: Reports lower abdominal pain, upper abdominal kl pain. Historical: - Immunization history:: Adult Immunizations up to date. - Social history:: Patient/guardian denies using alcohol, street drugs, IV drugs, caffeine, over the counter diet medications, tobacco products. - Family history:: not pertinent. Screenin:11 [facility] ED Fall Risk Assessment (Adult) History of falling in the last 3 months, pf1 including since admission No falls in past 3 months (0 pts) Confusion or Disorientation No (0 pts) Intoxicated or Sedated No (0 pts) Impaired Gait No (0 pts) Mobility Assist Device Used No (0 pt) Altered Elimination No (0 pt) Score/Fall Risk Level 0 - 2 = Low Risk Oriented to surroundings, Maintained a safe environment, Educated pt \T\ family on fall prevention, incl call for assistance when getting out of bed, Assessed \T\ reinforced patient's understanding of fall precautions, Provided non-skid footwear, Hourly rounding (assess needs \T\ fall precautionary measures) done, Used ambulatory aids as needed (educated on \T\ assisted with), Used gait belt as appropriate. Abuse screen: Denies threats or abuse. Nutritional screening: No deficits noted. Tuberculosis screening: No symptoms or risk factors identified. 05:26 Sepsis Screening:. kl Assessment: 04:30 General: Appears in no apparent distress. uncomfortable, obese, well groomed, well pf1 developed, Behavior is calm, cooperative, appropriate for age, quiet. Pain: Complains of pain in abdomen. Neuro: No deficits noted. Level of Consciousness is awake, alert, obeys commands, Oriented to person, place, time, situation. Cardiovascular: No deficits noted. Capillary refill < 3 seconds Patient's skin is warm and dry. Respiratory: No deficits noted. Airway is patent Respiratory effort is even, unlabored, Respiratory pattern is regular, symmetrical. GI: Abdomen is round non-distended, Bowel sounds present X 4 quads. Abd is soft Abdomen is tender to palpation in epigastric area, left upper quadrant and left lower quadrant and abdomen Reports lower abdominal pain, upper abdominal pain, nausea. GI: Reports. : No deficits noted. No signs and/or symptoms were reported regarding the genitourinary system. EENT: No deficits noted. No signs and/or symptoms were reported regarding the EENT system. Derm: No deficits noted. No signs and/or symptoms reported regarding the dermatologic system. 06:00 Reassessment: No changes from previously documented assessment. vc1 Vital Signs: 04:12 BP 115 / 6; Pulse 129; Resp 18; Temp 100.3; Pulse Ox 98% ; Weight 92.99 kg; Height 5 kl ft. 4 in. ; Pain 0/10; 05:00 BP 117 / 64; Pulse 77; Resp 18; Pulse Ox 97% on R/A; vc1 08:00 BP 124 / 71; Pulse 78; Resp 18; Pulse Ox 99% ; ko1 04:12 Body Mass Index 35.19 (92.99 kg, 162.56 cm) kl 04:12 Pain Scale: Adult kl ED Course: 03:52 Patient arrived in ED. ja2 04:16 Triage completed. kl 04:30 Patient has correct armband on for positive identification. Bed in low position. Call pf1 light in reach. Side rails up X2. 04:30 Provided Education on: medication administration. pf1 05:03 Barry Goncalves MD is Attending Physician. sp4 05:07 Inserted saline lock: 20 gauge in left antecubital area, using aseptic technique. Blood ah1 collected. 05:08 CBC with Diff Sent. ah1 05:08 CMP Sent. ah1 05:08 Lipase Sent. ah1 05:08 Urinalysis w/ reflexes Sent. ah1 05:11 SARS-COV-2 RT PCR Sent. pf1 05:21 CBC with Diff Sent. ah1 05:21 CMP Sent. ah1 05:21 Lipase Sent. ah1 05:21 Urinalysis w/ reflexes Sent. ah1 05:55 Manasa Benitez, DAE is Primary Nurse. vc1 06:26 Abdomen In Process Unspecified. EDMS 06:57 Blood Culture Adult (2) Sent. ah1 07:47 Emre Manzanares MD is Hospitalizing Provider. sp4 08:00 No provider procedures requiring assistance completed. Patient admitted, IV remains in ko1 place. Administered Medications: 05:15 Drug: morphine IVP or IV 4 mg Route: IVP; Infused Over: 4 mins; Site: left antecubital; vc1 05:15 Drug: Ketorolac IVP 30 mg Route: IVP; Site: left antecubital; vc1 05:21 Drug: NS 0.9% IV 1000 ml Route: IV; Rate: 1 bolus; Site: left antecubital; vc1 05:21 Drug: Famotidine IVP 20 mg Route: IVP; Site: left antecubital; vc1 05:21 Drug: Ondansetron IVP 4 mg Route: IVP; Site: left antecubital; vc1 07:00 Drug: Rocephin - Rocephin (cefTRIAXone) IVPB 1 grams Route: IVPB; Infused Over: 30 vc1 mins; Site: left antecubital; 07:01 Drug: NS 0.9% IV 1000 ml Route: IV; Rate: 1 bolus; Site: left antecubital; vc1 07:01 Drug: metroNIDAZOLE IVPB 500 mg Volume: 100 ml; Route: IVPB; Rate: 200 ml/hr; Infused vc1 Over: 30 mins; Site: left antecubital; 07:48 Drug: NS 0.9% IV 1000 ml Route: IV; Rate: 125 ml/hr; Site: left antecubital; ko1 07:57 Drug: Potassium Chloride IV 20 mEq Route: IV; Rate: calculated rate; Site: left ko1 antecubital; Medication: 06:01 VIS not applicable for this client. vc1 Outcome: 07:47 Decision to Hospitalize by Provider. sp4 12:16 Admitted to Med/surg accompanied by delphine, family with patient, room 216, with chart. ko1 12:16 Condition: stable 12:16 Instructed on the need for admit, Demonstrated understanding of instructions. 12:56 Patient left the ED. ko1 Signatures: Dispatcher [employer] EDCheri Mac RN RN kl Alexander, Jessica ja2 Calcote, Vanessa, RN RN vc1 Daniela Archibald RN RN ko1 Meghan Tran RN RN Barry Mesa MD MD sp4 Zuleyma Barbosa Corrections: (The following items were deleted from the chart) 04:17 04:16 PMHx: Hypothyroidism; kl kl 04:17 04:16 PMHx: Hypertension; kl kl 04:17 04:16 PSHx: Total abdominal hysterectomy; kl kl
[2022-10-28] MEDS ORDERED: KCL 20 MEQ/100 mL IVPB 100 ML IV ONE (07:55)
--- NOTE | 2022-10-28 11:43 | RAD REPORT ---
CLINICAL HISTORY: The patient is 57 years old and is Female; ABD PAIN TECHNIQUE: Axial computed tomography images of the abdomen and pelvis without intravenous contrast. Sagittal and coronal reformatted images were created and reviewed. This CT exam was performed us ing one or more of the following dose reduction techniques: automated exposure control, adjustment of the mA and/or kV according to patient size, and/or use of iterative reconstruction technique. COMPARISON: No relevant prior studies available. FINDINGS: Lung bases: Unremarkable. No mass. No consolidation. Heart: Coronary artery calcification. ABDOMEN: Liver: Diffuse hepatic steatosis. Gallbladder and bile ducts: Unremarkable. No calcified stones. No ductal dilation. Pancreas: Unremarkable. No ductal dilation. Spleen: Unremarkable. No splenomegaly. Adrenals: Unremarkable. No mass. Kidneys and ureters: Mild left perinephric/periureteral stranding. Nonobstructive calcification in the left kidney. Stomach and bowel: Postsurgical changes in the stomach. No obstruction. No mucosal thickening. PELVIS: Appendix: The tip of the appendix is dilated to 11 mm in diameter. There is a small appendicolith . No periappendiceal inflammatory changes. Bladder: Diffuse bladder wall thickening. Reproductive: Uterus is not seen. ABDOMEN and PELVIS: Intraperitoneal space: Unremarkable. No free air. No significant fluid collection. Bones/joints: 8 mm of anterolisthesis of L5 on S1 with bilateral pars defects. No acute fracture. No dislocation. Soft tissues: Unremarkable. Vasculature: Scattered atherosclerotic vascular calcifications. Lymph nodes: Unremarkable. No enlarged lymph nodes. IMPRESSION: 1. Mild left perinephric/periureteral stranding. Findings can be seen with infection or recent stone passage. 2. Diffuse bladder wall thickening. Correlate with any concern for cystitis/UTI. 3. The tip of the appendix is dilated to 11 mm in diameter. There is a small appendicolith. No sonja appendiceal inflammatory changes. Correlate with any concern for early appendicitis. 4. Diffuse hepatic steatosis. Electronically signed by: Edilberto Guillory MD 10/28/2022 6:51 AM CDT Due to temporary technical issues with the PACS/Fluency reporting system, reports are being signed by the in house radiologists without review as a courtesy to insure prompt reporting. The interpreting radiologist is fully responsible for the content of the report.
[2022-10-28 13:07] VITALS: BMI 34.3
--- NOTE | 2022-10-28 14:10 | CON ---
Date of Consultation: 10/28/2022 Diagnoses: Abdominal pain, pyelonephritis, dilated appendix with fecalith. History Of Present Illness: This is the case of a 57-year-old patient, who comes to us with abdomina l pain. It is not really specific. She felt some discomfort, came to the ER because it was associat ed with nausea and weakness. In the ER, the patient was found to have pyelonephritis, cystitis, but also as an incidental finding, there was a dilated appendix with no inflammation around the area, but a small filling defect that could be a fecalith. The patient was admitted for pyelonephritis. Surg ical consult was obtained for the appendix evaluation. She denies any dysuria, hematuria, hematochez ia, melena. Denies any recent traveling out of the country. Denies any family member sick at home. She states her colonoscopy was done about a year ago by Dr. Sanchez with no specific findings that she can remember. Past Surgical History: Includes gastric sleeve, hysterectomy, C-sections. Allergies: INCLUDE PENICILLIN. Social History: She does not smoke. She does not drink alcohol. Family History: Noncontributory. Review of Systems: Positive for chills, dysuria, abdominal pain, nausea, and vomiting. Physical Examination: General: The patient is awake, alert. HEENT: Pupils are equal and reactive. Anicteric. Neck: Supple. Chest: Clear. Heart: S1, S2. Abdomen: Soft and depressible. There are no Rovsing signs. No Oconnell signs. No psoas signs. Righ t lower quadrant is not tender, so I have to agree with the primary doctor and the equivocal findings . The patient has some pain in the flank, once again consistent with the CAT scan findings. Pelvic: Deferred. Rectal: Deferred. Breast: Deferred. Extremities: Good capillary refill. Laboratory Data: Blood work shows WBC count of 18.4, hemoglobin of 14. Sodium is 134, potassium 3. UA shows leukocyte more than 500, RBCs more than 50, WBC count more than 50, once again that is cons istent with the findings on the CAT scan. CAT scan of the abdomen and pelvis read by Dr. Liao as the tip of the appendix is dilated about 11 mm in diameter. There is small appendicolith. No periappen diceal inflammation, inflammatory changes. The bladder shows diffuse bladder wall thickening. The k idneys show mild left perinephric and periureteral stranding and nonobstructing calcification in the left kidney. Assessment: This is a female with abdominal pain. Everything is pointing more as to be pyelo and cy stitis, but then we have the findings on the appendix, it could be incidental, but also could be anot her problem at the same time. She is on antibiotics right now that are somehow affecting the way, it may just diagnosis of appendix. Her white count is already 18. She has severe cystitis and also pe rinephric inflammation that may give the symptoms that she had right now, but the appendix also is th ere. She does not want to go for the appendix at this moment. She understands the next 24 hours are critical for us to see how she develops. If she develops any symptoms in the right side, then she i s going to have to let me, at least put the cameras, then do diagnostic lap and possible appendectomy . She has no pain in the right lower quadrant right now. She wants that plan better than going for surgery at this moment. Even if she goes tomorrow and we find out that the surgery is not done, I be lieve the appendix may have to be removed in the future because we have filling defects and the possi bility of wide neoplasm is also contemplated. So, she may have to go for diagnostic lap in the [facility] once the infection is under control, either tomorrow or 4 weeks from now. At that moment, we will probably just get the request of the colonoscopy to make sure there is nothing in the cecum area. faiza understands that plan. We are going to repeat the CAT scan tomorrow to see if there are any change s in the appendix and then we have to follow this clinically. She is going to make the decision nichole rrow if she is going to allow the diagnostic lap during this admission or if she feels better electiv althea. The benefits, alternatives, and risks of diagnostic laparoscopy, laparoscopic possible open luis enrique endectomy fully explained, which include, but not limited to infection, bleeding, damage to adjacent structures, anesthesia complication, negative appendix, PR, and even . She also understands thi s may not relieve any symptoms. She might need more than one surgical intervention. CANDELARIA/MAYNOR Voice ID: [id number] Report ID: [id number]
[2022-10-28] MEDS: ONDANSETRON 4 MG/2 ML VIAL IV PRN ×2 (16:52→21:32)
[2022-10-28] MEDS ORDERED: NA CHLORIDE 0.9% 1,000 ML IV SCH (17:00)
[2022-10-28] MEDS: METRONIDAZOLE 500mg IVPB 500 MG/100 ML BAG IV SCH (17:25)
[2022-10-28] MEDS: MORPHINE 2 MG/ML SYR IV PRN ×2 (17:42→21:32)
[2022-10-28] MEDS: NA CHLORIDE 0.9% 1,000 ML IV SCH (18:02)
--- NOTE | 2022-10-28 20:20 | EKG ---
Test Date: 2022-10-28 Test Time: 05:17:59 Meteorological Observer: ANISHA MEASUREMENT RESULTS: Intervals: Rate: 114 NV: 146 QRSD: 74 QT: 350 QTc: 482 Cary: P: 67 NV: 146 QRS: 44 T: 83 INTERPRETIVE STATEMENTS: Sinus tachycardia Nonspecific T wave abnormality Abnormal ECG No previous ECG available for comparison Electronically Signed On 10-28-22 20:18:32 CDT by Iam Guadalupe
[2022-10-28] MEDS: CIPROFLOXACIN 400mg IV 400 MG/200 ML BAG IV SCH (20:21)
[2022-10-28] MEDS: ACETAMINOPHEN 500 MG TAB PO PRN (21:00)
--- NOTE | 2022-10-28 21:02 | P.HP ---
Certification for Inpatient Patient admitted to: Inpatient With expected LOS: >2 Midnights Practitioner: I am a practitioner with admitting privileges, knowledge of patient current condition, hospital course, and medical plan of care. Services: Services provided to patient in accordance with Admission requirements found in Title 42 Section 412.3 of the Code of Federal Regulations Patient History Date of Service: 10/28/22 Reason for admission: ABDOMEN PAIN, WEAKENESS History of Present Illness: PLACIDO HAS BEEN TREATED FOR UTI WITH BACTRIM DS ABOUT TWO WEEKS AGO. SHE GOT BETTER AND GOT WORSE OVER THIS TIME. SHE HAS MILD DIFFUSE ABDOMEN PAIN. ON CT SCAN WE SEE L PYELONEPHRITIS AND ALSO WE SEE APPENDICULAR SWELLING AND APPENDICOLITH. I SAW HER IN ER. Allergies Penicillins Allergy (Verified 10/08/21 12:33) Rash Home medications list reviewed: Yes Home Medications: Levothyroxine [Synthroid*] 50 mcg PO DAILY 10/08/21 Lisinopril [Zestril] 30 mg PO DAILY 10/08/21 - Past Medical/Surgical History Has patient received pneumonia vaccine in the past: No Diabetic: No -: HTN -: hypothyroidism - Social History Smoking Status: Never smoker Alcohol use: No CD- Drugs: No Caffeine use: No Place of Residence: Home Review of Systems 10-point ROS is otherwise unremarkable General: Weakness, Malaise Physical Examination - Vital Signs Temperature: 99.5 F Blood Pressure: 107/69 Pulse: 108 Respirations: 24 Pulse Ox (%): 100 - Physical Exam General: Oriented x3, Mild distress, Obese HEENT: Atraumatic, PERRLA, Mucous membr. moist/pink, EOMI, Sclerae nonicteric Neck: Supple, 2+ carotid pulse no bruit, No LAD, Without JVD or thyroid abnormality Respiratory: Clear to auscultation bilaterally, Normal air movement Cardiovascular: Regular rate/rhythm, Normal S1 S2 Gastrointestinal: Normal bowel sounds, No tenderness Musculoskeletal: No tenderness Integumentary: No rashes Neurological: Normal gait, Normal speech, Normal strength at 5/5 x4 extr, Normal tone, Normal affect Lymphatics: No axilla or inguinal lymphadenopathy - Studies Laboratory Data (last 24 hrs) 10/28/22 05:04: Sodium 134 L, Potassium 3.4 L, BUN 34 H, Creatinine 2.20 H, Glucose 206 H, Total Bilirubin 1.3 H, AST 26, ALT 23, Alkaline Phosphatase 72, Lipase 19 10/28/22 05:04: WBC 18.40 H, Hgb 14.0, Hct 42.9, Plt Count 274 Assessment and Plan - Problems (Diagnosis) (1) Acute pyelonephritis Current Visit: Yes Status: Acute Plan: SO FAR IT LOOKS LIKE PYELONEPHRITIS AGREE WITH CIPRO IV CULTURE ARE PENDING. FLAGYL TO COVER GI TRACT. APPENDIX MAY NOT BE INFECTED BUT NEEDS OBSERVATION. WILL NEED SURGERY IF NOT TOMORROW A LITTLE LATER DR. BROTHERS SAW THE PATIENT. (2) Dehydration Current Visit: Yes Status: Acute Plan: IV FLUIDS DAILY LAB. THIS SHOULD IMPROVE. - Advance Directives Does patient have a Living Will: Yes Does patient have a Durable POA for Healthcare: No
[2022-10-29] MEDS: METRONIDAZOLE 500mg IVPB 500 MG/100 ML BAG IV SCH ×4 (00:21→18:10)
[2022-10-29] MEDS: NA CHLORIDE 0.9% 1,000 ML IV SCH ×6 (01:56→21:09)
[2022-10-29 03:53] LABS: Hematocrit 34.4 % (36.0-45.0); MPV 7.8 fL (7.6-11.3); RBC Red Blood Cell Count 4.04 M/uL (3.86-4.86)
[2022-10-29 03:56] LABS: Potassium 4.5 mEq/L (3.5-5.1)
[2022-10-29] MEDS: LEVOTHYROXINE SOD 0.05 MG TABLET PO SCH (08:09)
--- NOTE | 2022-10-29 10:58 | RAD REPORT ---
EXAM DESCRIPTION: CT - Abdomen Pelvis Wo Contrast - 10/29/2022 9:42 am CLINICAL HISTORY: APPENDICITIS COMPARISON: Abdomen Pelvis Wo Contrast dated 10/28/2022 TECHNIQUE: Thin cut axial CT imaging of the abdomen and pelvis was performed without IV contrast. Mu ltiplanar reformats were generated and reviewed. All CT scans are performed using dose optimization technique as appropriate and may include automated exposure control or mA/KV adjustment according to patient size. FINDINGS: No suspicious findings in the lung bases. The liver, spleen, and pancreas show no suspicious findings. Gallbladder and biliary tree are also wi thout suspicious finding. Asymmetric renal enlargement on the left, with asymmetric left perinephric and proximal periureteric fat stranding. Stable left lower pole 3 millimeter calculus. No evidence of radiopaque calculi on the right or hydroureteronephrosis bilaterally. No dilated bowel loops or bowel wall thickening. Sequelae of gastric bypass again seen. The distal ap pendiceal dilation, appears to be fluid filled, measuring 11-12 millimeter in caliber, with a tiny mi d appendiceal dense focus. Appearance is stable. No free air, fluid collections, inflammatory strandi ng. No hernia, mass or bulky lymphadenopathy. The urinary bladder is without significant finding. No suspicious bony findings. IMPRESSION: Stable asymmetric perinephric and proximal periureteric fat stranding, which may relate to pyelonephritis, recent but resolved obstruction, or a combination of both. Stable distal appendiceal dilation with a tiny appendicular. No inflammatory changes are associated w ith the appendix. The findings were communicated to Jose Welch on 10/29/2022 at 10:52 hours.
--- NOTE | 2022-10-29 14:59 | PN ---
Date of Progress Note: 10/29/2022 Diagnoses: Pyelonephritis, renal insufficiency, distended appendix with a filling defect, possible f ecalith. Subjective: The patient is doing better right now. There is no peritonitis. The CAT scan was alison schuster, showing as I discussed with the radiologist no new findings on the appendix. They believe the k idneys are at this moment causing the inflammation and her clinical symptoms. Objective: Vital Signs: Reviewed with the patient. Chest: Clear. Abdomen: Soft and depressible. No guarding or rebound. No peritoneal signs. No Rovsing signs. No psoas signs. Extremities: Good capillary refill. Laboratory Data: Blood work reviewed with the patient. CAT scan also reviewed with the patient. Plan: She has the option of diagnostic laparoscopy, possible open appendectomy. Since she felt bett er she wanted to at this moment, she wants to eat some diet, treat the kidney first, under standing the risks of appendix and perforation in the future. Even if she improves she un derstands that she is going to have to come electively and make the decision and diagnostic lap, poss ible appendectomy due to the abnormalities on the appendix that may at this time be related to the in fection, but still we have to rule out neoplastic event, so she is going to start her diet. CANDELARIA/MAYNOR Voice ID: [id number] Report ID: [id number]
[2022-10-29] MEDS: ACETAMINOPHEN 500 MG TAB PO PRN (20:48)
[2022-10-29] MEDS: CIPROFLOXACIN 400mg IV 400 MG/200 ML BAG IV SCH (20:57)
[2022-10-29] MEDS: ONDANSETRON 4 MG/2 ML VIAL IV PRN (21:02)
--- NOTE | 2022-10-29 21:33 | P.PN ---
Subjective Date of Service: 10/29/22 Chief Complaint: PYELONEPHRITIS Subjective: Improving PLACIDO IS DOING LOT BETTER. SHE IS SITTING UP ON SIDE OF BED WITH NO DISTRESS. Review of Systems 10-point ROS is otherwise unremarkable General: Weakness Physical Examination - Vital Signs Temperature: 98.1 F Blood Pressure: 113/55 Pulse: 87 Respirations: 17 Pulse Ox (%): 98 - Physical Exam General: Alert, In no apparent distress HEENT: Atraumatic, PERRLA, EOMI Neck: Supple, JVD not distended Respiratory: Clear to auscultation bilaterally, Normal air movement Cardiovascular: Regular rate/rhythm, Normal S1 S2 Gastrointestinal: Normal bowel sounds, No tenderness Musculoskeletal: No tenderness Integumentary: No rashes Neurological: Normal speech, Normal tone, Normal affect Lymphatics: No axilla or inguinal lymphadenopathy - Studies Medications List Reviewed: Yes Assessment And Plan - Current Problems (Diagnosis) (1) Acute pyelonephritis Current Visit: Yes Status: Acute Plan: SO FAR IT LOOKS LIKE PYELONEPHRITIS AGREE WITH CIPRO IV CULTURE ARE PENDING. FLAGYL TO COVER GI TRACT. APPENDIX MAY NOT BE INFECTED BUT NEEDS OBSERVATION. WILL NEED SURGERY IF NOT TOMORROW A LITTLE LATER DR. BROTHERS SAW THE PATIENT. THIS HAPPENED WHILE SHE WAS ON OUTPATIENT CIPRO THAT CULTURE SHOWED WELL TO WORK. IN OFFICE SHE WAS GIVE BACTRIM AND THEN PER CULTURE THE ABX WAS CHANGED TO CIPRO. (2) Dehydration Current Visit: Yes Status: Acute Plan: IV FLUIDS DAILY LAB. THIS SHOULD IMPROVE.
[2022-10-29 22:22] LABS: Specific Gravity 1.022 (1.005-1.030); Urine Bacteria <20 /HPF (<20); Urine Bilirubin NEGATIVE (Negative); Urine Blood 1+ (Negative); Urine Clarity Extremely Turbid (Clear); Urine Color Yellow (Yellow); Urine Glucose NEGATIVE (Negative); Urine Mucus Slight /HPF (None Seen); Urine Protein 1+ (Negative); Urine RBC 21-50 /HPF (None Seen); Urine Urobilinogen 1+ (Normal)
[2022-10-29 23:18] VITALS: O2SAT 98
[2022-10-30] MEDS: METRONIDAZOLE 500mg IVPB 500 MG/100 ML BAG IV SCH ×2 (00:42→05:23)
[2022-10-30 03:52] LABS: Absolute Lymphocytes (CBC) 0.9 K/uL (0.7-4.9); Hematocrit 31.5 % (36.0-45.0); Lymphocytes % 13.8 % (15.3-44.8); MCV 85.1 fL (80-100)
[2022-10-30] MEDS: NA CHLORIDE 0.9% 1,000 ML IV SCH (04:01)
[2022-10-30] MEDS: ACETAMINOPHEN 500 MG TAB PO PRN (04:06)
[2022-10-30 04:09] LABS: Potassium 3.8 mEq/L (3.5-5.1)
[2022-10-30] MEDS ORDERED: POTASSIUM CL SA 10 MEQ TAB PO ONE (05:26)
[2022-10-30 08:58] VITALS: BP 128/73; TEMP 96.4
[2022-10-30] MEDS: LEVOTHYROXINE SOD 0.05 MG TABLET PO SCH (09:05)
--- NOTE | 2022-10-30 17:45 | P.DS ---
Admission Date: 10/28/22 Discharge Date: 10/30/22 Disposition: ROUTINE DISCHARGE Reason for Admission: PYELONEPHRITIS - Problems (1) Acute pyelonephritis Status: Acute (2) Dehydration Status: Acute Brief History of Present Illness: PLACIDO HAS BEEN TREATED FOR UTI WITH BACTRIM DS ABOUT TWO WEEKS AGO. SHE GOT BETTER AND GOT WORSE OVER THIS TIME. SHE HAS MILD DIFFUSE ABDOMEN PAIN. ON CT SCAN WE SEE L PYELONEPHRITIS AND ALSO WE SEE APPENDICULAR SWELLING AND APPENDICOLITH. I SAW HER IN ER. Hospital Course: PLACIDO HAD ACUTE PYELONEPHRITIS, CIPRO WORKED WELL, CULTURE CONFIRMS USE OF CIPRO. SHE IS STABLE FOR DISCHARGE. HER APPENDIX HAS MILD SWELLING AND DR. SUAZO IS PLANNING TO DO SURGERY TO RULE OUT CARCINOID OR CHRONIC AP PENDICITIS. Vital Signs/Physical Exam: Temp Pulse Resp BP Pulse Ox 96.4 F L 72 16 128/73 97 10/30/22 08:00 10/30/22 08:00 10/30/22 08:00 10/30/22 08:00 10/30/22 08:00 Laboratory Data at Discharge: WBC 6.40 thou/uL (4.3-10.9) 10/30/22 02:13 Hgb 10.5 g/dL (12.0-15.0) L 10/30/22 02:13 Hct 31.5 % (36.0-45.0) L 10/30/22 02:13 Plt Count 172 thou/uL (152-406) 10/30/22 02:13 Sodium 140 mEq/L (136-145) 10/30/22 02:13 Potassium 3.8 mEq/L (3.5-5.1) D 10/30/22 02:13 BUN 29 mg/dL (7-18) H 10/30/22 02:13 Creatinine 1.03 mg/dL (0.55-1.02) H 10/30/22 02:13 Glucose 99 mg/dL (74-106) 10/30/22 02:13 Total Bilirubin 1.3 mg/dL (0.2-1.0) H 10/28/22 05:04 AST 26 U/L (15-37) 10/28/22 05:04 ALT 23 U/L (13-56) 10/28/22 05:04 Alkaline Phosphatase 72 U/L (45-117) 10/28/22 05:04 Lipase 19 U/L (13-75) 10/28/22 05:04 Home Medications: Levothyroxine [Synthroid*] 50 mcg PO DAILY 10/08/21 Lisinopril [Zestril] 30 mg PO DAILY 10/08/21 Ciprofloxacin HCl [Cipro] 500 mg PO BID 10 Days #20 tab 10/30/22 New Medications: Ciprofloxacin HCl [Cipro] 500 mg PO BID 10 Days #20 tab Followup: Emre Manzanares MD [Primary Care Provider] - 1 Week (call to schedule appointment) Jose Suazo MD [ACTIVE - CAN ADMIT] - 1 Week (Call to schedule appointment )
== END 2022-10-30 12:22 | disposition home or self-care (01) | DRG 690 ==
LOC: ER 03:48 → ERHOLD 07:49 → 2ND 12:22
PROVIDERS: ADMIT Internal Medicine; ATTEND Internal Medicine
DX: N10 Acute pyelonephritis (principal); E87.1 Hypo-osmolality and hyponatremia; K35.80 Unspecified acute appendicitis; N17.9 Acute kidney failure, unspecified; E86.0 Dehydration; E03.9 Hypothyroidism, unspecified; E87.6 Hypokalemia; Z88.0 Allergy status to penicillin; Z98.84 Bariatric surgery status; Z90.710 Acquired absence of both cervix and uterus; Z79.890 Hormone replacement therapy; Z79.899 Other long term (current) drug therapy; Z20.822 Contact with and (suspected) exposure to COVID-19
CPT/HCPCS: 36415; 74176; 80048; 80053; 81001; 83690; 85025; 87040; 87045; 87046; 87077; 87086; 87088; 87186; 87635; 93005; 96374; 96375; 99285; J0696; J0744; J2270; J2405; J3480; J7030

== ENCOUNTER 2024-07-21 06:06 | Emergency (ER) | payer BC ==
[2024-07-21] MEDS ORDERED: ONDANSETRON 4 MG/2 ML VIAL ONE (06:48)
[2024-07-21] MEDS ORDERED: MORPHINE 4 MG/ML SYR ONE (06:48)
[2024-07-21] MEDS ORDERED: NA CHLORIDE 0.9% 1,000 ML ONE (06:49)
[2024-07-21 07:11] LABS: Absolute Basophils 0.1 K/uL (0-0.5); Absolute Lymphocytes (CBC) 1.1 K/uL (0.7-4.9); Absolute Monocytes 0.3 K/uL (0.1-1.3); Absolute Neutrophil 7.9 K/uL (1.8-8.0); Basophils % 0.8 % (0-1.3); Eosinophils % 0.3 % (0-4.4); Hematocrit 42.8 % (36.0-45.0); Hemoglobin 13.8 g/dL (12.0-15.0); Lymphocytes % 11.4 % (15.3-44.8); MCH 27.1 pg (27.0-35.0); MCHC 32.3 g/dL (32.0-36.0); MCV 83.8 fL (80-100); MPV 6.9 fL (7.6-11.3); Monocytes % 3.7 % (3.3-12.3); Neutrophils % 83.8 % (41.7-73.7); Nucleated Red Blood Cells % 0.2 % (0-0); Platelets 324 thou/uL (152-406); RBC Red Blood Cell Count 5.11 M/uL (3.86-4.86); Red Cell Distribution Width 14.4 % (12.1-15.2)
[2024-07-21 07:15] LABS: Albumin 3.5 g/dL (3.4-5.0); Albumin/Globulin Ratio 0.9 (1.1-1.8); Anion Gap 8.7 mEq/L (5.0-15.0); Bilirubin Total 0.5 mg/dL (0.2-1.0); Globulin 3.8 g/dL (2.3-3.5); Potassium 3.7 mEq/L (3.5-5.1); Protein, Total 7.3 g/dL (6.4-8.2)
--- NOTE | 2024-07-21 08:01 | RAD REPORT ---
EXAMINATION: CT ABDOMEN AND PELVIS WITH CONTRAST CLINICAL INDICATION: ABD PAIN TECHNIQUE: CT abdomen and pelvis was performed, after the administration of IV contrast, as per [facility] protocol. Axial, sagittal and coronal reconstructions were obtained. One or more of the following dose reduction techniques were used: Automated exposure control, adjustment of the mA and k V according to patient size, and iterative reconstruction. Unless otherwise specified, incidental findings do not require dedicated imaging follow-up. COMPARISON: 2022 FINDINGS: LOWER CHEST: Multiple small indeterminate nodules in both lung bases. Postsurgical changes about the stomach. LIVER: Tiny low-density hepatic lesions too small to fully characterize, likely benign. Grossly unrem arkable gallbladder. SPLEEN: Normal size. No focal lesion. PANCREAS: No mass, ductal dilation, or sonja-pancreatic fluid. ADRENALS: Normal; no mass. KIDNEYS: 6 mm stone is seen proximal left ureter resulting in mild left hydronephrosis. Mild left per inephric fat stranding. No right-sided hydronephrosis. GASTROINTESTINAL TRACT: No evidence of free air, significant intra-abdominal free fluid, bowel obstru ction or abscess. There is mild diverticulosis coli of the sigmoid colon without diverticulitis. APPENDIX: Appendix surgically absent. LYMPH NODES: No lymphadenopathy. MUSCULOSKELETAL: Mild multilevel spinal degenerative changes. Mild anterolisthesis L5-S1 with bilater al spondylolysis. IMPRESSION: 6 mm stone proximal left ureter resulting in mild left hydronephrosis. Multiple small nodules in both lung bases, indeterminant but more conspicuous relative to 2022 study. Recommend follow-up nonemergent LDCT chest follow-up study.
[2024-07-21] MEDS ORDERED: MAGNESIUM SULFATE 1 gm IVPB 1 GM/100 ML BAG IV ONE (08:21)
[2024-07-21] MEDS ORDERED: TAMSULOSIN 0.4 MG SR CAP ONE (08:21)
[2024-07-21 08:34] LABS: Specific Gravity 1.027 (1.005-1.030); Sqamous Epithelial None Seen /HPF (None Seen); Urine Bacteria None Seen /HPF (<20); Urine Bilirubin NEGATIVE (Negative); Urine Blood 1+ (Negative); Urine Clarity Clear (Clear); Urine Color Colorless (Yellow); Urine Culture Reflex Order NOT NEEDED; Urine Glucose NEGATIVE (Negative); Urine Ketones TRACE (Negative); Urine Microscopic Reflex YN ORDER UMIC; Urine Mucus Slight /HPF (None Seen); Urine Nitrite NEGATIVE (Negative); Urine Protein NEGATIVE (Negative); Urine RBC 21-50 /HPF (None Seen); Urine Urobilinogen Normal (Normal); Urine WBC <5 /HPF (<5)
[2024-07-21] MEDS ORDERED: KETOROLAC 30 MG/ML INJ ONE (09:01)
--- NOTE | 2024-07-21 10:28 | ER ---
Nurse's Notes [facility] Name: Alondra Lora Age: 59 yrs Sex: Female : 1965 Arrival Date: 07/21/2024 Time: 06:06 Bed 7 Private MD: Diagnosis: Calculus of ureter Presentation: 07/21 06:30 Chief complaint: Patient states: woke up at midnight vomiting and having severe left vc1 sided abdominal pain. Coronavirus screen: Client denies travel out of the [place] in the last 14 days. Ebola Screen: Patient negative for fever greater than or equal to 101.5 degrees Fahrenheit, and additional compatible Ebola Virus Disease symptoms Patient denies exposure to infectious person. Patient denies travel to an Ebola-affected area in the 21 days before illness onset. No symptoms or risks identified at this time. Initial Sepsis Screen: Does the patient meet any 2 criteria? No. Patient's initial sepsis screen is negative. Does the patient have a suspected source of infection? No. Patient's initial sepsis screen is negative. Risk Assessment: Do you want to hurt yourself or someone else? Patient reports no desire to harm self or others. Onset of symptoms was July 21, 2024 at 00:00. Care prior to arrival: None. Activity prior to arrival: vomiting. Mechanism of Injury: No Mechanism of Injury. 06:30 Method Of Arrival: Ambulatory vc1 06:30 Acuity: ALAINA 3 vc1 Triage Assessment: 06:36 General: Appears in no apparent distress. uncomfortable, obese, well developed, vc1 Behavior is calm, cooperative, appropriate for age. General: Reports feeling ill for. Pain: Complains of pain in left lower quadrant Pain does not radiate. Pain currently is 6 out of 10 on a pain scale. Quality of pain is described as sharp, Also complains of nausea. EENT: No deficits noted. No signs and/or symptoms were reported regarding the EENT system. Neuro: Level of Consciousness is awake, alert, obeys commands, Oriented to person, place, time, situation, Appropriate for age. Cardiovascular: Reports nausea, Capillary refill < 3 seconds Patient's skin is warm and dry. Cardiovascular: Heart tones S1 S2 present. Respiratory: Airway is patent Respiratory effort is even, unlabored, Respiratory pattern is regular, symmetrical, Breath sounds are clear bilaterally. GI: Abdomen is round non-distended, Reports lower abdominal pain, constipation, nausea, vomiting. : No deficits noted. No signs and/or symptoms were reported regarding the genitourinary system. Derm: Skin is intact, is healthy with good turgor, Skin is dry, Skin is normal, Skin temperature is warm. Musculoskeletal: Circulation, motion, and sensation intact. Range of motion: intact in all extremities. Historical: - Allergies: 06:34 No Known Allergies; vc1 - PMHx: 06:34 Diabetes mellitus; Hypothyroidism; "Pre-diabetic"; vc1 - PSHx: 06:34 None; vc1 - Immunization history:: Client reports receiving the 2nd dose of the Covid vaccine, Flu vaccine is up to date. - Infectious Disease History:: Denies. - Family history:: not pertinent. - Social history:: Smoking status: Patient denies any tobacco usage or history of. Screenin:36 Abuse screen: Denies threats or abuse. Nutritional screening: No deficits noted. vc1 Tuberculosis screening: No symptoms or risk factors identified. 06:38 [facility] ED Fall Risk Assessment (Adult) History of falling in the last 3 months, vc1 including since admission No falls in past 3 months (0 pts) Confusion or Disorientation No (0 pts) Intoxicated or Sedated No (0 pts) Impaired Gait No (0 pts) Mobility Assist Device Used No (0 pt) Altered Elimination No (0 pt) Score/Fall Risk Level 0 - 2 = Low Risk Oriented to surroundings, Maintained a safe environment, Educated pt \\T\\ family on fall prevention, incl call for assistance when getting out of bed. Assessment: 06:46 General: see triage assessment. vc1 07:30 General: Appears comfortable, Behavior is calm, cooperative, quiet. Neuro: Level of ss Consciousness is awake, alert, obeys commands, Oriented to person, place, time, situation, Test Deck Supervisor are equal bilaterally Speech is normal. Respiratory: Airway is patent Respiratory effort is even, unlabored, Respiratory pattern is regular, symmetrical. GI: Abd is soft X 4 quads Reports N/V since last night that improved after medication administraion. : Denies burning with urination, urinary frequency. EENT: Nares are clear. Derm: Skin is intact, is healthy with good turgor, Skin is pink, warm \\T\\ dry. normal. 07:35 Reassessment: Pt to CT at this time VIA stretcher. ss 08:30 Reassessment: Patient appears in no apparent distress at this time. Patient and/or ss family updated on plan of care and expected duration. Pain level reassessed. Patient is alert, oriented x 3, equal unlabored respirations, skin warm/dry/pink. pain is 2/10. 09:30 Reassessment: Will monitor pain as requested by Dr. Ly prior to discharge. ss 10:29 Reassessment: Patient appears in no apparent distress at this time. Patient and/or ss family updated on plan of care and expected duration. Pain level reassessed. Patient is alert, oriented x 3, equal unlabored respirations, skin warm/dry/pink. Patient states feeling better. Patient states symptoms have improved. Vital Signs: 06:30 BP 128 / 76; Pulse 98; Resp 20; Pulse Ox 100% ; Weight 98.88 kg; Height 5 ft. 4 in. ; vc1 Pain 6/10; 07:33 BP 114 / 71; Pulse 90; Resp 16; Pulse Ox 99% ; Pain 1/10; ss 08:00 Temp 97.6(TE); ss 09:07 BP 141 / 81; Pulse 81; Resp 16; Pulse Ox 100% on R/A; Pain 4/10; ss 06:30 Body Mass Index 37.42 (98.88 kg, 162.56 cm) vc1 06:30 Pain Scale: Adult vc1 07:33 Pain Scale: Adult ss 09:07 Pain Scale: Adult ss 06:30 unable to get temperature,pt will not stay still for oral or axillary vc1 ED Course: 06:10 Patient arrived in ED. gm2 06:12 Jerald Matos MD is Attending Physician. rt 06:20 Ashley Hurtado, DAE is Primary Nurse. kd3 06:34 Triage completed. vc1 06:36 Arm band placed on left wrist. vc1 06:40 Patient has correct armband on for positive identification. Bed in low position. Call vc1 light in reach. Pulse ox on. NIBP on. 06:40 Provided Education on: call light. vc1 06:46 Door closed. Noise minimized. Warm blanket given. Pillow given. vc1 06:51 Radiology exam delayed due to lab results not completed at this time. (BUN/Creatinine) jc4 IV insertion attempt and/or patient not having appropriate IV at this time. 06:51 Initial lab(s) drawn, by me, sent to lab. Inserted saline lock: 20 gauge in right lg3 antecubital area, using aseptic technique. Blood collected. Flushed with 10 mL NS. 06:52 CBC with Diff Sent. lg3 06:52 CMP Sent. lg3 06:52 Lipase Sent. lg3 07:02 Attending Physician role handed off by Jerald Matos MD rn 07:02 Rene Ly MD is Attending Physician. rn 07:40 CT Abd/Pelvis - IV Contrast Only In Process Unspecified. EDMS 09:30 No provider procedures requiring assistance completed. IV discontinued, intact, ss bleeding controlled, No redness/swelling at site. Pressure dressing applied. 10:27 Siva Wilson MD is Referral Physician. rn Administered Medications: 06:52 Drug: Ondansetron IVP 4 mg IVP once; over 2 minutes Route: IVP; Site: right antecubital;lg3 08:19 Follow up: Response: No adverse reaction; Nausea is decreased ss 06:52 Drug: morphine IVP or IV 4 mg IVP once over 4 mins Route: IVP; Infused Over: 4 mins; lg3 Site: right antecubital; 08:19 Follow up: Response: No adverse reaction; Pain is decreased ss 06:52 Drug: NS 0.9% IV 1000 ml IV at 1 bolus Per protocol; to be given as a bolus over 60 lg3 minutes Route: IV; Rate: 1 bolus; Site: right antecubital; 08:00 Follow up: IV Status: Completed infusion; IV Intake: 1000ml ss 08:31 Drug: Magnesium Sulfate IVPB 1 grams IVPB once over 1 hrs Route: IVPB; Infused Over: 1 ss hrs; Site: right antecubital; 09:30 Follow up: IV Status: Completed infusion; IV Intake: 100ml ss 08:31 Drug: Flomax PO 0.4 mg PO once Route: PO; ss 10:43 Follow up: Response: No adverse reaction ss 09:04 Drug: Ketorolac IVP 15 mg IVP once Route: IVP; Site: right antecubital; ss 10:43 Follow up: Response: No adverse reaction; Pain is decreased ss Medication: 06:40 VIS not applicable for this client. vc1 Intake: 08:00 IV: 1000ml; Total: 1000ml. ss 09:30 IV: 100ml; Total: 1100ml. ss Outcome: 10:28 Discharge ordered by . rn 10:40 Discharged to home ambulatory, with significant other, ss 10:40 Condition: good 10:40 Discharge instructions given to patient, significant other, Instructed on discharge instructions, follow up and referral plans. medication usage, Demonstrated understanding of instructions, follow-up care, medications, Prescriptions given X 4, 10:42 Patient left the ED. ss Signatures: Dispatcher [employer] EDMS Rene Ly MD MD rn Blanchard, Shelby, RN RN ss Leighton, DAE Petty RN lg3 Ashley Hurtado RN RN kd3 Manasa Benitez RN RN vc1 Jerald Matos MD MD rt Sonia Velasco gm2 Stevo Batres jc4 Corrections: (The following items were deleted from the chart) 10:31 09:07 BP 141 / 81; Pulse 8bpm; Resp 16bpm; Pulse Ox 100% RA; Pain 4/10, Adult; ss ss
--- NOTE | 2024-07-21 10:28 | EDPHYS ---
Physician Documentation [facility] Name: Alondra Lora Age: 59 yrs Sex: Female : 1965 Arrival Date: 07/21/2024 Time: 06:06 Bed 7 Private MD: ED Physician Rene Ly HPI: 07/21 06:35 This 59 yrs old Female presents to ER via Ambulatory with complaints of Abdominal Pain, rt Nausea/Vomiting, Constipation, Left side abd pain. 06:35 Patient presents to the ED with an acute onset of left-sided abdominal pain starting at rt about midnight. She has associated nausea and vomiting. Patient states that she had loose stools on Thursday, is not had a bowel movement since then. Denies other acute complaints at this time, symptoms are moderate severity, no other aggravating alleviating factors.. Historical: - Allergies: 06:34 No Known Allergies; vc1 - PMHx: 06:34 Diabetes mellitus; Hypothyroidism; "Pre-diabetic"; vc1 - PSHx: 06:34 None; vc1 - Immunization history:: Client reports receiving the 2nd dose of the Covid vaccine, Flu vaccine is up to date. - Infectious Disease History:: Denies. - Family history:: not pertinent. - Social history:: Smoking status: Patient denies any tobacco usage or history of. ROS: 06:35 Constitutional: Negative for fever, chills, and weight loss, Cardiovascular: Negative rt for chest pain, palpitations, and edema, Respiratory: Negative for shortness of breath, cough, wheezing, and pleuritic chest pain, MS/Extremity: Negative for injury and deformity, Skin: Negative for injury, rash, and discoloration, Neuro: Negative for headache, weakness, numbness, tingling, and seizure, 06:35 Abdomen/GI: Positive for abdominal pain, nausea and vomiting, Exam: 06:35 Constitutional: This is a well developed, well nourished patient who is awake, alert, rt and in no acute distress. Head/Face: Normocephalic, atraumatic. Chest/axilla: Normal chest wall appearance and motion. Nontender with no deformity. No lesions are appreciated. Cardiovascular: Regular rate and rhythm with a normal S1 and S2. No gallops, murmurs, or rubs. Normal PMI, no JVD. No pulse deficits. Respiratory: Lungs have equal breath sounds bilaterally, clear to auscultation and percussion. No rales, rhonchi or wheezes noted. No increased work of breathing, no retractions or nasal flaring. Skin: Warm, dry with normal turgor. Normal color with no rashes, no lesions, and no evidence of cellulitis. MS/ Extremity: Pulses equal, no cyanosis. Neurovascular intact. Full, normal range of motion. Neuro: Awake and alert, GCS 15, oriented to person, place, time, and situation. Cranial nerves II-XII grossly intact. Motor strength 5/5 in all extremities. Sensory grossly intact. Cerebellar exam normal. Normal gait. 06:35 Abdomen/GI: Tenderness to left lateral abdomen, no other focal areas of tenderness, no rebound, guarding, distention, Vital Signs: 06:30 BP 128 / 76; Pulse 98; Resp 20; Pulse Ox 100% ; Weight 98.88 kg; Height 5 ft. 4 in. ; vc1 Pain 6/10; 07:33 BP 114 / 71; Pulse 90; Resp 16; Pulse Ox 99% ; Pain 1/10; ss 08:00 Temp 97.6(TE); ss 09:07 BP 141 / 81; Pulse 81; Resp 16; Pulse Ox 100% on R/A; Pain 4/10; ss 06:30 Body Mass Index 37.42 (98.88 kg, 162.56 cm) vc1 06:30 Pain Scale: Adult vc1 07:33 Pain Scale: Adult ss 09:07 Pain Scale: Adult ss 06:30 unable to get temperature,pt will not stay still for oral or axillary vc1 MDM: 06:28 Medical Screening Exam initiated rt 10:27 Differential diagnosis: Nonspecific abd pain, viral gastroenteritis, gastroenteritis, rn Ureter calculus. Data reviewed: vital signs, nurses notes, lab test result(s), radiologic studies, CT scan, and as a result, I will discharge patient. Counseling: I had a detailed discussion with the patient and/or guardian regarding the historical points, exam findings, and any diagnostic results supporting the discharge/admit diagnosis, lab results, the need for outpatient follow up, to return to the emergency department if symptoms worsen or persist or if there are any questions or concerns that arise at home. Response to treatment: the patient's symptoms have markedly improved after treatment, and as a result, I will discharge patient. Special discussion: I discussed with the patient/guardian in detail that at this point there is no indication for admission to the hospital. It is understood, however, that if the symptoms persist or worsen the patient needs to return immediately for re-evaluation. Based on the history and exam findings, there is no indication for further emergent testing or inpatient evaluation. I discussed with the patient/guardian the need to see the urologist for further evaluation of the symptoms. ED course: Patient monitored here for 4-1/2 hours. Pain well-controlled. Patient wants to go home. Will discharge home with medication to assist in passing the stone.. 07/21 06:35 Order name: CBC with Diff; Complete Time: 07:57 rt 07/21 06:35 Order name: CMP; Complete Time: 07:57 rt 07/21 06:35 Order name: Lipase; Complete Time: 07:57 rt 07/21 06:35 Order name: Urinalysis w/ reflexes; Complete Time: 09:00 rt 07/21 06:35 Order name: CT Abd/Pelvis - IV Contrast Only; Complete Time: 08:04 rt 07/21 06:35 Order name: IV Saline Lock; Complete Time: 06:52 rt 07/21 06:35 Order name: Labs collected and sent; Complete Time: 06:52 rt Administered Medications: 06:52 Drug: Ondansetron IVP 4 mg IVP once; over 2 minutes Route: IVP; Site: right antecubital;lg3 08:19 Follow up: Response: No adverse reaction; Nausea is decreased ss 06:52 Drug: morphine IVP or IV 4 mg IVP once over 4 mins Route: IVP; Infused Over: 4 mins; lg3 Site: right antecubital; 08:19 Follow up: Response: No adverse reaction; Pain is decreased ss 06:52 Drug: NS 0.9% IV 1000 ml IV at 1 bolus Per protocol; to be given as a bolus over 60 lg3 minutes Route: IV; Rate: 1 bolus; Site: right antecubital; 08:00 Follow up: IV Status: Completed infusion; IV Intake: 1000ml ss 08:31 Drug: Magnesium Sulfate IVPB 1 grams IVPB once over 1 hrs Route: IVPB; Infused Over: 1 ss hrs; Site: right antecubital; 09:30 Follow up: IV Status: Completed infusion; IV Intake: 100ml ss 08:31 Drug: Flomax PO 0.4 mg PO once Route: PO; ss 10:43 Follow up: Response: No adverse reaction ss 09:04 Drug: Ketorolac IVP 15 mg IVP once Route: IVP; Site: right antecubital; ss 10:43 Follow up: Response: No adverse reaction; Pain is decreased ss Disposition Summary: 07/21/24 10:28 Discharge Ordered Notes: Location: Home rn Problem: new rn Symptoms: have improved rn Condition: Stable rn Diagnosis - Calculus of ureter rn Followup: rn - With: Siva Wilson MD - When: As needed - Reason: Recheck today's complaints, Re-evaluation by your physician Discharge Instructions: - Discharge Summary Sheet rn - Kidney Stones rn - Renal Colic rn - Dietary Guidelines to Help Prevent Kidney Stones rn Forms: - Medication Reconciliation Form rn - Antibiotic international trade analyst - Prescription Opioid Use rn - Patient Portal Instructions rn - Leadership Thank You Letter rn - Work release form Prescriptions: - Flomax 0.4 mg Oral capsule - take 1 capsule ORAL route every 24 hours Stop taking once you feel that you rn have passed your stone. Can make you dizzy and lightheaded.; 12 capsule; Refills: 0, Product Selection Permitted - ondansetron 4 mg Oral Tablet,disintegrating - take 1 tablet ORAL route every 8 hours As needed; 12 tablet; Refills: 0, rn Product Selection Permitted - Cipro 500 mg Oral Tablet - take 1 tablet ORAL route every 12 hours for 7 days; 14 tablet; Refills: 0, rn Product Selection Permitted - Tramadol 50 mg Oral Tablet - take 1 tablet ORAL route every 8 hours as needed; 12 tablet; Refills: 0, rn Product Selection Permitted Signatures: Dispatcher [employer] Rene Leblanc MD MD rn Blanchard, Shelby, RN RN ss Malinda Manzanares RN RN lg3 aMnasa Benitez RN RN vc1 Jerald Matos MD MD rt
[2024-07-21 11:03] VITALS: BP 141/81; O2SAT 100
== END 2024-07-21 10:42 | disposition home or self-care (01) ==
LOC: ER 06:06
DX: N20.1 Calculus of ureter (principal); R73.03 Prediabetes; E03.9 Hypothyroidism, unspecified
CPT/HCPCS: 96365; 96361; 85025; 81001; 36415; 83690; 80053; 74177; 96375; 99284; Q9967; J3475; J2405; J7030